=== PATIENT | female | born 1945 | race Caucasian/White ===

== ENCOUNTER 2017-09-05 17:14 | Emergency (ER) | payer OTHER ==
[~2017-09-05] VITALS: Ht 167.6 cm; Wt 88.4 kg
[~2017-09-05 17:14] MED LIST: BUPR-79 PO; LISI-461 PO; MIRT15TA2 PO
[2017-09-05] MEDS ORDERED: ACETAMINOPHEN 500 MG TAB PO STA (17:21)
[2017-09-05 17:23] VITALS: TEMP 36.7; Ht 167.6 cm; Wt 88.4 kg
--- NOTE | 2017-09-05 17:29 | EMERGENCY ROOM VISIT NOTE ---
History Report prepared by Samuel: Trip Jordan Under the Supervision of: Dr. Maximo Naylor D.O. First contact with patient: 17:12 Stated Complaint: BACK & HIP PAIN, FALL History of Present Illness The patient is a 72 year old female who presents to the Emergency Room with complaints of lower back pain that began this afternoon. At this time, the patient experienced a fall. She called EMS to be evaluated at her home. She refused to go to the hospital at that time. Thirty minutes ago, EMS was called back to her home for pain. She does not remember why EMS was called and was rating her pain a 10/10 in severity. Upon arrival to the hospital, she is complaining of lower back pain that she rates a 6/10 in severity. Per EMS, there have been problems in the past where the patient would complain of generalized pain that she would try to receive pain medication for. She would then give these medications to her boyfriend. She denies any head trauma, loss of consciousness, headache, chest pain, abdominal pain, shortness of breath, or other abnormal symptoms. Her back pain worsens with movement. She has not taken any medications for her pain and has no known medication allergies. Source of History: patient Onset: this afternoon Position: back (lower) Symptom Intensity: 6/10 Quality: ache Timing: constant Modifying Factors (Worsening): movement Associated Symptoms: No LOC, No headache, No chest pain, No SOB, No abdominal pain Review of Systems See HPI for pertinent positives & negatives. A total of 10 systems reviewed and were otherwise negative. Past Medical & Surgical Medical Problems: (1) Dysthymic disorder (2) Pyelonephritis (3) Renal calculus, left (4) Renal colic Surgical Problems: (1) H/O eye surgery (2) History of tonsillectomy (3) History of tubal ligation Family History Cancer Social History Smoking Status: Former Smoker Drug Use: none Marital Status: in relationship Occupation Status: unemployed Current/Historical Medications Scheduled Carbamazepine (Tegretol), 200 MG PO DAILY Sertraline (Zoloft), 100 MG PO DAILY Allergies Coded Allergies: No Known Allergies (Unverified , 09/05/17) Physical Exam Vital Signs Date Time Temp Pulse Resp B/P (MAP) Pulse Ox O2 Delivery O2 Flow Rate FiO2 09/05/17 19:37 82 18 156/102 96 09/05/17 17:23 36.7 90 18 151/102 96 Room Air Physical Exam GENERAL: Patient is awake, alert, and in no acute distress. Patient is resting comfortably and showing no signs of anxiety EYES: The conjunctivae are clear. The pupils are round and reactive. EARS, NOSE, MOUTH AND THROAT: The nose is without any evidence of any deformity. Mucous membranes are moist tongue is midline NECK: The neck is nontender and supple. RESPIRATORY: Normal respiratory effort is noted there is no evidence of wheezing rhonchi or rales CARDIOVASCULAR: Regular rate and rhythm noted there no murmurs rubs or gallops normal S1 normal S2 GASTROINTESTINAL: The abdomen is soft. Bowel sounds are present in all quadrants. Abdomen is nontender BACK: Lower lumbar spine has tenderness to palpation, right greater than left. ROM appeared to be intact. MUSCULOSKELETAL/EXTREMITIES: There is no evidence of gross deformity full range of motion is noted in the hips and shoulders SKIN: Pedal edema bilaterally. There is no obvious evidence of any rash. There are no petechiae, pallor or cyanosis noted. NEUROLOGIC: Patient is awake alert and oriented x3 strength is symmetric patellar reflexes are 2+ bilaterally Medical Decision & Procedures ER Provider Diagnostic Interpretation: Radiology results as stated below per my review and radiologist interpretation: PELVIS 1 OR 2 VIEW ROUTINE CLINICAL HISTORY: fall pain COMPARISON: None. DISCUSSION: Mild degenerative changes throughout. No acute bony abnormality. No acetabular protrusion. There is no evidence for soft tissue swelling. IMPRESSION: Mild degenerative change. No acute process. The above report was generated using voice recognition software. It may contain grammatical, syntax or spelling errors. Electronically signed by: Puneet Weiner M.D. 09/05/2017 6:20 PM Dictated Date/Time: 09/05/2017 6:19 PM L-SPINE MIN 4 VIEWS ROUTINE HISTORY: Trauma. Pain. fall COMPARISON: 06/11/2016 FINDINGS: Old compression deformity L1. Degenerative changes of the remaining osseous structures throughout. Degenerative disc changes throughout. No additional acute bony abnormality. Moderate degenerative change sacroiliac joints. No subluxation. Disc spaces are preserved. IMPRESSION: Degenerative change. Old compression deformity L1. No acute process. The above report was generated using voice recognition software. It may contain grammatical, syntax or spelling errors. Electronically signed by: Puneet Weiner M.D. 09/05/2017 6:22 PM Dictated Date/Time: 09/05/2017 6:20 PM Laboratory Results Test 09/05/17 18:20 Urine Color YELLOW Urine Appearance CLOUDY (CLEAR) Urine pH 7.5 (4.5-7.5) Urine Specific Bantam 1.020 (1.000-1.030) Urine Protein NEG (NEG) Urine Glucose (UA) NEG (NEG) Urine Ketones NEG (NEG) Urine Occult Blood NEG (NEG) Urine Nitrite NEG (NEG) Urine Bilirubin NEG (NEG) Urine Urobilinogen NEG (NEG) Urine Leukocyte Esterase SMALL (NEG) Urine WBC (Auto) 10-30 /hpf (0-5) Urine RBC (Auto) 0-4 /hpf (0-4) Urine Hyaline Casts (Auto) 5-10 /lpf (0-5) Urine Epithelial Cells (Auto) >30 /lpf (0-5) Urine Bacteria (Auto) NEG (NEG) Urine Renal Epithelial Cells 5-10 /lpf (0-5) Urine Yeast (Auto) (NONE PRSENT) Laboratory results per my review. Medications Administered Medications (Trade) Dose Ordered Sig/Reynaldo Route Start Time Stop Time Status Last Admin Dose Admin Acetaminophen (Tylenol Tab) 1,000 mg NOW STAT PO 09/05/17 17:21 09/05/17 17:22 DC 09/05/17 17:34 1,000 MG ED Course 1712: The patient was evaluated in room B7. A complete history and physical examination were performed. 1721: Ordered Tylenol Tab 1000 mg PO 1930: Upon reevaluation, the patient is resting. I discussed the results and treatment plan with her. She verbalized agreement of the treatment plan. She was discharged home. Medical Decision Differential diagnosis: Etiologies such as fracture, dislocation, intra-abdominal, pneumothorax, intrathoracic , intracranial, neurologic, as well as other traumatic pathologies were entertained. Nursing notes reviewed. The patient is a 72-year-old female who presented to emergency department for an evaluation after fall. Patient had a fall earlier today. The ambulance was called to her home but initially she refused transport. She returns tonight after having worsening symptoms. I discussed the patient's laboratory and radiographic studies with her. She was treated with pain medication in the emergency department. She was encouraged to rest and avoid any strenuous activity. She was also encouraged to call family to schedule follow-up appointment. Otherwise she was encouraged to return to the emergency department immediately if symptoms change worsen or the need arises. [place] Drug Monitoring Program Search Results: patient reviewed within database Medication Reconcilliation Current Medication List: was personally reviewed by me Blood Pressure Screening Patient's blood pressure: Elevated blood pressure Blood pressure disposition: Elevated BP felt to be situational Impression Primary Impression: Fall Additional Impression: Lumbar strain Scribe Attestation The scribe's documentation has been prepared under my direction and personally reviewed by me in its entirety. I confirm that the note above accurately reflects all work, treatment, procedures, and medical decision making performed by me. Departure Information Dispostion Home / Self-Care Referrals Vannesa Carrizales M.D. (PCP) Forms HOME CARE DOCUMENTATION FORM, IMPORTANT VISIT INFORMATION Patient Instructions ED Sprain Strain Lumbar, Falls Prevent Home, My [facility] Additional Instructions Call your family in the morning to schedule a follow-up appointment. Rest and avoid any strenuous activity. Continue using Motrin and Tylenol as directed for pain. Problem Qualifiers
[2017-09-05] MEDS ORDERED: SERT-234 PO (17:37)
[2017-09-05] MEDS ORDERED: CARB200T PO (17:37)
--- NOTE | 2017-09-05 18:21 | DIAGNOSTIC IMAGING REPORT ---
PELVIS 1 OR 2 VIEW ROUTINE CLINICAL HISTORY: fall pain COMPARISON: None. DISCUSSION: Mild degenerative changes throughout. No acute bony abnormality. No acetabular protrusion. There is no evidence for soft tissue swelling. IMPRESSION: Mild degenerative change. No acute process. The above report was generated using voice recognition software. It may contain grammatical, syntax or spelling errors. Electronically signed by: Puneet Weiner M.D. 09/05/2017 6:20 PM Dictated Date/Time: 09/05/2017 6:19 PM
--- NOTE | 2017-09-05 18:23 | DIAGNOSTIC IMAGING REPORT ---
L-SPINE MIN 4 VIEWS ROUTINE HISTORY: Trauma. Pain. fall COMPARISON: 06/11/2016 FINDINGS: Old compression deformity L1. Degenerative changes of the remaining osseous structures throughout. Degenerative disc changes throughout. No additional acute bony abnormality. Moderate degenerative change sacroiliac joints. No subluxation. Disc spaces are preserved. IMPRESSION: Degenerative change. Old compression deformity L1. No acute process. The above report was generated using voice recognition software. It may contain grammatical, syntax or spelling errors. Electronically signed by: Puneet Weiner M.D. 09/05/2017 6:22 PM Dictated Date/Time: 09/05/2017 6:20 PM
[2017-09-05 18:53] LABS: URINE APPEARANCE CLOUDY (CLEAR); URINE BILIRUBIN NEG (NEG); URINE COLOR YELLOW; URINE EPITHELIAL CELL AUTO >30 /lpf (0-5); URINE NITRITE NEG (NEG); URINE PH 7.5 (4.5-7.5); UROBILINOGEN NEG (NEG)
[2017-09-05 18:54] LABS: MANUAL MICROSCOPIC REQUIRED? NO; REVIEW REQ? YES
[2017-09-05 19:37] VITALS: BP 156/102; PULSE 82; O2SAT 96
== END 2017-09-05 19:39 | disposition home or self-care (01) ==
LOC: EDBD 17:14 → C.EDB 17:16
DX: S39.012A Strain of muscle, fascia and tendon of lower back, initial encounter (principal); W19.XXXA Unspecified fall, initial encounter; F34.1 Dysthymic disorder; Z87.891 Personal history of nicotine dependence; Z80.9 Family history of malignant neoplasm, unspecified

== ENCOUNTER 2018-02-19 15:41 | Emergency (ER) | payer OTHER ==
[~2018-02-19] VITALS: Ht 167.6 cm; Wt 88.0 kg
[~2018-02-19 15:41] MED LIST changes: -BUPR-79 PO; +CARB200T PO; -LISI-461 PO; -MIRT15TA2 PO; +SERT-234 PO
[2018-02-19 15:52] VITALS: BP 145/90; PULSE 80; TEMP 37.2; O2SAT 96; Ht 167.6 cm; Wt 88.0 kg
--- NOTE | 2018-02-19 16:13 | EMERGENCY ROOM VISIT NOTE ---
History Report prepared by Samuel: Amanda Martines Under the Supervision of: Dr. Luca Qureshi M.D. First contact with patient: 16:00 Chief Complaint: SHORTNESS OF BREATH Stated Complaint: SOB, ANXIETY Nursing Triage Summary: Patient arrives via BLS from home. PT stated "I woke up recently and felt SOB and anxious. I recently had a friend/family member pass away and I am a nervous wreck." PT stated "I feel much better now and just want to go home. 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 She notes that one of her friends recently and this was on her mind when she became SOB. She is unsure of how long her SOB lasted but feels much better now and would like to go home. She denies a cough, chest pain, congestion, or recent infections. She has been in baseline health lately. 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 A total of 10 systems reviewed and were otherwise negative. Past Medical & Surgical Medical Problems: (1) Dysthymic disorder (2) Pyelonephritis (3) Renal calculus, left (4) Renal colic Surgical Problems: (1) H/O eye surgery (2) History of tonsillectomy (3) History of tubal ligation Family History Cancer Social History Smoking Status: Never Smoker Drug Use: none Marital Status: in relationship Occupation Status: unemployed Current/Historical Medications Scheduled Carbamazepine (Tegretol), 200 MG PO DAILY Sertraline (Zoloft), 100 MG PO DAILY Allergies Coded Allergies: No Known Allergies (Unverified , 02/19/18) Physical Exam Vital Signs Date Time Temp Pulse Resp B/P (MAP) Pulse Ox O2 Delivery O2 Flow Rate FiO2 02/19/18 15:52 96 Room Air 02/19/18 15:52 96 Room Air 02/19/18 15:52 37.2 80 18 145/90 96 Room Air Physical Exam GENERAL: Patient is in no acute distress. HEENT: No acute trauma, normocephalic atraumatic, mucous membranes moist, no nasal congestion, no scleral icterus. NECK: No stridor, no adenopathy, no meningismus, trachea is midline. LUNGS: Clear to auscultation bilaterally, no wheeze, no rhonchi, breath sounds equal. HEART: Without murmurs gallops or rubs, regular rate and rhythm. ABDOMEN: Soft, nontender, bowel sounds positive, no hernias, no peritonitis. EXTREMITIES: No cyanosis or edema, full range of motion of all the joints without pain or difficulty, no signs for acute trauma. NEUROLOGIC: Oriented x 3, no acute motor or sensory deficits, no focal weakness. SKIN: No rash, no jaundice, no diaphoresis. PSYCH: Cooperative, voluntary, does not seem anxious, not suicidal Medical Decision & Procedures ED Course 1603: The patient was evaluated in room C11. A complete history and physical exam was performed. 1610: Reevaluated the patient. Discussed results and discharge instructions: She verbalized understanding and agreement. The patient is ready for discharge. Medical Decision Differential diagnosis: Etiologies such as anxiety, panic, pneumonia, bronchitis, cardiac ischemia, dysrhythmia, arrhythmia, ME, as well as others were entertained. The patient presents with an episode of shortness of breath which has resolved prior to arrival. She has been in baseline health. She has not had chest pain or cough or congestion. No fever. She does carry a history of anxiety. She was thinking about a friend who just and then became short of breath. Since arriving in the ER, she feels back to baseline and actually would like to be discharged home. On exam, the patient's lungs are clear, her heart sounds are regular without murmurs. Her O2 saturation is adequate, her heart rate is adequate, her blood pressure is adequate. She has really no findings on exam, she is not suicidal and no longer seems anxious. The patient was discharged, she can return if worsening. This appears like an episode of anxiety related to the of her friend. Medication Reconcilliation Current Medication List: was personally reviewed by me Blood Pressure Screening Patient's blood pressure: Elevated blood pressure Blood pressure disposition: Elevated BP felt to be situational Impression Primary Impression: SOB (shortness of breath) Additional Impression: Anxiety Scribe Attestation The scribe's documentation has been prepared under my direction and personally reviewed by me in its entirety. I confirm that the note above accurately reflects all work, treatment, procedures, and medical decision making performed by me. Departure Information Dispostion Home / Self-Care Referrals Vannesa Carrizales M.D. (PCP) Forms HOME CARE DOCUMENTATION FORM, IMPORTANT VISIT INFORMATION Patient Instructions My [facility] Additional Instructions return if worsening or have chest pain exam today was normal heart and lungs were normal oxygen level and heart rate were normal Problem Qualifiers
== END 2018-02-19 16:15 | disposition home or self-care (01) ==
LOC: EDBD 15:41 → C.EDC 15:42
DX: F41.9 Anxiety disorder, unspecified (principal); R03.0 Elevated blood-pressure reading, without diagnosis of hypertension; Z79.899 Other long term (current) drug therapy

== ENCOUNTER 2018-05-28 05:06 | Emergency (ER) | payer OTHER ==
[~2018-05-28] VITALS: Ht 162.6 cm; Wt 90.0 kg
[2018-05-28 05:09] VITALS: TEMP 36.7; Ht 162.6 cm; Wt 90.0 kg
--- NOTE | 2018-05-28 05:17 | EMERGENCY ROOM VISIT NOTE ---
History Report prepared by Samuel: Lex Espinal Under the Supervision of: Dr. Radha Rivera D.O. First contact with patient: 05:07 Stated Complaint: SHORTNESS OF BREATH History of Present Illness The patient is a 73 year old female who presents to the Emergency Room with complaints of an episode of SOB beginning this morning. The patient states that her SOB began this morning when she woke up on her own. She notes that she felt SOB when she was sitting up but she reports that she is unsure if her SOB woke her up. The patient states that she felt fine before she went to bed. She notes that she does not currently feel SOB, but she reports that she "feels scared." She reports that her legs are swollen. She denies any CP, cough, abdominal pain , and recent car rides. She also denies starting any new medications. The patient states that she lives alone and might have "gotten worked up." She notes that her boyfriend moved out a few months ago. She reports that she has a previous history of pneumonia when she was a child. The patient states that she does not smoke cigarettes. Source of History: patient Onset: this morning Position: chest Quality: other (SOB) Timing: other (an episode) Associated Symptoms: No cough, No chest pain, No abdominal pain Note: The patient also complains of swollen legs. Review of Systems See HPI for pertinent positives & negatives. A total of 10 systems reviewed and were otherwise negative. Past Medical & Surgical Medical Problems: (1) Dysthymic disorder (2) Pyelonephritis (3) Renal calculus, left (4) Renal colic Surgical Problems: (1) H/O eye surgery (2) History of tonsillectomy (3) History of tubal ligation Family History Cancer Social History Smoking Status: Never Smoker Drug Use: none Marital Status: in relationship Housing Status: lives alone Occupation Status: retired Current/Historical Medications Scheduled Carbamazepine (Tegretol), 200 MG PO DAILY Sertraline (Zoloft), 100 MG PO DAILY Allergies Coded Allergies: No Known Allergies (Unverified , 05/28/18) Physical Exam Vital Signs Date Time Temp Pulse Resp B/P (MAP) Pulse Ox O2 Delivery O2 Flow Rate FiO2 05/28/18 06:16 76 18 166/102 97 Room Air 05/28/18 05:25 77 05/28/18 05:09 36.7 74 18 171/116 95 Room Air 05/28/18 05:09 95 Room Air Physical Exam HEENT: Head - normocephalic and atraumatic Pupils are equal, round, and reactive to light. Extraocular eye muscles are intact, and sclera are anicteric. Nose - moist nasal mucosa without discharge. Mouth - moist buccal mucosa. Oropharynx is nonerythematous and there is no tonsillar exudate or edema noted. Neck: Supple; no JVD, nuchal rigidity, cervical lymphadenopathy, or auscultated bruits. Heart: Regular rate and rhythm. There is a normal S1 and S2 with no murmurs, clicks, or gallops appreciated. Lungs: Clear to auscultation bilaterally with no wheezes, rales, or rhonchi. Abdomen: Soft, completely nontender, nondistended, with good bowel sounds. There are no palpable pulsatile masses or hepatosplenomegaly. There is no guarding, rigidity, or rebound noted. Extremities: No evidence of cyanosis and clubbing. There are easily palpable peripheral pulses. 2+ pitting edema in both legs. Skin: warm and dry with good turgor and no rashes. Medical Decision & Procedures ER Provider Diagnostic Interpretation: Radiology results as stated below per my review and interpretation: CHEST X-RAY: Borderline cardiomegaly. No obvious pulmonary consolidations or infiltrates. Mild chronic interstitial thickening. Unchanged from previous chest x-ray in 2016. Radiology results as stated below per my review and the radiologist's interpretation: CT ANGIOGRAM OF THE CHEST FINDINGS: No pathologically enlarged axillary mediastinal or hilar lymph nodes were visualized. There was no evidence of thoracic aortic dilatation. There were no pulmonary artery filling defects to indicate acute pulmonary embolism. No pleural effusions are visualized. There was no evidence of focal pulmonary consolidation. 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 There is a hiatal hernia. IMPRESSION: 1. No evidence of acute pulmonary embolism 2. Tracheomalacia 3. No evidence of focal pulmonary consolidation Electronically signed by: Sam Lazo M.D. 05/28/2018 6:52 AM Laboratory Results 05/28/18 05:20 Red Blood Count 4.12, Mean Corpuscular Volume 92.5, Mean Corpuscular Hemoglobin 30.1, Mean Corpuscular Hemoglobin Concent 32.5, Mean Platelet Volume 10.4, Neutrophils (%) (Auto) 47.8, Lymphocytes (%) (Auto) 42.1, Monocytes (%) (Auto) 5.5, Eosinophils (%) (Auto) 4.2, Basophils (%) (Auto) 0.2, Neutrophils # (Auto) 2.87, Lymphocytes # (Auto) 2.52, Monocytes # (Auto) 0.33, Eosinophils # (Auto) 0.25, Basophils # (Auto) 0.01 05/28/18 05:20 Test 05/28/18 05:20 White Blood Count 5.99 K/uL (4.8-10.8) Red Blood Count 4.12 M/uL (4.2-5.4) Hemoglobin 12.4 g/dL (12.0-16.0) Hematocrit 38.1 % (37-47) Mean Corpuscular Volume 92.5 fL (80-100) Mean Corpuscular Hemoglobin 30.1 pg (25-34) Mean Corpuscular Hemoglobin Concent 32.5 g/dl (32-36) Platelet Count 207 K/uL (130-400) Mean Platelet Volume 10.4 fL (7.4-10.4) Neutrophils (%) (Auto) 47.8 % Lymphocytes (%) (Auto) 42.1 % Monocytes (%) (Auto) 5.5 % Eosinophils (%) (Auto) 4.2 % Basophils (%) (Auto) 0.2 % Neutrophils # (Auto) 2.87 K/uL (1.4-6.5) Lymphocytes # (Auto) 2.52 K/uL (1.2-3.4) Monocytes # (Auto) 0.33 K/uL (0.11-0.59) Eosinophils # (Auto) 0.25 K/uL (0-0.5) Basophils # (Auto) 0.01 K/uL (0-0.2) RDW Standard Deviation 45.6 fL (36.4-46.3) RDW Coefficient of Variation 13.5 % (11.5-14.5) Immature Granulocyte % (Auto) 0.2 % Immature Granulocyte # (Auto) 0.01 K/uL (0.00-0.02) D-Dimer 750 ug/L FEU (0-500) Anion Gap 6.0 mmol/L (3-11) Est Creatinine Clear Calc Drug Dose 87.7 ml/min Estimated GFR () 103.9 Estimated GFR (Non- 89.6 BUN/Creatinine Ratio 16.0 (10-20) Calcium Level 7.9 mg/dl (8.5-10.1) Troponin I < 0.015 ng/ml (0-0.045) Pro-B-Type Natriuretic Peptide 316 pg/ml (0-900) Laboratory results per my review. ECG Per My Interpretation Indication: SOB/dyspnea Rate (beats per minute): 74 Rhythm: normal sinus Findings: no ectopy, other (No ischemia, no ST segment changes) ED Course 0508: The patient was evaluated in room B4. A complete history and physical examination were performed. Nursing notes and previous electronic medical records were reviewed. IV lock was established and labs were drawn as above. A 12-lead EKG was obtained. A chest x-ray was performed and was unremarkable. 0607: The patient's blood pressure is 183/105.. The patient had an elevated d- dimer. She went for a CT scan of the chest to rule out PE. 0626: I reevaluated and updated the patient. 0658: Upon reevaluation, the patient is stable. I discussed findings and results with her. She verbalized agreement of the treatment plan. The patient is feeling much better at this time and admits that she may have just had anxiety which caused her to feel short of breath. She states that her boyfriend moved out about 1 month ago and she misses him. I have asked the patient to follow-up with her PCP with regards to her blood pressure and if she has further episodes of shortness of breath. The patient was discharged home. Medical Decision The patient is a 73 year old female who presents to the Emergency Room with complaints of an episode of SOB beginning this morning. Differential diagnoses include: PE, CHF, pneumonia, and anxiety. Lab Results Show: No leukocytosis. Stable H&H. Normal renal function and glucose. Normal BNP and troponin. D dimer 750. This is a 73-year-old female patient presents to the emergency department with a sudden onset of shortness of breath. Chest x-ray was unremarkable. O2 saturations are stable. She had no associated chest pain. She had negative cardiac enzymes and negative BNP. CT scan of the chest was negative for PE. The patient is feeling well at the time of discharge. This may have been related to anxiety. Medication Reconcilliation Current Medication List: was personally reviewed by me Blood Pressure Screening Patient's blood pressure: Elevated blood pressure Blood pressure disposition: Referred to PCP Impression Primary Impression: Shortness of breath Additional Impression: Anxiety Scribe Attestation The scribe's documentation has been prepared under my direction and personally reviewed by me in its entirety. I confirm that the note above accurately reflects all work, treatment, procedures, and medical decision making performed by me. Departure Information Dispostion Home / Self-Care Referrals Vannesa Carrizales M.D. (PCP) Forms HOME CARE DOCUMENTATION FORM, IMPORTANT VISIT INFORMATION Patient Instructions [facility] Additional Instructions Follow up with your doctor if episode of shortness of breath continue. Follow up also to have your BP rechecked. Problem Qualifiers
[2018-05-28 05:40] LABS: BASO % 0.2 %; BASO ABS # 0.01 K/uL (0-0.2); EOS % 4.2 %; EOS ABS # 0.25 K/uL (0-0.5); HEMATOCRIT 38.1 % (37-47); HEMOGLOBIN 12.4 g/dL (12.0-16.0); IG# 0.01 K/uL (0.00-0.02); LYMPH % 42.1 %; LYMPH ABS # 2.52 K/uL (1.2-3.4); MEAN CELL VOLUME 92.5 fL (80-100); MEAN CORPUSCULAR HEMOGLOBIN 30.1 pg (25-34); MEAN CORPUSCULAR HGB CONC 32.5 g/dl (32-36); MEAN PLATELET VOLUME 10.4 fL (7.4-10.4); MONO % 5.5 %; MONO ABS # 0.33 K/uL (0.11-0.59); NEUT % 47.8 %; NEUT ABS # 2.87 K/uL (1.4-6.5); PLATELET COUNT 207 K/uL (130-400); RED CELL DISTRIBUTION WIDTH CV 13.5 % (11.5-14.5); RED CELL DISTRIBUTION WIDTH SD 45.6 fL (36.4-46.3); WHITE BLOOD COUNT 5.99 K/uL (4.8-10.8)
[2018-05-28 06:01] LABS: BLOOD UREA NITROGEN 10 mg/dl (7-18); CALCIUM 7.9 mg/dl (8.5-10.1); CARBON DIOXIDE 28 mmol/L (21-32); CREATININE 0.63 mg/dl (0.60-1.20); GLUCOSE 88 mg/dl (70-99); POTASSIUM 3.8 mmol/L (3.5-5.1); SODIUM 143 mmol/L (136-145)
[2018-05-28] MEDS ORDERED: OPTIRAY 320 IV PRN (06:30)
--- NOTE | 2018-05-28 06:39 | DIAGNOSTIC IMAGING REPORT ---
CHEST 2 VIEWS ROUTINE CLINICAL HISTORY: Shortness of breath COMPARISON STUDY: June 02, 2016 FINDINGS: The cardiac and mediastinal contours remain stable. There is a retrocardiac opacity consistent with a hiatal hernia. There is no failure. There is no focal pulmonary consolidation. There are no pleural effusions. There are peritendinous calcifications at the level of the left shoulder possibly secondary to calcific tendinitis.[ IMPRESSION: No active disease in the chest. Electronically signed by: Sam Lazo M.D. 05/28/2018 6:38 AM Dictated Date/Time: 05/28/2018 6:37 AM
--- NOTE | 2018-05-28 06:53 | DIAGNOSTIC IMAGING REPORT ---
CT ANGIOGRAM OF THE CHEST CLINICAL HISTORY: Atypical chest pain and shortness of breath. COMPARISON STUDY: Chest x-ray dated May 28, 2018 TECHNIQUE: Following the IV administration of 116 mL of Optiray-320, CT angiogram of the thorax was performed from the thoracic inlet to the lung bases utilizing the pulmonary embolus protocol. Images are reviewed in the axial, sagittal, and coronal planes. IV contrast was administered without complication. MIP imaging was performed. A dose lowering technique was utilized adhering to the principles of ALARA. CT DOSE: 483.27 mGy.cm FINDINGS: No pathologically enlarged axillary mediastinal or hilar lymph nodes were visualized. There was no evidence of thoracic aortic dilatation. There were no pulmonary artery filling defects to indicate acute pulmonary embolism. No pleural effusions are visualized. There was no evidence of focal pulmonary consolidation. 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 There is a hiatal hernia. IMPRESSION: 1. No evidence of acute pulmonary embolism 2. Tracheomalacia 3. No evidence of focal pulmonary consolidation Electronically signed by: Sam Lazo M.D. 05/28/2018 6:52 AM Dictated Date/Time: 05/28/2018 6:48 AM
[2018-05-28 07:22] VITALS: BP 147/98; PULSE 73; O2SAT 95
== END 2018-05-28 07:24 | disposition home or self-care (01) ==
LOC: C.EDB 05:06 → EDBD 05:06 → C.EDB 07:24
DX: R06.02 Shortness of breath (principal); F41.9 Anxiety disorder, unspecified; R79.1 Abnormal coagulation profile; R03.0 Elevated blood-pressure reading, without diagnosis of hypertension; F34.1 Dysthymic disorder

== ENCOUNTER 2020-09-21 13:19 | Inpatient (IN) ==
[2020-09-21] MEDS ORDERED: SODIUM CHLORIDE 0.9% 500 ML IV ONE (14:18)
--- NOTE | 2020-09-21 14:23 | Emergency Department Note ---
Impression & Plan Ambulatory dysfunction, Altered mental status, Dementia ED Provider Note NAME: SILVANO ZULETA AGE: 75 SEX: F ARRIVES VIA: Walk-In INFORMANT: Patient, ED PROVIDER(S): Mark Bowens MD CHIEF COMPLAINT: Generalized weakness, confusion PLAN: Disposition: Admit MEDICAL DECISION MAKING: The patient is a 75-year-old woman with a past medical history of dementia, dysthymic disorder who presents emerge department accompanied by [facility] residential case manager for evaluation of worsening confusion and generalized weakness with 2 episodes where she was found in the morning on the ground by her home nursing. The patient is accompanied by her residential case manager and describes her concern that the patient does live alone within their facility and while she has daily nursing care they are not there at all hours and she is concerned that her mental status and strength has declined now with 2 unwitnessed on clear falls and does not feel that she is safe in her current circumstances. They additionally note that the patient has not been taking care of herself and will not perform self hygiene and despite being prescribed antifungal medications she does not dose this in the evening and this is worsened. He also notes she has had increasing lower extremity swelling as well. They deny any known cough, fevers, vomiting, diarrhea, urinary symptoms. On arrival the patient is in no acute distress, afebrile stable vital signs. She is alert to self and place but poorly aware of situation. Despite repeated attempts to describe the concerns that exist regarding her safety at home including frequent falls and lack of self-care when we repeatedly asked the patient what we are concerned about she replies "I do not know I want to go home". Despite repeated attempts to allow the patient to demonstrate capacity she is unable to express even simply in her own words are concerns for her safety and risks of benefits of going against medical recommendations. Therefore at this time the patient is considered to NOT have medical decision-ma reg capacity. Unfortunately the patient does not have any family or alternate decision-maker and this will need to be further clarified during a hospitalization given that she is severely weak where she is unable to ambulate without 2 person assist. Otherwise, No focal motor neurologic deficits and is moving all extremities equally albeit with generalized weakness with 4/5 strength. Her abdomen Lower abdomen/pannus exhibits a beefy red erythematous rash consistent with yeast dermatitis. No warmth, tenderness, crepitus. EKG without overt acute ischemia. Chest x-ray negative for acute card iopulmonary process. WBC, H/H and platelets within normal limits. Chemistry without metabolic acidosis. Calcium is slightly low at 7.0 and electrolytes otherwise unremarkable. Troponin negative/undetectable. UA without evidence of infection. COVID-19 rapid antigen screening test was negative. CT of the head demonstrates stable severe hydrocephalus. Otherwise no ICH, ischemia or severe narrowing or occlusion of large vessels. Case was discussed with [facility] PAC, [facility] who will evaluate the patient for admission. Triage Nursing notes reviewed and agree them. Additional history obtained from patient's residential case manager. Prior medical records reviewed Vital Signs: reviewed and remarkable for no significant abnormalities Differential diagnosis: Infection, dehydration, metabolic abnormality, hypo/hyperglycemia, electrolyte disturbance, anemia, hypoxia, cardiac sources, intracerebral event, toxicologic, neurologic, as well as other pathologies. ER treatment provided: See below. Diagnostics interpreted by me: ECG: Sinus rhythm, 81 bpm, no ectopy, nonspecific ST abnormality, no overt ST elevation or depression, QTC 504, QRS 76. Cardiac Monitoring: An order for continuous cardiac monitoring was placed and demonstrated sinus rhythm, 81 bpm, no ectopy. Laboratory studies: See below Imaging studies: XR chest 1V portable CLINICAL HISTORY: Atypical chest pain COMPARISON STUDY: 10/17/2019 FINDINGS: The heart is mildly enlarged. There is mild chronic interstitial prominence. A small hiatal hernia is suspected. There is no acute parenchymal consolidation. There is no overt failure. There are no pleural effusions.[ IMPRESSION: 1. Stable mild cardiomegaly. No acute findings. - CT head/brain wo con CLINICAL HISTORY: confusion, weakness COMPARISON STUDY: 02/07/2019 TECHNIQUE: Axial CT of the brain is performed from the vertex to the skull base. IV contrast was not administered for this examination. A dose lowering technique was utilized adhering to the principles of ALARA. CT DOSE: 1893.60 mGycm FINDINGS: No intra or extra-axial mass lesions are visualized. There is no CT evidence of acute cortical infarction. There is no evidence of midline shift. There is no acute hemorrhage. No calvarial fractures are visualized. There is severe hydrocephalus similar to the preceding study. 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 There is no evidence of acute sinusitis IMPRESSION: 1. No acute intracranial findings 2. Severe hydrocephalus, unchanged from the prior study. -- CT ANGIOGRAM OF THE BRAIN; CT ANGIOGRAM OF THE NECK CLINICAL HISTORY: Change in mental status. Weakness. COMPARISON STUDY: Unenhanced CT of the brain performed the same day 09/21/[address] of the brain dated 02/07/2019. TECHNIQUE: Following the IV administration of 120 of Optiray 320, CT angiogram of the head and neck was performed from the aortic arch to the vertex. Images a re reviewed in the axial, sagittal, and coronal planes. 3-D MIPS images are created and assessed. IV contrast was administered without complication. All measurements were calculated based on NASCET criteria. A dose lowering technique was utilized adhering to the principles of ALARA. The examination is modestly degraded by motion artifact. CT DOSE: 1223.61 mGycm FINDINGS: Brain parenchyma: There is marked ventriculomegaly consistent with hydrocephalus and associated cortical atrophy. This is similar to prior studies. There is no hemorrhage, mass effect, or evidence of acute territorial ischemia by CT criteria. There is no evidence of enhancing mass lesion on the angiogram phase images. There is marked dilatation of the lateral ventricles and the third ventricle out of proportion to the cortical sulci and cisterns. Pop-white matter differentiation is preserved. No extra-axial fluid collection is seen. Thoracic aorta: Visualized portions of the thoracic aorta are normal in caliber. The aortic arch demonstrates bovine variant anatomy. Right carotid arterial system: The right common carotid artery is widely patent, as are the right internal and external carotid arteries. Left carotid arterial system: The left common carotid artery is widely patent, as are the left internal and external carotid arteries. Vertebral arteries: The vertebral arteries are widely patent bilaterally noting left-sided dominance. Subclavian arteries: Widely patent bilaterally. Intracranial vasculature: The internal carotid arteries are patent at the skull base, as are the anterior and middle cerebral arteries bilaterally. The vertebrobasilar system and posterior cerebral arteries are widely patent. The left vertebral artery is dominant. The right vertebral artery terminates as the PICA. There is no aneurysm, high-grade stenosis, or focal vessel cut off seen throughout the intracranial circulation. Jugular veins: Patent bilaterally. Dural sinuses: Patent. Lung apices: Partially visualized upper lobe lung parenchyma appears clear. Soft tissues: The visualized pharyngeal soft tissues are normal in appearance noting angiographic phase technique. The oropharyngeal airway appears widely patent. The thyroid gland is heterogeneous. The salivary glands are normal in appearance. No cervical lymphadenopathy is seen. Skeletal structures: The skeletal structures are osteopenic. The calvarium appears intact. The cervical spine is maintained noting multilevel spondylosis. No lytic or blastic lesion is identified. Sinuses and mastoids: The paranasal sinuses are clear. The mastoid air cells are well pneumatized. IMPRESSION: 1. There is no hemorrhage, mass effect, or evidence of acute territorial ischemia by CT criteria noting angiographic phase technique. 2. Marked hydrocephalus is similar to previous. 3. Unremarkable CT angiogram of the brain. 3. Unremarkable CT angiogram of the neck. Consultation(s): Case was discussed with Dianelys Stoner, with Dr. Anh Ivory hospitalist who will evaluate the patient for admission. HPI: The patient is a 75-year-old woman with a past medical history of dementia, dysthymic disorder who presents emerge department accompanied by [facility] residential case manager for evaluation of worsening confusion and generalized weakness with 2 episodes where she was found in the morning on the ground by her home nursing. The patient is accompanied by her residential case manager and describes her concern that the patient does live alone within their facility and while she has daily nursing care they are not there at all hours and she is concerned that her mental status and strength has declined now with 2 unwitnessed on clear falls and does not feel that she is safe in her current circumstances. They additionally note that the patient has not been taking care of herself and will not perform self hygiene and despite being prescribed antifungal medications she does not dose this in the evening and this is worsened. He also notes she has had increasing lower extremity swelling as well. They deny any known cough, fevers, vomiting, diarrhea, urinary symptoms. ROS: See above HPI for pertinent positives & negatives. A total of 10 systems reviewed and were otherwise negative. PAST MEDICAL HISTORY:See Below PAST SURGICAL HISTORY:See Below FAMILY HISTORY:See Below SOCIAL HISTORY:See Below HOME MEDICATIONS:See Below ALLERGIES:See Below VITALS:See Below PHYSICAL EXAMINATION: GENERAL: Awake, alert, fatigued-appearing, in no distress HENT: Normocephalic, atraumatic. Oropharynx with dry mucous membranes and otherwise unremarkable. EYES: Normal conjunctiva. Sclera non-icteric. NECK: Supple. No nuchal rigidity. FROM. No JVD. RESPIRATORY: Clear to auscultation. CARDIAC: Regular rate, normal rhythm. Extremities warm and well perfused. Pulses equal. ABDOMEN: Soft, non-distended. No tenderness to palpation. No rebound or guarding. No masses. RECTAL: Deferred. MUSCULOSKELETAL: Chest examination reveals no tenderness. The back is s ymmetrical on inspection without obvious abnormality. There is no CVA tenderness to palpation. No joint edema. LOWER EXTREMITIES: Calves are equal size bilaterally and non-tender. Scant BLE edema. No discoloration. NEURO: Normal sensorium. No sensory or motor deficits noted. SKIN: Lower abdomen/pannus with beefy red erythematous rash consistent with yeast dermatitis. No warmth, tenderness, crepitus. No jaundice noted. Mark Bowens MD Past Med/Surg History Medical History Anxiety Chronic venous stasis Congenital hydrocephalus MDD (major depressive disorder) Surgical History H/O eye surgery "Strabismus Surgery" History of tonsillectomy History of tubal ligation Hx of tonsillectomy Family History Other Cancer Diabetes Social History Smoking Status: Never smoker Hx Alcohol Use: Yes Alcohol type: hard liquor Hx Substance Use: No Preferred Language: Frisian Communication Ability: Effective Beliefs That Will Affect Care: None Current Living Situation: Alone Current Living Situation Comment: [facility] Palumbo comes to home Feels Safe at Home: Yes Safety Concerns: Feels Safe At This Time Assistive Devices: Glasses and Walker Allergies Allergies Allergy/AdvReac Type Severity Reaction Status Date / Time No Known Allergies Allergy Unverified 09/21/20 14:35 Home Meds Home Medications Medication Instructions Recorded Confirmed carbamazepine 200 mg PO BID 02/07/19 09/21/20 donepezil 10 mg PO DAILY 09/06/19 09/21/20 omeprazole 20 mg PO DAILY 10/12/19 09/21/20 clotrimazole-betamethasone 1 applic TOPICAL BID 09/21/20 09/21/20 furosemide 20 mg PO DAILY 09/21/20 09/21/20 sertraline 100 mg PO DAILY 09/21/20 09/21/20 Results & Data (ED) Vital Signs Vital Signs - 24 hr 09/21/20 13:36 09/21/20 14:08 09/21/20 15:19 Temperature 37 C Temperature Source Oral Pulse Rate 78 Pulse Rate [Right Finger] 79 Respiratory Rate 18 18 Respiratory Effort / Characteristics Non-Labored Non-Labored Spontaneous Respiratory Depth Normal Normal Respiratory Pattern Regular Blood Pressure 142/96 H Blood Pressure [Right Arm] 143/94 H Blood Pressure Mean 111 Blood Pressure Mean [Right Arm] 110 Blood Pressure Position [Right Arm] Sitting Pulse Oximetry 96 94 95 Oxygen Delivery Method Room Air Room Air Room Air Sepsis Recent Fever Within 48 Hours No Sepsis New/Unexplained Change in Mental Status No Sepsis Action Taken by Nursing No Action Required 09/21/20 16:21 Temperature Temperature Source Pulse Rate Pulse Rate [Right Finger] 81 Respiratory Rate 18 Respiratory Effort / Characteristics Non-Labored Spontaneous Respiratory Depth Normal Respiratory Pattern Regular Blood Pressure Blood Pressure [Right Arm] 161/90 H Blood Pressure Mean Blood Pressure Mean [Right Arm] 113 Blood Pressure Position [Right Arm] Sitting Pulse Oximetry 95 Oxygen Delivery Method Room Air Sepsis Recent Fever Within 48 Hours Sepsis New/Unexplained Change in Mental Status Sepsis Action Taken by Nursing Laboratory Data Attestation: I reviewed the patient's lab results. Result diagrams: 09/21/20 14:54 09/21/20 14:54 Lab Results 09/21/20 09/21/20 09/21/20 Range/Units 14:18 14:54 14:54 WBC 10.03 (4.8-10.8) K/uL RBC 3.94 L (4.2-5.4) M/uL Hgb 12.1 (12.0-16.0) g/dL Hct 37.8 (37-47) % MCV 95.9 (80-100) fL MCH 30.7 (25-34) pg MCHC 32.0 (32-36) g/dL RDW Std Deviation 47.9 H (36.4-46.3) fL RDW Coeff of Virgilio 13.7 (11.5-14.5) % Plt Count 284 (130-400) K/uL MPV 10.0 (7.4-10.4) fL Immature Gran % (Auto) 0.1 % Neut % (Auto) 77.7 % Lymph % (Auto) 13.3 % [place] % (Auto) 8.0 % Eos % (Auto) 0.8 % Baso % (Auto) 0.1 % Neut # (Auto) 7.80 H (1.4-6.5) K/uL Lymph # (Auto) 1.33 (1.2-3.4) K/uL [place] # (Auto) 0.80 H (0.11-0.59) K/uL Eos # (Auto) 0.08 (0-0.5) K/uL Baso # (Auto) 0.01 (0-0.2) K/uL Immature Gran # (Auto) 0.01 (0.00-0.02) K/uL PT 10.7 (9.0-12.0) Seconds INR 1.0 (0.9-1.1) APTT 28.9 (21.0-31.0) Seconds PTT Ratio 1.0 Sodium (136-145) mmol/L Potassium (3.5-5.1) mmol/L Chloride (98-107) mmol/L Carbon Dioxide (21-32) mmol/L Anion Gap (3-11) BUN (7-18) mg/dl Creatinine (0.6-1.2) mg/dl Est Cr Clr Drug Dosing ml/min Est GFR ( Amer) Est GFR (Non-Af Amer) BUN/Creatinine Ratio (10-20) Glucose (70-99) mg/dl Calcium (8.5-10.1) mg/dl Phosphorus (2.5-4.9) mg/dl Magnesium (1.8-2.4) mg/dl Total Bilirubin (0.2-1) mg/dl Direct Bilirubin (0-0.2) mg/dl AST (15-37) U/L ALT (12-78) U/L Alkaline Phosphatase (45-117) U/L Troponin I (0-0.045) ng/ml Total Protein (6.4-8.2) gm/dl Albumin (3.4-5.0) gm/dl Globulin (2.5-4.0) gm/dl Albumin/Globulin Ratio (0.9-2) Lipase (73-393) U/L TSH (0.300-4.500) uIu/ml Urine Color Urine Appearance (Clear) Urine pH (4.5-7.5) Ur Specific [place] (1.000-1.030) Urine Protein (Negative) Urine Glucose (UA) (Negative) Urine Ketones (Negative) Urine Blood (Negative) Urine Nitrite (Negative) Urine Bilirubin (Negative) Urine Urobilinogen (Negative) Ur Leukocyte Esterase (Negative) Carbamazepine (4-12) mcg/ml SARS-CoV-2 Ag (Rapid) Negative (Negative) 09/21/20 09/21/20 09/21/20 Range/Units 14:54 14:54 16:22 WBC (4.8-10.8) K/uL RBC (4.2-5.4) M/uL Hgb (12.0-16.0) g/dL Hct (37-47) % MCV (80-100) fL MCH (25-34) pg MCHC (32-36) g/dL RDW Std Deviation (36.4-46.3) fL RDW Coeff of Virgilio (11.5-14.5) % Plt Count (130-400) K/uL MPV (7.4-10.4) fL Immature Gran % (Auto) % Neut % (Auto) % Lymph % (Auto) % [place] % (Auto) % Eos % (Auto) % Baso % (Auto) % Neut # (Auto) (1.4-6.5) K/uL Lymph # (Auto) (1.2-3.4) K/uL [place] # (Auto) (0.11-0.59) K/uL Eos # (Auto) (0-0.5) K/uL Baso # (Auto) (0-0.2) K/uL Immature Gran # (Auto) (0.00-0.02) K/uL PT (9.0-12.0) Seconds INR (0.9-1.1) APTT (21.0-31.0) Seconds PTT Ratio Sodium 143 (136-145) mmol/L Potassium 3.9 (3.5-5.1) mmol/L Chloride 106 (98-107) mmol/L Carbon Dioxide 33 H (21-32) mmol/L Anion Gap 4.0 (3-11) BUN 13 (7-18) mg/dl Creatinine 0.66 (0.6-1.2) mg/dl Est Cr Clr Drug Dosing 92.1 ml/min Est GFR ( Amer) 100.9 Est GFR (Non-Af Amer) 87.0 BUN/Creatinine Ratio 20.0 (10-20) Glucose 103 H (70-99) mg/dl Calcium 7.0 L (8.5-10.1) mg/dl Phosphorus 3.2 (2.5-4.9) mg/dl Magnesium 2.0 (1.8-2.4) mg/dl Total Bilirubin 0.4 (0.2-1) mg/dl Direct Bilirubin 0.1 (0-0.2) mg/dl AST 23 (15-37) U/L ALT 14 (12-78) U/L Alkaline Phosphatase 119 H (45-117) U/L Troponin I < 0.015 (0-0.045) ng/ml Total Protein 7.2 (6.4-8.2) gm/dl Albumin 3.2 L (3.4-5.0) gm/dl Globulin 4.0 (2.5-4.0) gm/dl Albumin/Globulin Ratio 0.8 L (0.9-2) Lipase 103 (73-393) U/L TSH 0.971 (0.300-4.500) uIu/ml Urine Color Yellow Urine Appearance Clear (Clear) Urine pH 8.0 H (4.5-7.5) Ur Specific [place] > 1.045 H (1.000-1.030) Urine Protein Negative (Negative) Urine Glucose (UA) Negative (Negative) Urine Ketones Trace H (Negative) Urine Blood Negative (Negative) Urine Nitrite Negative (Negative) Urine Bilirubin Negative (Negative) Urine Urobilinogen Negative (Negative) Ur Leukocyte Esterase Negative (Negative) Carbamazepine 7.5 (4-12) mcg/ml SARS-CoV-2 Ag (Rapid) (Negative) Administered Medications Betamethasone/Clotrimazole (Clotrimazole/Betamethasone Cr 15 Gm Tube) 1 appln EXT BID [facility] Stop: 10/21/20 21:59 Last Admin: 09/21/20 22:46 Dose: 1 appln Documented by: [id number] Calcium Carbonate (Calcium Carbonate 1250mg Tab) 1,250 mg PO BID [facility] Stop: 10/21/20 21:59 Last Admin: 09/21/20 22:46 Dose: 1,250 mg Documented by: [id number] Carbamazepine (Carbamazepine 200 Mg Tablet) 200 mg PO BID DANIELLA Stop: 10/21/20 21:59 Last Admin: 09/21/20 22:46 Dose: 200 mg Documented by: [id number] Heparin Sodium (Porcine) (Heparin Sod 5,000 Unit/0.5 Ml Vial) 7,500 units SQ Q8 DANIELLA Stop: 10/21/20 21:59 Last Admin: 09/21/20 22:45 Dose: 7,500 units Documented by: [id number] Discontinued Medications Sodium Chloride (Nss) 500 mls @ 999 mls/hr IV .Q31M ONE Stop: 09/21/20 14:48 Last Infusion: 09/21/20 15:43 Dose: 0 mls/hr Documented by: [id number] Admin: 09/21/20 15:10 Dose: 999 mls/hr Documented by: [id number] Ioversol (Optiray 320 125ml) 120 ml IV ONCE ONE Stop: 09/21/20 15:56 Last Admin: 09/21/20 15:56 Dose: 120 ml Documented by: [id number] Discharge Plan Visit Data Chief Complaint: Fall Stated Complaint: FELL/EDEMA IN LEGS ED Provider: Mark Bowens Discharge Problem: Ambulatory dysfunction, Altered mental status, Dementia Patient Disposition: Admitted As Inpatient Discharge Instructions Interventions: ED Discharge Assessment Last Done: 09/21/20 21:37 Discharge Problem: Altered mental status Qualifiers: Altered mental status type: unspecified Qualified Code(s): R41.82 - Altered mental status, unspecified Dementia Qualifiers: Dementia type: unspecified type Dementia behavioral disturbance: with behavioral disturbance Qualified Code(s): F03.91 - Unspecified dementia with behavioral disturbance
[2020-09-21 15:06] LABS: Basophils # (auto) 0.01 K/uL (0-0.2); Basophils % (auto) 0.1 %; Eosinophils # (auto) 0.08 K/uL (0-0.5); Eosinophils % (auto) 0.8 %; Hematocrit (blood only) 37.8 % (37-47); Hemoglobin 12.1 g/dL (12.0-16.0); Immature Granulocytes # (auto) 0.01 K/uL (0.00-0.02); Immature Granulocytes % (auto) 0.1 %; Lymphocytes # (auto) 1.33 K/uL (1.2-3.4); Lymphocytes % (auto) 13.3 %; Mean Corpuscular Hemoglobin 30.7 pg (25-34); Mean Corpuscular Volume 95.9 fL (80-100); Neutrophils % (auto) 77.7 %; Platelet Count 284 K/uL (130-400); RDW Coefficient of Variation 13.7 % (11.5-14.5); RDW Standard Deviation 47.9 fL (36.4-46.3); Red Blood Count 3.94 M/uL (4.2-5.4); White Blood Count 10.03 K/uL (4.8-10.8)
[2020-09-21 15:24] LABS: Alanine Aminotransferase 14 U/L (12-78); Albumin Level 3.2 gm/dl (3.4-5.0); Aspartate Aminotransferase 23 U/L (15-37); Bilirubin Direct 0.1 mg/dl (0-0.2); Blood Urea Nitrogen 13 mg/dl (7-18); Carbon Dioxide 33 mmol/L (21-32); Chloride 106 mmol/L (98-107); Creatinine Clr Calc Pharmacy 92.1 ml/min; Est GFR (African American) 100.9; Glucose 103 mg/dl (70-99); Lipase 103 U/L (73-393); Potassium 3.9 mmol/L (3.5-5.1); Sodium 143 mmol/L (136-145)
[2020-09-21 15:25] LABS: Partial Thromboplastin Time 28.9 Seconds (21.0-31.0); Prothrombin Time 10.7 Seconds (9.0-12.0)
[2020-09-21 15:33] LABS: Albumin Globulin Ratio 0.8 (0.9-2); Alkaline Phosphatase 119 U/L (45-117); Bilirubin,Total 0.4 mg/dl (0.2-1); Phosphorus 3.2 mg/dl (2.5-4.9); Thyroid Stimulating Hormone 0.971 uIu/ml (0.300-4.500); Total Protein 7.2 gm/dl (6.4-8.2); Troponin I < 0.015 ng/ml (0-0.045)
[2020-09-21] MEDS ORDERED: OPTIRAY 320 125ml IV ONE (15:55)
--- NOTE | 2020-09-21 16:00 | CT Scan Report ---
CT head/brain wo con CLINICAL HISTORY: confusion, weakness COMPARISON STUDY: 02/07/2019 TECHNIQUE: Axial CT of the brain is performed from the vertex to the skull base. IV contrast was not administered for this examination. A dose lowering technique was utilized adhering to the principles of ALARA. CT DOSE: 1893.60 mGycm FINDINGS: No intra or extra-axial mass lesions are visualized. There is no CT evidence of acute cortical infarc tion. There is no evidence of midline shift. There is no acute hemorrhage. No calvarial fractures ar e visualized. There is severe hydrocephalus similar to the preceding study. There is absence of the septum pellucid um, and interventricular septum.. There is no evidence of acute sinusitis IMPRESSION: 1. No acute intracranial findings 2. Severe hydrocephalus, unchanged from the prior study. ACT 112: Negative or not required by law. Electronically signed by: Sam Lazo M.D. 09/21/2020 3:58 PM
--- NOTE | 2020-09-21 16:08 | CT Scan Report ---
CT ANGIOGRAM OF THE BRAIN; CT ANGIOGRAM OF THE NECK CLINICAL HISTORY: Change in mental status. Weakness. COMPARISON STUDY: Unenhanced CT of the brain performed the same day 09/21/[address] of the brain d ated 02/07/2019. TECHNIQUE: Following the IV administration of 120 of Optiray 320, CT angiogram of the head and neck w as performed from the aortic arch to the vertex. Images are reviewed in the axial, sagittal, and joi nal planes. 3-D MIPS images are created and assessed. IV contrast was administered without complicati on. All measurements were calculated based on NASCET criteria. A dose lowering technique was utilize d adhering to the principles of ALARA. The examination is modestly degraded by motion artifact. CT DOSE: 1223.61 mGycm FINDINGS: Brain parenchyma: There is marked ventriculomegaly consistent with hydrocephalus and associated corti shar atrophy. This is similar to prior studies. There is no hemorrhage, mass effect, or evidence of ac flandre[place] territorial ischemia by CT criteria. There is no evidence of enhancing mass lesion on the angiogr am phase images. There is marked dilatation of the lateral ventricles and the third ventricle out of proportion to the cortical sulci and cisterns. Pop-white matter differentiation is preserved. No ext ra-axial fluid collection is seen. Thoracic aorta: Visualized portions of the thoracic aorta are normal in caliber. The aortic arch demo nstrates bovine variant anatomy. Right carotid arterial system: The right common carotid artery is widely patent, as are the right int ernal and external carotid arteries. Left carotid arterial system: The left common carotid artery is widely patent, as are the left healthcare administration internship al and external carotid arteries. Vertebral arteries: The vertebral arteries are widely patent bilaterally noting left-sided dominance. Subclavian arteries: Widely patent bilaterally. Intracranial vasculature: The internal carotid arteries are patent at the skull base, as are the ante rior and middle cerebral arteries bilaterally. The vertebrobasilar system and posterior cerebral gracie armando are widely patent. The left vertebral artery is dominant. The right vertebral artery terminates as the PICA. There is no aneurysm, high-grade stenosis, or focal vessel cut off seen throughout the i ntracranial circulation. Jugular veins: Patent bilaterally. Dural sinuses: Patent. Lung apices: Partially visualized upper lobe lung parenchyma appears clear. Soft tissues: The visualized pharyngeal soft tissues are normal in appearance noting angiographic pha se technique. The oropharyngeal airway appears widely patent. The thyroid gland is heterogeneous. The salivary glands are normal in appearance. No cervical lymphadenopathy is seen. Skeletal structures: The skeletal structures are osteopenic. The calvarium appears intact. The cervic al spine is maintained noting multilevel spondylosis. No lytic or blastic lesion is identified. Sinuses and mastoids: The paranasal sinuses are clear. The mastoid air cells are well pneumatized. IMPRESSION: 1. There is no hemorrhage, mass effect, or evidence of acute territorial ischemia by CT criteria noti ng angiographic phase technique. 2. Marked hydrocephalus is similar to previous. 3. Unremarkable CT angiogram of the brain. 3. Unremarkable CT angiogram of the neck. ACT 112: Negative or not required by law. Electronically signed by: Luca Avila M.D. 09/21/2020 4:07 PM
--- NOTE | 2020-09-21 16:18 | XRay Report ---
XR chest 1V portable CLINICAL HISTORY: Atypical chest pain COMPARISON STUDY: 10/17/2019 FINDINGS: The heart is mildly enlarged. There is mild chronic interstitial prominence. A small hiatal hernia is suspected. There is no acute parenchymal consolidation. There is no overt failure. There a re no pleural effusions.[ IMPRESSION: 1. Stable mild cardiomegaly. No acute findings. ACT 112: Negative or not required by law. Electronically signed by: Sam Lazo M.D. 09/21/2020 4:16 PM
[2020-09-21 16:31] LABS: Appearance Urine Clear (Clear); Bilirubin Urine Negative (Negative); Blood Urine Negative (Negative); Color Urine Yellow; Glucose Urine UA Negative (Negative); Ketones Urine Trace (Negative); Leukocyte Esterase Urine Negative (Negative); Nitrite Urine Negative (Negative); Protein Urine Negative (Negative); Specific Gravity Urine > 1.045 (1.000-1.030); Urobilinogen Urine Negative (Negative)
--- NOTE | 2020-09-21 17:57 | History & Physical Report ---
Date of Service September 21, 2020 Assessment & Plan (1) Altered mental status: (2) Ambulatory dysfunction: This is a 75yo F with a PMH of congenital hydrocephalus, dysthymic disorder, chronic venous stasis and other medical problems listed below who presents with AMS, generalized weakness and ambulatory dysfunction. -Worsening confusion and generalized weakness with 2 episodes where she was found in the morning on the ground by her home nursing -No focal neuro deficits, afebrile, no leukocytosis, initial troponin normal, UA without abnormality, carbamazepine level normal, covid antigen screen negative. CT of the head demonstrates stable severe hydrocephalus. CTA head/neck unremark able. CXR negative for acute CP process -Corrected calcium low at 7.2 - will replace -Alzheimer's and MDD at baseline as well as questionable medication compliance contributing to AMS - staff concerned that patient is unsafe to live alone -Utox pending. PT/OT evaluation. Discharge planning (3) MDD (major depressive disorder): (4) Anxiety: Continue SSRI, carbamazepine (5) AD (Alzheimer's disease): Continue Aricept (6) Fungal infection of skin: Non-compliant with Lotrisone cream at home - continue BID, wound care nurse consult (7) Chronic venous stasis: Continue home dose lasix, low sodium diet, compression stockings (8) Congenital hydrocephalus: DVT Ppx: SQ heparin Code status: FULL CODE for now. Per residential case manager, shelli are not very involved in care. Need to contact office of aging sales representative door to door, Lyudmila Clement during business hours ([phone]) PCP: Swapna Dispo: Admit to med/surg. PT/OT and discharge planning ordered. Patient seen in collaboration with Dr. Kamara. Please see addendum. History of Present Illness Chief Complaint: Ambulatory dysfunction, altered mental status Primary Care Provider: NO PCP This is a 75yo F with a PMH of congenital hydrocephalus, dysthymic disorder, chronic venous stasis and other medical problems listed below who presents with AMS, generalized weakness and ambulatory dysfunction. Patient presents with Jelm Palumbo residential case manager for evaluation of worsening confusion and generalized weakness with 2 episodes where she was found in the morning on the ground by her home nursing. Patient does live alone and has home health services. In additional to multiple falls, there is concern for medication compliance as well as poor hygiene. Patient was prescribed antifungal medication for abdominal folds but has not been using. Staff have also noticed worsening swelling in lower extremities. When asking the patient about her current state, she repeats "I just want to go home, I'm fine." Denies any chest pain, SOB, abdominal pain, dysuria, diarrhea or constipation. No fever, chills, lightheadedness or headache. Unable to obtain complete ROS 2/2 cognitive state. Patient is considered to not have medical decision-making capacity with Office of Aging involved in care. In ED, patient afebrile and hemodynamically stable. No leukocytosis, initial troponin normal, UA without abnormality, carbamazepine level normal, covid antigen screen negative. CT of the head demonstrates stable severe hydrocephalus. CTA head/neck unremarkable. CXR negative for acute cardiopulmonary process. Allergies Allergy/AdvReac Type Severity Reaction Status Date / Time No Known Allergies Allergy Unverified 09/21/20 14:35 Home Medications Medication Instructions Recorded Confirmed Type carbamazepine 200 mg PO BID 02/07/19 09/21/20 History donepezil 10 mg PO DAILY 09/06/19 09/21/20 History omeprazole 20 mg PO DAILY 10/12/19 09/21/20 History clotrimazole-betamethasone 1 applic TOPICAL BID 09/21/20 09/21/20 History furosemide 20 mg PO DAILY 09/21/20 09/21/20 History sertraline 100 mg PO DAILY 09/21/20 09/21/20 History Past Med/Surg History Medical History Anxiety Chronic venous stasis Congenital hydrocephalus MDD (major depressive disorder) Surgical History H/O eye surgery "Strabismus Surgery" History of tonsillectomy History of tubal ligation Hx of tonsillectomy Family History Other Cancer Diabetes Social History Smoking Status: Never smoker Preferred Language: Indonesian Feels Safe at Home: Yes Review of Systems Review of Systems: At least ten systems reviewed and negative except as noted in the HPI. Physical Exam Physical Exam: General Appearance: vitals as above, NAD, sitting up in bed, obese, agitated but able to be redirected Head: normocephalic, atraumatic Eyes: normal inspection, PERRL, conjunctivae normal, anicteric sclerae ENT: external ear and nose normal, oropharynx normal Neck: normal visual inspection, trachea midline, no thyromegaly Respiratory: normal respiratory effort, lungs clear to auscultation, no wheeze, rales, rhonchi. No accessory muscle use Cardiovascular: regular rate, rhythm, no murmur appreciated, normal peripheral pulses. Vessels: no JVD Chest: normal inspection of chest Abdomen/GI: normal bowel sounds, soft, nontender, no hepatosplenomegaly Extremities/Musculoskeletal: no cyanosis or clubbing, extremities motor strength 5/5, 1-2+ BLE edema of lower extremities with hyperpigmentation, no calf tenderness Neurologic: PERRL, EOMI, accommodation nl, no face palsy, no dysarthria, CN's II-XI intact bilaterally and moves all extremities Psychiatric: A+Ox3 but not to situation, dysthymic, poor insight & judgement Skin: normal color, warm/dry, + red scaling rash of abdominal folds Results & Data Results & Data ([facility]) Vital Signs (Past 12 Hours) Vital Signs Temp Pulse Pulse Resp BP BP Pulse Ox 09/21/20 16:21 81 18 161/90 H 95 09/21/20 15:19 79 18 143/94 H 95 09/21/20 14:08 94 09/21/20 13:36 37 C 78 18 142/96 H 96 Laboratory Results Short CBC 09/21/20 Range/Units 14:54 WBC 10.03 (4.8-10.8) K/uL Hgb 12.1 (12.0-16.0) g/dL Hct 37.8 (37-47) % Plt Count 284 (130-400) K/uL BMP 09/21/20 14:54 Sodium 143 Potassium 3.9 Chloride 106 Carbon Dioxide 33 H BUN 13 Creatinine 0.66 Glucose 103 H Calcium 7.0 L Cardiac Enzymes 09/21/20 Range/Units 14:54 Troponin I < 0.015 (0-0.045) ng/ml Liver Function 09/21/20 Range/Units 14:54 Total Bilirubin 0.4 (0.2-1) mg/dl Direct Bilirubin 0.1 (0-0.2) mg/dl AST 23 (15-37) U/L ALT 14 (12-78) U/L Alkaline Phosphatase 119 H (45-117) U/L Albumin 3.2 L (3.4-5.0) gm/dl Urine 09/21/20 Range/Units 16:22 Urine Color Yellow Urine Appearance Clear (Clear) Urine pH 8.0 H (4.5-7.5) Ur Specific [place] > 1.045 H (1.000-1.030) Urine Protein Negative (Negative) Urine Glucose (UA) Negative (Negative) Diagnostic Findings CT head: IMPRESSION: 1. No acute intracranial findings 2. Severe hydrocephalus, unchanged from the prior study. CTA head/neck: IMPRESSION: 1. There is no hemorrhage, mass effect, or evidence of acute territorial ischemia by CT criteria noting angiographic phase technique. 2. Marked hydrocephalus is similar to previous. 3. Unremarkable CT angiogram of the brain. 3. Unremarkable CT angiogram of the neck. CXR:IMPRESSION: 1. Stable mild cardiomegaly. No acute findings ECG Rhythm: sinus rhythm Findings: + nonspecific-ST abn Change: no significant change Code Status & VTE Plan VTE Prophylaxis Plan VTE Prophylaxis will be ordered: Yes Supervising Physician Co-Signing Physician Notes I saw this patient with the physician practice assistant, I participated in the history, physical, review of systems, and physical exam. I reviewed the medications with the patient and the physician practice assistant and helped reconcile the medications. I helped take a detailed family and social history as well. I formulated the assessment and plan personally with the physician practice assistant and went over it with the patient. Physical Exam Gen-AAO x 3, NAD, Afebrile, cantankerous Head-NCAT, EOMI, PERRLA, Anicteric Sclera, No Posterior Pharyngeal Erythema Neck-Supple, No JVD, No Thyromegaly, No Masses, No LAD, No Bruits Lungs-Clear to Auscultation Bilaterally, No Rales, No Rhonchi, No Wheezing, No Crepitus Chest-No S4, +S1, +S2, No S3, No Murmurs, No Rubs, No Gallops, No Ectopy Abdomen-Soft, Bowel Sounds Present, Non Tender, Non Distended, No Hepatomegaly, No Splenomegaly, No Palpable Masses, No Rebound, No Rigidity, No Guarding Musculoskeletal-Full Range of Motion Bilaterally, No CVAT Extremities-No Cyanosis, No Clubbing, No Edema, +Yeast like groin rash Nuero-Cranial Nerves II-XII grossly intact, Motor WNL, DTRs WNL, Strength WNL, Non Focal Psych-Normal Mood
[2020-09-21] MEDS ORDERED: ACETAMINOPHEN 325 MG TAB PO PRN (22:00)
[2020-09-21] MEDS ORDERED: POLYETHYLENE (MIRALAX) 17 GM PACK PO PRN (22:00)
[2020-09-21] MEDS: HEPARIN SOD 5,000 UNIT/0.5 ML VIAL SQ SCH (22:45)
[2020-09-21] MEDS: carBAMazepine 200 MG TABLET PO SCH (22:46)
[2020-09-21] MEDS: CLOTRIMAZOLE/BETAMETHASONE CR 15 GM TUBE EXT SCH (22:46)
[2020-09-21] MEDS: CALCIUM CARBONATE 1250MG TAB PO SCH (22:46)
[2020-09-21 23:04] LABS: Amphetamines+Metham, Urine Neg (Neg); Barbiturates, Urine Neg (Neg); Benzodiazepine, Urine Neg (Neg); Cocaine, Urine Neg (Neg); MDMA (Ecstacy), Urine Neg (Neg); Methadone, Urine Neg (Neg); Opiate, Urine Neg (Neg); Phencyclidine, Urine Neg (Neg)
--- NOTE | 2020-09-22 05:35 | Electrocardiogram Report ---
Test Reason : Blood Pressure : / mmHG Vent. Rate : 081 BPM Atrial Rate : 081 BPM P-R Int : 100 ms QRS Dur : 076 ms QT Int : 434 ms P-R-T Axes : 020 -14 016 degrees QTc Int : 504 ms Poor data quality, interpretation may be adversely affected Sinus rhythm with short AK When compared with ECG of 14-OCT-2019 11:57, No significant change was found Confirmed by Juan Duval ([id number]) on 09/22/2020 5:35:21 AM Referred By: REFERRED SELF Confirmed By:Juan Duval
[2020-09-22] MEDS: HEPARIN SOD 5,000 UNIT/0.5 ML VIAL SQ SCH ×3 (06:12→20:57)
[2020-09-22] MEDS: carBAMazepine 200 MG TABLET PO SCH ×2 (09:04→20:56)
[2020-09-22] MEDS: CLOTRIMAZOLE/BETAMETHASONE CR 15 GM TUBE EXT SCH ×2 (09:04→20:56)
[2020-09-22] MEDS: SERTRALINE HCL 100 MG TABLET PO SCH (09:04)
[2020-09-22] MEDS: CALCIUM CARBONATE 1250MG TAB PO SCH ×2 (09:04→20:56)
[2020-09-22] MEDS: FUROSEMIDE 20 MG TAB PO SCH (09:05)
[2020-09-22] MEDS: PANTOprazole 40 MG TAB PO SCH (09:05)
[2020-09-22] MEDS: DONEPEZIL HCL 10 MG TAB PO SCH (09:05)
[2020-09-22 09:33] LABS: Hematocrit (blood only) 39.1 % (37-47); Hemoglobin 12.4 g/dL (12.0-16.0); Mean Corpuscular Hemoglobin 30.5 pg (25-34); Mean Corpuscular Hgb Conc 31.7 g/dL (32-36); Mean Corpuscular Volume 96.3 fL (80-100); Mean Platelet Volume 10.2 fL (7.4-10.4); Platelet Count 285 K/uL (130-400); RDW Coefficient of Variation 13.6 % (11.5-14.5); RDW Standard Deviation 48.5 fL (36.4-46.3); Red Blood Count 4.06 M/uL (4.2-5.4); White Blood Count 6.91 K/uL (4.8-10.8)
[2020-09-22 09:54] LABS: BUN Creatinine Ratio 18.8 (10-20); Calcium 7.3 mg/dl (8.5-10.1); Creatinine Clr Calc Pharmacy 90.4 ml/min; Est GFR (African American) 101.4; Est GFR (Non-African American) 87.5; Potassium 3.6 mmol/L (3.5-5.1)
[2020-09-22] MEDS ORDERED: haloperidoL 5 MG TAB PO STA (13:25)
--- NOTE | 2020-09-22 18:36 | Hospitalist Progress Note ---
Date of Service September 22, 2020 Assessment & Plan (1) Altered mental status: (2) Ambulatory dysfunction: This is a 75yo F with a PMH of congenital hydrocephalus, dysthymic disorder, chronic venous stasis and other medical problems listed below who presents with AMS, generalized weakness and ambulatory dysfunction. -Worsening confusion and generalized weakness with 2 episodes where she was found in the morning on the ground by her home nursing -No focal neuro deficits, afebrile, no leukocytosis, initial troponin normal, UA without abnormality, carbamazepine level normal, covid antigen screen negative. CT of the head demonstrates stable severe hydrocephalus. CTA head/neck unremark able. CXR negative for acute CP process -Corrected calcium low at 7.2 - will replace -Alzheimer's and MDD at baseline as well as questionable medication compliance contributing to AMS - staff concerned that patient is unsafe to live alone -Utox pending. PT/OT evaluation. Discharge planning -Remains stable and wants to go home. Denies any symptoms -Awaiting PT and OT evaluation before plan for discharge (3) MDD (major depressive disorder): (4) Anxiety: Continue SSRI, carbamazepine Has been agitated this morning We will try small dose of oral Haldol (5) AD (Alzheimer's disease): Continue Aricept (6) Fungal infection of skin: Non-compliant with Lotrisone cream at home - continue BID, wound care nurse consult (7) Chronic venous stasis: Continue home dose lasix, low sodium diet, compression stockings (8) Congenital hydrocephalus: No acute issues. No headache. Nausea and or vomiting DVT Ppx: SQ heparin Code status: FULL CODE for now. Per welfare case worker, shelli are not very involved in care. Need to contact office of aging enrollment representative, Lyudmila Clement during business hours ([phone]) PCP: Swapna Dispo: Admit to med/surg. PT/OT and discharge planning ordered. Admission and Anticipated Discharge Date Admission Date: September 21, 2020 Subjective 09/22/2020 The patient was seen and examined in medical floor She has dementia and was admitted with mechanical fall Denies any symptoms today and she wants to go home to take care of her cat Review of Systems Review of Systems: All systems reviewed and are unremarkable except as noted below Physical Exam Physical Exam: Sitting on a chair without any apparent distress Constitutional: well developed and well nourished; no acute distress and not ill appearing Eyes: PERRL, conjunctivae normal, anicteric sclerae ENMT: external ear and nose normal, oropharynx normal Neck: trachea midline, no thyromegaly Respiratory: normal respiratory effort, lungs clear to auscultation Cardiovascular: Rate/Rhythm: regular rate and regular rhythm Heart Sounds: no murmur Extremities: no edema Gastrointestinal (Abdomen): Inspection/Auscultation: abdomen normal to inspection and normal bowel sounds; abdomen not distended Percussion/Palpation: abdomen soft; abdomen nontender Musculoskeletal: No arthritis involving any joint Neurologic: Alert, awake and oriented x3. No focal sensory and motor deficit appreciated Results & Data Results & Data ([facility]) Vital Signs (Past 12 Hours) Vital Signs Temp Pulse Resp BP Pulse Ox 09/22/20 15:32 36.6 C 73 18 138/92 95 09/22/20 07:10 36.6 C 79 16 136/94 92 Laboratory Results Short CBC 09/22/20 Range/Units 09:18 WBC 6.91 (4.8-10.8) K/uL Hgb 12.4 (12.0-16.0) g/dL Hct 39.1 (37-47) % Plt Count 285 (130-400) K/uL BMP 09/22/20 09:18 Sodium 144 Potassium 3.6 Chloride 107 Carbon Dioxide 32 BUN 12 Creatinine 0.65 Glucose 99 Calcium 7.3 L Medications Administered Current Inpatient Medications Acetaminophen (Acetaminophen 325 Mg Tab) 650 mg PO Q4H PRN PRN Reason: pain/fever Stop: 10/21/20 21:59 Betamethasone/Clotrimazole (Clotrimazole/Betamethasone Cr 15 Gm Tube) 1 appln EXT BID [facility] Stop: 10/21/20 21:59 Last Admin: 09/22/20 09:04 Dose: 1 appln Documented by: Calcium Carbonate (Calcium Carbonate 1250mg Tab) 1,250 mg PO BID [facility] Stop: 10/21/20 21:59 Last Admin: 09/22/20 09:04 Dose: 1,250 mg Documented by: Carbamazepine (Carbamazepine 200 Mg Tablet) 200 mg PO BID [facility] Stop: 10/21/20 21:59 Last Admin: 09/22/20 09:04 Dose: 200 mg Documented by: Donepezil HCl (Donepezil Hcl 10 Mg Tab) 10 mg PO DAILY [facility] Stop: 10/22/20 08:59 Last Admin: 09/22/20 09:05 Dose: 10 mg Documented by: Furosemide (Furosemide 20 Mg Tab) 20 mg PO DAILY [facility] Stop: 10/22/20 08:59 Last Admin: 09/22/20 09:05 Dose: 20 mg Documented by: Heparin Sodium (Porcine) (Heparin Sod 5,000 Unit/0.5 Ml Vial) 7,500 units SQ Q8 DANIELLA Stop: 10/21/20 21:59 Last Admin: 09/22/20 14:36 Dose: Not Given Documented by: Pantoprazole Sodium (Pantoprazole 40 Mg Tab) 40 mg PO DAILY [facility]; Protocol Stop: 10/22/20 08:59 Last Admin: 09/22/20 09:05 Dose: 40 mg Documented by: Polyethylene Glycol (Polyethylene (Miralax) 17 Gm Pack) 17 gm PO DAILY PRN PRN Reason: Constipation Stop: 10/21/20 21:59 Sertraline HCl (Sertraline Hcl 100 Mg Tablet) 100 mg PO DAILY [facility] Stop: 10/22/20 08:59 Last Admin: 09/22/20 09:04 Dose: 100 mg Documented by: (1) Altered mental status Altered mental status type: unspecified Qualified Code(s): R41.82 - Altered mental status, unspecified
[2020-09-23] MEDS: HEPARIN SOD 5,000 UNIT/0.5 ML VIAL SQ SCH ×3 (05:30→21:56)
[2020-09-23 07:43] LABS: Basophils # (auto) 0.01 K/uL (0-0.2); Basophils % (auto) 0.2 %; Eosinophils # (auto) 0.19 K/uL (0-0.5); Hematocrit (blood only) 36.6 % (37-47); Hemoglobin 11.5 g/dL (12.0-16.0); Immature Granulocytes # (auto) 0.02 K/uL (0.00-0.02); Immature Granulocytes % (auto) 0.3 %; Lymphocytes # (auto) 1.53 K/uL (1.2-3.4); Lymphocytes % (auto) 23.9 %; Mean Corpuscular Hemoglobin 30.1 pg (25-34); Mean Corpuscular Hgb Conc 31.4 g/dL (32-36); Mean Corpuscular Volume 95.8 fL (80-100); Mean Platelet Volume 9.8 fL (7.4-10.4); Monocytes # (auto) 0.53 K/uL (0.11-0.59); Monocytes % (auto) 8.3 %; Neutrophils # (auto) 4.13 K/uL (1.4-6.5); Neutrophils % (auto) 64.3 %; Platelet Count 256 K/uL (130-400); RDW Coefficient of Variation 13.6 % (11.5-14.5); RDW Standard Deviation 47.5 fL (36.4-46.3); Red Blood Count 3.82 M/uL (4.2-5.4); White Blood Count 6.41 K/uL (4.8-10.8)
[2020-09-23 08:22] LABS: BUN Creatinine Ratio 19.8 (10-20); Calcium 7.5 mg/dl (8.5-10.1); Creatinine Clr Calc Pharmacy 90.4 ml/min; Est GFR (African American) 101.4; Est GFR (Non-African American) 87.5; Potassium 3.7 mmol/L (3.5-5.1)
[2020-09-23] MEDS: SERTRALINE HCL 100 MG TABLET PO SCH (08:29)
[2020-09-23] MEDS: PANTOprazole 40 MG TAB PO SCH (08:29)
[2020-09-23] MEDS: CLOTRIMAZOLE/BETAMETHASONE CR 15 GM TUBE EXT SCH ×2 (08:31→20:11)
[2020-09-23] MEDS: CALCIUM CARBONATE 1250MG TAB PO SCH ×2 (08:31→20:12)
[2020-09-23] MEDS: DONEPEZIL HCL 10 MG TAB PO SCH (08:31)
[2020-09-23] MEDS: FUROSEMIDE 20 MG TAB PO SCH (08:31)
[2020-09-23] MEDS: carBAMazepine 200 MG TABLET PO SCH ×2 (08:32→20:12)
[2020-09-23] MEDS ORDERED: MIDAZOLAM HCL 1 MG/ML 2ML VIAL ONE (10:44)
[2020-09-23] MEDS ORDERED: PROPOFOL IV EMULSION 10 MG/ML 20 ML VIAL IV ONE (10:44)
[2020-09-23] MEDS ORDERED: LIDOCAINE HCL 2% 2 ML VIAL/AMP(20MG/ML) INFIL ONE (10:44)
[2020-09-23] MEDS ORDERED: fentaNYL citrate 100 MCG/2 ML VIAL ONE (10:44)
--- NOTE | 2020-09-23 15:39 | Hospitalist Progress Note ---
Date of Service September 23, 2020 Assessment & Plan (1) Altered mental status: (2) Ambulatory dysfunction: This is a 75yo F with a PMH of congenital hydrocephalus, dysthymic disorder, chronic venous stasis and other medical problems listed below who presents with AMS, generalized weakness and ambulatory dysfunction. -Worsening confusion and generalized weakness with 2 episodes where she was found in the morning on the ground by her home nursing -No focal neuro deficits, afebrile, no leukocytosis, initial troponin normal, UA without abnormality, carbamazepine level normal, covid antigen screen negative. CT of the head demonstrates stable severe hydrocephalus. CTA head/neck unremark able. CXR negative for acute CP process -Corrected calcium low at 7.2 - will replace -Alzheimer's and MDD at baseline as well as questionable medication compliance contributing to AMS - staff concerned that patient is unsafe to live alone -Utox pending. PT/OT evaluation. Discharge planning -Remains stable and wants to go home. Denies any symptoms -Awaiting PT and OT evaluation before plan for discharge -PT and OT and the caregivers recommended rehab -marketing and promotions manager is working on that (3) MDD (major depressive disorder): (4) Anxiety: Continue SSRI, carbamazepine Has been agitated this morning We will try small dose of oral Haldol (5) AD (Alzheimer's disease): Continue Aricept (6) Fungal infection of skin: Non-compliant with Lotrisone cream at home - continue BID, wound care nurse consult (7) Chronic venous stasis: Continue home dose lasix, low sodium diet, compression stockings (8) Congenital hydrocephalus: No acute issues. No headache. Nausea and or vomiting DVT Ppx: SQ heparin Code status: FULL CODE for now. Per case consultant, sons are not very involved in care. Need to contact office of aging printing supplies sales representative, Lyudmila Clement during business hours ([phone]) PCP: Swapna Dispo: Admit to med/surg. PT/OT and discharge planning ordered. Admission and Anticipated Discharge Date Admission Date: September 21, 2020 Subjective 09/22/2020 The patient was seen and examined in medical floor She has dementia and was admitted with mechanical fall Denies any symptoms today and she wants to go home to take care of her cat 09/23/2020 The patient was seen and examined in medical floor She remains stable and denies any pain and/or symptoms She wants to go home but she will need to go to rehab as per PT and OT and the caregiver Review of Systems Review of Systems: All systems reviewed and are unremarkable except as noted below Physical Exam Physical Exam: Sitting on a chair without any apparent distress Constitutional: well developed and well nourished; no acute distress and not ill appearing Eyes: PERRL, conjunctivae normal, anicteric sclerae ENMT: external ear and nose normal, oropharynx normal Neck: trachea midline, no thyromegaly Respiratory: normal respiratory effort, lungs clear to auscultation Cardiovascular: Rate/Rhythm: regular rate and regular rhythm Heart Sounds: no murmur Extremities: no edema Gastrointestinal (Abdomen): Inspection/Auscultation: abdomen normal to inspection and normal bowel sounds; abdomen not distended Percussion/Palpation: abdomen soft; abdomen nontender Musculoskeletal: No acute arthritis in any joint Neurologic: Alert, awake and oriented x3. Pleasantly confused Psychiatric: Judgement: + limited judgement Lymphatic: no cervical or axillary lymphadenopathy Results & Data Results & Data ([facility]) Vital Signs (Past 12 Hours) Vital Signs Temp Pulse Resp BP BP Pulse Ox 09/23/20 14:48 36.4 C L 79 18 112/68 96 09/23/20 07:16 36.5 C 80 18 144/85 H 94 Laboratory Results Short CBC 09/23/20 Range/Units 07:31 WBC 6.41 (4.8-10.8) K/uL Hgb 11.5 L (12.0-16.0) g/dL Hct 36.6 L (37-47) % Plt Count 256 (130-400) K/uL BMP 09/23/20 07:31 Sodium 145 Potassium 3.7 Chloride 108 H Carbon Dioxide 34 H BUN 13 Creatinine 0.65 Glucose 93 Calcium 7.5 L Medications Administered Current Inpatient Medications Acetaminophen (Acetaminophen 325 Mg Tab) 650 mg PO Q4H PRN PRN Reason: pain/fever Stop: 10/21/20 21:59 Betamethasone/Clotrimazole (Clotrimazole/Betamethasone Cr 15 Gm Tube) 1 appln EXT BID [facility] Stop: 10/21/20 21:59 Last Admin: 09/23/20 08:31 Dose: 1 appln Documented by: Calcium Carbonate (Calcium Carbonate 1250mg Tab) 1,250 mg PO BID [facility] Stop: 10/21/20 21:59 Last Admin: 09/23/20 08:31 Dose: 1,250 mg Documented by: Carbamazepine (Carbamazepine 200 Mg Tablet) 200 mg PO BID [facility] Stop: 10/21/20 21:59 Last Admin: 09/23/20 08:32 Dose: 200 mg Documented by: Donepezil HCl (Donepezil Hcl 10 Mg Tab) 10 mg PO DAILY [facility] Stop: 10/22/20 08:59 Last Admin: 09/23/20 08:31 Dose: 10 mg Documented by: Furosemide (Furosemide 20 Mg Tab) 20 mg PO DAILY [facility] Stop: 10/22/20 08:59 Last Admin: 09/23/20 08:31 Dose: 20 mg Documented by: Heparin Sodium (Porcine) (Heparin Sod 5,000 Unit/0.5 Ml Vial) 7,500 units SQ Q8 [facility] Stop: 10/21/20 21:59 Last Admin: 09/23/20 05:30 Dose: Not Given Documented by: Pantoprazole Sodium (Pantoprazole 40 Mg Tab) 40 mg PO DAILY [facility]; Protocol Stop: 10/22/20 08:59 Last Admin: 09/23/20 08:29 Dose: 40 mg Documented by: Polyethylene Glycol (Polyethylene (Miralax) 17 Gm Pack) 17 gm PO DAILY PRN PRN Reason: Constipation Stop: 10/21/20 21:59 Sertraline HCl (Sertraline Hcl 100 Mg Tablet) 100 mg PO DAILY [facility] Stop: 10/22/20 08:59 Last Admin: 09/23/20 08:29 Dose: 100 mg Documented by: (1) Altered mental status Altered mental status type: unspecified Qualified Code(s): R41.82 - Altered mental status, unspecified
[2020-09-24] MEDS: HEPARIN SOD 5,000 UNIT/0.5 ML VIAL SQ SCH ×3 (06:21→20:50)
[2020-09-24] MEDS: CLOTRIMAZOLE/BETAMETHASONE CR 15 GM TUBE EXT SCH ×2 (07:54→20:52)
[2020-09-24] MEDS: CALCIUM CARBONATE 1250MG TAB PO SCH ×2 (07:55→20:48)
[2020-09-24] MEDS: carBAMazepine 200 MG TABLET PO SCH ×2 (07:55→20:49)
[2020-09-24] MEDS: DONEPEZIL HCL 10 MG TAB PO SCH (07:56)
[2020-09-24] MEDS: FUROSEMIDE 20 MG TAB PO SCH (07:56)
[2020-09-24] MEDS: PANTOprazole 40 MG TAB PO SCH (07:56)
[2020-09-24] MEDS: SERTRALINE HCL 100 MG TABLET PO SCH (07:56)
--- NOTE | 2020-09-24 19:26 | Hospitalist Progress Note ---
Date of Service September 24, 2020 Assessment & Plan (1) Altered mental status: (2) Ambulatory dysfunction: Patient is a 75 yr female with H/O congenital hydrocephalus, dysthymic disorder, chronic venous stasis and other medical problems listed below who presents with AMS, generalized weakness and ambulatory dysfunction. Generalized weakness Multiple falls Worsening confusion in setting of Alzheimer's dementia, MDD -CT Head:No acute intracranial findings. Severe hydrocephalus, unchanged from the prior study. -Head/Neck CTA:There is no hemorrhage, mass effect, or evidence of acute territorial ischemia by CT criteria noting angiographic phase technique. Marked hydrocephalus is similar to previous. Unremarkable CT angiogram of the brain. Unremarkable CT angiogram of the neck. -No focal deficits on exam -No signs of infection -Carbamazepine level normal -Negative toxicology screen. -Negative Covid screen -UA not suggestive of UTI -Chest x-ray showed no acute findings. -PT/OT -Needs rehab placement Hypercalcemia Replace electrolytes as needed Alzheimer's and MDD ? Medication compliance Mental status seems to be back to baseline Monitor Patient likely unsafe to live alone (3) MDD (major depressive disorder): (4) Anxiety: Continue SSRI, carbamazepine (5) AD (Alzheimer's disease): Continue Aricept (6) Fungal infection of skin: Non-compliant with Lotrisone cream at home - continue BID, wound care nurse consult (7) Chronic venous stasis: Continue lasix low sodium diet compression stockings (8) Congenital hydrocephalus: No acute issues. DVT Px: SQ heparin Code status: FULL CODE Per disease case manager rn, sons are not very involved in care. Need to contact office of aging enrollment representative, Lyudmila Clement during business hours ([phone]) PCP: Swapna Disposition: SNF as able Admission and Anticipated Discharge Date Admission Date: September 21, 2020 Subjective Patient is seen and examined at bedside Pleasantly confused Sitting in chair this morning No distress on exam Offers no complaints Waiting for rehab placement Review of Systems Review of Systems: All systems reviewed & are unremarkable except as noted in HPI & below Physical Exam Physical Exam: Physical Exam: Vitals signs as noted above General Appearance:Moderately built and nourished, no apparent distress Head: normocephalic, Atraumatic Eyes: normal inspection, EOMI Neck: supple, Trachea midline Respiratory/Chest: Normal breath sounds, CTA, No accessory muscle use Cardiovascular: S1, S2, No murmur Abdomen/GI:Soft, Non tender, Bowel sounds present Extremities/Musculoskelatal:normal inspection, chronic venous stasis changes Neurologic/Psych:grossly no focal neurological deficits, pleasantly confused, +dementia Skin: normal color, warm Results & Data Results & Data ([facility]) Vital Signs (Past 12 Hours) Vital Signs Temp Pulse Resp BP Pulse Ox 09/24/20 15:39 36.6 C 75 18 126/80 95 09/24/20 07:35 36.7 C 75 16 171/89 H 94 (1) Altered mental status Altered mental status type: unspecified Qualified Code(s): R41.82 - Altered mental status, unspecified
[2020-09-25] MEDS: HEPARIN SOD 5,000 UNIT/0.5 ML VIAL SQ SCH ×3 (05:10→22:28)
[2020-09-25] MEDS: PANTOprazole 40 MG TAB PO SCH (07:50)
[2020-09-25] MEDS: CALCIUM CARBONATE 1250MG TAB PO SCH (07:51)
[2020-09-25] MEDS: DONEPEZIL HCL 10 MG TAB PO SCH (07:51)
[2020-09-25] MEDS: carBAMazepine 200 MG TABLET PO SCH ×2 (07:51→20:27)
[2020-09-25] MEDS: SERTRALINE HCL 100 MG TABLET PO SCH (07:51)
[2020-09-25] MEDS: FUROSEMIDE 20 MG TAB PO SCH (07:51)
[2020-09-25] MEDS: CLOTRIMAZOLE/BETAMETHASONE CR 15 GM TUBE EXT SCH ×2 (07:52→20:26)
[2020-09-25 08:42] LABS: BUN Creatinine Ratio 21.6 (10-20); Calcium 8.2 mg/dl (8.5-10.1); Creatinine Clr Calc Pharmacy 91.8 ml/min; Est GFR (African American) 101.9; Est GFR (Non-African American) 87.9; Potassium 4.1 mmol/L (3.5-5.1)
--- NOTE | 2020-09-25 13:24 | Hospitalist Progress Note ---
Date of Service September 25, 2020 Assessment & Plan (1) Altered mental status: (2) Ambulatory dysfunction: Patient is a 75 yr female with H/O congenital hydrocephalus, dysthymic disorder, chronic venous stasis and other medical problems listed below who presents with AMS, generalized weakness and ambulatory dysfunction. Generalized weakness Multiple falls Worsening confusion in setting of Alzheimer's dementia, MDD -CT Head:No acute intracranial findings. Severe hydrocephalus, unchanged from the prior study. -Head/Neck CTA:There is no hemorrhage, mass effect, or evidence of acute territorial ischemia by CT criteria noting angiographic phase technique. Marked hydrocephalus is similar to previous. Unremarkable CT angiogram of the brain. Unremarkable CT angiogram of the neck. -No focal deficits on exam -No signs of infection -Carbamazepine level normal -Negative toxicology screen. -Negative Covid screen -UA not suggestive of UTI -Chest x-ray showed no acute findings. -PT/OT :Recommends Rehab -Plan to discharge to Rehab facility when arranged Hypercalcemia Replace electrolytes as needed Continue calcium supplement Resolved Alzheimer's and MDD ? Medication compliance Mental status seems to be back to baseline Monitor Patient likely unsafe to live alone (3) MDD (major depressive disorder): (4) Anxiety: Continue SSRI, carbamazepine (5) AD (Alzheimer's disease): Continue Aricept (6) Fungal infection of skin: Non-compliant with Lotrisone cream at home - continue BID, wound care nurse consult (7) Chronic venous stasis: Continue lasix low sodium diet compression stockings (8) Congenital hydrocephalus: No acute issues. DVT Px: SQ heparin Code status: FULL CODE Per family preservation caseworker, shelli are not very involved in care. Need to contact office of aging collections representative, Lyudmila Clement during business hours ([phone]) PCP: Swapna Disposition: SNF when arranged Admission and Anticipated Discharge Date Admission Date: September 21, 2020 Subjective Patient is seen and examined at bedside Ambulating using walker this morning as per RN Prefers to be discharged home No complaints during my encounter Denies chest pain, dyspnea, dizziness, nausea, abdominal pain Waiting for rehab placement Review of Systems Review of Systems: All systems reviewed & are unremarkable except as noted in HPI & below Physical Exam Physical Exam: Physical Exam: Vitals signs as noted above General Appearance:Moderately built and nourished, no apparent distress Head: normocephalic, Atraumatic Eyes: normal inspection, EOMI Neck: supple, Trachea midline Respiratory/Chest: Normal breath sounds, CTA, No accessory muscle use Cardiovascular: S1, S2, No murmur Abdomen/GI:Soft, Non tender, Bowel sounds present Extremities/Musculoskelatal:normal inspection, chronic venous stasis changes Neurologic/Psych:grossly no focal neurological deficits, +dementia Skin: normal color, warm Results & Data Results & Data ([facility]) Vital Signs (Past 12 Hours) Vital Signs Temp Pulse Resp BP Pulse Ox 09/25/20 07:33 36.4 C L 76 18 141/87 H 94 Laboratory Results [facility] 09/25/20 07:11 Sodium 142 Potassium 4.1 Chloride 108 H Carbon Dioxide 28 BUN 14 Creatinine 0.64 Glucose 92 Calcium 8.2 L (1) Altered mental status Altered mental status type: unspecified Qualified Code(s): R41.82 - Altered mental status, unspecified
[2020-09-26] MEDS: HEPARIN SOD 5,000 UNIT/0.5 ML VIAL SQ SCH (06:08)
[2020-09-26] MEDS: carBAMazepine 200 MG TABLET PO SCH (07:30)
[2020-09-26] MEDS: DONEPEZIL HCL 10 MG TAB PO SCH (07:30)
[2020-09-26] MEDS: FUROSEMIDE 20 MG TAB PO SCH (07:30)
[2020-09-26] MEDS: SERTRALINE HCL 100 MG TABLET PO SCH (07:30)
[2020-09-26] MEDS: PANTOprazole 40 MG TAB PO SCH (07:30)
[2020-09-26] MEDS: CLOTRIMAZOLE/BETAMETHASONE CR 15 GM TUBE EXT SCH (07:31)
[2020-09-26] MEDS ORDERED: CALCIUM CARBONATE 500 MG CHEWABLE TAB PO SCH (09:00)
--- NOTE | 2020-09-26 12:57 | Hospitalist Progress Note ---
Date of Service September 26, 2020 Assessment & Plan (1) Altered mental status: (2) Ambulatory dysfunction: Patient is a 75 yr female with H/O congenital hydrocephalus, dysthymic disorder, chronic venous stasis and other medical problems listed below who presents with AMS, generalized weakness and ambulatory dysfunction. Generalized weakness Multiple falls Worsening confusion in setting of Alzheimer's dementia, MDD -CT Head:No acute intracranial findings. Severe hydrocephalus, unchanged from the prior study. -Head/Neck CTA:There is no hemorrhage, mass effect, or evidence of acute territorial ischemia by CT criteria noting angiographic phase technique. Marked hydrocephalus is similar to previous. Unremarkable CT angiogram of the brain. Unremarkable CT angiogram of the neck. -No focal deficits on exam -No signs of infection -Carbamazepine level normal -Negative toxicology screen. -Negative Covid screen -UA not suggestive of UTI -Chest x-ray showed no acute findings. -PT/OT :Recommends Rehab -Plan to discharge to Rehab facility today Hypocalcemia Replace electrolytes as needed Continue calcium supplement Resolved Alzheimer's and MDD ? Medication compliance Mental status seems to be back to baseline Monitor Patient likely unsafe to live alone (3) MDD (major depressive disorder): (4) Anxiety: Continue SSRI, carbamazepine (5) AD (Alzheimer's disease): Continue Aricept (6) Fungal infection of skin: Non-compliant with Lotrisone cream at home - continue BID, wound care nurse consult (7) Chronic venous stasis: Continue lasix low sodium diet compression stockings (8) Congenital hydrocephalus: No acute issues. DVT Px: SQ heparin Code status: FULL CODE Per case sealer, shelli are not very involved in care. Need to contact office of aging airline security representative, Lyudmila Clement during business hours ([phone]) PCP: Swapna Disposition: Acute Rehab today Admission and Anticipated Discharge Date Admission Date: September 21, 2020 Subjective Patient is seen and examined at bedside No new complaints Sitting in chair comfortably this morning Denies chest pain, dyspnea, dizziness, nausea, abdominal pain Plan to discharge to Rehab facility today Review of Systems Review of Systems: All systems reviewed & are unremarkable except as noted in HPI & below Physical Exam Physical Exam: Physical Exam: Vitals signs as noted above General Appearance:Moderately built and nourished, no apparent distress Head: normocephalic, Atraumatic Eyes: normal inspection, EOMI Neck: supple, Trachea midline Respiratory/Chest: Normal breath sounds, CTA, No accessory muscle use Cardiovascular: S1, S2, No murmur Abdomen/GI:Soft, Non tender, Bowel sounds present Extremities/Musculoskelatal:normal inspection, chronic venous stasis changes Neurologic/Psych:grossly no focal neurological deficits, +dementia Skin: normal color, warm Results & Data Results & Data ([facility]) Vital Signs (Past 12 Hours) Vital Signs Temp Pulse Resp BP Pulse Ox 09/26/20 07:14 36.7 C 74 130/78 91 09/26/20 01:01 36.8 C 79 18 138/94 91 (1) Altered mental status Altered mental status type: unspecified Qualified Code(s): R41.82 - Altered mental status, unspecified
--- NOTE | 2020-09-26 12:58 | Discharge Summary ---
Date of Service September 26, 2020 Admission HPI Per Admitting Provider This is a 75yo F with a PMH of congenital hydrocephalus, dysthymic disorder, chronic venous stasis and other medical problems listed below who presents with AMS, generalized weakness and ambulatory dysfunction. Patient presents with [employer] family caseworker for evaluation of worsening confusion and generalized weakness with 2 episodes where she was found in the morning on the ground by her home nursing. Patient does live alone and has home health services. In additional to multiple falls, there is concern for medication compliance as well as poor hygiene. Patient was prescribed antifungal medication for abdominal folds but has not been using. Staff have also noticed worsening swelling in lower extremities. When asking the patient about her current state, she repeats "I just want to go home, I'm fine." Denies any chest pain, SOB, abdominal pain, dysuria, diarrhea or constipation. No fever, chills, lightheadedness or headache. Unable to obtain complete ROS 2/2 cognitive state. Patient is considered to not have medical decision-making capacity with Office of Aging involved in care. In ED, patient afebrile and hemodynamically stable. No leukocytosis, initial troponin normal, UA without abnormality, carbamazepine level normal, covid antigen screen negative. CT of the head demonstrates stable severe hydrocephalus. CTA head/neck unremarkable. CXR negative for acute cardiopulmonary process. Admission Exam Per Admitting Provider Physical Exam Physical Exam: General Appearance: vitals as above, NAD, sitting up in bed, obese, agitated but able to be redirected Head: normocephalic, atraumatic Eyes: normal inspection, PERRL, conjunctivae normal, anicteric sclerae ENT: external ear and nose normal, oropharynx normal Neck: normal visual inspection, trachea midline, no thyromegaly Respiratory: normal respiratory effort, lungs clear to auscultation, no wheeze, rales, rhonchi. No accessory muscle use Cardiovascular: regular rate, rhythm, no murmur appreciated, normal peripheral pulses. Vessels: no JVD Chest: normal inspection of chest Abdomen/GI: normal bowel sounds, soft, nontender, no hepatosplenomegaly Extremities/Musculoskeletal: no cyanosis or clubbing, extremities motor strength 5/5, 1-2+ BLE edema of lower extremities with hyperpigmentation, no calf tenderness Neurologic: PERRL, EOMI, accommodation nl, no face palsy, no dysarthria, CN's II-XI intact bilaterally and moves all extremities Psychiatric: A+Ox3 but not to situation, dysthymic, poor insight & judgement Skin: normal color, warm/dry, + red scaling rash of abdominal folds Principal Diagnosis Ambulatory dysfunction Generalized weakness Multiple falls Hypocalcemia Discharge Data Allergies Allergy/AdvReac Type Severity Reaction Status Date / Time No Known Allergies Allergy Unverified 09/21/20 14:35 Consultations 09/21/20 16:40 ED Decision to Admit Stat 09/21/20 22:00 Consult Case Management - Discharge Planning Routine Procedures Performed -CT Head:No acute intracranial findings. Severe hydrocephalus, unchanged from the prior study. -Head/Neck CTA:There is no hemorrhage, mass effect, or evidence of acute territorial ischemia by CT criteria noting angiographic phase technique. Marked hydrocephalus is similar to previous. Unremarkable CT angiogram of the brain. Unremarkable CT angiogram of the neck. Ordered Studies 09/21/20 14:13 CT angio head w con Stat CT angio neck with con Stat CT head/brain wo con Stat Hospital Course (1) Altered mental status: (2) Ambulatory dysfunction: Patient is a 75 yr female with H/O congenital hydrocephalus, dysthymic disorder, chronic venous stasis and other medical problems listed below who presents with AMS, generalized weakness and ambulatory dysfunction. Generalized weakness Multiple falls Worsening confusion in setting of Alzheimer's dementia, MDD -CT Head:No acute intracranial findings. Severe hydrocephalus, unchanged from the prior study. -Head/Neck CTA:There is no hemorrhage, mass effect, or evidence of acute territorial ischemia by CT criteria noting angiographic phase technique. Marked hydrocephalus is similar to previous. Unremarkable CT angiogram of the brain. Unremarkable CT angiogram of the neck. -No focal deficits on exam -No signs of infection -Carbamazepine level normal -Negative toxicology screen. -Negative Covid screen -UA not suggestive of UTI -Chest x-ray showed no acute findings. -PT/OT :Recommends Rehab -Plan to discharge to Rehab facility today Hypocalcemia Replace electrolytes as needed Continue calcium supplement Resolved Alzheimer's and MDD ? Medication compliance Mental status seems to be back to baseline Monitor Patient likely unsafe to live alone (3) MDD (major depressive disorder): (4) Anxiety: Continue SSRI, carbamazepine (5) AD (Alzheimer's disease): Continue Aricept (6) Fungal infection of skin: Non-compliant with Lotrisone cream at home - continue BID, wound care nurse consult (7) Chronic venous stasis: Continue lasix low sodium diet compression stockings (8) Congenital hydrocephalus: No acute issues. DVT Px: SQ heparin Code status: FULL CODE Per family caseworker, shelli are not very involved in care. Need to contact office of aging practice representative, Lyudmila Clement during business hours ([phone]) PCP: Swapna Disposition: Acute Rehab today Total Time Total Time Spent Total Time Spent (In Minutes): 40 minutes Total Time Includes: Examination of the Patient, Discharge Planning, Medication Reconciliation, Communication With Other Providers and Other Discharge Plan Discharge Items Patient Disposition: Transfer Inpatient Rehab Fac Reason For Visit: AMS, AMBULATORY DYSFUNCTION Discharge Diagnosis: Ambulatory dysfunction Generalized weakness Multiple falls Hypocalcemia Activity: Per Instructions section Exercise/Sports: Gradually increase as tolerated Non-emergency contact: Primary Care Provider Call non-emergency contact if: you have any medication questions, your symptoms worsen, your pain is not controlled, your pain is worsening, your pain is unusual for you, your pain is concerning for you and you have a fever Follow-up/Referrals: PCP,COLTON [Primary Care Provider] - Diet: Heart Healthy Addtl Attending Provider Instructions: Follow-up with your primary care physician in 1 week upon discharge from rehab facility Take your medications regularly. Seek immediate medical attention if your symptoms reoccur or worsen Pending Studies at Discharge: No Stand-Alone Forms: [facility] Skilled Items Patient informed of condition?: Yes DNR: No Discharge Level of Care: Acute rehab Communicable Disease: No Discharge Prognosis: Stable Lines: None Urinary Catheter: No Medications and DC Order Prescriptions: New calcium carbonate [Tums] 200 mg calcium (500 mg) Tablet,Chewable 500 mg PO DAILY Qty: 0 RF: 0 polyethylene glycol 3350 [Miralax] 17 gram Powder In Packet 17 g PO DAILY PRNQty: 0 RF: 0 Continued carbamazepine 200 mg tablet 200 mg PO BID RF: 0 donepezil 10 mg tablet 10 mg PO DAILY RF: 0 omeprazole 20 mg Capsule,Delayed Release(Dr/Ec) 20 mg PO DAILY RF: 0 clotrimazole-betamethasone 1-0.05 % cream 1 applic TOPICAL BID RF: 0 furosemide 20 mg tablet 20 mg PO DAILY RF: 0 sertraline 100 mg tablet 100 mg PO DAILY RF: 0 Discharge Orders: Discharge Order (Routine); Ordered 09/26/20 Ordered By: Jareth Paniagua/Other Patient Handouts: Fall Prevention Assessing Risk Admission Data Admit Date/Time: 09/21/20 17:52 Attending Provider: Jareth Styles Admit Provider: Aaron Kamara Primary Care Provider: PCP,NO Other Providers: Aaron Kamara ; [facility] Other Interventions: Discharge Summary Assessment (RN) Last Done: 09/26/20 13:18
--- NOTE | 2020-09-30 10:03 | Coding Query ---
CODING QUERY To promote full compliance with coding requirements relating to patient care, provider participation is requested in all cases of icd 9 coder uncertainty. Please assist us with the question(s) below: Coding Question(s): 1. There is documentation of Ambulatory Dysfunction, Generalized Weakness and Multiple Falls and worsening confusion "in the setting of Alzheimer's Dementia, MDD". Please Specify below in your clinical opinion. ( ) Ambulatory Dysfunction, Generalized Weakness and Multiple Falls are likely due to Alzheimer's Dementia, MDD (x ) Ambulatory Dysfunction, Generalized Weakness and Multiple Falls are likely due to Other: Please Specify__Likely due to _Hydrocephalus ( ) Ambulatory Dysfunction, Generalized Weakness and Multiple Falls are due to Unknown likely etiology 2. Alzheimer's Dementia is documented with documentation, only at the bottom of the ER, under Discharge Problem and Dementia Qualifiers of a Dementia with behavioral disturbance, however, there is no documentation elsewhere in the record of behavioral disturbance. Please specify below, in your clinical opinion, regarding Dementia in regards to with or without behavioral disturbance. ( ) Alzheimer's Dementia with Behavioral Disturbance ( x ) Alzheimer's Dementia without Behavioral Disturbance ( ) Other: Please Specify Physician's Response(s): Thank you Coby Kennedy Principal Diagnosis: "that condition established after study, to be chiefly responsible for occasioning the admission of the patient to the hospital for care." Co-Existing Principal Diagnosis: "when two or more diagnoses equally meet the criteria for principal diagnosis as determined by the circumstances of admission, diagnostic work up, and/or therapy provided, and the Alphabetic Index, Tabular List, or another coding guideline does not provide sequencing direction, any one of the diagnoses may be sequenced first." "When the physician has documented what appears to be a current diagnosis in the body of the record, but has not included the diagnosis in the final diagnostic statement, the physician should be asked whether the diagnosis should be added." ([facility] 2 QTR90. p3-4) PIPERD
== END 2020-09-26 13:55 | DRG 57 ==
LOC: ED 13:19 → SUATTDRO 17:52 → 3W 17:52

== ENCOUNTER 2020-11-10 11:12 | Inpatient (IN) ==
[2020-11-10] MEDS ORDERED: RAPID SEQUENCE INDUCTION BAG ONE (11:22)
[2020-11-10] MEDS ORDERED: VANCOMYCIN HCL 1,750 MG in SODIUM CHLORIDE 0.9% 500 ML IV ONE (11:54)
[2020-11-10] MEDS ORDERED: DEXAMETHASONE SOD INJ 10 MG/ML VIAL IV ONE (11:54)
[2020-11-10] MEDS ORDERED: SODIUM CHLORIDE 0.9% 1000ML 1,000 ML IV ONE ×2 (11:54→12:17)
[2020-11-10] MEDS ORDERED: cefTRIAXone SODIUM 1,000 MG/50 ML BAG IV STA (11:54)
[2020-11-10] MEDS ORDERED: VANCOMYCIN CONSULT ACTIVE PRN (11:54)
[2020-11-10 11:58] LABS: Hematocrit (blood only) 39.9 % (37-47); Hemoglobin 12.9 g/dL (12.0-16.0); Mean Corpuscular Hemoglobin 31.5 pg (25-34); Mean Corpuscular Hgb Conc 32.3 g/dL (32-36); Mean Corpuscular Volume 97.6 fL (80-100); RDW Coefficient of Variation 17.2 % (11.5-14.5); RDW Standard Deviation 58.9 fL (36.4-46.3); Red Blood Count 4.09 M/uL (4.2-5.4); White Blood Count 22.52 K/uL (4.8-10.8)
[2020-11-10 12:12] LABS: Albumin Level 2.4 gm/dl (3.4-5.0); BUN Creatinine Ratio 17.7 (10-20); Calcium 9.1 mg/dl (8.5-10.1); Creatinine Clr Calc Pharmacy 28.8 ml/min; Est GFR (African American) 30.6; Est GFR (Non-African American) 26.4; Magnesium 1.9 mg/dl (1.8-2.4); Potassium 4.5 mmol/L (3.5-5.1)
[2020-11-10 12:14] LABS: INR 1.6 (0.9-1.1); Partial Thromboplastin Time 26.6 Seconds (21.0-31.0); Prothrombin Time 15.6 Seconds (9.0-12.0)
--- NOTE | 2020-11-10 12:16 | XRay Report ---
XR chest 1V portable CLINICAL HISTORY: SEPSIS COMPARISON STUDY: Chest radiograph October 25, 2020. FINDINGS: The tip of the endotracheal tube is 9 mm above the melody. The tube could be withdrawn 2 cm . Left internal jugular central line is within a left-sided SVC. There is no pneumothorax. Small righ t pleural effusion is noted. There is mild right basilar opacity. Patient is rotated. Cardiomediastin al silhouette is stable. There is no evidence for pulmonary edema. IMPRESSION: 1. Tip of endotracheal tube 9 mm above the melody. The tube could be withdrawn 2 cm. 2. Small right pleural effusion with mild right basilar opacity. 3. No pneumothorax on supine exam. Tip of left internal jugular central line within left sided SVC/co ronary sinus. ACT 112: Negative or not required by law. Electronically signed by: Clint Martinez M.D. 11/10/2020 12:15 PM
[2020-11-10] MEDS ORDERED: OPTIRAY 320 125ml IV ONE (12:17)
[2020-11-10 12:18] LABS: Albumin Globulin Ratio 0.5 (0.9-2); Bilirubin,Total 2.6 mg/dl (0.2-1); Globulin 5.2 gm/dl (2.5-4.0); Total Protein 7.6 gm/dl (6.4-8.2); Troponin I 0.028 ng/ml (0-0.045)
[2020-11-10 12:30] LABS: Basophils # (auto) 0.02 K/uL (0-0.2); Basophils % (auto) 0.1 %; Immature Granulocytes # (auto) 0.18 K/uL (0.00-0.02); Immature Granulocytes % (auto) 0.8 %; Lymphocytes # (auto) 0.73 K/uL (1.2-3.4); Lymphocytes % (auto) 3.2 %; Monocytes % (auto) 8.4 %; Neutrophils # (auto) 19.69 K/uL (1.4-6.5); Neutrophils % (auto) 87.5 %
--- NOTE | 2020-11-10 12:32 | CT Scan Report ---
CT OF THE HEAD WITHOUT CONTRAST CLINICAL HISTORY: Altered mental status. COMPARISON STUDY: Head CT October 25, 2020. CT DOSE: 847.48 mGycm TECHNIQUE: Helical axial images of the head were obtained without IV contrast. Automated exposure con trol was utilized for the study. A dose lowering technique was utilized adhering to the principles o f ALARA. FINDINGS: No acute intracranial hemorrhage, midline shift or mass effect is present. Severe dilatatio n of the bilateral lateral ventricles is unchanged. Dilatation of the third ventricle is unchanged. C aliber of the fourth ventricle is normal. The appearance of the brain is unchanged. There are no find ings to suggest acute dural sinus thrombosis or acute territorial infarct. There is no calvarial frac ture. Small amount of fluid within the mastoid air cells is suspected. There is trace fluid within th e right mastoid air cells. There may be fluid within the left middle ear. IMPRESSION: No acute intracranial findings. No change in severe hydrocephalus. ACT 112: Negative or not required by law. Electronically signed by: Clint Martinez M.D. 11/10/2020 12:31 PM
--- NOTE | 2020-11-10 12:46 | CT Scan Report ---
CT ANGIOGRAPHY OF THE CHEST, PULMONARY EMBOLUS PROTOCOL CLINICAL HISTORY: Shortness of breath. Chest pain. Sepsis. COMPARISON STUDY: Chest CT May 28, 2018. Chest radiograph performed earlier today. TECHNIQUE: Following IV administration of 120 mL of Optiray-320, helical axial images of the chest we re obtained utilizing the pulmonary embolus protocol. Maximal intensity projections and sagittal and coronal reformats were viewed on an independent 3D workstation. IV contrast was administered withou t complication. Automated exposure control was utilized for the study. A dose lowering technique wa s utilized adhering to the principles of ALARA. CT DOSE: 1518.24 mGycm FINDINGS: Note is made of a segmental pulmonary embolus within the posterior basilar segment of the right lower lobe shown on axial image 105 of 251. No central pulmonary embolus is identified. There m ay be several small left lower lobe subsegmental pulmonary emboli. Note is made of a hypoenhancing fo cus within the posterior basilar segment of the right lower lobe suggestive of a pulmonary infarct. T here may be a small right lower lobe infarct as well given possible developing cavitation. There is a djacent airspace opacity. A small partially loculated right pleural effusion is noted. There are tree -in-bud and groundglass opacities within the lungs. There is no pneumothorax. No left pleural effusio n is noted. Tip of endotracheal tube is 8 mm above the melody. Tip of left internal jugular central l ine is within the left SVC. Mild cardiomegaly is noted. There is no thoracic aortic dissection. Mildl y enlarged right infrahilar lymph node measures 1.2 cm in short axis diameter. Secretions in airway n arrowing within the right lower lobe bronchi are noted. Note is made of a moderate sized hiatal herni a. No acute fracture or suspicious lesion within the bony thorax is noted. The abdomen and pelvis martha l be reported separately. Gallstones within the gallbladder are noted. IMPRESSION: 1. Segmental pulmonary embolus within the posterior basilar segment of the right lower lobe with asso ciated pulmonary infarct. Adjacent smaller pulmonary infarct with possible cavitation. Adjacent airsp saul opacity may reflect pneumonia or atelectasis. 2. Small, partially loculated right pleural effusion. Sterility cannot be assessed by CT. 3. Scattered groundglass and tree-in-bud nodules within the lungs consistent with an infectious proce ss or sequela of aspiration. 4. Tip of endotracheal tube 8 mm above the melody. The tube could be withdrawn 1.5 cm. 5. Mild right hilar adenopathy which is likely reactive. 6. Tip of left internal jugular central line at the junction of a left SVC and coronary sinus. ACT 112: Negative or not required by law. Electronically signed by: Clint Martinez M.D. 11/10/2020 12:45 PM
[2020-11-10 12:47] LABS: Influenza A virus by PCR Negative (Neg); Influenza B virus by PCR Negative (Neg); RSV by PCR Negative (Neg)
[2020-11-10] MEDS ORDERED: Heparin IV Adult Wt-Based Standard *NO* Bolus Protocol IV ONE (12:50)
[2020-11-10 12:59] LABS: SARS CoV2 RNA(COVID-19) InHosp POSITIVE (Negative)
--- NOTE | 2020-11-10 13:03 | Emergency Department Note ---
Impression & Plan Respiratory failure, Pulmonary embolism, Infarctions, pulmonary, Hypoxia, COVID-19 virus infection, Retroperitoneal hematoma, Acute kidney injury, DVT (deep venous thrombosis) ED Provider Note NAME: SILVANO ZULETA AGE: 75 SEX: F : 1945 ARRIVES VIA: Ambulance INFORMANT: The prehospital personnel , ED PROVIDER(S): Maximo Naylor DO CHIEF COMPLAINT: Respiratory distress HPI: The patient is a 75-year-old female who presented to the emergency department for an evaluation of difficulty breathing. Apparently the patient has a history of dementia because of severe hydrocephalus. The patient presented to the emergency department by ambulance. We were unable to obtain history from the patient. According to the prehospital personnel the patient is a full code and has no advanced directives. She is been having difficulty breathing over the last 48 hours. She was noted to have pulse ox in the 60s to 70s prior to arrival. She was also positive for COVID-19. She continues to be treated with increasing oxygen over the last 24 hours. She arrives the emergency department altered. She is only responsive to painful stimuli and does not follow commands or answer questions. The patient's oxygen saturation was acceptable but required nonrebreather mask. The patient's respiratory status continued to worsen over the last 24 hours. There was no reported fever. There was no reported fall. The patient has had decreased p.o. intake. ROS: See above HPI for pertinent positives & negatives. A total of 10 systems reviewed and were otherwise negative. PAST MEDICAL HISTORY: See Below PAST SURGICAL HISTORY: See Below FAMILY HISTORY: See Below SOCIAL HISTORY: See Below HOME MEDICATIONS: See Below ALLERGIES: See Below VITALS: See Below PHYSICAL EXAMINATION: GENERAL: The patient is listless and slow to respond to painful stimuli. She does not respond to verbal commands. EYES: The conjunctivae are clear. The pupils are round and reactive. EARS, NOSE, MOUTH AND THROAT: The nose is without any evidence of any deformity. Mucous membranes are dry. NECK: The neck is nontender and supple. RESPIRATORY: Shallow and ineffective respirations are noted. Absent breath sounds are noted in the left lung field. Significant retractions were noted in the supraclavicular region. CARDIOVASCULAR: Tachycardic and regular rhythm was noted to auscultation. No definite murmur was noted. GASTROINTESTINAL: The abdomen is soft. Abdomen is nontender. There was diffuse ecchymosis across the abdominal wall in a pattern that could be consistent with her subcu blood thinner injections. MUSCULOSKELETAL/EXTREMITIES: There is no evidence of gross deformity full range of motion is noted in the hips and shoulders. SKIN: The skin was mottled in the upper as well as lower extremities. Capillary refill was significant delayed. There was chronic venous stasis changes in both lower extremities. Skin was cold. NEUROLOGIC: The patient does not follow commands. She unresponsive to painful stimuli. MEDICAL DECISION MAKING: The patient is a 75-year-old female who presented to the emergency department and extremities. She does have a history of hydrocephalus and chronic dementia. Reportedly she has been having trouble breathing over the last 2 to 3 days. The patient was seen in our facility recently and diagnosed with COVID-19 but also diagnosed with a retroperitoneal hematoma. This was treated conservatively. The patient is receiving subcu Lovenox for DVT prophylaxis but also I believe for COVID-19. The patient was very listless upon arrival. Her respiratory drive was starting to slow down and she appeared to start having respiratory failure. The decision was made to intubate the patient. She had no IV access. We were unable to obtain an IV site after multiple times. For this reason a central line was placed in the left internal jugular vein. The patient was unable to be intubated in the usual fashion. She tolerated these procedures quite well. She was treated with IV fluids and IV antibiotics. She was reevaluated multiple times. Further radiographic studies revealed pulmonary embolism and pulmonary infarct. CT the abdomen and pelvis showed improvement of the retroperitoneal hematoma but also bilateral femoral vein DVTs. I discussed the patient's condition with the slurry tank operator. The patient was evaluated in the emergency department by the slurry tank operator. I also discussed her case with the on- call [facility] hospitalist group. They have agreed to evaluate the patient in the emergency department for further management and disposition. The patient was placed on a propofol drip. Her condition slowly improved but her mental status was lagging behind. Certainly she will need close monitoring given the need for anticoagulation but also the retroperitoneal hematoma. Triage Nursing notes reviewed. Prior medical records reviewed Vital Signs: reviewed and remarkable for elevated blood pressure and tachycardia. Differential diagnosis: Reactive airway disease, pneumonia, pneumothorax, COPD, CHF, infections, cardi ac ischemia, pulmonary embolism, musculoskeletal, gastrointestinal, as well as other pathologies. ER treatment provided: See below Diagnostics interpreted by me: ECG: EKG was obtained in the emergency department. My interpretation is sinus tachycardia at [address] depressions were noted. There was no ectopy. This was compared to a tracing from October 252020. The ST segment abnormalities are new compared to the earlier tracing. Cardiac Monitoring: An order was placed for continuous cardiac monitoring. The monitor shows a rate of 125 bpm with sinus tachycardia rhythm. Laboratory studies: As stated above and show below. Imaging studies: See below Consultation(s): 1250: I discussed this case with Dr. Tyler who is on-call for the slurry tank operator group. 1335: I discussed this case with Dr. Horne who is on-call for the [facility] hospitalist group. ED COURSE: Procedures: Endotracheal Intubation Indication respiratory distress. The patient was on 100% oxygen via NRB prior to the procedure. Suction, airway equipment, RSI drugs, respiratory equipment, and appropriate personnel were prepared prior to the initiation of the procedure. A time out was taken. Induction was performed with etomidate and rocuronium. After observing the clinical benefit of the medications, the airway was easily visualized utilizing a glide scope. A 7.5 size ETT tube was placed atraumatically to 23 cm using standard technique. The cuff inflated without signs of malfunction. There were bilateral breath sounds, positive colormetric change, no gastric sounds, a good capnography waveform, and post procedure pulse oximetry was 96%. There were no complications. Post intubation chest x-ray revealed the endotracheal tube just above the melody. It was moved back 1 cm. Central Venous Catheter Indication: Sepsis and respiratory failure Catheter type: Triple-lumen Location: Left internal jugular vein Verbal consent was obtained after the risks and benefits were explained, including but not limited to pneumothorax, hemothorax, vessel injury, bleeding, scarring, infection, pain, and bone/joint/nerve damage. At this time, the risks of the procedure are less than the risks of NOT performing the procedure. A time out was taken and the correct patient and site identified. The patient was placed in the supine position and the skin was prepped in the standard fashion with chlorhexidine and full sterile drapes applied. The proper landmarks were identified with ultrasound, anesthetized with 1% lidocaine without epinephrine, and the needle was inserted through the skin in the standard fashion. The needle was carefully advanced into blood vessel lumen. The guidewire was placed uneventfully. The vessel is dilated and the catheter was placed. It was sutured into position. There was good blood return from all ports. The patient tolerated the procedure well and there were no complications. Post procedure x- ray was normal. Critical Care: I have personally spent greater than 65 minutes of critical care time in the direct management of this patient. This includes bedside care, interpretation of diagnostic studies, and testing, discussion with consultants, patient, and family members, and other required patient management activities. This 65 minutes is in excess of all separately billable procedures. Past Med/Surg History Medical History Anxiety Chronic venous stasis Congenital hydrocephalus MDD (major depressive disorder) Surgical History H/O eye surgery "Strabismus Surgery" History of tonsillectomy History of tubal ligation Hx of tonsillectomy Family History Other Cancer Diabetes Social History Smoking Status: Unknown if ever smoked Hx Alcohol Use: Yes Alcohol type: hard liquor Hx Substance Use: No Preferred Language: [place] Irish Communication Ability: Impaired Beliefs That Will Affect Care: None Current Living Situation: Alone Current Living Situation Comment: Purdum Palumbo comes to home Feels Safe at Home: Yes Assistive Devices: Glasses and Walker Allergies Allergies Allergy/AdvReac Type Severity Reaction Status Date / Time No Known Allergies Allergy Unverified 10/25/20 09:24 Home Meds Home Medications Medication Instructions Recorded Confirmed carbamazepine 200 mg PO BID 02/07/19 10/25/20 donepezil 10 mg PO HS 09/06/19 11/10/20 clotrimazole-betamethasone 1 applic TOPICAL BID 09/21/20 10/25/20 furosemide 20 mg PO DAILY 09/21/20 10/25/20 sertraline 100 mg PO QAM 09/21/20 11/10/20 cholecalciferol (vitamin D3) 50 mcg PO QAM 10/25/20 11/10/20 [Vitamin D3] enoxaparin [Lovenox] 60 mg SUBCUT DAILY 10/25/20 10/25/20 famotidine 20 mg PO DAILY 10/25/20 10/25/20 melatonin 3 mg PO HS 10/25/20 11/10/20 ondansetron 4 mg PO Q4H PRN 10/25/20 10/25/20 pantoprazole 40 mg PO DAILYBB 10/25/20 10/25/20 sennosides-docusate sodium 1 tab-cap PO DAILY 10/25/20 10/25/20 [Senokot-S] albuterol sulfate 2.5 mg INHALATION Q4H PRN 11/10/20 11/10/20 clotrimazole-betamethasone 1 applic TOPICAL UD 11/10/20 11/10/20 [Lotrisone] hydrocortisone 1 applic TOPICAL UD 11/10/20 11/10/20 Previous Rx's Medication Instructions Recorded calcium carbonate [Tums] 500 mg PO DAILY #0 tab 09/25/20 polyethylene glycol 3350 [Miralax] 17 g PO DAILY PRN #0 ea 09/25/20 Results & Data (ED) Vital Signs Vital Signs - 24 hr 11/10/20 11:17 11/10/20 11:21 11/10/20 11:25 Temperature Temperature Source Pulse Rate 144 H 144 H Pulse Rate from SpO2 Sensor 149 H 145 H Respiratory Rate 30 H 26 H Respiratory Effort / Characteristics Respiratory Depth Respiratory Pattern Blood Pressure Blood Pressure Mean 99 Blood Pressure Position Pulse Oximetry 92 90 89 L Oxygen Delivery Method Non-rebreather Oxygen Flow Rate 15 Fraction of Inspired Oxygen Sepsis Recent Fever Within 48 Hours Sepsis New/Unexplained Change in Mental Status Sepsis Action Taken by Nursing End-Tidal CO2 11/10/20 11:30 11/10/20 11:31 11/10/20 11:40 Temperature Temperature Source Pulse Rate 143 H 142 H 141 H Pulse Rate from SpO2 Sensor 145 H 142 H 137 H Respiratory Rate 28 H 30 H 28 H Respiratory Effort / Characteristics Accessory Muscle Use Labored Short of Breath Respiratory Depth Shallow Respiratory Pattern Tachypnea Blood Pressure 205/62 H 145/74 H Blood Pressure Mean 109 97 Blood Pressure Position Lying Pulse Oximetry 93 94 93 Oxygen Delivery Method Non-rebreather Non-rebreather Non-rebreather Oxygen Flow Rate 15 15 15 Fraction of Inspired Oxygen Sepsis Recent Fever Within 48 Hours Yes Sepsis New/Unexplained Change in Mental Status Yes Sepsis Action Taken by Nursing Physician Notified End-Tidal CO2 11/10/20 11:50 11/10/20 11:51 11/10/20 11:56 Temperature Temperature Source Pulse Rate 140 H 141 H 149 H Pulse Rate from SpO2 Sensor Respiratory Rate Respiratory Effort / Characteristics Respiratory Depth Respiratory Pattern Blood Pressure 75/53 L 68/54 L Blood Pressure Mean 60 63 58 Blood Pressure Position Pulse Oximetry Oxygen Delivery Method Oxygen Flow Rate Fraction of Inspired Oxygen Sepsis Recent Fever Within 48 Hours Sepsis New/Unexplained Change in Mental Status Sepsis Action Taken by Nursing End-Tidal CO2 11/10/20 12:00 11/10/20 12:15 11/10/20 12:32 Temperature Temperature Source Pulse Rate 152 H 133 H 132 H Pulse Rate from SpO2 Sensor 151 H Respiratory Rate 16 Respiratory Effort / Characteristics Respiratory Depth Respiratory Pattern Blood Pressure 92/70 L 158/79 H Blood Pressure Mean 77 105 Blood Pressure Position Pulse Oximetry 95 95 Oxygen Delivery Method Mechanical Vent Oxygen Flow Rate Fraction of Inspired Oxygen 80 Sepsis Recent Fever Within 48 Hours Sepsis New/Unexplained Change in Mental Status Sepsis Action Taken by Nursing End-Tidal CO2 32 40 11/10/20 12:40 11/10/20 12:50 11/10/20 12:57 Temperature 37.3 C Temperature Source Oral Pulse Rate 133 H 134 H Pulse Rate from SpO2 Sensor 133 H 133 H Respiratory Rate Respiratory Effort / Characteristics Respiratory Depth Respiratory Pattern Blood Pressure 167/72 H Blood Pressure Mean 103 Blood Pressure Position Pulse Oximetry 98 100 Oxygen Delivery Method Mechanical Vent Mechanical Vent Oxygen Flow Rate Fraction of Inspired Oxygen Sepsis Recent Fever Within 48 Hours Sepsis New/Unexplained Change in Mental Status Sepsis Action Taken by Nursing End-Tidal CO2 37 28 11/10/20 13:00 11/10/20 13:10 11/10/20 13:20 Temperature Temperature Source Pulse Rate 127 H 123 H 120 H Pulse Rate from SpO2 Sensor 128 H 123 H 119 H Respiratory Rate Respiratory Effort / Characteristics Respiratory Depth Respiratory Pattern Blood Pressure 162/79 H 154/78 H 155/72 H Blood Pressure Mean 106 103 99 Blood Pressure Position Pulse Oximetry 100 99 98 Oxygen Delivery Method Mechanical Vent Mechanical Vent Mechanical Vent Oxygen Flow Rate Fraction of Inspired Oxygen Sepsis Recent Fever Within 48 Hours Sepsis New/Unexplained Change in Mental Status Sepsis Action Taken by Nursing End-Tidal CO2 18 17 17 11/10/20 13:30 11/10/20 13:40 Temperature Temperature Source Pulse Rate 118 H 117 H Pulse Rate from SpO2 Sensor 121 H 117 H Respiratory Rate Respiratory Effort / Characteristics Respiratory Depth Respiratory Pattern Blood Pressure 164/95 H 151/79 H Blood Pressure Mean 118 103 Blood Pressure Position Pulse Oximetry 99 98 Oxygen Delivery Method Mechanical Vent Mechanical Vent Oxygen Flow Rate Fraction of Inspired Oxygen Sepsis Recent Fever Within 48 Hours Sepsis New/Unexplained Change in Mental Status Sepsis Action Taken by Nursing End-Tidal CO2 34 36 Home Medications Current Medication List: was personally reviewed by me Laboratory Data Attestation: I reviewed the patient's lab results. Result diagrams: 11/10/20 11:43 11/10/20 11:43 Lab Results 11/10/20 11/10/20 11/10/20 Range/Units 11:43 11:43 11:43 WBC 22.52 H (4.8-10.8) K/uL RBC 4.09 L (4.2-5.4) M/uL Hgb 12.9 (12.0-16.0) g/dL Hct 39.9 (37-47) % MCV 97.6 (80-100) fL MCH 31.5 (25-34) pg MCHC 32.3 (32-36) g/dL RDW Std Deviation 58.9 H (36.4-46.3) fL RDW Coeff of Virgilio 17.2 H (11.5-14.5) % Plt Count (130-400) K/uL MPV (7.4-10.4) fL Immature Gran % (Auto) 0.8 % Neut % (Auto) 87.5 % Lymph % (Auto) 3.2 % [place] % (Auto) 8.4 % Eos % (Auto) 0.0 % Baso % (Auto) 0.1 % Neut # (Auto) 19.69 H (1.4-6.5) K/uL Lymph # (Auto) 0.73 L (1.2-3.4) K/uL [place] # (Auto) 1.90 H (0.11-0.59) K/uL Eos # (Auto) 0.00 (0-0.5) K/uL Baso # (Auto) 0.02 (0-0.2) K/uL Immature Gran # (Auto) 0.18 H (0.00-0.02) K/uL PT (9.0-12.0) Seconds INR (0.9-1.1) APTT (21.0-31.0) Seconds PTT Ratio VBG pH (7.36-7.41) VBG pCO2 (38-50) mmHg VBG pO2 mmHg VBG HCO3 mmol/L VBG O2 Saturation % VBG Base Excess mEq/L Barometric Pressure mm/Hg Sodium 148 H (136-145) mmol/L Potassium 4.5 (3.5-5.1) mmol/L Chloride 116 H (98-107) mmol/L Carbon Dioxide 22 (21-32) mmol/L Anion Gap 10.0 (3-11) BUN 33 H (7-18) mg/dl Creatinine 1.85 H (0.6-1.2) mg/dl Est Cr Clr Drug Dosing 28.8 ml/min Est GFR ( Amer) 30.6 Est GFR (Non-Af Amer) 26.4 BUN/Creatinine Ratio 17.7 (10-20) Glucose 145 H (70-99) mg/dl Lactate (0.4-2.0) mmol/L Calcium 9.1 (8.5-10.1) mg/dl Magnesium 1.9 (1.8-2.4) mg/dl Total Bilirubin 2.6 H (0.2-1) mg/dl AST 37 (15-37) U/L ALT 48 (12-78) U/L Alkaline Phosphatase 163 H (45-117) U/L Troponin I 0.028 (0-0.045) ng/ml Total Protein 7.6 (6.4-8.2) gm/dl Albumin 2.4 L (3.4-5.0) gm/dl Globulin 5.2 H (2.5-4.0) gm/dl Albumin/Globulin Ratio 0.5 L (0.9-2) Procalcitonin 3.39 H (0-0.5) ng/ml Urine Color Urine Appearance (Clear) Urine pH (4.5-7.5) Ur Specific [place] (1.000-1.030) Urine Protein (Negative) Urine Glucose (UA) (Negative) Urine Ketones (Negative) Urine Blood (Negative) Urine Nitrite (Negative) Urine Bilirubin (Negative) Urine Urobilinogen (Negative) Ur Leukocyte Esterase (Negative) Urine WBC (Auto) (0-5) /hpf Urine RBC (Auto) (0-4) /hpf U Hyaline Cast (Auto) (0-5) /lpf U Epithel Cells (Auto) (0-5) /lpf Urine Bacteria (Auto) (Negative) Carbamazepine (4-12) mcg/ml COVID-19 Eval Order SARS-CoV-2 (PCR) (Negative) Influenza Type A (PCR) (Neg) Influenza Type B (PCR) (Neg) RSV (RT-PCR) (Neg) 11/10/20 11/10/20 11/10/20 Range/Units 11:43 11:43 11:55 WBC (4.8-10.8) K/uL RBC (4.2-5.4) M/uL Hgb (12.0-16.0) g/dL Hct (37-47) % MCV (80-100) fL MCH (25-34) pg MCHC (32-36) g/dL RDW Std Deviation (36.4-46.3) fL RDW Coeff of Virgilio (11.5-14.5) % Plt Count (130-400) K/uL MPV (7.4-10.4) fL Immature Gran % (Auto) % Neut % (Auto) % Lymph % (Auto) % [place] % (Auto) % Eos % (Auto) % Baso % (Auto) % Neut # (Auto) (1.4-6.5) K/uL Lymph # (Auto) (1.2-3.4) K/uL [place] # (Auto) (0.11-0.59) K/uL Eos # (Auto) (0-0.5) K/uL Baso # (Auto) (0-0.2) K/uL Immature Gran # (Auto) (0.00-0.02) K/uL PT 15.6 H (9.0-12.0) Seconds INR 1.6 H (0.9-1.1) APTT 26.6 (21.0-31.0) Seconds PTT Ratio 1.0 VBG pH (7.36-7.41) VBG pCO2 (38-50) mmHg VBG pO2 mmHg VBG HCO3 mmol/L VBG O2 Saturation % VBG Base Excess mEq/L Barometric Pressure mm/Hg Sodium (136-145) mmol/L Potassium (3.5-5.1) mmol/L Chloride (98-107) mmol/L Carbon Dioxide (21-32) mmol/L Anion Gap (3-11) BUN (7-18) mg/dl Creatinine (0.6-1.2) mg/dl Est Cr Clr Drug Dosing ml/min Est GFR ( Amer) Est GFR (Non-Af Amer) BUN/Creatinine Ratio (10-20) Glucose (70-99) mg/dl Lactate 2.4 H* (0.4-2.0) mmol/L Calcium (8.5-10.1) mg/dl Magnesium (1.8-2.4) mg/dl Total Bilirubin (0.2-1) mg/dl AST (15-37) U/L ALT (12-78) U/L Alkaline Phosphatase (45-117) U/L Troponin I (0-0.045) ng/ml Total Protein (6.4-8.2) gm/dl Albumin (3.4-5.0) gm/dl Globulin (2.5-4.0) gm/dl Albumin/Globulin Ratio (0.9-2) Procalcitonin (0-0.5) ng/ml Urine Color Urine Appearance (Clear) Urine pH (4.5-7.5) Ur Specific [place] (1.000-1.030) Urine Protein (Negative) Urine Glucose (UA) (Negative) Urine Ketones (Negative) Urine Blood (Negative) Urine Nitrite (Negative) Urine Bilirubin (Negative) Urine Urobilinogen (Negative) Ur Leukocyte Esterase (Negative) Urine WBC (Auto) (0-5) /hpf Urine RBC (Auto) (0-4) /hpf U Hyaline Cast (Auto) (0-5) /lpf U Epithel Cells (Auto) (0-5) /lpf Urine Bacteria (Auto) (Negative) Carbamazepine (4-12) mcg/ml COVID-19 Eval Order CovFluRsv at [facility] SARS-CoV-2 (PCR) (Negative) Influenza Type A (PCR) (Neg) Influenza Type B (PCR) (Neg) RSV (RT-PCR) (Neg) 11/10/20 11/10/20 11/10/20 Range/Units 11:55 12:45 13:11 WBC (4.8-10.8) K/uL RBC (4.2-5.4) M/uL Hgb (12.0-16.0) g/dL Hct (37-47) % MCV (80-100) fL MCH (25-34) pg MCHC (32-36) g/dL RDW Std Deviation (36.4-46.3) fL RDW Coeff of Virgilio (11.5-14.5) % Plt Count (130-400) K/uL MPV (7.4-10.4) fL Immature Gran % (Auto) % Neut % (Auto) % Lymph % (Auto) % [place] % (Auto) % Eos % (Auto) % Baso % (Auto) % Neut # (Auto) (1.4-6.5) K/uL Lymph # (Auto) (1.2-3.4) K/uL [place] # (Auto) (0.11-0.59) K/uL Eos # (Auto) (0-0.5) K/uL Baso # (Auto) (0-0.2) K/uL Immature Gran # (Auto) (0.00-0.02) K/uL PT (9.0-12.0) Seconds INR (0.9-1.1) APTT (21.0-31.0) Seconds PTT Ratio VBG pH (7.36-7.41) VBG pCO2 (38-50) mmHg VBG pO2 mmHg VBG HCO3 mmol/L VBG O2 Saturation % VBG Base Excess mEq/L Barometric Pressure mm/Hg Sodium (136-145) mmol/L Potassium (3.5-5.1) mmol/L Chloride (98-107) mmol/L Carbon Dioxide (21-32) mmol/L Anion Gap (3-11) BUN (7-18) mg/dl Creatinine (0.6-1.2) mg/dl Est Cr Clr Drug Dosing ml/min Est GFR ( Amer) Est GFR (Non-Af Amer) BUN/Creatinine Ratio (10-20) Glucose (70-99) mg/dl Lactate (0.4-2.0) mmol/L Calcium (8.5-10.1) mg/dl Magnesium (1.8-2.4) mg/dl Total Bilirubin (0.2-1) mg/dl AST (15-37) U/L ALT (12-78) U/L Alkaline Phosphatase (45-117) U/L Troponin I (0-0.045) ng/ml Total Protein (6.4-8.2) gm/dl Albumin (3.4-5.0) gm/dl Globulin (2.5-4.0) gm/dl Albumin/Globulin Ratio (0.9-2) Procalcitonin (0-0.5) ng/ml Urine Color [place] Urine Appearance Cloudy A (Clear) Urine pH 5.0 (4.5-7.5) Ur Specific [place] 1.018 (1.000-1.030) Urine Protein 1+ H (Negative) Urine Glucose (UA) Negative (Negative) Urine Ketones 1+ H (Negative) Urine Blood Trace H (Negative) Urine Nitrite Positive A (Negative) Urine Bilirubin 2+ H (Negative) Urine Urobilinogen Positive H (Negative) Ur Leukocyte Esterase 1+ H (Negative) Urine WBC (Auto) 0 (0-5) /hpf Urine RBC (Auto) 5-10 H (0-4) /hpf U Hyaline Cast (Auto) 0 (0-5) /lpf U Epithel Cells (Auto) >30 H (0-5) /lpf Urine Bacteria (Auto) Negative (Negative) Carbamazepine 5.4 (4-12) mcg/ml COVID-19 Eval Order SARS-CoV-2 (PCR) POSITIVE A* (Negative) Influenza Type A (PCR) Negative (Neg) Influenza Type B (PCR) Negative (Neg) RSV (RT-PCR) Negative (Neg) 11/10/20 11/10/20 Range/Units 13:11 13:24 WBC (4.8-10.8) K/uL RBC (4.2-5.4) M/uL Hgb (12.0-16.0) g/dL Hct (37-47) % MCV (80-100) fL MCH (25-34) pg MCHC (32-36) g/dL RDW Std Deviation (36.4-46.3) fL RDW Coeff of Virgilio (11.5-14.5) % Plt Count (130-400) K/uL MPV (7.4-10.4) fL Immature Gran % (Auto) % Neut % (Auto) % Lymph % (Auto) % [place] % (Auto) % Eos % (Auto) % Baso % (Auto) % Neut # (Auto) (1.4-6.5) K/uL Lymph # (Auto) (1.2-3.4) K/uL [place] # (Auto) (0.11-0.59) K/uL Eos # (Auto) (0-0.5) K/uL Baso # (Auto) (0-0.2) K/uL Immature Gran # (Auto) (0.00-0.02) K/uL PT (9.0-12.0) Seconds INR (0.9-1.1) APTT (21.0-31.0) Seconds PTT Ratio VBG pH 7.13 L (7.36-7.41) VBG pCO2 67 H (38-50) mmHg VBG pO2 33 mmHg VBG HCO3 22 mmol/L VBG O2 Saturation < 60.0 % VBG Base Excess -8.2 mEq/L Barometric Pressure 722.3 mm/Hg Sodium (136-145) mmol/L Potassium (3.5-5.1) mmol/L Chloride (98-107) mmol/L Carbon Dioxide (21-32) mmol/L Anion Gap (3-11) BUN (7-18) mg/dl Creatinine (0.6-1.2) mg/dl Est Cr Clr Drug Dosing ml/min Est GFR ( Amer) Est GFR (Non-Af Amer) BUN/Creatinine Ratio (10-20) Glucose (70-99) mg/dl Lactate 1.5 (0.4-2.0) mmol/L Calcium (8.5-10.1) mg/dl Magnesium (1.8-2.4) mg/dl Total Bilirubin (0.2-1) mg/dl AST (15-37) U/L ALT (12-78) U/L Alkaline Phosphatase (45-117) U/L Troponin I (0-0.045) ng/ml Total Protein (6.4-8.2) gm/dl Albumin (3.4-5.0) gm/dl Globulin (2.5-4.0) gm/dl Albumin/Globulin Ratio (0.9-2) Procalcitonin (0-0.5) ng/ml Urine Color Urine Appearance (Clear) Urine pH (4.5-7.5) Ur Specific [place] (1.000-1.030) Urine Protein (Negative) Urine Glucose (UA) (Negative) Urine Ketones (Negative) Urine Blood (Negative) Urine Nitrite (Negative) Urine Bilirubin (Negative) Urine Urobilinogen (Negative) Ur Leukocyte Esterase (Negative) Urine WBC (Auto) (0-5) /hpf Urine RBC (Auto) (0-4) /hpf U Hyaline Cast (Auto) (0-5) /lpf U Epithel Cells (Auto) (0-5) /lpf Urine Bacteria (Auto) (Negative) Carbamazepine (4-12) mcg/ml COVID-19 Eval Order SARS-CoV-2 (PCR) (Negative) Influenza Type A (PCR) (Neg) Influenza Type B (PCR) (Neg) RSV (RT-PCR) (Neg) Administered Medications Vancomycin HCl 1,750 mg/ (Sodium Chloride) 535 mls @ 200 mls/hr IV NOW ONE Stop: 11/10/20 14:34 Last Admin: 11/10/20 13:07 Dose: 200 mls/hr Documented by: [id number] Heparin Sodium/Dextrose (Heparin Sodium/Dextrose) 25,000 units in 500 mls @ 25 mls/hr IV .Q20H DANIELLA; Protocol Stop: 12/10/20 12:59 Last Admin: 11/10/20 13:13 Dose: 1,250 units/hr, 25 mls/hr Documented by: [id number] Cosigned by: [id number] Discontinued Medications Dexamethasone (Dexamethasone Sod Inj 10 Mg/Ml Vial) 10 mg IV NOW ONE Stop: 11/10/20 11:55 Last Admin: 11/10/20 12:43 Dose: 10 mg Documented by: [id number] Heparin Sodium/Dextrose (Heparin Iv Standard *No* Bolus) 1 ea IV ONE ONE; Protocol Stop: 11/10/20 12:51 Last Admin: 11/10/20 13:10 Dose: Not Given Documented by: [id number] Sodium Chloride (Nss 1000ml) 1,000 mls @ 999 mls/hr IV .Q1H1M ONE Stop: 11/10/20 12:54 Last Infusion: 11/10/20 13:16 Dose: 0 mls/hr Documented by: [id number] Admin: 11/10/20 12:02 Dose: 999 mls/hr Documented by: [id number] Ceftriaxone Sodium (Rocephin) 1,000 mg in 50 mls @ 100 mls/hr IV NOW STA Stop: 11/10/20 12:23 Last Infusion: 11/10/20 13:16 Dose: 0 mls/hr Documented by: [id number] Admin: 11/10/20 12:44 Dose: 100 mls/hr Documented by: [id number] Sodium Chloride (Nss 1000ml) 1,000 mls @ 999 mls/hr IV .Q1H1M ONE Stop: 11/10/20 13:17 Last Infusion: 11/10/20 13:48 Dose: 0 mls/hr Documented by: [id number] Admin: 11/10/20 12:45 Dose: 999 mls/hr Documented by: [id number] Propofol (Diprivan) 1,000 mg in 100 mls @ 10.284 mls/hr IV .Q9H44M [facility]; Protocol Stop: 11/13/20 13:59 Last Admin: 11/10/20 13:58 Dose: 20 mcg/kg/min, 10.3 mls/hr Documented by: [id number] Cosigned by: [id number] Ioversol (Optiray 320 125ml) 120 ml IV ONCE ONE Stop: 11/10/20 12:18 Last Admin: 11/10/20 12:18 Dose: 120 ml Documented by: [id number] Imaging Data Radiologist's Impression: Patient: SILVNAO ZULETA Admit Date: 11/10/20 MR#: [id number] Address1: [address] [place] [address] Acct ID:[id number] Address2: [facility] Date: 1945 [facility] Zip: [place] [address] Age: 75 Location: ED Sex: F Room/Bed: Att Phy: Diagnosis: RESP DISTRESS Dian Phy: [facility] Date: 11/10/20 Fam Phy: Interpreting Phy: Clint Martinez MD Admit Phy: Ordering Phy: Maximo Naylor DO cc: ~ CT OF THE HEAD WITHOUT CONTRAST CLINICAL HISTORY: Altered mental status. COMPARISON STUDY: Head CT October 25, 2020. CT DOSE: 847.48 mGycm TECHNIQUE: Helical axial images of the head were obtained without IV contrast. Automated exposure control was utilized for the study. A dose lowering technique was utilized adhering to the principles of ALARA. FINDINGS: No acute intracranial hemorrhage, midline shift or mass effect is present. Severe dilatation of the bilateral lateral ventricles is unchanged. Dilatation of the third ventricle is unchanged. Caliber of the fourth ventricle is normal. The appearance of the brain is unchanged. There are no findings to suggest acute dural sinus thrombosis or acute territorial infarct. There is no calvarial fracture. Small amount of fluid within the mastoid air cells is suspec lizzie. There is trace fluid within the right mastoid air cells. There may be fluid within the left middle ear. IMPRESSION: No acute intracranial findings. No change in severe hydrocephalus. ACT 112: Negative or not required by law. Electronically signed by: Clint Martinez M.D. 11/10/2020 12:31 PM Dictated: 11/10/201224 Transcribed: 11/10/201224 Patient: SILVANO ZULETA Admit Date: 11/10/20 MR#: [id number] Address1: [facility] [place] Acct ID:[id number] Address2: [facility] Date: 1945 [facility] Zip: [place] [address] Age: 75 Location: ED Sex: F Room/Bed: Att Phy: Diagnosis: RESP DISTRESS Dian Phy: [facility] Date: 11/10/20 Fam Phy: Interpreting Phy: Clint Martinez MD Admit Phy: Ordering Phy: Maximo Naylor DO cc: ~ CT ANGIOGRAPHY OF THE CHEST, PULMONARY EMBOLUS PROTOCOL CLINICAL HISTORY: Shortness of breath. Chest pain. Sepsis. COMPARISON STUDY: Chest CT May 28, 2018. Chest radiograph performed earlier today. TECHNIQUE: Following IV administration of 120 mL of Optiray-320, helical axial images of the chest were obtained utilizing the pulmonary embolus protocol. Maximal intensity projections and sagittal and coronal reformats were viewed on an independent 3D workstation. IV contrast was administered without complication. Automated exposure control was utilized for the study. A dose lowering technique was utilized adhering to the principles of ALARA. CT DOSE: 1518.24 mGycm FINDINGS: Note is made of a segmental pulmonary embolus within the posterior basilar segment of the right lower lobe shown on axial image 105 of 251. No central pulmonary embolus is identified. There may be several small left lower lobe subsegmental pulmonary emboli. Note is made of a hypoenhancing focus within the posterior basilar segment of the right lower lobe suggestive of a pulmonary infarct. There may be a small right lower lobe infarct as well given possible developing cavitation. There is adjacent airspace opacity. A small partially loculated right pleural effusion is noted. There are tree-in-bud and groundglass opacities within the lungs. There is no pneumothorax. No left pleural effusion is noted. Tip of endotracheal tube is 8 mm above the melody. Tip of left internal jugular central line is within the left SVC. Mild cardiomegaly is noted. There is no thoracic aortic dissection. Mildly enlarged right infrahilar lymph node measures 1.2 cm in short axis diameter. Secretions in airway narrowi ng within the right lower lobe bronchi are noted. Note is made of a moderate sized hiatal hernia. No acute fracture or suspicious lesion within the bony thorax is noted. The abdomen and pelvis will be reported separately. Gallstones within the gallbladder are noted. IMPRESSION: 1. Segmental pulmonary embolus within the posterior basilar segment of the right lower lobe with associated pulmonary infarct. Adjacent smaller pulmonary infarct with possible cavitation. Adjacent airspace opacity may reflect pneumonia or atelectasis. 2. Small, partially loculated right pleural effusion. Sterility cannot be assessed by CT. 3. Scattered groundglass and tree-in-bud nodules within the lungs consistent with an infectious process or sequela of aspiration. 4. Tip of endotracheal tube 8 mm above the melody. The tube could be withdrawn 1.5 cm. 5. Mild right hilar adenopathy which is likely reactive. 6. Tip of left internal jugular central line at the junction of a left SVC and coronary sinus. ACT 112: Negative or not required by law. Electronically signed by: Clint Martinez M.D. 11/10/2020 12:45 PM Dictated: 11/10/20 1231 Transcribed: 11/10/20 1231 Patient: SILVANO ZULETA Admit Date: 11/10/20 MR#: [id number] Address1: [facility] Acct ID:[id number] Address2: [facility] Date: 1945 [facility] Zip: [place] [address] Age: 75 Location: ED Sex: F Room/Bed: Att Phy: Diagnosis: RESP DISTRESS Dian Phy: [facility] Date: 11/10/20 [facility] Phy: Interpreting Phy: Tarik Orr Admit Phy: Ordering Phy: Maximo Naylor DO cc: ~ ABDOMEN AND PELVIS CT WITH IV CONTRAST HISTORY: Acute generalized abdominal pain with distention distended TECHNIQUE: Multiaxial CT images of the abdomen and pelvis were performed follo wing the IV administration of 120 cc of Optiray 320, A dose lowering technique was utilized adhering to the principles of ALARA. COMPARISON STUDY: CT abdomen and pelvis 10/25/2020 FINDINGS: A catheter is partially imaged within the left atrium. Imaged inferior cardiac chambers are upper limits of normal in size. Small right pleural effusion with right lung base consolidation. Additionally, there is a cystic focus within the basal right lower lobe measuring 2.3 x 2.1 cm. Scattered groundglass nodular consolidative opacities within the lung bases with bronchial wall thickening. No pneumatosis or pneumoperitoneum. Spleen, pancreas and adrenal glands are unremarkable. Cholelithiasis. Unremark able liver. Patency of the hepatic and portal veins. Bilateral renal cysts. No hydronephrosis. Unremarkable urinary bladder, uterus and adnexa. No aortic aneurysm or adenopathy. Filling defects are noted within the bilateral common and superficial femoral veins. Moderate hiatal hernia with distal esophageal wall thickening. Moderate fecal retention of the rectum with mild rectal wall thickening and perirectal stranding/edema. Normal appendix. Decreased size of the subacute retroperitoneal hematoma, now measuring up to 8.3 x 5.2 cm in transverse and AP dimensions, previously measuring up to 9.1 x 7.1 cm. Degenerative changes of the spine, pelvis and hips. Chronic L1 compression deformity. IMPRESSION: 1. Small right pleural effusion with bibasilar patchy opacities and right lower lobe consolidation suggestive of pneumonia. Additionally, there is a 2.3 x 2.1 cm cystic focus of the basal right lower lobe which may reflect a developing abscess. Findings should be correlated clinically to exclude aspiration. 2. Decreased size of the subacute retroperitoneal hematoma as above. 3. Deep venous thrombi of the bilateral common femoral and superficial femoral veins. 4. Moderate fecal retention of the rectum with findings suggestive of stercoral proctitis. 5. No bowel obstruction. 6. Cholelithiasis. 7. Moderate hiatal hernia. ACT 112: Negative or not required by law. The above report was generated using voice recognition software. It may contain grammatical, syntax or spelling errors. Electronically signed by: Randy Orr M.D. 11/10/2020 1:17 PM Dictated: 11/10/20 1306 Transcribed: 11/10/20 1306 Patient: SILVANO ZULETA Admit Date: 11/10/20 MR#: [id number] [facility] Acct ID:[id number] Address2: [facility] Date: 1945 [facility] Zip: [place] [address] Age: 75 Location: ED Sex: F Room/Bed: Att Phy: Diagnosis: RESP DISTRESS Dian Phy: [facility] Date: 11/10/20 Fam Phy: Interpreting Phy: Clint Martinez MD Admit Phy: Ordering Phy: Maximo Naylor, cc: ~ XR chest 1V portable CLINICAL HISTORY: SEPSIS COMPARISON STUDY: Chest radiograph October 25, 2020. FINDINGS: The tip of the endotracheal tube is 9 mm above the melody. The tube could be withdrawn 2 cm. Left internal jugular central line is within a left- sided SVC. There is no pneumothorax. Small right pleural effusion is noted. There is mild right basilar opacity. Patient is rotated. Cardiomediastinal silhouette is stable. There is no evidence for pulmonary edema. IMPRESSION: 1. Tip of endotracheal tube 9 mm above the melody. The tube could be withdrawn 2 cm. 2. Small right pleural effusion with mild right basilar opacity. 3. No pneumothorax on supine exam. Tip of left internal jugular central line within left sided SVC/coronary sinus. ACT 112: Negative or not required by law. Electronically signed by: Clint Martinez M.D. 11/10/2020 12:15 PM Dictated: 11/10/20 1211 Transcribed: 11/10/20 1211 Blood Pressure Blood Pressure Findings: Elevated blood pressure Discharge Plan Visit Data Chief Complaint: Respiratory Distress ED Provider: Maximo Naylor Discharge Problem: Respiratory failure, Pulmonary embolism, Infarctions, pulmonary, Hypoxia, COVID-19 virus infection, Retroperitoneal hematoma, Acute kidney injury, DVT (deep venous thrombosis) Patient Disposition: Being Evaluated by Hospitalist Condition: Fair Discharge Instructions Interventions: ED Discharge Assessment Last Done: 11/10/20 14:04 Discharge Problem: Respiratory failure Qualifiers: Chronicity: acute Respiratory failure complication: hypoxia Qualified Code(s): J96.01 - Acute respiratory failure with hypoxia Pulmonary embolism Qualifiers: Pulmonary embolism type: other Chronicity: unspecified Acute cor pulmonale presence: unspecified Qualified Code(s): I26.99 - Other pulmonary embolism without acute cor pulmonale DVT (deep venous thrombosis) Qualifiers: DVT location: lower extremity Affected thrombotic vein of extremity: femoral Chronicity: acute Laterality: bilateral Qualified Code(s): I82.413 - Acute embolism and thrombosis of femoral vein, bilateral
[2020-11-10 13:04] LABS: Appearance Urine Cloudy (Clear); Bacteria Urine Automated Negative (Negative); Blood Urine Trace (Negative); Color Urine Orange; Epithelial Cell Urine Auto >30 /lpf (0-5); Glucose Urine UA Negative (Negative); Ketones Urine 1+ (Negative); Leukocyte Esterase Urine 1+ (Negative); Nitrite Urine Positive (Negative); Protein Urine 1+ (Negative); Specific Gravity Urine 1.018 (1.000-1.030); Urobilinogen Urine Positive (Negative); WBC Urine Automated 0 /hpf (0-5)
[2020-11-10 13:06] LABS: Bilirubin Urine 2+ (Negative)
[2020-11-10] MEDS: HEPARIN SODIUM/DEXTROSE 25,000 UNITS/500 ML BAG IV SCH (13:13)
--- NOTE | 2020-11-10 13:18 | CT Scan Report ---
ABDOMEN AND PELVIS CT WITH IV CONTRAST HISTORY: Acute generalized abdominal pain with distention distended TECHNIQUE: Multiaxial CT images of the abdomen and pelvis were performed following the IV administrat ion of 120 cc of Optiray 320, A dose lowering technique was utilized adhering to the principles of A PRABHU. COMPARISON STUDY: CT abdomen and pelvis 10/25/2020 FINDINGS: A catheter is partially imaged within the left atrium. Imaged inferior cardiac chambers are upper limits of normal in size. Small right pleural effusion with right lung base consolidation. Add itionally, there is a cystic focus within the basal right lower lobe measuring 2.3 x 2.1 cm. Scattere d groundglass nodular consolidative opacities within the lung bases with bronchial wall thickening. N o pneumatosis or pneumoperitoneum. Spleen, pancreas and adrenal glands are unremarkable. Cholelithiasis. Unremarkable liver. Patency of the hepatic and portal veins. Bilateral renal cysts. No hydronephrosis. Unremarkable urinary bladder, uterus and adnexa. No aortic aneurysm or adenopathy. Filling defects are noted within the bilateral common and superficial femoral veins. Moderate hiatal hernia with distal esophageal wall thickening. Moderate fecal retention of the rectum with mild rectal wall thickening and perirectal stranding/silvio a. Normal appendix. Decreased size of the subacute retroperitoneal hematoma, now measuring up to 8.3 x 5.2 cm in transverse and AP dimensions, previously measuring up to 9.1 x 7.1 cm. Degenerative snider es of the spine, pelvis and hips. Chronic L1 compression deformity. IMPRESSION: 1. Small right pleural effusion with bibasilar patchy opacities and right lower lobe consolidation sarmiento ggestive of pneumonia. Additionally, there is a 2.3 x 2.1 cm cystic focus of the basal right lower lo be which may reflect a developing abscess. Findings should be correlated clinically to exclude aspira tion. 2. Decreased size of the subacute retroperitoneal hematoma as above. 3. Deep venous thrombi of the bilateral common femoral and superficial femoral veins. 4. Moderate fecal retention of the rectum with findings suggestive of stercoral proctitis. 5. No bowel obstruction. 6. Cholelithiasis. 7. Moderate hiatal hernia. ACT 112: Negative or not required by law. The above report was generated using voice recognition software. It may contain grammatical, syntax o r spelling errors. Electronically signed by: Randy Orr M.D. 11/10/2020 1:17 PM
--- NOTE | 2020-11-10 13:24 | Critical Care Consultation ---
Date of Consultation November 10, 2020 Assessment & Plan (1) COVID-19: Reason critically ill: 75y/o female with past medical history significant for retroperitoneal bleed recent COVID-19 diagnosis (10/23/2020); presented from [facility] following development of difficulty breathing with known COVID-19 diagnosis ultimately requiring intubation. Neuro: -Patient intubated and sedated -Maintain sedation with fentanyl and Versed -Sedation goals of RASS -2, and BIS 40-60 Cardiac/Vascular: -No significant cardiac history; recent history of retroperitoneal hematoma demonstrated on 10/25 -CT abdomen pelvis demonstrated: Decrease in size of retroperitoneal hematoma as compared to 10/25 -Duplex bilateral lower extremity demonstrate occlusive thrombus of common femoral veins bilaterally -Vascular surgery consulted; discussed with Dr. Valdivia to evaluate in a.m. Respiratory: -Patient intubated on 11/10, received 10mg of Decadron in ED -CXR demonstrating small right pleural effusion with mild right basilar opacity -Chest CTA from 11/10 demonstrated segmental pulmonary embolus within the posterio r segment of the right lower lobe with associated pulmonary infarct, adjacent airspace opacity with possible cavitation, scattered groundglass and tree-in-bud nodules within the lungs. -Continue on Decadron 10 mg GI/Nutrition: -NPO -Start PPI Renal/Lytes: -Creatinine 1.8, sodium 148 on admission -Start on Normosol 50 mL/h -Continue to monitor electrolytes and replace per ICU protocol : -Rosario catheter in place -Continue to monitor urine output ENDO: -No history of thyroid disease, nor diabetes -Continue to monitor glucose while on Decadron HEME: -Hgb on admission 12.9; 10.9 on recheck -Given risk with recent retroperitoneal bleed will continue to monitor H&H every 6 hours ID: -WBC 22.5, pro-Obdulio 3.39 -Lactic acid 2.5 on admission down trended to 1.5 after boluses in ED -COVID-19 positive on 11/10 -CXR concerning for potential pleural effusion indeterminate between pneumonia or atelectasis -Blood cultures x2 pending -Urinalysis demonstrating nitrites and leuk esterase in addition to ketones, blood, bilirubin, and protein -Urine culture pending -in ED received 1 dose ceftriaxone and 1 dose vancomycin -convert to cefepime and doxycycline Lines/IV Access: -Left IJ DVT Prophylaxis: -On heparin for demonstrated PE and bilateral LE DVTs CODE STATUS: DNR in the event of cardiac arrest as confirmed following discussions with patient's son (2) Respiratory failure: (3) Pulmonary embolism: (4) AD (Alzheimer's disease): (5) Acute kidney injury: (6) Congenital hydrocephalus: (7) Retroperitoneal hematoma: Supervising Physician Co-Signing Physician Notes Dr. Greenfield was resident physician during care of patient. I separately evaluated patient for cruz portions of the history and the exam. I was present during the critical portion of medical decision making, and I discussed the case with the resident. I generally agree with the findings and plan. Patient previously had retroperitoneal hematoma and has been several weeks since this is occurred and she is remained on Lovenox, I believe it is reasonable to start heparin as systemic anticoagulation and continue to trend for acute blood loss. We will consult vascular surgery, Dr. Valdivia is on quarantine until tomorrow and I feel it is reasonable to wait for possible IVC filter as the patient should have a trial of full systemic anticoagulation before proceeding with IVC filter and we are also awaiting bilateral venous duplex to observe for deep venous thromboembolism. I believe the patient has both pulmonary infarction from pulmonary embolism as well as COVID-19 pneumonia which places her at high risk for poor outcome. I have personally spent 70 minutes of critical care time in the direct management of this patient. This is a life/limb threatening event. This includes time spent evaluating patient, direct bedside care, chart review, placing orders, interpretation of diagnostic studies, discussion with consultants, patient, and/or family members regarding treatment decisions, as well as other required patient management activities. This time is exclusive of all separately billable procedures, and teaching time and separate from and in addition to any other critical care service time. History of Present Illness Reason for Consultation: COVID-19 positive, requiring intubation History of Present Illness Lyudmila Guillen is a 75 y/o female with past medical history significant for also Eimers disease, dementia, congenital hydrocephalus, and recent retroperitoneal hematoma; presented to the ED today from [facility] following having had increasing trouble breathing over the last 2 to 3 days, patient was diagnosed with COVID-19 on 10/23, but also approximate around the same time developed a retroperitoneal hematoma that required transportation to [facility] for further medical care. Ultimately patient was discharged to [facility] for continued care where she was on Lovenox 60 mg daily for DVT prophylaxis in the setting of ambulatory dysfunction and known COVID-19 diagnosis. Upon arrival to the ED providers noticed that respiratory drive was swelling with concerns of respiratory failure patient was intubated in the ED, after multiple attempts to obtain peripheral IV sites left IJ was successfully obtained. In the ED she received 2 L bolus of normal saline, and IV ceftriaxone and vancomycin. After stabilization was sent for CT of abdomen pelvis with CTA of the chest. Subsequent conversations with patient's son, Bravo at [phone], revealed that patient had previously had discussions with family members regarding some climbing condition. Bravo stated he needed to further discuss with patient's sister as she is the been the person over the years that has predominantly have these conversations with the patient, however did express that in the event of cardiac arrest, she would not want further resuscitative efforts given her overall condition. Discussed concerns for worsening of retroperitoneal bleed in the setting of need for treatment of pulmonary embolism. Allergies Allergy/AdvReac Type Severity Reaction Status Date / Time No Known Allergies Allergy Unverified 10/25/20 09:24 Home Medications Medication Instructions Recorded Confirmed Type carbamazepine 200 mg PO BID 02/07/19 10/25/20 History donepezil 10 mg PO HS 09/06/19 11/10/20 History clotrimazole-betamethasone 1 applic TOPICAL BID 09/21/20 10/25/20 History furosemide 20 mg PO DAILY 09/21/20 10/25/20 History sertraline 100 mg PO QAM 09/21/20 11/10/20 History calcium carbonate [Tums] 500 mg PO DAILY #0 tab 09/25/20 10/25/20 Rx polyethylene glycol 3350 [Miralax] 17 g PO DAILY PRN #0 ea 09/25/20 10/25/20 Rx cholecalciferol (vitamin D3) 50 mcg PO QAM 10/25/20 11/10/20 History [Vitamin D3] enoxaparin [Lovenox] 60 mg SUBCUT DAILY 10/25/20 10/25/20 History famotidine 20 mg PO DAILY 10/25/20 10/25/20 History melatonin 3 mg PO HS 10/25/20 11/10/20 History ondansetron 4 mg PO Q4H PRN 10/25/20 10/25/20 History pantoprazole 40 mg PO DAILYBB 10/25/20 10/25/20 History sennosides-docusate sodium 1 tab-cap PO DAILY 10/25/20 10/25/20 History [Senokot-S] albuterol sulfate 2.5 mg INHALATION Q4H PRN 11/10/20 11/10/20 History clotrimazole-betamethasone 1 applic TOPICAL UD 11/10/20 11/10/20 History [Lotrisone] hydrocortisone 1 applic TOPICAL UD 11/10/20 11/10/20 History Patient History Medical History Anxiety Chronic venous stasis Congenital hydrocephalus MDD (major depressive disorder) Surgical History H/O eye surgery "Strabismus Surgery" History of tonsillectomy History of tubal ligation Hx of tonsillectomy Family History Other Cancer Diabetes Social History Smoking Status: Unknown if ever smoked Preferred Language: Tristanian Communication Ability: Impaired Beliefs That Will Affect Care: None Current Living Situation: Alone Current Living Situation Comment: Ayesha Palumbo comes to home Feels Safe at Home: Yes Assistive Devices: Oxygen - Continuous Review of Systems Review of Systems: Unobtainable due to endotracheal tube and Unobtainable due to reduced consciousness Physical Exam Constitutional: WD/WN, vitals as above Eyes: PERRL, conjunctivae normal, anicteric sclerae Neck: normal visual inspection and trachea midline Respiratory: + abnormal respiratory effort (intubated), no retractions and does not use accessory muscles Auscultation: + crackles and + wheezes; no rales and no rhonchi Cardiovascular: Rate/Rhythm: regular rhythm and + tachycardic Heart Sounds: no gallop, no murmur and no cardiac rub Vessels: normal peripheral pulses; no JVD Extremities: no pedal edema and no edema Gastrointestinal (Abdomen): Inspection/Auscultation: normal bowel sounds, + abdominal wall ecchymosis and + significant pannus; abdomen not distended Percussion/Palpation: abdomen soft; no guarding Psychiatric: Orientation: + not alert and + not oriented x 3 Apperance: + disheveled Results & Data Results & Data ([facility]) Vital Signs (Past 12 Hours) Vital Signs Temp Pulse Resp BP Pulse Ox 11/10/20 13:10 123 H 154/78 H 99 11/10/20 13:00 127 H 162/79 H 100 11/10/20 12:57 37.3 C 11/10/20 12:50 134 H 100 11/10/20 12:40 133 H 167/72 H 98 11/10/20 12:32 132 H 158/79 H 11/10/20 12:15 133 H 16 95 11/10/20 12:00 152 H 92/70 L 95 11/10/20 11:56 149 H 68/54 L 11/10/20 11:51 141 H 11/10/20 11:50 140 H 75/53 L 11/10/20 11:40 141 H 28 H 145/74 H 93 11/10/20 11:31 142 H 30 H 94 11/10/20 11:30 143 H 28 H 205/62 H 93 11/10/20 11:25 144 H 26 H 89 L 11/10/20 11:21 144 H 30 H 90 11/10/20 11:17 92 Laboratory Results 11/10/20 11/10/20 11/10/20 Range/Units 13:11 13:11 12:45 WBC (4.8-10.8) K/uL RBC (4.2-5.4) M/uL Hgb (12.0-16.0) g/dL Hct (37-47) % MCV (80-100) fL MCH (25-34) pg MCHC (32-36) g/dL RDW Std Deviation (36.4-46.3) fL RDW Coeff of Virgilio (11.5-14.5) % Plt Count (130-400) K/uL MPV (7.4-10.4) fL Immature Gran % (Auto) % Neut % (Auto) % Lymph % (Auto) % [place] % (Auto) % Eos % (Auto) % Baso % (Auto) % Neut # (Auto) (1.4-6.5) K/uL Lymph # (Auto) (1.2-3.4) K/uL [place] # (Auto) (0.11-0.59) K/uL Eos # (Auto) (0-0.5) K/uL Baso # (Auto) (0-0.2) K/uL Immature Gran # (Auto) (0.00-0.02) K/uL PT (9.0-12.0) Seconds INR (0.9-1.1) APTT (21.0-31.0) Seconds PTT Ratio VBG pH Pending VBG pCO2 Pending VBG pO2 Pending VBG HCO3 Pending VBG O2 Saturation Pending VBG Base Excess Pending Sodium (136-145) mmol/L Potassium (3.5-5.1) mmol/L Chloride (98-107) mmol/L Carbon Dioxide (21-32) mmol/L Anion Gap (3-11) BUN (7-18) mg/dl Creatinine (0.6-1.2) mg/dl Est Cr Clr Drug Dosing ml/min Est GFR ( Amer) Est GFR (Non-Af Amer) BUN/Creatinine Ratio (10-20) Glucose (70-99) mg/dl Lactate (0.4-2.0) mmol/L Calcium (8.5-10.1) mg/dl Magnesium (1.8-2.4) mg/dl Total Bilirubin (0.2-1) mg/dl AST (15-37) U/L ALT (12-78) U/L Alkaline Phosphatase (45-117) U/L Troponin I (0-0.045) ng/ml Total Protein (6.4-8.2) gm/dl Albumin (3.4-5.0) gm/dl Globulin (2.5-4.0) gm/dl Albumin/Globulin Ratio (0.9-2) Procalcitonin Urine Color [place] Urine Appearance Cloudy A (Clear) Urine pH 5.0 (4.5-7.5) Ur Specific [place] 1.018 (1.000-1.030) Urine Protein 1+ H (Negative) Urine Glucose (UA) Negative (Negative) Urine Ketones 1+ H (Negative) Urine Blood Trace H (Negative) Urine Nitrite Positive A (Negative) Urine Bilirubin 2+ H (Negative) Urine Urobilinogen Positive H (Negative) Ur Leukocyte Esterase 1+ H (Negative) Urine WBC (Auto) Pending Urine RBC (Auto) Pending U Hyaline Cast (Auto) Pending U Epithel Cells (Auto) Pending Urine Bacteria (Auto) Pending Carbamazepine Pending COVID-19 Eval Order SARS-CoV-2 (PCR) (Negative) Influenza Type A (PCR) (Neg) Influenza Type B (PCR) (Neg) RSV (RT-PCR) (Neg) 11/10/20 11/10/20 11/10/20 Range/Units 11:55 11:55 11:43 WBC (4.8-10.8) K/uL RBC (4.2-5.4) M/uL Hgb (12.0-16.0) g/dL Hct (37-47) % MCV (80-100) fL MCH (25-34) pg MCHC (32-36) g/dL RDW Std Deviation (36.4-46.3) fL RDW Coeff of Virgilio (11.5-14.5) % Plt Count (130-400) K/uL MPV (7.4-10.4) fL Immature Gran % (Auto) % Neut % (Auto) % Lymph % (Auto) % [place] % (Auto) % Eos % (Auto) % Baso % (Auto) % Neut # (Auto) (1.4-6.5) K/uL Lymph # (Auto) (1.2-3.4) K/uL [place] # (Auto) (0.11-0.59) K/uL Eos # (Auto) (0-0.5) K/uL Baso # (Auto) (0-0.2) K/uL Immature Gran # (Auto) (0.00-0.02) K/uL PT (9.0-12.0) Seconds INR (0.9-1.1) APTT (21.0-31.0) Seconds PTT Ratio VBG pH VBG pCO2 VBG pO2 VBG HCO3 VBG O2 Saturation VBG Base Excess Sodium (136-145) mmol/L Potassium (3.5-5.1) mmol/L Chloride (98-107) mmol/L Carbon Dioxide (21-32) mmol/L Anion Gap (3-11) BUN (7-18) mg/dl Creatinine (0.6-1.2) mg/dl Est Cr Clr Drug Dosing ml/min Est GFR ( Amer) Est GFR (Non-Af Amer) BUN/Creatinine Ratio (10-20) Glucose (70-99) mg/dl Lactate 2.4 H* (0.4-2.0) mmol/L Calcium (8.5-10.1) mg/dl Magnesium (1.8-2.4) mg/dl Total Bilirubin (0.2-1) mg/dl AST (15-37) U/L ALT (12-78) U/L Alkaline Phosphatase (45-117) U/L Troponin I (0-0.045) ng/ml Total Protein (6.4-8.2) gm/dl Albumin (3.4-5.0) gm/dl Globulin (2.5-4.0) gm/dl Albumin/Globulin Ratio (0.9-2) Procalcitonin Urine Color Urine Appearance (Clear) Urine pH (4.5-7.5) Ur Specific [place] (1.000-1.030) Urine Protein (Negative) Urine Glucose (UA) (Negative) Urine Ketones (Negative) Urine Blood (Negative) Urine Nitrite (Negative) Urine Bilirubin (Negative) Urine Urobilinogen (Negative) Ur Leukocyte Esterase (Negative) Urine WBC (Auto) Urine RBC (Auto) U Hyaline Cast (Auto) U Epithel Cells (Auto) Urine Bacteria (Auto) Carbamazepine COVID-19 Eval Order CovFluRsv at [facility] SARS-CoV-2 (PCR) POSITIVE A* (Negative) Influenza Type A (PCR) Negative (Neg) Influenza Type B (PCR) Negative (Neg) RSV (RT-PCR) Negative (Neg) 11/10/20 11/10/20 11/10/20 Range/Units 11:43 11:43 11:43 WBC 22.52 H (4.8-10.8) K/uL RBC 4.09 L (4.2-5.4) M/uL Hgb 12.9 (12.0-16.0) g/dL Hct 39.9 (37-47) % MCV 97.6 (80-100) fL MCH 31.5 (25-34) pg MCHC 32.3 (32-36) g/dL RDW Std Deviation 58.9 H (36.4-46.3) fL RDW Coeff of Virgilio 17.2 H (11.5-14.5) % Plt Count (130-400) K/uL MPV (7.4-10.4) fL Immature Gran % (Auto) 0.8 % Neut % (Auto) 87.5 % Lymph % (Auto) 3.2 % [place] % (Auto) 8.4 % Eos % (Auto) 0.0 % Baso % (Auto) 0.1 % Neut # (Auto) 19.69 H (1.4-6.5) K/uL Lymph # (Auto) 0.73 L (1.2-3.4) K/uL [place] # (Auto) 1.90 H (0.11-0.59) K/uL Eos # (Auto) 0.00 (0-0.5) K/uL Baso # (Auto) 0.02 (0-0.2) K/uL Immature Gran # (Auto) 0.18 H (0.00-0.02) K/uL PT 15.6 H (9.0-12.0) Seconds INR 1.6 H (0.9-1.1) APTT 26.6 (21.0-31.0) Seconds PTT Ratio 1.0 VBG pH VBG pCO2 VBG pO2 VBG HCO3 VBG O2 Saturation VBG Base Excess Sodium (136-145) mmol/L Potassium (3.5-5.1) mmol/L Chloride (98-107) mmol/L Carbon Dioxide (21-32) mmol/L Anion Gap (3-11) BUN (7-18) mg/dl Creatinine (0.6-1.2) mg/dl Est Cr Clr Drug Dosing ml/min Est GFR ( Amer) Est GFR (Non-Af Amer) BUN/Creatinine Ratio (10-20) Glucose (70-99) mg/dl Lactate (0.4-2.0) mmol/L Calcium (8.5-10.1) mg/dl Magnesium (1.8-2.4) mg/dl Total Bilirubin (0.2-1) mg/dl AST (15-37) U/L ALT (12-78) U/L Alkaline Phosphatase (45-117) U/L Troponin I (0-0.045) ng/ml Total Protein (6.4-8.2) gm/dl Albumin (3.4-5.0) gm/dl Globulin (2.5-4.0) gm/dl Albumin/Globulin Ratio (0.9-2) Procalcitonin Pending Urine Color Urine Appearance (Clear) Urine pH (4.5-7.5) Ur Specific [place] (1.000-1.030) Urine Protein (Negative) Urine Glucose (UA) (Negative) Urine Ketones (Negative) Urine Blood (Negative) Urine Nitrite (Negative) Urine Bilirubin (Negative) Urine Urobilinogen (Negative) Ur Leukocyte Esterase (Negative) Urine WBC (Auto) Urine RBC (Auto) U Hyaline Cast (Auto) U Epithel Cells (Auto) Urine Bacteria (Auto) Carbamazepine COVID-19 Eval Order SARS-CoV-2 (PCR) (Negative) Influenza Type A (PCR) (Neg) Influenza Type B (PCR) (Neg) RSV (RT-PCR) (Neg) 11/10/20 Range/Units 11:43 WBC (4.8-10.8) K/uL RBC (4.2-5.4) M/uL Hgb (12.0-16.0) g/dL Hct (37-47) % MCV (80-100) fL MCH (25-34) pg MCHC (32-36) g/dL RDW Std Deviation (36.4-46.3) fL RDW Coeff of Virgilio (11.5-14.5) % Plt Count (130-400) K/uL MPV (7.4-10.4) fL Immature Gran % (Auto) % Neut % (Auto) % Lymph % (Auto) % [place] % (Auto) % Eos % (Auto) % Baso % (Auto) % Neut # (Auto) (1.4-6.5) K/uL Lymph # (Auto) (1.2-3.4) K/uL [place] # (Auto) (0.11-0.59) K/uL Eos # (Auto) (0-0.5) K/uL Baso # (Auto) (0-0.2) K/uL Immature Gran # (Auto) (0.00-0.02) K/uL PT (9.0-12.0) Seconds INR (0.9-1.1) APTT (21.0-31.0) Seconds PTT Ratio VBG pH VBG pCO2 VBG pO2 VBG HCO3 VBG O2 Saturation VBG Base Excess Sodium 148 H (136-145) mmol/L Potassium 4.5 (3.5-5.1) mmol/L Chloride 116 H (98-107) mmol/L Carbon Dioxide 22 (21-32) mmol/L Anion Gap 10.0 (3-11) BUN 33 H (7-18) mg/dl Creatinine 1.85 H (0.6-1.2) mg/dl Est Cr Clr Drug Dosing 28.8 ml/min Est GFR ( Amer) 30.6 Est GFR (Non-Af Amer) 26.4 BUN/Creatinine Ratio 17.7 (10-20) Glucose 145 H (70-99) mg/dl Lactate (0.4-2.0) mmol/L Calcium 9.1 (8.5-10.1) mg/dl Magnesium 1.9 (1.8-2.4) mg/dl Total Bilirubin 2.6 H (0.2-1) mg/dl AST 37 (15-37) U/L ALT 48 (12-78) U/L Alkaline Phosphatase 163 H (45-117) U/L Troponin I 0.028 (0-0.045) ng/ml Total Protein 7.6 (6.4-8.2) gm/dl Albumin 2.4 L (3.4-5.0) gm/dl Globulin 5.2 H (2.5-4.0) gm/dl Albumin/Globulin Ratio 0.5 L (0.9-2) Procalcitonin Urine Color Urine Appearance (Clear) Urine pH (4.5-7.5) Ur Specific [place] (1.000-1.030) Urine Protein (Negative) Urine Glucose (UA) (Negative) Urine Ketones (Negative) Urine Blood (Negative) Urine Nitrite (Negative) Urine Bilirubin (Negative) Urine Urobilinogen (Negative) Ur Leukocyte Esterase (Negative) Urine WBC (Auto) Urine RBC (Auto) U Hyaline Cast (Auto) U Epithel Cells (Auto) Urine Bacteria (Auto) Carbamazepine COVID-19 Eval Order SARS-CoV-2 (PCR) (Negative) Influenza Type A (PCR) (Neg) Influenza Type B (PCR) (Neg) RSV (RT-PCR) (Neg) Medications Administered Current Inpatient Medications Vancomycin HCl 1,750 mg/ (Sodium Chloride) 535 mls @ 200 mls/hr IV NOW ONE Stop: 11/10/20 14:34 Last Admin: 11/10/20 13:07 Dose: 200 mls/hr Documented by: Heparin Sodium/Dextrose (Heparin Sodium/Dextrose) 25,000 units in 500 mls @ 25 mls/hr IV .Q20H [facility]; Protocol Stop: 12/10/20 12:59 Miscellaneous Information (Vancomycin Consult Active) 1 ea N/A UD PRN PRN Reason: Consult Stop: 12/10/20 11:53 Resident Activity Tracking Resident Involvement: Resident Care Provided Care Provided: Adult Hospital Medicine (1) Respiratory failure Chronicity: acute Respiratory failure complication: hypoxia Qualified Code(s): J96.01 - Acute respiratory failure with hypoxia (2) Pulmonary embolism Acute cor pulmonale presence: unspecified Chronicity: unspecified Pulmonary embolism type: other Qualified Code(s): I26.99 - Other pulmonary embolism without acute cor pulmonale
[2020-11-10 13:31] LABS: Base Excess VBG -8.2 mEq/L; HCO3 VBG 22 mmol/L; PCO2 VBG 67 mmHg (38-50); PO2 VBG 33 mmHg; pH VBG 7.13 (7.36-7.41)
[2020-11-10 13:32] LABS: Oxygen Saturation VBG < 60.0 %
--- NOTE | 2020-11-10 13:36 | Billing Data ---
Date of Service November 10, 2020 Coding Level of Care Code Critical Care 1st -74 mins
[2020-11-10 13:39] LABS: Cast Urine Automated 0 /lpf (0-5)
--- NOTE | 2020-11-10 13:48 | History & Physical Report ---
Date of Service November 10, 2020 Assessment & Plan (1) Acute respiratory failure with hypoxia: Secondary to COVID-19 pneumonia with pulmonary embolism and pulmonary infarctions. Intubated 11/10/2020, ventilation management per ICU (2) COVID-19: Dexamethasone 6 mg IV daily (3) Pulmonary embolism: IV Heparin drip started in the ER Vascular consulted for possible IVC filter given retroperitoneal hematoma - unknown if she is stable to stay on heparin. (4) Infarctions, pulmonary: Rx for PE as above. (5) Acute kidney injury: Cr 1.85 from baseline from 0.72 IV fluid management per ICU with normosol. Rosario cath in place. No obstructing uropathy on CT. (6) Dementia: Unknown baseline. Intubated and sedated on admission. (7) Retroperitoneal hematoma: History of such. Decreased size on CT A/P although concern for getting worse on heparin History of Present Illness Chief Complaint: Hypoxia, shortness of breath Primary Care Provider: [facility] Lyudmila Guillen is a 75-year-old female with history of congenital hydrocephalus who presents to the ER via EMS from [facility] for hypoxia and shortness of breath. Patient tested positive for Covid on October 23. Increasing shortness of breath over the last few days. In triage patient with respiratory rate 55 with O2 sats 90% on 15 L nonrebreather. Moaning to painful stimuli. Full code. She was intubated in the emergency room due to acute hypoxic respiratory failure. Unable to get any history from the patient due to sedation and intubation. Subsequent imaging showed chronic severe hydrocephalus which remains unchanged from previous. CT angiogram concerning for segmental pulmonary embolus with associated pulmonary infarcts. Scattered groundglass tree-in-bud nodules throughout likely consistent with COVID-[address] abdomen pelvis shows decreased size of subacute retroperitoneal hematoma. Moderate fecal retention of rectum with findings suggestive of stercoral proctitis. The patient has a significant recent history including hospitalization here in September 2020 for ambulatory dysfunction, generalized weakness, multiple falls, hypocalcemia with some concerns of medication compliance at that time. [facility]. She returned to the ER on October 25 due to syncope with hypotension and subsequent workup showed a moderate to large left retroperitoneal/extraperitoneal hematoma and she was subsequently transferred to [facility] - the details of which are not available on admission but I understand no surgical intervention took place. Her ER physician Dr. Naylor discussed case with ICU attending Dr. Tyler who has already reviewed patient. Allergies Allergy/AdvReac Type Severity Reaction Status Date / Time No Known Allergies Allergy Unverified 10/25/20 09:24 Home Medications Medication Instructions Recorded Confirmed Type carbamazepine 200 mg PO BID 02/07/19 10/25/20 History donepezil 10 mg PO HS 09/06/19 11/10/20 History clotrimazole-betamethasone 1 applic TOPICAL BID 09/21/20 10/25/20 History furosemide 20 mg PO DAILY 09/21/20 10/25/20 History sertraline 100 mg PO QAM 09/21/20 11/10/20 History calcium carbonate [Tums] 500 mg PO DAILY #0 tab 09/25/20 10/25/20 Rx polyethylene glycol 3350 [Miralax] 17 g PO DAILY PRN #0 ea 09/25/20 10/25/20 Rx cholecalciferol (vitamin D3) 50 mcg PO QAM 10/25/20 11/10/20 History [Vitamin D3] enoxaparin [Lovenox] 60 mg SUBCUT DAILY 10/25/20 10/25/20 History famotidine 20 mg PO DAILY 10/25/20 10/25/20 History melatonin 3 mg PO HS 10/25/20 11/10/20 History ondansetron 4 mg PO Q4H PRN 10/25/20 10/25/20 History pantoprazole 40 mg PO DAILYBB 10/25/20 10/25/20 History sennosides-docusate sodium 1 tab-cap PO DAILY 10/25/20 10/25/20 History [Senokot-S] albuterol sulfate 2.5 mg INHALATION Q4H PRN 11/10/20 11/10/20 History clotrimazole-betamethasone 1 applic TOPICAL UD 11/10/20 11/10/20 History [Lotrisone] hydrocortisone 1 applic TOPICAL UD 11/10/20 11/10/20 History Past Med/Surg History Medical History Anxiety Chronic venous stasis Congenital hydrocephalus MDD (major depressive disorder) Surgical History H/O eye surgery "Strabismus Surgery" History of tonsillectomy History of tubal ligation Hx of tonsillectomy Family History Other Cancer Diabetes Social History Smoking Status: Unknown if ever smoked Preferred Language: Tanzanian Communication Ability: Impaired Beliefs That Will Affect Care: None Current Living Situation: Alone Current Living Situation Comment: Ayesha Palumbo comes to home Feels Safe at Home: Yes Assistive Devices: Oxygen - Continuous Review of Systems Review of Systems: Unobtainable due to endotracheal tube and Unobtainable due to reduced consciousness Physical Exam Constitutional: no acute distress Eyes: PERRL, conjunctivae normal, anicteric sclerae Respiratory: symmetric chest movement Auscultation: + rhonchi (b/l anteriorly) and + wheezes (mild expiratory wheeze) Intubated on ventilator Cardiovascular: Rate/Rhythm: regular rhythm and + tachycardic Heart Sounds: no murmur Extremities: + pedal edema Gastrointestinal (Abdomen): Inspection/Auscultation: normal bowel sounds; abdomen not distended Percussion/Palpation: abdomen soft; abdomen nontender Neurologic: + not awake Psychiatric: Orientation: + not alert Results & Data Results & Data ([facility]) Vital Signs (Past 12 Hours) Vital Signs Temp Pulse Resp BP Pulse Ox 11/10/20 13:30 118 H 164/95 H 99 11/10/20 13:20 120 H 155/72 H 98 11/10/20 13:10 123 H 154/78 H 99 11/10/20 13:00 127 H 162/79 H 100 11/10/20 12:57 37.3 C 11/10/20 12:50 134 H 100 11/10/20 12:40 133 H 167/72 H 98 11/10/20 12:32 132 H 158/79 H 11/10/20 12:15 133 H 16 95 11/10/20 12:00 152 H 92/70 L 95 11/10/20 11:56 149 H 68/54 L 11/10/20 11:51 141 H 11/10/20 11:50 140 H 75/53 L 11/10/20 11:40 141 H 28 H 145/74 H 93 11/10/20 11:31 142 H 30 H 94 11/10/20 11:30 143 H 28 H 205/62 H 93 11/10/20 11:25 144 H 26 H 89 L 11/10/20 11:21 144 H 30 H 90 11/10/20 11:[address] OF THE HEAD WITHOUT CONTRAST IMPRESSION: No acute intracranial findings. No change in severe hydrocephalus. XR chest 1V portable IMPRESSION: 1. Tip of endotracheal tube 9 mm above the melody. The tube could be withdrawn 2 cm. 2. Small right pleural effusion with mild right basilar opacity. 3. No pneumothorax on supine exam. Tip of left internal jugular central line within left sided SVC/coronary sinus. CT ANGIOGRAPHY OF THE CHEST, PULMONARY EMBOLUS PROTOCOL IMPRESSION: 1. Segmental pulmonary embolus within the posterior basilar segment of the right lower lobe with associated pulmonary infarct. Adjacent smaller pulmonary infarct with possible cavitation. Adjacent airspace opacity may reflect pneumonia or at electasis. 2. Small, partially loculated right pleural effusion. Sterility cannot be assessed by CT. 3. Scattered groundglass and tree-in-bud nodules within the lungs consistent with an infectious process or sequela of aspiration. 4. Tip of endotracheal tube 8 mm above the melody. The tube could be withdrawn 1.5 cm. 5. Mild right hilar adenopathy which is likely reactive. 6. Tip of left internal jugular central line at the junction of a left SVC and coronary sinus. ABDOMEN AND PELVIS CT WITH IV CONTRAST IMPRESSION: 1. Small right pleural effusion with bibasilar patchy opacities and right lower lobe consolidation suggestive of pneumonia. Additionally, there is a 2.3 x 2.1 cm cystic focus of the basal right lower lobe which may reflect a developing abscess. Findings should be correlated clinically to exclude aspiration. 2. Decreased size of the subacute retroperitoneal hematoma as above. 3. Deep venous thrombi of the bilateral common femoral and superficial femoral veins. 4. Moderate fecal retention of the rectum with findings suggestive of stercoral proctitis. 5. No bowel obstruction. 6. Cholelithiasis. 7. Moderate hiatal hernia. Medications Administered ER medications given: NSS 1 hour bolus ceftriaxone 1 g IV Decadron 10 mg IV NSS 1 L bolus Heparin standard no bolus IV drip Code Status & VTE Plan Code Status Full VTE Prophylaxis Plan VTE Prophylaxis will be ordered: Yes PG Care Time/CCT Total # of Minutes Spent Total Time Spent with Patient: Total time spent is greater than 50% in coordination of care (as documented) at patient's floor/unit and/or counseling patient: Coding Level of Care Code 35973 Initial Inpt Care Lvl 3 Diagnoses Acute respiratory failure with hypoxia J96.01 COVID-19 U07.1 Pulmonary embolism I26.99 Acute cor pulmonale presence: unspecified Chronicity: unspecified Pulmonary embolism type: other Infarctions, pulmonary I26.99 Acute kidney injury N17.9 Dementia F03.91 Dementia behavioral disturbance: with behavioral disturbance Dementia type: unspecified type Retroperitoneal hematoma K66.1 (1) Dementia Dementia behavioral disturbance: with behavioral disturbance Dementia type: unspecified type Qualified Code(s): F03.91 - Unspecified dementia with behavioral disturbance (2) Pulmonary embolism Acute cor pulmonale presence: unspecified Chronicity: unspecified Pulmonary embolism type: other Qualified Code(s): I26.99 - Other pulmonary embolism without acute cor pulmonale
[2020-11-10] MEDS ORDERED: PROPOFOL BOLUS FROM BAG IV PRN (13:53)
[2020-11-10] MEDS ORDERED: STAT IV Infusion **Titration per Protocol STA ×3 (13:53→20:24)
[2020-11-10] MEDS ORDERED: propofoL 1,000 MG/100 ML VIAL IV SCH (14:00)
[2020-11-10] MEDS ORDERED: MIDAZOLAM BOLUS FROM BAG IV PRN (14:13)
[2020-11-10] MEDS ORDERED: MIDAZOLAM HCL 125 MG/250 ML BAG IV SCH (14:15)
--- NOTE | 2020-11-10 14:35 | Electrocardiogram Report ---
Test Reason : Blood Pressure : / mmHG Vent. Rate : 144 BPM Atrial Rate : 147 BPM P-R Int : 000 ms QRS Dur : 068 ms QT Int : 298 ms P-R-T Axes : 000 -31 210 degrees QTc Int : 461 ms Poor data quality, interpretation may be adversely affected Sinus tachycardia Left axis deviation Abnormal ECG When compared with ECG of 10-NOV-2020 11:22, (unconfirmed) No significant change was found Confirmed by Maximo Reaves ([id number]) on 11/10/2020 2:35:50 PM Referred By: [facility] Confirmed By:Maximo Reaves
[2020-11-10] MEDS ORDERED: ICU PROTOCOL FOR HYPERGLYCEMIA PRN (14:42)
[2020-11-10] MEDS ORDERED: NORMOSOL-R 500 ML IV ONE (14:48)
[2020-11-10] MEDS ORDERED: ETOMIDATE 2 MG/ML 20 ML VIAL IV ONE (15:07)
[2020-11-10] MEDS ORDERED: ROCURONIUM BROMIDE 10 MG/ML 10 ML VIAL IV ONE (15:07)
--- NOTE | 2020-11-10 15:15 | Pharmacy Report ---
Pharmacy Abx Dose Short Note - Date of Service November 10, 2020 - Assessment & Plan Assessment * 75 year old F to receive VANCOMYCIN IV per pharmacy consult * Patient was admitted for increasing SOB in the setting of prior dx COVID19 viral pna, however new DVT/PE found * Leukocytosis noted on labs as well as elevated procalcitonin * Patient is now intubated and sedated, to be admitted to ICU * She does have risk factors for resistant organism: recent hospitalization, halfway resident * Nasal MRSA swab is pending * JESSICA present on today's labs (SCr 1.85 vs baseline ~0.7-0.8) Plan Vancomycin * Not a candidate for AUC dosing due to changing renal fxn * 20mg/kg (1750mg) load given in ED * Estimated half-life ~24 hrs based upon population estimates however this can be inaccurate in the setting of JESSICA * Will check random level in ~ 12 hrs and give 15mg/kg vancomycin IV x 1 if level is less than 20. If level > 20, will recheck random level w/ AM labs. * Goal trough level for pulm infxn: 15 to 20 mcg/mL Pharmacy will continue to follow and will adjust dose/frequency as necessary. Thank you.
[2020-11-10] MEDS: fentaNYL DRIP 1,250 MCG/250 ML BAG IV SCH (15:32)
--- NOTE | 2020-11-10 16:12 | Ultrasound Report ---
ULTRASOUND BILATERAL LOWER EXTREMITY VENOUS CLINICAL HISTORY: Pulmonary embolus COMPARISON STUDY: No priors. TECHNIQUE: Real-time, grayscale, and color Doppler sonography of the deep veins of the right and left lower extremity was performed from the inguinal crease to the calf. Compression and augmentation wer e utilized. FINDINGS: Right lower extremity: There is occlusive deep venous thrombosis identified in the right common femor al vein and within the proximal portions of the right superficial femoral vein. The mid to distal sup erficial femoral vein and the popliteal vein are patent and normally compressible. The greater saphen ous vein and the profunda femoris vein at the junction with the common femoral vein are clear. The vi sualized calf veins are patent. Left lower extremity: There is occlusive deep venous thrombosis identified in the left common femoral vein and within the proximal portions of the left superficial femoral vein. The mid to distal superf icial femoral vein and the popliteal vein are patent and normally compressible. Superficial venous th rombus is seen within the left profunda femoris vein at the junction with the common femoral vein. Th e greater saphenous vein appears clear. The visualized calf veins are patent. IMPRESSION: Bilateral deep venous thrombosis as above. ACT 112: Negative or not required by law. Electronically signed by: Luca Avila M.D. 11/10/2020 4:11 PM
[2020-11-10] MEDS ORDERED: NORMOSOL-R 1,000 ML IV SCH (18:00)
[2020-11-10 18:04] LABS: Hematocrit (blood only) 34.9 % (37-47); Hemoglobin 10.9 g/dL (12.0-16.0)
[2020-11-10] MEDS: ICU ELECTROLYTE REPLACEMENT PROTOCOL SCH (18:23)
[2020-11-10] MEDS ORDERED: CEFEPIME 2,000 MG in SYRINGE 0 ML IV SCH (19:00)
[2020-11-10] MEDS ORDERED: MAGNESIUM SULFATE / D5W 1 GM/100 ML BAG IV ONE (19:00)
[2020-11-10] MEDS: DOXYCYCLINE HYCLATE 100 MG in DEXTROSE 5% 100 ML IV SCH (19:12)
[2020-11-10] MEDS: PANTOprazole 40 MG in SYRINGE 0 ML IV SCH (19:14)
[2020-11-10] MEDS: DONEPEZIL HCL 10 MG TAB PO SCH ×2 (19:15→21:00)
[2020-11-10] MEDS ORDERED: NOREPINEPHRINE/D5W 8 MG/508 ML IV ONE (20:24)
[2020-11-10 20:27] LABS: Partial Thromboplastin Ratio 2.7
[2020-11-10] MEDS ORDERED: NOREPINEPHRINE/D5W 8 MG/508 ML BAG IV SCH (20:30)
[2020-11-10 20:38] LABS: Partial Thromboplastin Time 71.8 Seconds (21.0-31.0)
[2020-11-10 20:46] LABS: Hematocrit (blood only) 32.3 % (37-47); Hemoglobin 10.1 g/dL (12.0-16.0); Mean Corpuscular Hemoglobin 30.6 pg (25-34); Mean Corpuscular Volume 97.9 fL (80-100); Mean Platelet Volume 11.7 fL (7.4-10.4); Platelet Count 272 K/uL (130-400); RDW Coefficient of Variation 17.2 % (11.5-14.5); RDW Standard Deviation 59.6 fL (36.4-46.3); White Blood Count 17.66 K/uL (4.8-10.8)
[2020-11-10 20:51] LABS: Mean Corpuscular Hgb Conc 31.3 g/dL (32-36)
[2020-11-11] MEDS ORDERED: NORMOSOL-R 500 ML IV ONE (00:49)
[2020-11-11] MEDS ORDERED: fentaNYL citrate 100 MCG/2 ML VIAL IV STA (01:09)
[2020-11-11] MEDS ORDERED: fentaNYL citrate 100 MCG/2 ML VIAL ONE (01:11)
[2020-11-11 02:00] LABS: Hematocrit (blood only) 31.2 % (37-47); Hemoglobin 9.8 g/dL (12.0-16.0)
[2020-11-11] MEDS: fentaNYL DRIP 1,250 MCG/250 ML BAG IV SCH (02:13)
[2020-11-11 03:19] LABS: Hemoglobin 9.9 g/dL (12.0-16.0); Mean Corpuscular Hemoglobin 30.8 pg (25-34); Mean Corpuscular Hgb Conc 31.9 g/dL (32-36); Mean Corpuscular Volume 96.6 fL (80-100); Mean Platelet Volume 11.5 fL (7.4-10.4); Platelet Count 295 K/uL (130-400); RDW Coefficient of Variation 17.3 % (11.5-14.5); RDW Standard Deviation 59.8 fL (36.4-46.3); Red Blood Count 3.21 M/uL (4.2-5.4); White Blood Count 16.73 K/uL (4.8-10.8)
[2020-11-11 03:39] LABS: Basophils # (auto) 0.01 K/uL (0-0.2); Basophils % (auto) 0.1 %; Immature Granulocytes % (auto) 0.6 %; Lymphocytes # (auto) 1.44 K/uL (1.2-3.4); Lymphocytes % (auto) 8.6 %; Monocytes # (auto) 1.15 K/uL (0.11-0.59); Monocytes % (auto) 6.9 %; Neutrophils # (auto) 14.03 K/uL (1.4-6.5); Neutrophils % (auto) 83.8 %; Partial Thromboplastin Ratio 2.8; RBC Morphology Unremarkable
[2020-11-11 03:51] LABS: Albumin Globulin Ratio 0.4 (0.9-2); Albumin Level 1.9 gm/dl (3.4-5.0); BUN Creatinine Ratio 22.4 (10-20); Bilirubin,Total 1.1 mg/dl (0.2-1); Calcium 7.7 mg/dl (8.5-10.1); Creatinine Clr Calc Pharmacy 35.1 ml/min; Est GFR (African American) 37.8; Est GFR (Non-African American) 32.6; Globulin 4.3 gm/dl (2.5-4.0); Magnesium 2.2 mg/dl (1.8-2.4); Phosphorus 2.4 mg/dl (2.5-4.9); Potassium 3.8 mmol/L (3.5-5.1); Total Protein 6.2 gm/dl (6.4-8.2)
[2020-11-11] MEDS ORDERED: ALBUMIN 5% 500 ML IV ONE (05:28)
[2020-11-11] MEDS: ICU ELECTROLYTE REPLACEMENT PROTOCOL SCH ×2 (05:32→18:22)
[2020-11-11] MEDS ORDERED: LACTATED RINGER'S 500 ML IV ONE (05:34)
[2020-11-11] MEDS ORDERED: POTASSIUM CHLORIDE / WTR 20 MEQ/100 ML PLCT IV STA (05:34)
[2020-11-11] MEDS ORDERED: SODIUM PHOSPHATE 3 MMOL/1 ML 5 ML VIAL IV ONE (05:35)
[2020-11-11] MEDS ORDERED: SODIUM PHOSPHATE IV ONE (05:45)
[2020-11-11] MEDS ORDERED: SODIUM CHLORIDE 0.9% IV ONE (05:45)
[2020-11-11] MEDS ORDERED: POTASSIUM CHLORIDE IV ONE (05:45)
[2020-11-11] MEDS ORDERED: VANCOMYCIN HCL 1,250 MG in SODIUM CHLORIDE 0.9% 250 ML IV ONE ×2 (06:15→07:00)
--- NOTE | 2020-11-11 07:07 | Critical Care Progress Note ---
Date of Service November 11, 2020 Assessment & Plan (1) COVID-19: Reason critically ill: 75y/o female with past medical history significant for retroperitoneal bleed recent COVID-19 diagnosis (10/23/2020); presented from [facility] following development of difficulty breathing with known COVID-19 diagnosis ultimately requiring intubation. Neuro: -[facility] ICU: unable to assess due to baseline mental status -continued home carbamazepine Cardiac/Vascular: -No significant cardiac history; recent history of retroperitoneal hematoma demonstrated on 10/25 -CT abdomen pelvis demonstrated: Decrease in size of retroperitoneal hematoma as compared to 10/25 -Duplex bilateral lower extremity demonstrate occlusive thrombus of common femoral veins bilaterally -Vascular surgery consulted; discussed complexity of case with Dr. Valdivia. -continue Heparin, start Warfarin 5mg for systemic anticoagulation given extensive thrombi -Echo ordered Respiratory: -Patient intubated on 11/10, received 10mg of Decadron in ED -CXR on admission demonstrating small right pleural effusion with mild right basilar opacity -Chest CTA from 11/10 demonstrated segmental pulmonary embolus within the posterior segment of the right lower lobe with associated pulmonary infarct, adjacent airspace opacity with possible cavitation, scattered ground glass and tree-in-bud nodules within the lungs. -CT abd/pelvis noted small right pleural effusion with possible cystic focus of right lower lobe -Continue on Decadron 6mg for 7 days -CXR this morning demonstrated slight progression of the right pleural effusion with maintain airspace opacities on right. GI/Nutrition: -to have bedside swallow evaluation today -Start oral protonix Renal/Lytes: -Creatinine 1.8, improved to 1.55 this AM -sodium 148 on admission, 150 this AM -discontinue Normosol; start LR @ 80mL/hr -Continue to monitor electrolytes and replace per ICU protocol : -Rosario catheter in place -Continue to monitor urine output ENDO: -No history of thyroid disease, nor diabetes -Continue to monitor glucose while on Decadron HEME: -Hgb on admission 12.9; 9.9 on recheck this AM -Given risk with recent retroperitoneal bleed will continue to monitor H&H every 6 hours ID: -WBC 22.5 on admission, decreased 16.73 this AM -pro-Obdulio 3.39 on admission, increased to 14.52 this AM -Lactic acid 2.5 on admission down trended to 1.5 after boluses in ED -COVID-19 positive on 11/10 -CXR concerning for potential pleural effusion indeterminate between pneumonia or atelectasis -Blood cultures x2 pending -Urinalysis demonstrating nitrites and leuk esterase in addition to ketones, blood, bilirubin, and protein -Urine culture pending -Sputum culture pending -given possible cavitary lesion noted on CT abd/pelvis ordered quantiferon gold -in ED received 1 dose ceftriaxone and 1 dose vancomycin -Nasal MRSA negative -continue cefepime and doxycycline Lines/IV Access: -Left IJ placed on 11/10 DVT Prophylaxis: -On heparin for demonstrated PE and bilateral LE DVTs (2) Respiratory failure: (3) Pulmonary embolism: (4) AD (Alzheimer's disease): (5) Acute kidney injury: (6) Congenital hydrocephalus: (7) Retroperitoneal hematoma: Admission and Anticipated Discharge Date Admission Date: November 10, 2020 Supervising Physician Co-Signing Physician Notes Dr. Greenfield was resident physician during care of patient. I separately evaluated patient for cruz portions of the history and the exam. I was present during the critical portion of medical decision making, and I discussed the case with the resident. I generally agree with the findings and plan. Continue close observation for any evidence of acute blood loss. Patient is relatively contraindicated to systemic anticoagulation given the large retroperitoneal bleed previously, I doubt she will be an appropriate candidate for IVC filter placement given the complexity of her case. Vascular surgery has been consulted for possible filter placement after she has bilateral DVTs. Decreasing ventilatory requirements, DNR in event of cardiac arrest. Subjective Overnight had multiple episode in which her blood pressure dropped, was temporarily started on Levophed, this was stopped once blood pressure had been stabilized following bolus of LR. Patient was successfully weaned, and extubated this morning with transition to oxy-mask and was able to maintain O2 sats appropriately. Continues to attempt to pull at lines, and oxy-mask and is not re-directable during these times. Review of Systems Review of Systems: Unobtainable due to endotracheal tube and Unobtainable due to reduced consciousness Physical Exam Constitutional: WD/WN, vitals as above Eyes: PERRL, conjunctivae normal, anicteric sclerae Neck: normal visual inspection and trachea midline Respiratory: + abnormal respiratory effort (intubated), no retractions and does not use accessory muscles Auscultation: + crackles and + wheezes; no rales and no rhonchi Cardiovascular: Rate/Rhythm: regular rhythm and + tachycardic Heart Sounds: no gallop, no murmur and no cardiac rub Vessels: normal peripheral pulses; no JVD Extremities: no pedal edema and no edema Gastrointestinal (Abdomen): Inspection/Auscultation: normal bowel sounds, + abdominal wall ecchymosis and + significant pannus; abdomen not distended Percussion/Palpation: abdomen soft; no guarding Neurologic: deep tendon reflexes 2+ bilaterally Cranial Nerves: PERRL Psychiatric: Orientation: + not alert and + not oriented x 3 Apperance: + disheveled Results & Data Results & Data ([facility]) Vital Signs (Past 12 Hours) Vital Signs Temp Pulse Resp BP Pulse Ox 11/11/20 06:30 108 H 112/65 96 11/11/20 06:15 103 H 140/102 H 94 11/11/20 06:11 102 H 133/88 95 11/11/20 06:02 96 H 151/126 H 97 11/11/20 05:45 93 H 126/75 97 11/11/20 05:16 85 106/61 94 11/11/20 04:45 87 81/59 L 94 11/11/20 04:16 97 H 150/85 H 95 11/11/20 03:59 94 H 100/52 L 95 11/11/20 03:48 37.0 C 11/11/20 03:46 96 H 19 91 11/11/20 03:45 89 123/70 100 11/11/20 03:15 87 91/58 L 96 11/11/20 02:51 88 84/55 L 96 11/11/20 02:45 85 85/51 L 96 11/11/20 02:15 89 111/65 97 11/11/20 01:45 95 H 106/61 97 11/11/20 01:15 99 H 121/83 94 11/11/20 00:45 108 H 142/91 H 93 11/11/20 00:15 104 H 153/79 H 97 11/11/20 00:00 37.2 C 11/10/20 23:45 95 H 129/79 96 11/10/20 23:25 96 H 27 H 97 11/10/20 23:22 94 H 127/92 98 11/10/20 22:48 37.2 C 11/10/20 22:47 90 119/74 98 11/10/20 22:45 88 146/84 H 95 11/10/20 22:37 99 H 81/51 L 95 11/10/20 22:34 96 H 83/53 L 96 11/10/20 22:32 92 H 77/55 L 95 11/10/20 22:17 94 H 105/68 96 11/10/20 22:02 98 H 104/62 96 11/10/20 21:47 100 H 117/71 94 11/10/20 21:32 99 H 110/71 97 11/10/20 21:17 94 H 118/72 97 11/10/20 21:02 96 H 108/75 96 11/10/20 20:47 95 H 115/73 96 11/10/20 20:45 94 H 128/84 96 11/10/20 20:32 98 H 92/70 L 93 11/10/20 20:25 100 H 82/55 L 92 11/10/20 20:22 103 H 76/54 L 92 11/10/20 20:17 100 H 79/55 L 92 11/10/20 20:02 102 H 108/67 93 11/10/20 20:00 36.8 C 11/10/20 19:47 106 H 101/68 94 11/10/20 19:32 103 H 106/77 95 11/10/20 19:21 101 H 23 96 11/10/20 19:17 100 H 102/62 97 Laboratory Results 11/11/20 11/11/20 11/11/20 Range/Units 03:06 03:06 03:06 WBC 16.73 H (4.8-10.8) K/uL RBC 3.21 L (4.2-5.4) M/uL Hgb 9.9 L (12.0-16.0) g/dL Hct 31.0 L (37-47) % MCV 96.6 (80-100) fL MCH 30.8 (25-34) pg MCHC 31.9 L (32-36) g/dL RDW Std Deviation 59.8 H (36.4-46.3) fL RDW Coeff of Virgilio 17.3 H (11.5-14.5) % Plt Count 295 (130-400) K/uL MPV 11.5 H (7.4-10.4) fL Immature Gran % (Auto) 0.6 % Neut % (Auto) 83.8 % Lymph % (Auto) 8.6 % [place] % (Auto) 6.9 % Eos % (Auto) 0.0 % Baso % (Auto) 0.1 % Neut # (Auto) 14.03 H (1.4-6.5) K/uL Lymph # (Auto) 1.44 (1.2-3.4) K/uL [place] # (Auto) 1.15 H (0.11-0.59) K/uL Eos # (Auto) 0.00 (0-0.5) K/uL Baso # (Auto) 0.01 (0-0.2) K/uL Immature Gran # (Auto) 0.10 H (0.00-0.02) K/uL RBC Morphology Unremarkable PT (9.0-12.0) Seconds INR (0.9-1.1) APTT (21.0-31.0) Seconds PTT Ratio VBG pH (7.36-7.41) VBG pCO2 (38-50) mmHg VBG pO2 mmHg VBG HCO3 mmol/L VBG O2 Saturation % VBG Base Excess mEq/L Barometric Pressure mm/Hg Sodium (136-145) mmol/L Potassium (3.5-5.1) mmol/L Chloride (98-107) mmol/L Carbon Dioxide (21-32) mmol/L Anion Gap (3-11) BUN (7-18) mg/dl Creatinine (0.6-1.2) mg/dl Est Cr Clr Drug Dosing ml/min Est GFR ( Amer) Est GFR (Non-Af Amer) BUN/Creatinine Ratio (10-20) Glucose (70-99) mg/dl POC Glucose (70-99) mg/dl Lactate (0.4-2.0) mmol/L Calcium (8.5-10.1) mg/dl Phosphorus (2.5-4.9) mg/dl Magnesium (1.8-2.4) mg/dl Total Bilirubin (0.2-1) mg/dl AST (15-37) U/L ALT (12-78) U/L Alkaline Phosphatase (45-117) U/L Troponin I (0-0.045) ng/ml Total Protein (6.4-8.2) gm/dl Albumin (3.4-5.0) gm/dl Globulin (2.5-4.0) gm/dl Albumin/Globulin Ratio (0.9-2) Procalcitonin 14.52 H (0-0.5) ng/ml Urine Color Urine Appearance (Clear) Urine pH (4.5-7.5) Ur Specific [place] (1.000-1.030) Urine Protein (Negative) Urine Glucose (UA) (Negative) Urine Ketones (Negative) Urine Blood (Negative) Urine Nitrite (Negative) Urine Bilirubin (Negative) Urine Urobilinogen (Negative) Ur Leukocyte Esterase (Negative) Urine WBC (Auto) (0-5) /hpf Urine RBC (Auto) (0-4) /hpf U Hyaline Cast (Auto) (0-5) /lpf U Epithel Cells (Auto) (0-5) /lpf Urine Bacteria (Auto) (Negative) Nasal Screen MRSA (PCR) (Negative) Random Vancomycin 17.8 mcg/ml Carbamazepine (4-12) mcg/ml COVID-19 Eval Order SARS-CoV-2 (PCR) (Negative) Influenza Type A (PCR) (Neg) Influenza Type B (PCR) (Neg) RSV (RT-PCR) (Neg) 11/11/20 11/11/20 11/11/20 Range/Units 03:06 03:06 01:44 WBC (4.8-10.8) K/uL RBC (4.2-5.4) M/uL Hgb 9.8 L (12.0-16.0) g/dL Hct 31.2 L (37-47) % MCV (80-100) fL MCH (25-34) pg MCHC (32-36) g/dL RDW Std Deviation (36.4-46.3) fL RDW Coeff of Virgilio (11.5-14.5) % Plt Count (130-400) K/uL MPV (7.4-10.4) fL Immature Gran % (Auto) % Neut % (Auto) % Lymph % (Auto) % [place] % (Auto) % Eos % (Auto) % Baso % (Auto) % Neut # (Auto) (1.4-6.5) K/uL Lymph # (Auto) (1.2-3.4) K/uL [place] # (Auto) (0.11-0.59) K/uL Eos # (Auto) (0-0.5) K/uL Baso # (Auto) (0-0.2) K/uL Immature Gran # (Auto) (0.00-0.02) K/uL RBC Morphology PT (9.0-12.0) Seconds INR (0.9-1.1) APTT 74.0 H* (21.0-31.0) Seconds PTT Ratio 2.8 VBG pH (7.36-7.41) VBG pCO2 (38-50) mmHg VBG pO2 mmHg VBG HCO3 mmol/L VBG O2 Saturation % VBG Base Excess mEq/L Barometric Pressure mm/Hg Sodium 150 H (136-145) mmol/L Potassium 3.8 D (3.5-5.1) mmol/L Chloride 117 H (98-107) mmol/L Carbon Dioxide 25 (21-32) mmol/L Anion Gap 8.0 (3-11) BUN 35 H (7-18) mg/dl Creatinine 1.55 H D (0.6-1.2) mg/dl Est Cr Clr Drug Dosing 35.1 ml/min Est GFR ( Amer) 37.8 Est GFR (Non-Af Amer) 32.6 BUN/Creatinine Ratio 22.4 H (10-20) Glucose 148 H (70-99) mg/dl POC Glucose (70-99) mg/dl Lactate (0.4-2.0) mmol/L Calcium 7.7 L D (8.5-10.1) mg/dl Phosphorus 2.4 L (2.5-4.9) mg/dl Magnesium 2.2 (1.8-2.4) mg/dl Total Bilirubin 1.1 H D (0.2-1) mg/dl AST 20 (15-37) U/L ALT 32 (12-78) U/L Alkaline Phosphatase 133 H (45-117) U/L Troponin I (0-0.045) ng/ml Total Protein 6.2 L (6.4-8.2) gm/dl Albumin 1.9 L (3.4-5.0) gm/dl Globulin 4.3 H (2.5-4.0) gm/dl Albumin/Globulin Ratio 0.4 L (0.9-2) Procalcitonin (0-0.5) ng/ml Urine Color Urine Appearance (Clear) Urine pH (4.5-7.5) Ur Specific [place] (1.000-1.030) Urine Protein (Negative) Urine Glucose (UA) (Negative) Urine Ketones (Negative) Urine Blood (Negative) Urine Nitrite (Negative) Urine Bilirubin (Negative) Urine Urobilinogen (Negative) Ur Leukocyte Esterase (Negative) Urine WBC (Auto) (0-5) /hpf Urine RBC (Auto) (0-4) /hpf U Hyaline Cast (Auto) (0-5) /lpf U Epithel Cells (Auto) (0-5) /lpf Urine Bacteria (Auto) (Negative) Nasal Screen MRSA (PCR) (Negative) Random Vancomycin mcg/ml Carbamazepine (4-12) mcg/ml COVID-19 Eval Order SARS-CoV-2 (PCR) (Negative) Influenza Type A (PCR) (Neg) Influenza Type B (PCR) (Neg) RSV (RT-PCR) (Neg) 11/10/20 11/10/20 11/10/20 Range/Units 23:48 20:34 20:02 WBC 17.66 H (4.8-10.8) K/uL RBC 3.30 L (4.2-5.4) M/uL Hgb 10.1 L (12.0-16.0) g/dL Hct 32.3 L (37-47) % MCV 97.9 (80-100) fL MCH 30.6 (25-34) pg MCHC 31.3 L (32-36) g/dL RDW Std Deviation 59.6 H (36.4-46.3) fL RDW Coeff of Virgilio 17.2 H (11.5-14.5) % Plt Count 272 (130-400) K/uL MPV 11.7 H (7.4-10.4) fL Immature Gran % (Auto) % Neut % (Auto) % Lymph % (Auto) % [place] % (Auto) % Eos % (Auto) % Baso % (Auto) % Neut # (Auto) (1.4-6.5) K/uL Lymph # (Auto) (1.2-3.4) K/uL [place] # (Auto) (0.11-0.59) K/uL Eos # (Auto) (0-0.5) K/uL Baso # (Auto) (0-0.2) K/uL Immature Gran # (Auto) (0.00-0.02) K/uL RBC Morphology PT (9.0-12.0) Seconds INR (0.9-1.1) APTT (21.0-31.0) Seconds PTT Ratio VBG pH (7.36-7.41) VBG pCO2 (38-50) mmHg VBG pO2 mmHg VBG HCO3 mmol/L VBG O2 Saturation % VBG Base Excess mEq/L Barometric Pressure mm/Hg Sodium (136-145) mmol/L Potassium (3.5-5.1) mmol/L Chloride (98-107) mmol/L Carbon Dioxide (21-32) mmol/L Anion Gap (3-11) BUN (7-18) mg/dl Creatinine (0.6-1.2) mg/dl Est Cr Clr Drug Dosing ml/min Est GFR ( Amer) Est GFR (Non-Af Amer) BUN/Creatinine Ratio (10-20) Glucose (70-99) mg/dl POC Glucose 180 H (70-99) mg/dl Lactate (0.4-2.0) mmol/L Calcium (8.5-10.1) mg/dl Phosphorus (2.5-4.9) mg/dl Magnesium (1.8-2.4) mg/dl Total Bilirubin (0.2-1) mg/dl AST (15-37) U/L ALT (12-78) U/L Alkaline Phosphatase (45-117) U/L Troponin I (0-0.045) ng/ml Total Protein (6.4-8.2) gm/dl Albumin (3.4-5.0) gm/dl Globulin (2.5-4.0) gm/dl Albumin/Globulin Ratio (0.9-2) Procalcitonin (0-0.5) ng/ml Urine Color Urine Appearance (Clear) Urine pH (4.5-7.5) Ur Specific [place] (1.000-1.030) Urine Protein (Negative) Urine Glucose (UA) (Negative) Urine Ketones (Negative) Urine Blood (Negative) Urine Nitrite (Negative) Urine Bilirubin (Negative) Urine Urobilinogen (Negative) Ur Leukocyte Esterase (Negative) Urine WBC (Auto) (0-5) /hpf Urine RBC (Auto) (0-4) /hpf U Hyaline Cast (Auto) (0-5) /lpf U Epithel Cells (Auto) (0-5) /lpf Urine Bacteria (Auto) (Negative) Nasal Screen MRSA (PCR) (Negative) Random Vancomycin 21.4 mcg/ml Carbamazepine (4-12) mcg/ml COVID-19 Eval Order SARS-CoV-2 (PCR) (Negative) Influenza Type A (PCR) (Neg) Influenza Type B (PCR) (Neg) RSV (RT-PCR) (Neg) 11/10/20 11/10/20 11/10/20 Range/Units 19:56 18:30 17:41 WBC (4.8-10.8) K/uL RBC (4.2-5.4) M/uL Hgb 10.9 L (12.0-16.0) g/dL Hct 34.9 L (37-47) % MCV (80-100) fL MCH (25-34) pg MCHC (32-36) g/dL RDW Std Deviation (36.4-46.3) fL RDW Coeff of Virgilio (11.5-14.5) % Plt Count (130-400) K/uL MPV (7.4-10.4) fL Immature Gran % (Auto) % Neut % (Auto) % Lymph % (Auto) % [place] % (Auto) % Eos % (Auto) % Baso % (Auto) % Neut # (Auto) (1.4-6.5) K/uL Lymph # (Auto) (1.2-3.4) K/uL [place] # (Auto) (0.11-0.59) K/uL Eos # (Auto) (0-0.5) K/uL Baso # (Auto) (0-0.2) K/uL Immature Gran # (Auto) (0.00-0.02) K/uL RBC Morphology PT (9.0-12.0) Seconds INR (0.9-1.1) APTT 71.8 H* (21.0-31.0) Seconds PTT Ratio 2.7 VBG pH (7.36-7.41) VBG pCO2 (38-50) mmHg VBG pO2 mmHg VBG HCO3 mmol/L VBG O2 Saturation % VBG Base Excess mEq/L Barometric Pressure mm/Hg Sodium (136-145) mmol/L Potassium (3.5-5.1) mmol/L Chloride (98-107) mmol/L Carbon Dioxide (21-32) mmol/L Anion Gap (3-11) BUN (7-18) mg/dl Creatinine (0.6-1.2) mg/dl Est Cr Clr Drug Dosing ml/min Est GFR ( Amer) Est GFR (Non-Af Amer) BUN/Creatinine Ratio (10-20) Glucose (70-99) mg/dl POC Glucose (70-99) mg/dl Lactate (0.4-2.0) mmol/L Calcium (8.5-10.1) mg/dl Phosphorus (2.5-4.9) mg/dl Magnesium (1.8-2.4) mg/dl Total Bilirubin (0.2-1) mg/dl AST (15-37) U/L ALT (12-78) U/L Alkaline Phosphatase (45-117) U/L Troponin I (0-0.045) ng/ml Total Protein (6.4-8.2) gm/dl Albumin (3.4-5.0) gm/dl Globulin (2.5-4.0) gm/dl Albumin/Globulin Ratio (0.9-2) Procalcitonin (0-0.5) ng/ml Urine Color Urine Appearance (Clear) Urine pH (4.5-7.5) Ur Specific [place] (1.000-1.030) Urine Protein (Negative) Urine Glucose (UA) (Negative) Urine Ketones (Negative) Urine Blood (Negative) Urine Nitrite (Negative) Urine Bilirubin (Negative) Urine Urobilinogen (Negative) Ur Leukocyte Esterase (Negative) Urine WBC (Auto) (0-5) /hpf Urine RBC (Auto) (0-4) /hpf U Hyaline Cast (Auto) (0-5) /lpf U Epithel Cells (Auto) (0-5) /lpf Urine Bacteria (Auto) (Negative) Nasal Screen MRSA (PCR) Negative (Negative) Random Vancomycin mcg/ml Carbamazepine (4-12) mcg/ml COVID-19 Eval Order SARS-CoV-2 (PCR) (Negative) Influenza Type A (PCR) (Neg) Influenza Type B (PCR) (Neg) RSV (RT-PCR) (Neg) 11/10/20 11/10/20 11/10/20 Range/Units 13:24 13:11 13:11 WBC (4.8-10.8) K/uL RBC (4.2-5.4) M/uL Hgb (12.0-16.0) g/dL Hct (37-47) % MCV (80-100) fL MCH (25-34) pg MCHC (32-36) g/dL RDW Std Deviation (36.4-46.3) fL RDW Coeff of Virgilio (11.5-14.5) % Plt Count (130-400) K/uL MPV (7.4-10.4) fL Immature Gran % (Auto) % Neut % (Auto) % Lymph % (Auto) % [place] % (Auto) % Eos % (Auto) % Baso % (Auto) % Neut # (Auto) (1.4-6.5) K/uL Lymph # (Auto) (1.2-3.4) K/uL [place] # (Auto) (0.11-0.59) K/uL Eos # (Auto) (0-0.5) K/uL Baso # (Auto) (0-0.2) K/uL Immature Gran # (Auto) (0.00-0.02) K/uL RBC Morphology PT (9.0-12.0) Seconds INR (0.9-1.1) APTT (21.0-31.0) Seconds PTT Ratio VBG pH 7.13 L (7.36-7.41) VBG pCO2 67 H (38-50) mmHg VBG pO2 33 mmHg VBG HCO3 22 mmol/L VBG O2 Saturation < 60.0 % VBG Base Excess -8.2 mEq/L Barometric Pressure 722.3 mm/Hg Sodium (136-145) mmol/L Potassium (3.5-5.1) mmol/L Chloride (98-107) mmol/L Carbon Dioxide (21-32) mmol/L Anion Gap (3-11) BUN (7-18) mg/dl Creatinine (0.6-1.2) mg/dl Est Cr Clr Drug Dosing ml/min Est GFR ( Amer) Est GFR (Non-Af Amer) BUN/Creatinine Ratio (10-20) Glucose (70-99) mg/dl POC Glucose (70-99) mg/dl Lactate 1.5 (0.4-2.0) mmol/L Calcium (8.5-10.1) mg/dl Phosphorus (2.5-4.9) mg/dl Magnesium (1.8-2.4) mg/dl Total Bilirubin (0.2-1) mg/dl AST (15-37) U/L ALT (12-78) U/L Alkaline Phosphatase (45-117) U/L Troponin I (0-0.045) ng/ml Total Protein (6.4-8.2) gm/dl Albumin (3.4-5.0) gm/dl Globulin (2.5-4.0) gm/dl Albumin/Globulin Ratio (0.9-2) Procalcitonin (0-0.5) ng/ml Urine Color Urine Appearance (Clear) Urine pH (4.5-7.5) Ur Specific [place] (1.000-1.030) Urine Protein (Negative) Urine Glucose (UA) (Negative) Urine Ketones (Negative) Urine Blood (Negative) Urine Nitrite (Negative) Urine Bilirubin (Negative) Urine Urobilinogen (Negative) Ur Leukocyte Esterase (Negative) Urine WBC (Auto) (0-5) /hpf Urine RBC (Auto) (0-4) /hpf U Hyaline Cast (Auto) (0-5) /lpf U Epithel Cells (Auto) (0-5) /lpf Urine Bacteria (Auto) (Negative) Nasal Screen MRSA (PCR) (Negative) Random Vancomycin mcg/ml Carbamazepine 5.4 (4-12) mcg/ml COVID-19 Eval Order SARS-CoV-2 (PCR) (Negative) Influenza Type A (PCR) (Neg) Influenza Type B (PCR) (Neg) RSV (RT-PCR) (Neg) 11/10/20 11/10/20 11/10/20 Range/Units 12:45 11:55 11:55 WBC (4.8-10.8) K/uL RBC (4.2-5.4) M/uL Hgb (12.0-16.0) g/dL Hct (37-47) % MCV (80-100) fL MCH (25-34) pg MCHC (32-36) g/dL RDW Std Deviation (36.4-46.3) fL RDW Coeff of Virgilio (11.5-14.5) % Plt Count (130-400) K/uL MPV (7.4-10.4) fL Immature Gran % (Auto) % Neut % (Auto) % Lymph % (Auto) % [place] % (Auto) % Eos % (Auto) % Baso % (Auto) % Neut # (Auto) (1.4-6.5) K/uL Lymph # (Auto) (1.2-3.4) K/uL [place] # (Auto) (0.11-0.59) K/uL Eos # (Auto) (0-0.5) K/uL Baso # (Auto) (0-0.2) K/uL Immature Gran # (Auto) (0.00-0.02) K/uL RBC Morphology PT (9.0-12.0) Seconds INR (0.9-1.1) APTT (21.0-31.0) Seconds PTT Ratio VBG pH (7.36-7.41) VBG pCO2 (38-50) mmHg VBG pO2 mmHg VBG HCO3 mmol/L VBG O2 Saturation % VBG Base Excess mEq/L Barometric Pressure mm/Hg Sodium (136-145) mmol/L Potassium (3.5-5.1) mmol/L Chloride (98-107) mmol/L Carbon Dioxide (21-32) mmol/L Anion Gap (3-11) BUN (7-18) mg/dl Creatinine (0.6-1.2) mg/dl Est Cr Clr Drug Dosing ml/min Est GFR ( Amer) Est GFR (Non-Af Amer) BUN/Creatinine Ratio (10-20) Glucose (70-99) mg/dl POC Glucose (70-99) mg/dl Lactate (0.4-2.0) mmol/L Calcium (8.5-10.1) mg/dl Phosphorus (2.5-4.9) mg/dl Magnesium (1.8-2.4) mg/dl Total Bilirubin (0.2-1) mg/dl AST (15-37) U/L ALT (12-78) U/L Alkaline Phosphatase (45-117) U/L Troponin I (0-0.045) ng/ml Total Protein (6.4-8.2) gm/dl Albumin (3.4-5.0) gm/dl Globulin (2.5-4.0) gm/dl Albumin/Globulin Ratio (0.9-2) Procalcitonin (0-0.5) ng/ml Urine Color [place] Urine Appearance Cloudy A (Clear) Urine pH 5.0 (4.5-7.5) Ur Specific [place] 1.018 (1.000-1.030) Urine Protein 1+ H (Negative) Urine Glucose (UA) Negative (Negative) Urine Ketones 1+ H (Negative) Urine Blood Trace H (Negative) Urine Nitrite Positive A (Negative) Urine Bilirubin 2+ H (Negative) Urine Urobilinogen Positive H (Negative) Ur Leukocyte Esterase 1+ H (Negative) Urine WBC (Auto) 0 (0-5) /hpf Urine RBC (Auto) 5-10 H (0-4) /hpf U Hyaline Cast (Auto) 0 (0-5) /lpf U Epithel Cells (Auto) >30 H (0-5) /lpf Urine Bacteria (Auto) Negative (Negative) Nasal Screen MRSA (PCR) (Negative) Random Vancomycin mcg/ml Carbamazepine (4-12) mcg/ml COVID-19 Eval Order CovFluRsv at [facility] SARS-CoV-2 (PCR) POSITIVE A* (Negative) Influenza Type A (PCR) Negative (Neg) Influenza Type B (PCR) Negative (Neg) RSV (RT-PCR) Negative (Neg) 11/10/20 11/10/20 11/10/20 Range/Units 11:43 11:43 11:43 WBC 22.52 H (4.8-10.8) K/uL RBC 4.09 L (4.2-5.4) M/uL Hgb 12.9 (12.0-16.0) g/dL Hct 39.9 (37-47) % MCV 97.6 (80-100) fL MCH 31.5 (25-34) pg MCHC 32.3 (32-36) g/dL RDW Std Deviation 58.9 H (36.4-46.3) fL RDW Coeff of Virgilio 17.2 H (11.5-14.5) % Plt Count (130-400) K/uL MPV (7.4-10.4) fL Immature Gran % (Auto) 0.8 % Neut % (Auto) 87.5 % Lymph % (Auto) 3.2 % [place] % (Auto) 8.4 % Eos % (Auto) 0.0 % Baso % (Auto) 0.1 % Neut # (Auto) 19.69 H (1.4-6.5) K/uL Lymph # (Auto) 0.73 L (1.2-3.4) K/uL [place] # (Auto) 1.90 H (0.11-0.59) K/uL Eos # (Auto) 0.00 (0-0.5) K/uL Baso # (Auto) 0.02 (0-0.2) K/uL Immature Gran # (Auto) 0.18 H (0.00-0.02) K/uL RBC Morphology PT 15.6 H (9.0-12.0) Seconds INR 1.6 H (0.9-1.1) APTT 26.6 (21.0-31.0) Seconds PTT Ratio 1.0 VBG pH (7.36-7.41) VBG pCO2 (38-50) mmHg VBG pO2 mmHg VBG HCO3 mmol/L VBG O2 Saturation % VBG Base Excess mEq/L Barometric Pressure mm/Hg Sodium (136-145) mmol/L Potassium (3.5-5.1) mmol/L Chloride (98-107) mmol/L Carbon Dioxide (21-32) mmol/L Anion Gap (3-11) BUN (7-18) mg/dl Creatinine (0.6-1.2) mg/dl Est Cr Clr Drug Dosing ml/min Est GFR ( Amer) Est GFR (Non-Af Amer) BUN/Creatinine Ratio (10-20) Glucose (70-99) mg/dl POC Glucose (70-99) mg/dl Lactate 2.4 H* (0.4-2.0) mmol/L Calcium (8.5-10.1) mg/dl Phosphorus (2.5-4.9) mg/dl Magnesium (1.8-2.4) mg/dl Total Bilirubin (0.2-1) mg/dl AST (15-37) U/L ALT (12-78) U/L Alkaline Phosphatase (45-117) U/L Troponin I (0-0.045) ng/ml Total Protein (6.4-8.2) gm/dl Albumin (3.4-5.0) gm/dl Globulin (2.5-4.0) gm/dl Albumin/Globulin Ratio (0.9-2) Procalcitonin (0-0.5) ng/ml Urine Color Urine Appearance (Clear) Urine pH (4.5-7.5) Ur Specific [place] (1.000-1.030) Urine Protein (Negative) Urine Glucose (UA) (Negative) Urine Ketones (Negative) Urine Blood (Negative) Urine Nitrite (Negative) Urine Bilirubin (Negative) Urine Urobilinogen (Negative) Ur Leukocyte Esterase (Negative) Urine WBC (Auto) (0-5) /hpf Urine RBC (Auto) (0-4) /hpf U Hyaline Cast (Auto) (0-5) /lpf U Epithel Cells (Auto) (0-5) /lpf Urine Bacteria (Auto) (Negative) Nasal Screen MRSA (PCR) (Negative) Random Vancomycin mcg/ml Carbamazepine (4-12) mcg/ml COVID-19 Eval Order SARS-CoV-2 (PCR) (Negative) Influenza Type A (PCR) (Neg) Influenza Type B (PCR) (Neg) RSV (RT-PCR) (Neg) 11/10/20 11/10/20 Range/Units 11:43 11:43 WBC (4.8-10.8) K/uL RBC (4.2-5.4) M/uL Hgb (12.0-16.0) g/dL Hct (37-47) % MCV (80-100) fL MCH (25-34) pg MCHC (32-36) g/dL RDW Std Deviation (36.4-46.3) fL RDW Coeff of Virgilio (11.5-14.5) % Plt Count (130-400) K/uL MPV (7.4-10.4) fL Immature Gran % (Auto) % Neut % (Auto) % Lymph % (Auto) % [place] % (Auto) % Eos % (Auto) % Baso % (Auto) % Neut # (Auto) (1.4-6.5) K/uL Lymph # (Auto) (1.2-3.4) K/uL [place] # (Auto) (0.11-0.59) K/uL Eos # (Auto) (0-0.5) K/uL Baso # (Auto) (0-0.2) K/uL Immature Gran # (Auto) (0.00-0.02) K/uL RBC Morphology PT (9.0-12.0) Seconds INR (0.9-1.1) APTT (21.0-31.0) Seconds PTT Ratio VBG pH (7.36-7.41) VBG pCO2 (38-50) mmHg VBG pO2 mmHg VBG HCO3 mmol/L VBG O2 Saturation % VBG Base Excess mEq/L Barometric Pressure mm/Hg Sodium 148 H (136-145) mmol/L Potassium 4.5 (3.5-5.1) mmol/L Chloride 116 H (98-107) mmol/L Carbon Dioxide 22 (21-32) mmol/L Anion Gap 10.0 (3-11) BUN 33 H (7-18) mg/dl Creatinine 1.85 H (0.6-1.2) mg/dl Est Cr Clr Drug Dosing 28.8 ml/min Est GFR ( Amer) 30.6 Est GFR (Non-Af Amer) 26.4 BUN/Creatinine Ratio 17.7 (10-20) Glucose 145 H (70-99) mg/dl POC Glucose (70-99) mg/dl Lactate (0.4-2.0) mmol/L Calcium 9.1 (8.5-10.1) mg/dl Phosphorus (2.5-4.9) mg/dl Magnesium 1.9 (1.8-2.4) mg/dl Total Bilirubin 2.6 H (0.2-1) mg/dl AST 37 (15-37) U/L ALT 48 (12-78) U/L Alkaline Phosphatase 163 H (45-117) U/L Troponin I 0.028 (0-0.045) ng/ml Total Protein 7.6 (6.4-8.2) gm/dl Albumin 2.4 L (3.4-5.0) gm/dl Globulin 5.2 H (2.5-4.0) gm/dl Albumin/Globulin Ratio 0.5 L (0.9-2) Procalcitonin 3.39 H (0-0.5) ng/ml Urine Color Urine Appearance (Clear) Urine pH (4.5-7.5) Ur Specific [place] (1.000-1.030) Urine Protein (Negative) Urine Glucose (UA) (Negative) Urine Ketones (Negative) Urine Blood (Negative) Urine Nitrite (Negative) Urine Bilirubin (Negative) Urine Urobilinogen (Negative) Ur Leukocyte Esterase (Negative) Urine WBC (Auto) (0-5) /hpf Urine RBC (Auto) (0-4) /hpf U Hyaline Cast (Auto) (0-5) /lpf U Epithel Cells (Auto) (0-5) /lpf Urine Bacteria (Auto) (Negative) Nasal Screen MRSA (PCR) (Negative) Random Vancomycin mcg/ml Carbamazepine (4-12) mcg/ml COVID-19 Eval Order SARS-CoV-2 (PCR) (Negative) Influenza Type A (PCR) (Neg) Influenza Type B (PCR) (Neg) RSV (RT-PCR) (Neg) Medications Administered Current Inpatient Medications Donepezil HCl (Donepezil Hcl 10 Mg Tab) 10 mg PO HS [facility] Stop: 12/10/20 20:59 Last Admin: 11/10/20 21:00 Dose: Not Given Documented by: Fentanyl Citrate (Fentanyl Bolus From Bag) 50 mcg IV Q60M PRN PRN Reason: Pain or Agitation Stop: 11/24/20 14:12 Heparin Sodium/Dextrose (Heparin Sodium/Dextrose) 25,000 units in 500 mls @ 24 mls/hr IV .[id number] [facility]; Protocol Stop: 12/10/20 12:59 Last Titration: 11/11/20 07:04 Dose: 1,150 units/hr, 23 mls/hr Documented by: Midazolam HCl (Versed) 125 mg in 250 mls @ 2 mls/hr IV .Q96H [facility]; Protocol Stop: 12/10/20 14:14 Last Admin: 11/10/20 15:32 Dose: Not Given Documented by: Fentanyl Citrate (Fentanyl Drip) 1,250 mcg in 250 mls @ 15 mls/hr IV .[id number] [facility]; Protocol Stop: 11/24/20 14:14 Last Titration: 11/11/20 07:04 Dose: 75 mcg/hr, 15 mls/hr Documented by: Pantoprazole Sodium 40 mg/ (Syringe) 10 mls @ 5 mls/min IV BID DANIELLA Stop: 12/10/20 20:59 Last Admin: 11/10/20 19:14 Dose: 5 mls/min Documented by: Parenteral Electrolytes (Normosol-R) 1,000 mls @ 50 mls/hr IV .Q20H [facility] Stop: 12/10/20 17:59 Last Infusion: 11/11/20 05:58 Dose: 0 mls/hr Documented by: Cefepime HCl 2,000 mg/ Syringe 20 mls @ 5 mls/min IV Q24H [facility]; Protocol Stop: 11/17/20 18:14 Last Admin: 11/10/20 19:12 Dose: 5 mls/min Documented by: Doxycycline Hyclate 100 mg/ (Dextrose) 110 mls @ 50 mls/hr IV Q12H [facility] Stop: 11/17/20 18:14 Last Infusion: 11/10/20 21:17 Dose: Infused Documented by: Dexamethasone 10 mg/ Syringe 2.5 mls @ 1 mls/min IV DAILY [facility] Stop: 12/11/20 08:59 Norepinephrine Bitartrate (Levophed/D5w) 8 mg in 508 mls @ 16.326 mls/hr IV .Q24H [facility]; Protocol Stop: 12/10/20 20:29 Last Titration: 11/11/20 07:04 Dose: 0 mcg/kg/min, 0 mls/hr Documented by: Sodium Phosphate 15 mmol/Potassium Chloride 40 meq/Sodium Chloride 525 mls @ 88 mls/hr IV ONE ONE Stop: 11/11/20 11:42 Last Admin: 11/11/20 05:57 Dose: 88 mls/hr Documented by: Vancomycin HCl 1,250 mg/ (Sodium Chloride) 275 mls @ 200 mls/hr IV TODAY@0700 ONE Stop: 11/11/20 08:22 Midazolam HCl (Midazolam Bolus From Bag) 2 mg IV Q60M PRN PRN Reason: Sedation Stop: 12/10/20 14:12 Miscellaneous ([facility] Protocol For Hyperglycemia) 1 ea N/A PRN PRN; Protocol PRN Reason: Hyperglycemia Protocol Stop: 11/12/20 14:41 Miscellaneous ([facility] Electrolyte Replacement Protocol) 1 ea N/A BID@06,18 DANIELLA; Protocol Stop: 11/17/20 17:59 Last Admin: 11/11/20 05:32 Dose: 1 ea Documented by: Miscellaneous Information (Vancomycin Consult Active) 1 ea N/A UD PRN PRN Reason: Consult Stop: 12/10/20 11:53 Pneumococcal Polyvalent Vaccine (Pneumococcal Polysaccharide Vaccine 25mcg/0.5ml Vial/Syr) 25 mcg IM .ONCE ONE Stop: 11/11/20 09:01 Resident Activity Tracking Resident Involvement: Resident Care Provided Care Provided: Adult Hospital Medicine (1) Respiratory failure Chronicity: acute Respiratory failure complication: hypoxia Qualified Code(s): J96.01 - Acute respiratory failure with hypoxia (2) Pulmonary embolism Acute cor pulmonale presence: unspecified Chronicity: unspecified Pulmonary embolism type: other Qualified Code(s): I26.99 - Other pulmonary embolism without acute cor pulmonale
[2020-11-11] MEDS: PANTOprazole 40 MG in SYRINGE 0 ML IV SCH (07:37)
[2020-11-11] MEDS: DOXYCYCLINE HYCLATE 100 MG in DEXTROSE 5% 100 ML IV SCH ×2 (07:37→20:07)
--- NOTE | 2020-11-11 08:08 | Billing Data ---
Date of Service November 11, 2020 Coding Level of Care Code Critical Care 1st - mins
[2020-11-11] MEDS ORDERED: PHARMACY GLYCEMIC MGMT CONSULT PRN (08:29)
[2020-11-11] MEDS: CEFEPIME 2,000 MG in SYRINGE 0 ML IV SCH ×2 (08:53→20:07)
[2020-11-11] MEDS: HEPARIN SODIUM/DEXTROSE 25,000 UNITS/500 ML BAG IV SCH (08:54)
[2020-11-11] MEDS: LACTATED RINGER'S 1,000 ML IV SCH ×2 (08:54→20:07)
[2020-11-11] MEDS ORDERED: PNEUMOCOCCAL Polysaccharide Vaccine 25mcg/0.5mL vial/Syr IM ONE (09:00)
[2020-11-11] MEDS ORDERED: dexAMETHasone 10 MG in SYRINGE 0 ML IV SCH (09:00)
--- NOTE | 2020-11-11 09:00 | XRay Report ---
XR chest 1V portable HISTORY: resp failure COMPARISON: Chest 11/10/2020. FINDINGS: Endotracheal tube terminates 2 cm from the melody. The heart remains mildly enlarged. No pneumothorax . 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 Pa tchy right mid to lower lung zone airspace opacities and a small right pleural effusion have slightly progressed. There is mild central pulmonary vascular congestion without overt edema. IMPRESSION: 1. Satisfactory support line placement. 2. Slight progression of the small right pleural effusion and right mid to lower lung zone airspace o pacities. 3. Mild central pulmonary vascular congestion without overt edema. ACT 112: Negative or not required by law. Electronically signed by: Brett Olmstead M.D. 11/11/2020 8:59 AM
[2020-11-11] MEDS: INSULIN GLARGINE SOLOSTAR 100 UNITS/ML 3 ML PEN SC SCH ×2 (09:24→20:28)
[2020-11-11] MEDS: INSULIN ASPART 100 UNITS/ML 3 ML PEN SC SCH ×5 (09:24→23:47)
[2020-11-11 10:47] LABS: Hematocrit (blood only) 29.7 % (37-47); Hemoglobin 9.4 g/dL (12.0-16.0)
[2020-11-11 10:54] LABS: iSTAT Potassium 3.7 mmol/L (3.3-5.0); iSTAT Sodium 147 mmol/L (135-144)
[2020-11-11 10:55] LABS: iSTAT Art Bld Gas pH Corrected 7.344 (7.35-7.45); iSTAT Arterial Blood Gas pH 7.34 (7.35-7.45); iSTAT Hematocrit 29 % (37-47); iSTAT Hemoglobin 9.9 g/dl (12.0-16.0)
[2020-11-11 10:56] LABS: iSTAT Art Bld Gas pCO2 Correct 40 mmHg (35-46); iSTAT Arterial Blood Gas HCO3 22 meg/L (19-24); iSTAT Arterial Blood Gas pCO2 40 mmHg (35-46); iSTAT Arterial Blood Gas pO2 68 mmHg (80-95); iSTAT Arterial Blood Gas pO2 C 68; iSTAT Carbon Dioxide 23 mmol/L (24-31)
[2020-11-11 10:57] LABS: iSTAT Allen Test Acceptable; iSTAT Sample Type Arterial; iSTAT Site R Radial
[2020-11-11 11:14] LABS: Partial Thromboplastin Ratio 2.5
[2020-11-11 11:18] LABS: Partial Thromboplastin Time 66.3 Seconds (21.0-31.0)
--- NOTE | 2020-11-11 11:53 | Consultation ---
Date of Consultation November 11, 2020 History of Present Illness Attending Physician: Martínez Nash MD History of Present Illness The patient's chart, past history, and imaging studies were reviewed. Her retroperitoneal hematoma is smaller on this study than previously. Being that she is on anticoagulation and her hemoglobin is been stable I would recommend that we hold off on a filter at this point. If she should decrease her hemoglobin and required transfusions we will then reconsider placing a filter if the anticoagulation needs to be stopped. Allergies Allergy/AdvReac Type Severity Reaction Status Date / Time No Known Allergies Allergy Unverified 10/25/20 09:24 Home Medications Medication Instructions Recorded Confirmed Type carbamazepine 200 mg PO BID 02/07/19 10/25/20 History donepezil 10 mg PO HS 09/06/19 11/10/20 History clotrimazole-betamethasone 1 applic TOPICAL BID 09/21/20 10/25/20 History furosemide 20 mg PO DAILY 09/21/20 10/25/20 History sertraline 100 mg PO QAM 09/21/20 11/10/20 History calcium carbonate [Tums] 500 mg PO DAILY #0 tab 09/25/20 10/25/20 Rx polyethylene glycol 3350 [Miralax] 17 g PO DAILY PRN #0 ea 09/25/20 10/25/20 Rx cholecalciferol (vitamin D3) 50 mcg PO QAM 10/25/20 11/10/20 History [Vitamin D3] enoxaparin [Lovenox] 60 mg SUBCUT DAILY 10/25/20 10/25/20 History famotidine 20 mg PO DAILY 10/25/20 10/25/20 History melatonin 3 mg PO HS 10/25/20 11/10/20 History ondansetron 4 mg PO Q4H PRN 10/25/20 10/25/20 History pantoprazole 40 mg PO DAILYBB 10/25/20 10/25/20 History sennosides-docusate sodium 1 tab-cap PO DAILY 10/25/20 10/25/20 History [Senokot-S] albuterol sulfate 2.5 mg INHALATION Q4H PRN 11/10/20 11/10/20 History clotrimazole-betamethasone 1 applic TOPICAL UD 11/10/20 11/10/20 History [Lotrisone] hydrocortisone 1 applic TOPICAL UD 11/10/20 11/10/20 History Patient History Medical History Anxiety Chronic venous stasis Congenital hydrocephalus MDD (major depressive disorder) Surgical History H/O eye surgery "Strabismus Surgery" History of tonsillectomy History of tubal ligation Hx of tonsillectomy Family History Other Cancer Diabetes Social History Smoking Status: Unknown if ever smoked Preferred Language: Danish Communication Ability: Impaired Beliefs That Will Affect Care: None Current Living Situation: Alone Current Living Situation Comment: Cidra Palumbo comes to home Feels Safe at Home: Yes Assistive Devices: Oxygen - Continuous Results & Data ([facility]) Vital Signs (Past 12 Hours) Vital Signs Temp Pulse Resp BP Pulse Ox 11/11/20 11:16 112 H 20 134/79 93 11/11/20 11:00 111 H 24 93 11/11/20 10:45 111 H 27 H 138/83 94 11/11/20 10:15 109 H 25 H 112/73 92 11/11/20 10:00 106 H 24 94 11/11/20 09:45 107 H 25 H 111/72 93 11/11/20 09:16 104 H 131/62 94 11/11/20 09:00 91 H 94 11/11/20 08:45 91 H 90/50 L 94 11/11/20 08:15 97 H 95/54 L 94 11/11/20 08:00 109 H 93 11/11/20 07:55 97 H 19 93 11/11/20 07:45 37.1 C 99 H 100/58 L 96 11/11/20 07:16 110 H 136/73 95 11/11/20 07:00 110 H 96 11/11/20 06:30 108 H 112/65 96 11/11/20 06:15 103 H 140/102 H 94 11/11/20 06:11 102 H 133/88 95 11/11/20 06:02 96 H 151/126 H 97 11/11/20 05:45 93 H 126/75 97 02/03/21 05:16 85 106/61 94 11/11/20 04:45 87 81/59 L 94 11/11/20 04:16 97 H 150/85 H 95 11/11/20 03:59 94 H 100/52 L 95 11/11/20 03:48 37.0 C 11/11/20 03:46 96 H 19 91 11/11/20 03:45 89 123/70 100 11/11/20 03:15 87 91/58 L 96 11/11/20 02:51 88 84/55 L 96 11/11/20 02:45 85 85/51 L 96 11/11/20 02:15 89 111/65 97 11/11/20 01:45 95 H 106/61 97 11/11/20 01:15 99 H 121/83 94 11/11/20 00:45 108 H 142/91 H 93 11/11/20 00:15 104 H 153/79 H 97 11/11/20 00:00 37.2 C
--- NOTE | 2020-11-11 12:55 | Hospitalist Progress Note ---
Date of Service November 11, 2020 Assessment & Plan (1) COVID-19: Diagnosed on 10/23/2020. Required intubation on 11/10/2020. - Presently extubated. - Continue dexamethasone x 10 days - Remdesivir and plasma not indicated given duration of positivity - Now on 6L Oxymask (2) Pulmonary embolism: CTA chest on 11/10 showed segmental pulmonary embolus within the posterior basilar segment of the right lower lobe with associated pulmonary infarct. - Presently on heparin gtt - Vascular consulted for possible IVC filter - Defer for this time given her RP bleed is smaller than prior scan. (3) Retroperitoneal hematoma: Originally noted on 10/25/2020. She was sent to [place] at that time. CT a/p this time shows improvement. - Monitor vitals and hgb (4) AD (Alzheimer's disease): Unclear baseline. - Monitor (5) Congenital hydrocephalus: No known present issues. (6) MDD (major depressive disorder): - Continue sertraline, carbamazepine, and donepezil. (7) DVT prophylaxis: Heparin gtt and warfarin transition for DVT/PE Admission and Anticipated Discharge Date Admission Date: November 10, 2020 Subjective Intubated at the time of my exam. Review of Systems Review of Systems: Unobtainable due to endotracheal tube Physical Exam Constitutional: WD/WN, vitals as above + acute distress Eyes: no conjunctival abnormality ENMT: external ear and nose normal, oropharynx normal Neck: trachea midline, no thyromegaly normal visual inspection Respiratory: + labored breathing Auscultation: + crackles Cardiovascular: Rate/Rhythm: + tachycardic Heart Sounds: normal S1 and normal S2 Gastrointestinal (Abdomen): Inspection/Auscultation: abdomen normal to inspection; abdomen not distended Musculoskeletal: no cyanosis or clubbing, extremities motor strength 5/5 Skin: no rashes, warm and dry Neurologic: + does not move all extremities and + not awake Psychiatric: Orientation: + not alert Results & Data Results & Data ([facility]) Vital Signs (Past 12 Hours) Vital Signs Temp Pulse Resp BP Pulse Ox 11/11/20 11:16 112 H 20 134/79 93 11/11/20 11:00 111 H 24 93 11/11/20 10:45 111 H 27 H 138/83 94 11/11/20 10:15 109 H 25 H 112/73 92 11/11/20 10:00 106 H 24 94 11/11/20 09:45 107 H 25 H 111/72 93 11/11/20 09:16 104 H 131/62 94 11/11/20 09:00 91 H 94 11/11/20 08:45 91 H 90/50 L 94 11/11/20 08:15 97 H 95/54 L 94 11/11/20 08:00 109 H 93 11/11/20 07:55 97 H 19 93 11/11/20 07:45 37.1 C 99 H 100/58 L 96 11/11/20 07:16 110 H 136/73 95 11/11/20 07:00 110 H 96 11/11/20 06:30 108 H 112/65 96 11/11/20 06:15 103 H 140/102 H 94 11/11/20 06:11 102 H 133/88 95 11/11/20 06:02 96 H 151/126 H 97 11/11/20 05:45 93 H 126/75 97 11/11/20 05:16 85 106/61 94 11/11/20 04:45 87 81/59 L 94 11/11/20 04:16 97 H 150/85 H 95 11/11/20 03:59 94 H 100/52 L 95 11/11/20 03:48 37.0 C 11/11/20 03:46 96 H 19 91 11/11/20 03:45 89 123/70 100 11/11/20 03:15 87 91/58 L 96 11/11/20 02:51 88 84/55 L 96 11/11/20 02:45 85 85/51 L 96 11/11/20 02:15 89 111/65 97 11/11/20 01:45 95 H 106/61 97 11/11/20 01:15 99 H 121/83 94 PG Care Time/CCT Total # of Minutes Spent Total Time Spent with Patient: Total time spent is greater than 50% in coordination of care (as documented) at patient's floor/unit and/or counseling patient: Coding Level of Care Code 78875 Subseq Hosp Care Lvl 3 Diagnoses COVID-19 U07.1 Pulmonary embolism I26.99 Acute cor pulmonale presence: unspecified Chronicity: unspecified Pulmonary embolism type: other Retroperitoneal hematoma K66.1 AD (Alzheimer's disease) G30.9; F02.80 Congenital hydrocephalus Q03.9 MDD (major depressive disorder) F32.9 DVT prophylaxis Z29.9 (1) Pulmonary embolism Acute cor pulmonale presence: unspecified Chronicity: unspecified Pulmonary embolism type: other Qualified Code(s): I26.99 - Other pulmonary embolism without acute cor pulmonale
--- NOTE | 2020-11-11 14:16 | Pharmacy Report ---
Pharmacy Glycemic Short Note 2 - Date of Service November 11, 2020 - Glycemic Short BSG Results (Last 24 hours): 11/10/20 11/11/20 11/11/20 20:02 03:06 09:04 Glucose 148 H POC Glucose 180 H 131 H 11/11/20 12:44 Glucose POC Glucose 127 H OUTPATIENT ANTIDIABETIC REGIMEN: * N/A ASSESSMENT: * Automatic Glycemic Consult generated secondary to two consecutive BSGs >140 * Multiple stressors likely contributing to rising BSGs over last 24 hrs (intubation, pressors, infxn, high dose steroids); however this AM patient was extubated, pressors weaned off and steroid dose will decrease tomorrow. Of note, it appears she will be NPO today * Will initiate SQ Novolog/Lantus regimen at this time. A portion of the basal dose will be provided in the form of scheduled Novolog per scale to avoid lar ge Lantus doses in a patient with little PO intake. Lantus dosing will be scaled to prevent administration when BSG less than 120 PLAN FOR INPATIENT GLYCEMIC CONTROL: * Check A1c with next lab draw * Basal insulin * Lantus 10 units SQ BID - hold if BSG less than 120 * Bolus insulin * NovoLog per scale Q 4 hrs: PLAN FOR DISCHARGE: * to be determined
[2020-11-11] MEDS: WARFARIN SOD 5 MG TAB PO SCH (17:09)
[2020-11-11 19:02] LABS: Hematocrit (blood only) 28.3 % (37-47); Hemoglobin 8.7 g/dL (12.0-16.0)
[2020-11-11] MEDS: carBAMazepine 200 MG TABLET PO SCH (20:08)
[2020-11-11] MEDS: DONEPEZIL HCL 10 MG TAB PO SCH (20:08)
[2020-11-12] MEDS: INSULIN ASPART 100 UNITS/ML 3 ML PEN SC SCH ×5 (04:39→22:21)
[2020-11-12] MEDS: HEPARIN SODIUM/DEXTROSE 25,000 UNITS/500 ML BAG IV SCH (05:04)
[2020-11-12 06:29] LABS: Basophils # (auto) 0.01 K/uL (0-0.2); Basophils % (auto) 0.1 %; Eosinophils # (auto) 0.06 K/uL (0-0.5); Eosinophils % (auto) 0.4 %; Hemoglobin 9.3 g/dL (12.0-16.0); Immature Granulocytes # (auto) 0.14 K/uL (0.00-0.02); Immature Granulocytes % (auto) 0.8 %; Lymphocytes % (auto) 7.2 %; Mean Corpuscular Hemoglobin 30.7 pg (25-34); Mean Platelet Volume 12.3 fL (7.4-10.4); Monocytes # (auto) 1.06 K/uL (0.11-0.59); Monocytes % (auto) 6.3 %; Neutrophils # (auto) 14.28 K/uL (1.4-6.5); Neutrophils % (auto) 85.2 %; Nucleated RBC # (auto) 0.02 K/uL (0-0); Nucleated RBC % (auto) 0.1 %; Platelet Count 263 K/uL (130-400); RDW Coefficient of Variation 17.7 % (11.5-14.5); RDW Standard Deviation 61.8 fL (36.4-46.3); Red Blood Count 3.03 M/uL (4.2-5.4); White Blood Count 16.75 K/uL (4.8-10.8)
[2020-11-12 06:37] LABS: Estimated Average Glucose 120 mg/dl; Hemoglobin A1C 5.8 % (4.5-5.6)
[2020-11-12 06:47] LABS: INR 1.2 (0.9-1.1); Partial Thromboplastin Ratio 2.1; Prothrombin Time 11.9 Seconds (9.0-12.0)
[2020-11-12 06:49] LABS: Partial Thromboplastin Time 56.2 Seconds (21.0-31.0)
[2020-11-12 07:10] LABS: Albumin Level 2.1 gm/dl (3.4-5.0); BUN Creatinine Ratio 29.5 (10-20); Calcium 8.2 mg/dl (8.5-10.1); Magnesium 1.8 mg/dl (1.8-2.4); Potassium 3.5 mmol/L (3.5-5.1)
[2020-11-12 07:11] LABS: Albumin Globulin Ratio 0.5 (0.9-2); Bilirubin,Total 0.9 mg/dl (0.2-1); Globulin 4.1 gm/dl (2.5-4.0); Phosphorus 2.6 mg/dl (2.5-4.9); Total Protein 6.2 gm/dl (6.4-8.2)
--- NOTE | 2020-11-12 07:48 | Hospitalist Progress Note ---
Date of Service November 12, 2020 Assessment & Plan (1) Acute respiratory failure with hypoxia: (2) COVID-19 virus infection: Diagnosed on 10/21/2020. was treated w/ decadron On this admission - Required intubation on 11/10/2020. - Presently extubated. - Continue dexamethasone x 10 days - Remdesivir and plasma not indicated given duration of positivity - Now on 2L NC Bacterial pna/ hosp. acquired -Chest CTA from 11/10 demonstrated segmental pulmonary embolus within the posterior segment of the right lower lobe with associated pulmonary infarct, adjacent airspace opacity with possible cavitation, scattered ground glass and tree-in-bud nodules within the lungs. -CT abd/pelvis noted small right pleural effusion with possible cystic focus of right lower lobe -Continue on Decadron 6mg for 6 additional days Procalcitonin 14.5, now down to 5.8 -Sputum cultures demonstrating gram-negative bacilli - final results pending, Quantiferon test - pending, on isolation -Continue cefepime, doxy until speciation of sputum cultures with sensitivities -Would consider transition to ceftriaxone at that time. (3) Pulmonary embolism: CTA chest on 11/10 showed segmental pulmonary embolus within the posterior basilar segment of the right lower lobe with associated pulmonary infarct. LE DVT b/l - Presently on heparin gtt - Vascular consulted for possible IVC filter - Defer for this time given her RP bleed is smaller than prior scan. (4) Retroperitoneal hematoma: Originally noted on 10/25/2020. She was sent to [place] at that time. Was hospitalized 10/25-10/30. CTA abdomen / pelvis obtained at that time- unremarkable Prior to her dg. of hematoma - pt was on Lovenox 60 subq, this was stopped on discharge from [place] CT a/p this time shows improvement. - Monitor vitals and hgb Dysphagia - Failed swallow study today - Consideration of video swallow study tomorrow - unable to swallow her own secretions, frequent suctioning Hypernatremia - Na 150 this AM, on admission 148, Na level normal back in September - cont. to monitor, consider adding D5W, nephro consult AD (Alzheimer's disease): Unclear baseline. - Monitor Congenital hydrocephalus: No known present issues. MDD (major depressive disorder): - Continue sertraline, carbamazepine, and donepezil once pt can take PO DVT prophylaxis: Heparin gtt and warfarin transition for DVT/PE once pt can take PO Admission and Anticipated Discharge Date Admission Date: November 10, 2020 Subjective Pt seen in follow up of COVID pna, PE, DVT, hx of RP hematoma. Currently pt in ICU, extubated, but not able to answer most questions Swallow study attempted today - pt can not swallow, plan to try again tomorrow Currently on IV heparin, IV Abx Sputum cultx posit. for gram negat. bacilli Pt currently has no complaints, she is asking about going home and asking me if she is going to Review of Systems Review of Systems: All systems reviewed & are unremarkable except as noted in HPI & below and Unobtainable due to cognitive status Physical Exam Physical Exam: Constitutional: WD/WN, vitals as above Eyes: PERRL, conjunctivae normal, anicteric sclerae Neck: normal visual inspection and trachea midline, unable to swallow secretions, central line placed (L) Respiratory: normal respiratory effort; no respiratory distress, no retractions and does not use accessory muscles Auscultation: + crackles and + wheezes; no rales and no rhonchi Cardiovascular: RRR Heart Sounds: no murmur Gastrointestinal (Abdomen): Inspection/Auscultation: normal bowel sounds, + abdominal wall ecchymosis and + significant pannus; abdomen not distended Percussion/Palpation: abdomen soft; no guarding Neurologic: moves extremities, speech fluent but slow Psychiatric: Orientation: + not alert and + not oriented x 3 Appearence: + disheveled Results & Data Results & Data ([facility]) Vital Signs (Past 12 Hours) Vital Signs Temp Pulse Resp BP Pulse Ox 11/12/20 06:00 94 H 23 136/87 94 11/12/20 05:04 94 H 25 H 130/93 91 11/12/20 04:42 95 H 22 92 11/12/20 04:41 96 H 28 H 159/88 H 93 11/12/20 03:22 86 20 123/61 93 11/12/20 02:09 81 19 135/65 93 11/12/20 01:04 77 15 110/53 L 98 11/12/20 00:47 81 11/12/20 00:39 89 19 99/74 L 97 11/12/20 00:38 78 16 98 11/12/20 00:16 77 16 97 11/12/20 00:00 91 H 19 97 11/11/20 23:46 87 19 93/59 L 95 11/11/20 23:43 36.2 C L 11/11/20 23:16 87 19 130/72 98 11/11/20 23:00 91 H 20 97 11/11/20 22:47 95 H 21 124/74 96 11/11/20 22:16 97 H 22 112/79 96 11/11/20 22:00 95 H 21 95 11/11/20 21:23 94 11/11/20 21:16 95 H 22 119/89 94 11/11/20 20:34 36.8 C 11/11/20 20:18 94 H 20 166/96 H 97 11/11/20 20:17 95 H 30 H 159/103 H 97 11/11/20 20:00 92 H 21 98 11/11/20 19:46 92 H 21 121/78 99 Laboratory Results 11/12/20 11/12/20 11/12/20 Range/Units 05:02 05:02 05:02 WBC 16.75 H (4.8-10.8) K/uL RBC 3.03 L (4.2-5.4) M/uL Hgb 9.3 L (12.0-16.0) g/dL POC Hgb (12.0-16.0) g/dl Hct 30.0 L (37-47) % POC Hct (37-47) % MCV 99.0 (80-100) fL MCH 30.7 (25-34) pg MCHC 31.0 L (32-36) g/dL RDW Std Deviation 61.8 H (36.4-46.3) fL RDW Coeff of Virgilio 17.7 H (11.5-14.5) % Plt Count 263 (130-400) K/uL MPV 12.3 H (7.4-10.4) fL Immature Gran % (Auto) 0.8 % Neut % (Auto) 85.2 % Lymph % (Auto) 7.2 % Kenedy % (Auto) 6.3 % Eos % (Auto) 0.4 % Baso % (Auto) 0.1 % Neut # (Auto) 14.28 H (1.4-6.5) K/uL Lymph # (Auto) 1.20 (1.2-3.4) K/uL K[place]y # (Auto) 1.06 H (0.11-0.59) K/uL Eos # (Auto) 0.06 (0-0.5) K/uL Baso # (Auto) 0.01 (0-0.2) K/uL Immature Gran # (Auto) 0.14 H (0.00-0.02) K/uL Absolute Nucleated RBC 0.02 H (0-0) K/uL Nucleated RBC % (auto) 0.1 % PT 11.9 (9.0-12.0) Seconds INR 1.2 H (0.9-1.1) APTT 56.2 H* (21.0-31.0) Seconds PTT Ratio 2.1 Specimen Type Sample Site Patient Temperature POC pH (7.35-7.45) POC pCO2 (35-46) mmHg POC pO2 (80-95) mmHg POC HCO3 (19-24) viral/L POC Total CO2 (24-31) mmol/L POC Base Excess (-9-1.8) viral/L ABG pH (Temp Correct) (7.35-7.45) ABG pCO2 (Temp Corrct (35-46) mmHg POC ABG pO2 at Pt Temp POC ABG O2 Sat (90-95) % Alfredo Test O2 Delivery Device POC O2 Rate Minute Ventilation Vent Mode Tidal Volume PEEP POC Sodium (135-144) mmol/L Sodium (136-145) mmol/L POC Potassium (3.3-5.0) mmol/L Potassium (3.5-5.1) mmol/L Chloride (98-107) mmol/L Carbon Dioxide (21-32) mmol/L Anion Gap (3-11) BUN (7-18) mg/dl Creatinine (0.6-1.2) mg/dl Est Cr Clr Drug Dosing ml/min Est GFR ( Amer) Est GFR (Non-Af Amer) BUN/Creatinine Ratio (10-20) Glucose (70-99) mg/dl POC Glucose (70-99) mg/dl Estimat Average Glucose mg/dl Hemoglobin A1c (4.5-5.6) % Calcium (8.5-10.1) mg/dl Phosphorus (2.5-4.9) mg/dl Magnesium (1.8-2.4) mg/dl Total Bilirubin (0.2-1) mg/dl AST (15-37) U/L ALT (12-78) U/L Alkaline Phosphatase (45-117) U/L Total Protein (6.4-8.2) gm/dl Albumin (3.4-5.0) gm/dl Globulin (2.5-4.0) gm/dl Albumin/Globulin Ratio (0.9-2) Procalcitonin Pending TB Test (QFT) Gold Plus TB Test (QFT) Nil TB Test Mitogen - Nil TB Test Ag - Nil 1 TB Test Ag - Nil 2 11/12/20 11/12/20 11/12/20 Range/Units 05:02 05:02 04:27 WBC (4.8-10.8) K/uL RBC (4.2-5.4) M/uL Hgb (12.0-16.0) g/dL POC Hgb (12.0-16.0) g/dl Hct (37-47) % POC Hct (37-47) % MCV (80-100) fL MCH (25-34) pg MCHC (32-36) g/dL RDW Std Deviation (36.4-46.3) fL RDW Coeff of Virgilio (11.5-14.5) % Plt Count (130-400) K/uL MPV (7.4-10.4) fL Immature Gran % (Auto) % Neut % (Auto) % Lymph % (Auto) % Kenedy % (Auto) % Eos % (Auto) % Baso % (Auto) % Neut # (Auto) (1.4-6.5) K/uL Lymph # (Auto) (1.2-3.4) K/uL K[place]y # (Auto) (0.11-0.59) K/uL Eos # (Auto) (0-0.5) K/uL Baso # (Auto) (0-0.2) K/uL Immature Gran # (Auto) (0.00-0.02) K/uL Absolute Nucleated RBC (0-0) K/uL Nucleated RBC % (auto) % PT (9.0-12.0) Seconds INR (0.9-1.1) APTT (21.0-31.0) Seconds PTT Ratio Specimen Type Sample Site Patient Temperature POC pH (7.35-7.45) POC pCO2 (35-46) mmHg POC pO2 (80-95) mmHg POC HCO3 (19-24) viral/L POC Total CO2 (24-31) mmol/L POC Base Excess (-9-1.8) viral/L ABG pH (Temp Correct) (7.35-7.45) ABG pCO2 (Temp Corrct (35-46) mmHg POC ABG pO2 at Pt Temp POC ABG O2 Sat (90-95) % Alfredo Test O2 Delivery Device POC O2 Rate Minute Ventilation Vent Mode Tidal Volume PEEP POC Sodium (135-144) mmol/L Sodium 150 H (136-145) mmol/L POC Potassium (3.3-5.0) mmol/L Potassium 3.5 (3.5-5.1) mmol/L Chloride 120 H (98-107) mmol/L Carbon Dioxide 24 (21-32) mmol/L Anion Gap 7.0 (3-11) BUN 27 H (7-18) mg/dl Creatinine 0.90 D (0.6-1.2) mg/dl Est Cr Clr Drug Dosing 62.0 ml/min Est GFR ( Amer) 73.0 Est GFR (Non-Af Amer) 63.0 BUN/Creatinine Ratio 29.5 H (10-20) Glucose 84 (70-99) mg/dl POC Glucose 92 (70-99) mg/dl Estimat Average Glucose 120 mg/dl Hemoglobin A1c 5.8 H (4.5-5.6) % Calcium 8.2 L (8.5-10.1) mg/dl Phosphorus 2.6 (2.5-4.9) mg/dl Magnesium 1.8 (1.8-2.4) mg/dl Total Bilirubin 0.9 (0.2-1) mg/dl AST 17 (15-37) U/L ALT 24 (12-78) U/L Alkaline Phosphatase 133 H (45-117) U/L Total Protein 6.2 L (6.4-8.2) gm/dl Albumin 2.1 L (3.4-5.0) gm/dl Globulin 4.1 H (2.5-4.0) gm/dl Albumin/Globulin Ratio 0.5 L (0.9-2) Procalcitonin TB Test (QFT) Gold Plus TB Test (QFT) Nil TB Test Mitogen - Nil TB Test Ag - Nil 1 TB Test Ag - Nil 2 11/11/20 11/11/20 11/11/20 Range/Units 23:36 20:13 18:33 WBC (4.8-10.8) K/uL RBC (4.2-5.4) M/uL Hgb 8.7 L (12.0-16.0) g/dL POC Hgb (12.0-16.0) g/dl Hct 28.3 L (37-47) % POC Hct (37-47) % MCV (80-100) fL MCH (25-34) pg MCHC (32-36) g/dL RDW Std Deviation (36.4-46.3) fL RDW Coeff of Virgilio (11.5-14.5) % Plt Count (130-400) K/uL MPV (7.4-10.4) fL Immature Gran % (Auto) % Neut % (Auto) % Lymph % (Auto) % Kenedy % (Auto) % Eos % (Auto) % Baso % (Auto) % Neut # (Auto) (1.4-6.5) K/uL Lymph # (Auto) (1.2-3.4) K/uL Kenedy # (Auto) (0.11-0.59) K/uL Eos # (Auto) (0-0.5) K/uL Baso # (Auto) (0-0.2) K/uL Immature Gran # (Auto) (0.00-0.02) K/uL Absolute Nucleated RBC (0-0) K/uL Nucleated RBC % (auto) % PT (9.0-12.0) Seconds INR (0.9-1.1) APTT (21.0-31.0) Seconds PTT Ratio Specimen Type Sample Site Patient Temperature POC pH (7.35-7.45) POC pCO2 (35-46) mmHg POC pO2 (80-95) mmHg POC HCO3 (19-24) viral/L POC Total CO2 (24-31) mmol/L POC Base Excess (-9-1.8) viral/L ABG pH (Temp Correct) (7.35-7.45) ABG pCO2 (Temp Corrct (35-46) mmHg POC ABG pO2 at Pt Temp POC ABG O2 Sat (90-95) % Alfredo Test O2 Delivery Device POC O2 Rate Minute Ventilation Vent Mode Tidal Volume PEEP POC Sodium (135-144) mmol/L Sodium (136-145) mmol/L POC Potassium (3.3-5.0) mmol/L Potassium (3.5-5.1) mmol/L Chloride (98-107) mmol/L Carbon Dioxide (21-32) mmol/L Anion Gap (3-11) BUN (7-18) mg/dl Creatinine (0.6-1.2) mg/dl Est Cr Clr Drug Dosing ml/min Est GFR ( Amer) Est GFR (Non-Af Amer) BUN/Creatinine Ratio (10-20) Glucose (70-99) mg/dl POC Glucose 106 H 94 (70-99) mg/dl Estimat Average Glucose mg/dl Hemoglobin A1c (4.5-5.6) % Calcium (8.5-10.1) mg/dl Phosphorus (2.5-4.9) mg/dl Magnesium (1.8-2.4) mg/dl Total Bilirubin (0.2-1) mg/dl AST (15-37) U/L ALT (12-78) U/L Alkaline Phosphatase (45-117) U/L Total Protein (6.4-8.2) gm/dl Albumin (3.4-5.0) gm/dl Globulin (2.5-4.0) gm/dl Albumin/Globulin Ratio (0.9-2) Procalcitonin TB Test (QFT) Gold Plus TB Test (QFT) Nil TB Test Mitogen - Nil TB Test Ag - Nil 1 TB Test Ag - Nil 2 11/11/20 11/11/20 11/11/20 Range/Units 16:52 12:44 10:16 WBC (4.8-10.8) K/uL RBC (4.2-5.4) M/uL Hgb (12.0-16.0) g/dL POC Hgb (12.0-16.0) g/dl Hct (37-47) % POC Hct (37-47) % MCV (80-100) fL MCH (25-34) pg MCHC (32-36) g/dL RDW Std Deviation (36.4-46.3) fL RDW Coeff of Virgilio (11.5-14.5) % Plt Count (130-400) K/uL MPV (7.4-10.4) fL Immature Gran % (Auto) % Neut % (Auto) % Lymph % (Auto) % Kenedy % (Auto) % Eos % (Auto) % Baso % (Auto) % Neut # (Auto) (1.4-6.5) K/uL Lymph # (Auto) (1.2-3.4) K/uL Kenedy # (Auto) (0.11-0.59) K/uL Eos # (Auto) (0-0.5) K/uL Baso # (Auto) (0-0.2) K/uL Immature Gran # (Auto) (0.00-0.02) K/uL Absolute Nucleated RBC (0-0) K/uL Nucleated RBC % (auto) % PT (9.0-12.0) Seconds INR (0.9-1.1) APTT (21.0-31.0) Seconds PTT Ratio Specimen Type Sample Site Patient Temperature POC pH (7.35-7.45) POC pCO2 (35-46) mmHg POC pO2 (80-95) mmHg POC HCO3 (19-24) viral/L POC Total CO2 (24-31) mmol/L POC Base Excess (-9-1.8) viral/L ABG pH (Temp Correct) (7.35-7.45) ABG pCO2 (Temp Corrct (35-46) mmHg POC ABG pO2 at Pt Temp POC ABG O2 Sat (90-95) % Alfredo Test O2 Delivery Device POC O2 Rate Minute Ventilation Vent Mode Tidal Volume PEEP POC Sodium (135-144) mmol/L Sodium (136-145) mmol/L POC Potassium (3.3-5.0) mmol/L Potassium (3.5-5.1) mmol/L Chloride (98-107) mmol/L Carbon Dioxide (21-32) mmol/L Anion Gap (3-11) BUN (7-18) mg/dl Creatinine (0.6-1.2) mg/dl Est Cr Clr Drug Dosing ml/min Est GFR ( Amer) Est GFR (Non-Af Amer) BUN/Creatinine Ratio (10-20) Glucose (70-99) mg/dl POC Glucose 111 H 127 H (70-99) mg/dl Estimat Average Glucose mg/dl Hemoglobin A1c (4.5-5.6) % Calcium (8.5-10.1) mg/dl Phosphorus (2.5-4.9) mg/dl Magnesium (1.8-2.4) mg/dl Total Bilirubin (0.2-1) mg/dl AST (15-37) U/L ALT (12-78) U/L Alkaline Phosphatase (45-117) U/L Total Protein (6.4-8.2) gm/dl Albumin (3.4-5.0) gm/dl Globulin (2.5-4.0) gm/dl Albumin/Globulin Ratio (0.9-2) Procalcitonin TB Test (QFT) Gold Plus Pending TB Test (QFT) Nil Pending TB Test Mitogen - Nil Pending TB Test Ag - Nil 1 Pending TB Test Ag - Nil 2 Pending 11/11/20 11/11/20 11/11/20 Range/Units 10:16 10:16 09:04 WBC (4.8-10.8) K/uL RBC (4.2-5.4) M/uL Hgb 9.4 L (12.0-16.0) g/dL POC Hgb (12.0-16.0) g/dl Hct 29.7 L (37-47) % POC Hct (37-47) % MCV (80-100) fL MCH (25-34) pg MCHC (32-36) g/dL RDW Std Deviation (36.4-46.3) fL RDW Coeff of Virgilio (11.5-14.5) % Plt Count (130-400) K/uL MPV (7.4-10.4) fL Immature Gran % (Auto) % Neut % (Auto) % Lymph % (Auto) % K[place] % (Auto) % Eos % (Auto) % Baso % (Auto) % Neut # (Auto) (1.4-6.5) K/uL Lymph # (Auto) (1.2-3.4) K/uL [place] # (Auto) (0.11-0.59) K/uL Eos # (Auto) (0-0.5) K/uL Baso # (Auto) (0-0.2) K/uL Immature Gran # (Auto) (0.00-0.02) K/uL Absolute Nucleated RBC (0-0) K/uL Nucleated RBC % (auto) % PT (9.0-12.0) Seconds INR (0.9-1.1) APTT 66.3 H* (21.0-31.0) Seconds PTT Ratio 2.5 Specimen Type Sample Site Patient Temperature POC pH (7.35-7.45) POC pCO2 (35-46) mmHg POC pO2 (80-95) mmHg POC HCO3 (19-24) viral/L POC Total CO2 (24-31) mmol/L POC Base Excess (-9-1.8) viral/L ABG pH (Temp Correct) (7.35-7.45) ABG pCO2 (Temp Corrct (35-46) mmHg POC ABG pO2 at Pt Temp POC ABG O2 Sat (90-95) % Alfredo Test O2 Delivery Device POC O2 Rate Minute Ventilation Vent Mode Tidal Volume PEEP POC Sodium (135-144) mmol/L Sodium (136-145) mmol/L POC Potassium (3.3-5.0) mmol/L Potassium (3.5-5.1) mmol/L Chloride (98-107) mmol/L Carbon Dioxide (21-32) mmol/L Anion Gap (3-11) BUN (7-18) mg/dl Creatinine (0.6-1.2) mg/dl Est Cr Clr Drug Dosing ml/min Est GFR ( Amer) Est GFR (Non-Af Amer) BUN/Creatinine Ratio (10-20) Glucose (70-99) mg/dl POC Glucose 131 H (70-99) mg/dl Estimat Average Glucose mg/dl Hemoglobin A1c (4.5-5.6) % Calcium (8.5-10.1) mg/dl Phosphorus (2.5-4.9) mg/dl Magnesium (1.8-2.4) mg/dl Total Bilirubin (0.2-1) mg/dl AST (15-37) U/L ALT (12-78) U/L Alkaline Phosphatase (45-117) U/L Total Protein (6.4-8.2) gm/dl Albumin (3.4-5.0) gm/dl Globulin (2.5-4.0) gm/dl Albumin/Globulin Ratio (0.9-2) Procalcitonin TB Test (QFT) Gold Plus TB Test (QFT) Nil TB Test Mitogen - Nil TB Test Ag - Nil 1 TB Test Ag - Nil 2 11/11/20 Range/Units 03:45 WBC (4.8-10.8) K/uL RBC (4.2-5.4) M/uL Hgb (12.0-16.0) g/dL POC Hgb 9.9 L (12.0-16.0) g/dl Hct (37-47) % POC Hct 29 L (37-47) % MCV (80-100) fL MCH (25-34) pg MCHC (32-36) g/dL RDW Std Deviation (36.4-46.3) fL RDW Coeff of Virgilio (11.5-14.5) % Plt Count (130-400) K/uL MPV (7.4-10.4) fL Immature Gran % (Auto) % Neut % (Auto) % Lymph % (Auto) % Kened[place] % (Auto) % Eos % (Auto) % Baso % (Auto) % Neut # (Auto) (1.4-6.5) K/uL Lymph # (Auto) (1.2-3.4) K/uL [place]y # (Auto) (0.11-0.59) K/uL Eos # (Auto) (0-0.5) K/uL Baso # (Auto) (0-0.2) K/uL Immature Gran # (Auto) (0.00-0.02) K/uL Absolute Nucleated RBC (0-0) K/uL Nucleated RBC % (auto) % PT (9.0-12.0) Seconds INR (0.9-1.1) APTT (21.0-31.0) Seconds PTT Ratio Specimen Type Arterial Sample Site R Radial Patient Temperature 37.0 POC pH 7.34 L (7.35-7.45) POC pCO2 40 (35-46) mmHg POC pO2 68 L (80-95) mmHg POC HCO3 22 (19-24) viral/L POC Total CO2 23 L (24-31) mmol/L POC Base Excess -4.0 (-9-1.8) viral/L ABG pH (Temp Correct) 7.344 L (7.35-7.45) ABG pCO2 (Temp Corrct 40 (35-46) mmHg POC ABG pO2 at Pt Temp 68 POC ABG O2 Sat 92.0 (90-95) % Alfredo Test Acceptable O2 Delivery Device Ventilator POC O2 Rate 16 Minute Ventilation 7.7 Vent Mode AC Tidal Volume 400 PEEP 5 POC Sodium 147 H (135-144) mmol/L Sodium (136-145) mmol/L POC Potassium 3.7 (3.3-5.0) mmol/L Potassium (3.5-5.1) mmol/L Chloride (98-107) mmol/L Carbon Dioxide (21-32) mmol/L Anion Gap (3-11) BUN (7-18) mg/dl Creatinine (0.6-1.2) mg/dl Est Cr Clr Drug Dosing ml/min Est GFR ( Amer) Est GFR (Non-Af Amer) BUN/Creatinine Ratio (10-20) Glucose (70-99) mg/dl POC Glucose (70-99) mg/dl Estimat Average Glucose mg/dl Hemoglobin A1c (4.5-5.6) % Calcium (8.5-10.1) mg/dl Phosphorus (2.5-4.9) mg/dl Magnesium (1.8-2.4) mg/dl Total Bilirubin (0.2-1) mg/dl AST (15-37) U/L ALT (12-78) U/L Alkaline Phosphatase (45-117) U/L Total Protein (6.4-8.2) gm/dl Albumin (3.4-5.0) gm/dl Globulin (2.5-4.0) gm/dl Albumin/Globulin Ratio (0.9-2) Procalcitonin TB Test (QFT) Gold Plus TB Test (QFT) Nil TB Test Mitogen - Nil TB Test Ag - Nil 1 TB Test Ag - Nil 2 Medications Administered Current Inpatient Medications Carbamazepine (Carbamazepine 200 Mg Tablet) 200 mg PO BID DANIELLA Stop: 12/11/20 20:59 Last Admin: 11/11/20 20:08 Dose: Not Given Documented by: Donepezil HCl (Donepezil Hcl 10 Mg Tab) 10 mg PO HS DANIELLA Stop: 12/10/20 20:59 Last Admin: 11/11/20 20:08 Dose: Not Given Documented by: Heparin Sodium (Beef Lung) (Heparin 10 Unit/Ml 5 Ml Flush) 5 ml FLUSH PRN PRN PRN Reason: Flush Stop: 12/11/20 22:31 Heparin Sodium/Dextrose (Heparin Sodium/Dextrose) 25,000 units in 500 mls @ 24 mls/hr IV .[id number] [facility]; Protocol Stop: 12/10/20 12:59 Last Admin: 11/12/20 05:04 Dose: 1,150 units/hr, 23 mls/hr Documented by: Doxycycline Hyclate 100 mg/ (Dextrose) 110 mls @ 50 mls/hr IV Q12H [facility] Stop: 11/17/20 18:14 Last Infusion: 11/11/20 22:33 Dose: Infused Documented by: Norepinephrine Bitartrate (Levophed/D5w) 8 mg in 508 mls @ 16.326 mls/hr IV .Q24H [facility]; Protocol Stop: 12/10/20 20:29 Last Titration: 11/12/20 07:14 Dose: Infused Documented by: Cefepime HCl 2,000 mg/ Syringe 20 mls @ 5 mls/min IV Q12H [facility]; Protocol Stop: 11/17/20 18:14 Last Admin: 11/11/20 20:07 Dose: 5 mls/min Documented by: Lactated Ringer's (Lr) 1,000 mls @ 80 mls/hr IV .[id number] [facility] Stop: 12/11/20 07:44 Last Infusion: 11/11/20 22:33 Dose: 80 mls/hr Documented by: Dexamethasone 6 mg/ Syringe 1.5 mls @ 1 mls/min IV DAILY [facility] Stop: 11/18/20 08:59 Potassium Chloride (K Marcus / Wtr) 20 meq in 100 mls @ 50 mls/hr IV Q2H [facility] Stop: 11/12/20 11:59 Magnesium Sulfate/Dextrose (Magnesium Sulfate / D5w) 1 gm in 100 mls @ 50 mls/hr IV Q2H DANIELLA Stop: 11/12/20 11:59 Insulin Aspart (Insulin Aspart 100 Units/Ml 3 Ml Pen) 0 units SC Q4 [facility]; Protocol Stop: 12/11/20 08:59 Last Admin: 11/12/20 04:39 Dose: Not Given Documented by: Insulin Glargine (Insulin Glargine Solostar 100 Units/Ml 3 Ml Pen) 0 units SC Q12 [facility]; Protocol Stop: 12/11/20 08:59 Last Admin: 11/11/20 20:28 Dose: Not Given Documented by: Miscellaneous (Icu Electrolyte Replacement Protocol) 1 ea N/A BID@06,18 [facility]; Protocol Stop: 11/17/20 17:59 Last Admin: 11/11/20 18:22 Dose: Not Given Documented by: Miscellaneous Information (Pharmacy Glycemic Mgmt Consult) 1 ea N/A UD PRN PRN Reason: Consult Stop: 12/11/20 08:28 Pantoprazole Sodium (Pantoprazole 40 Mg Tab) [facility] [place]: 12/12/20 08:59 Sertraline HCl (Sertraline Hcl 100 Mg Tablet) [facility] [place]: 12/12/20 08:59 Warfarin Sodium (Warfarin Sod 5 Mg Tab) 5 mg PO DAILY@1600 [facility] Stop: 12/11/20 15:59 Last Admin: 11/11/20 17:09 Dose: Not Given Documented by: (1) Pulmonary embolism Acute cor pulmonale presence: unspecified Chronicity: unspecified Pulmonary embolism type: other Qualified Code(s): I26.99 - Other pulmonary embolism without acute cor pulmonale
[2020-11-12] MEDS: ICU ELECTROLYTE REPLACEMENT PROTOCOL SCH (08:08)
--- NOTE | 2020-11-12 08:08 | Critical Care Progress Note ---
Date of Service November 12, 2020 Assessment & Plan (1) COVID-19: Reason critically ill: 75y/o female with past medical history significant for retroperitoneal bleed recent COVID-19 diagnosis (10/23/2020); presented from [facility] following development of difficulty breathing with known COVID-19 diagnosis ultimately requiring intubation. Continues remained stable status post extubation, with improved condition eligible for downgrade from ICU level of care. Neuro: -[facility] ICU: unable to assess due to baseline mental status -continued home carbamazepine Cardiac/Vascular: -No significant cardiac history; recent history of retroperitoneal hematoma demonstrated on 10/25 -CT abdomen pelvis demonstrated: Decrease in size of retroperitoneal hematoma as compared to 10/25 -Duplex bilateral lower extremity demonstrate occlusive thrombus of common femoral veins bilaterally -Vascular surgery consulted; discussed complexity of case with Dr. Valdivia. -continue Heparin, hold warfarin until evaluated by speech therapy -Echo ordered Respiratory: -Patient intubated on 11/10, received 10mg of Decadron in ED -CXR on admission demonstrating small right pleural effusion with mild right basilar opacity -Chest CTA from 11/10 demonstrated segmental pulmonary embolus within the posterior segment of the right lower lobe with associated pulmonary infarct, adjacent airspace opacity with possible cavitation, scattered ground glass and tree-in-bud nodules within the lungs. -CT abd/pelvis noted small right pleural effusion with possible cystic focus of right lower lobe -Continue on Decadron 6mg for 6 additional days -Sputum cultures demonstrating gram-negative bacilli -Discontinue doxycycline, continue cefepime until speciation of sputum cultures with sensitivities -Would consider transition to ceftriaxone at that time. GI/Nutrition: -Failed swallow study today, -Consideration of video swallow study tomorrow Renal/Lytes: -Creatinine 1.8, improved to 0.9 this AM -sodium 148 on admission, 150 this AM -continue LR @ 80mL/hr : -Rosario catheter in place -Continue to monitor urine output ENDO: -No history of thyroid disease, nor diabetes -Continue to monitor glucose while on Decadron HEME: -Hgb on admission 12.9; 9.3 on recheck this AM -Given risk with recent retroperitoneal bleed will continue to monitor ID: -WBC 22.5 on admission, decreased 16.75 this AM -pro-Obdulio 3.39 on admission, decreased to 5.8 this AM -Lactic acid 2.5 on admission down trended to 1.5 after boluses in ED -Original COVID-19 positive on 10/21 -After discussions with infection control given that the patient is greater than 21 days out from initial positive test no longer necessitates COVID-19 precautions -CXR concerning for potential pleural effusion indeterminate between pneumonia or atelectasis -Blood cultures x2 negative -Urinalysis demonstrating nitrites and leuk esterase in addition to ketones, blood, bilirubin, and protein -Urine culture negative -Sputum culture gram negative bacilli -given possible cavitary lesion noted on CT abd/pelvis -TB quantiferon gold pending -As a result of this patient will continue to require isolation precautions for TB rule out -Nasal MRSA negative -Discontinue doxycycline -Continue cefepime until speciation of sputum culture with sensitivities, would consider at that time ceftriaxone if appropriate Lines/IV Access: -Left IJ placed on 11/10 -We will attempt to localize peripheral IV sites in order to remove IJ later today -Should remain in soft restraints until CVL has been removed DVT Prophylaxis: -On heparin for demonstrated PE and bilateral LE DVTs (2) Respiratory failure: (3) Pulmonary embolism: (4) AD (Alzheimer's disease): (5) Acute kidney injury: (6) Congenital hydrocephalus: (7) Retroperitoneal hematoma: Admission and Anticipated Discharge Date Admission Date: November 10, 2020 Supervising Physician Co-Signing Physician Notes Dr. Greenfield was resident physician during care of patient. I separately evaluated patient for cruz portions of the history and the exam. I was present during the critical portion of medical decision making, and I discussed the case with the resident. I generally agree with the findings and plan. Gram-negative rods in sputum we will continue cefepime wait for speciation and probably downgrade to Rocephin once cultures and sensitivities are obtained. Speech consult for swallow evaluation, PT OT evaluation remove CVL once electrolyte replacement is completed and stable for downgrade out of ICU. Discussed with vascular would wait until any evidence of rebleeding before placement of IVC filter. Subjective Overnight patient had issues with attempting to swallow pills, previously has had issues with attempted placement of NG/core safe feeding tubes. Was unable to take oral medications including donepezil, carbamazepine, warfarin. This morning was evaluated by speech-language pathology, and subsequently failed their evaluation due to inability to even swallow her own secretions. Review of Systems Review of Systems: Unobtainable due to cognitive status Physical Exam Constitutional: WD/WN, vitals as above Eyes: PERRL, conjunctivae normal, anicteric sclerae Neck: normal visual inspection and trachea midline Respiratory: normal respiratory effort; no respiratory distress, no retractions and does not use accessory muscles Auscultation: + crackles and + wheezes; no rales and no rhonchi Cardiovascular: Rate/Rhythm: regular rhythm and + tachycardic Heart Sounds: no gallop, no murmur and no cardiac rub Vessels: normal peripheral pulses; no JVD Extremities: no pedal edema and no edema Gastrointestinal (Abdomen): Inspection/Auscultation: normal bowel sounds, + abdominal wall ecchymosis and + significant pannus; abdomen not distended Percussion/Palpation: abdomen soft; no guarding Neurologic: deep tendon reflexes 2+ bilaterally Cranial Nerves: PERRL Psychiatric: Orientation: + not alert and + not oriented x 3 Apperance: + disheveled Results & Data Results & Data ([facility]) Vital Signs (Past 12 Hours) Vital Signs Temp Pulse Resp BP Pulse Ox 11/12/20 06:00 94 H 23 136/87 94 11/12/20 05:04 94 H 25 H 130/93 91 11/12/20 04:42 95 H 22 92 11/12/20 04:41 96 H 28 H 159/88 H 93 11/12/20 03:22 86 20 123/61 93 11/12/20 02:09 81 19 135/65 93 11/12/20 01:04 77 15 110/53 L 98 11/12/20 00:47 81 11/12/20 00:39 89 19 99/74 L 97 11/12/20 00:38 78 16 98 11/12/20 00:16 77 16 97 11/12/20 00:00 91 H 19 97 11/11/20 23:46 87 19 93/59 L 95 11/11/20 23:43 36.2 C L 11/11/20 23:16 87 19 130/72 98 11/11/20 23:00 91 H 20 97 11/11/20 22:47 95 H 21 124/74 96 11/11/20 22:16 97 H 22 112/79 96 11/11/20 22:00 95 H 21 95 11/11/20 21:23 94 11/11/20 21:16 95 H 22 119/89 94 11/11/20 20:34 36.8 C 11/11/20 20:18 94 H 20 166/96 H 97 11/11/20 20:17 95 H 30 H 159/103 H 97 Laboratory Results 11/12/20 11/12/20 11/12/20 Range/Units 08:22 05:02 05:02 WBC 16.75 H (4.8-10.8) K/uL RBC 3.03 L (4.2-5.4) M/uL Hgb 9.3 L (12.0-16.0) g/dL POC Hgb (12.0-16.0) g/dl Hct 30.0 L (37-47) % POC Hct (37-47) % MCV 99.0 (80-100) fL MCH 30.7 (25-34) pg MCHC 31.0 L (32-36) g/dL RDW Std Deviation 61.8 H (36.4-46.3) fL RDW Coeff of Virgilio 17.7 H (11.5-14.5) % Plt Count 263 (130-400) K/uL MPV 12.3 H (7.4-10.4) fL Immature Gran % (Auto) 0.8 % Neut % (Auto) 85.2 % Lymph % (Auto) 7.2 % [place] % (Auto) 6.3 % Eos % (Auto) 0.4 % Baso % (Auto) 0.1 % Neut # (Auto) 14.28 H (1.4-6.5) K/uL Lymph # (Auto) 1.20 (1.2-3.4) K/uL [place] # (Auto) 1.06 H (0.11-0.59) K/uL Eos # (Auto) 0.06 (0-0.5) K/uL Baso # (Auto) 0.01 (0-0.2) K/uL Immature Gran # (Auto) 0.14 H (0.00-0.02) K/uL Absolute Nucleated RBC 0.02 H (0-0) K/uL Nucleated RBC % (auto) 0.1 % PT 11.9 (9.0-12.0) Seconds INR 1.2 H (0.9-1.1) APTT 56.2 H* (21.0-31.0) Seconds PTT Ratio 2.1 Specimen Type Sample Site Patient Temperature POC pH (7.35-7.45) POC pCO2 (35-46) mmHg POC pO2 (80-95) mmHg POC HCO3 (19-24) viral/L POC Total CO2 (24-31) mmol/L POC Base Excess (-9-1.8) viral/L ABG pH (Temp Correct) (7.35-7.45) ABG pCO2 (Temp Corrct (35-46) mmHg POC ABG pO2 at Pt Temp POC ABG O2 Sat (90-95) % Alfredo Test O2 Delivery Device POC O2 Rate Minute Ventilation Vent Mode Tidal Volume PEEP POC Sodium (135-144) mmol/L Sodium (136-145) mmol/L POC Potassium (3.3-5.0) mmol/L Potassium (3.5-5.1) mmol/L Chloride (98-107) mmol/L Carbon Dioxide (21-32) mmol/L Anion Gap (3-11) BUN (7-18) mg/dl Creatinine (0.6-1.2) mg/dl Est Cr Clr Drug Dosing ml/min Est GFR ( Amer) Est GFR (Non-Af Amer) BUN/Creatinine Ratio (10-20) Glucose (70-99) mg/dl POC Glucose 93 (70-99) mg/dl Estimat Average Glucose mg/dl Hemoglobin A1c (4.5-5.6) % Calcium (8.5-10.1) mg/dl Phosphorus (2.5-4.9) mg/dl Magnesium (1.8-2.4) mg/dl Total Bilirubin (0.2-1) mg/dl AST (15-37) U/L ALT (12-78) U/L Alkaline Phosphatase (45-117) U/L Total Protein (6.4-8.2) gm/dl Albumin (3.4-5.0) gm/dl Globulin (2.5-4.0) gm/dl Albumin/Globulin Ratio (0.9-2) Procalcitonin (0-0.5) ng/ml TB Test (QFT) Gold Plus TB Test (QFT) Nil TB Test Mitogen - Nil TB Test Ag - Nil 1 TB Test Ag - Nil 2 11/12/20 11/12/20 11/12/20 Range/Units 05:02 05:02 05:02 WBC (4.8-10.8) K/uL RBC (4.2-5.4) M/uL Hgb (12.0-16.0) g/dL POC Hgb (12.0-16.0) g/dl Hct (37-47) % POC Hct (37-47) % MCV (80-100) fL MCH (25-34) pg MCHC (32-36) g/dL RDW Std Deviation (36.4-46.3) fL RDW Coeff of Virgilio (11.5-14.5) % Plt Count (130-400) K/uL MPV (7.4-10.4) fL Immature Gran % (Auto) % Neut % (Auto) % Lymph % (Auto) % [place] % (Auto) % Eos % (Auto) % Baso % (Auto) % Neut # (Auto) (1.4-6.5) K/uL Lymph # (Auto) (1.2-3.4) K/uL [place] # (Auto) (0.11-0.59) K/uL Eos # (Auto) (0-0.5) K/uL Baso # (Auto) (0-0.2) K/uL Immature Gran # (Auto) (0.00-0.02) K/uL Absolute Nucleated RBC (0-0) K/uL Nucleated RBC % (auto) % PT (9.0-12.0) Seconds INR (0.9-1.1) APTT (21.0-31.0) Seconds PTT Ratio Specimen Type Sample Site Patient Temperature POC pH (7.35-7.45) POC pCO2 (35-46) mmHg POC pO2 (80-95) mmHg POC HCO3 (19-24) viral/L POC Total CO2 (24-31) mmol/L POC Base Excess (-9-1.8) viral/L ABG pH (Temp Correct) (7.35-7.45) ABG pCO2 (Temp Corrct (35-46) mmHg POC ABG pO2 at Pt Temp POC ABG O2 Sat (90-95) % Alfredo Test O2 Delivery Device POC O2 Rate Minute Ventilation Vent Mode Tidal Volume PEEP POC Sodium (135-144) mmol/L Sodium 150 H (136-145) mmol/L POC Potassium (3.3-5.0) mmol/L Potassium 3.5 (3.5-5.1) mmol/L Chloride 120 H (98-107) mmol/L Carbon Dioxide 24 (21-32) mmol/L Anion Gap 7.0 (3-11) BUN 27 H (7-18) mg/dl Creatinine 0.90 D (0.6-1.2) mg/dl Est Cr Clr Drug Dosing 62.0 ml/min Est GFR ( Amer) 73.0 Est GFR (Non-Af Amer) 63.0 BUN/Creatinine Ratio 29.5 H (10-20) Glucose 84 (70-99) mg/dl POC Glucose (70-99) mg/dl Estimat Average Glucose 120 mg/dl Hemoglobin A1c 5.8 H (4.5-5.6) % Calcium 8.2 L (8.5-10.1) mg/dl Phosphorus 2.6 (2.5-4.9) mg/dl Magnesium 1.8 (1.8-2.4) mg/dl Total Bilirubin 0.9 (0.2-1) mg/dl AST 17 (15-37) U/L ALT 24 (12-78) U/L Alkaline Phosphatase 133 H (45-117) U/L Total Protein 6.2 L (6.4-8.2) gm/dl Albumin 2.1 L (3.4-5.0) gm/dl Globulin 4.1 H (2.5-4.0) gm/dl Albumin/Globulin Ratio 0.5 L (0.9-2) Procalcitonin 5.80 H (0-0.5) ng/ml TB Test (QFT) Gold Plus TB Test (QFT) Nil TB Test Mitogen - Nil TB Test Ag - Nil 1 TB Test Ag - Nil 2 11/12/20 11/11/20 11/11/20 Range/Units 04:27 23:36 20:13 WBC (4.8-10.8) K/uL RBC (4.2-5.4) M/uL Hgb (12.0-16.0) g/dL POC Hgb (12.0-16.0) g/dl Hct (37-47) % POC Hct (37-47) % MCV (80-100) fL MCH (25-34) pg MCHC (32-36) g/dL RDW Std Deviation (36.4-46.3) fL RDW Coeff of Virgilio (11.5-14.5) % Plt Count (130-400) K/uL MPV (7.4-10.4) fL Immature Gran % (Auto) % Neut % (Auto) % Lymph % (Auto) % [place] % (Auto) % Eos % (Auto) % Baso % (Auto) % Neut # (Auto) (1.4-6.5) K/uL Lymph # (Auto) (1.2-3.4) K/uL [place] # (Auto) (0.11-0.59) K/uL Eos # (Auto) (0-0.5) K/uL Baso # (Auto) (0-0.2) K/uL Immature Gran # (Auto) (0.00-0.02) K/uL Absolute Nucleated RBC (0-0) K/uL Nucleated RBC % (auto) % PT (9.0-12.0) Seconds INR (0.9-1.1) APTT (21.0-31.0) Seconds PTT Ratio Specimen Type Sample Site Patient Temperature POC pH (7.35-7.45) POC pCO2 (35-46) mmHg POC pO2 (80-95) mmHg POC HCO3 (19-24) viral/L POC Total CO2 (24-31) mmol/L POC Base Excess (-9-1.8) viral/L ABG pH (Temp Correct) (7.35-7.45) ABG pCO2 (Temp Corrct (35-46) mmHg POC ABG pO2 at Pt Temp POC ABG O2 Sat (90-95) % Alfredo Test O2 Delivery Device POC O2 Rate Minute Ventilation Vent Mode Tidal Volume PEEP POC Sodium (135-144) mmol/L Sodium (136-145) mmol/L POC Potassium (3.3-5.0) mmol/L Potassium (3.5-5.1) mmol/L Chloride (98-107) mmol/L Carbon Dioxide (21-32) mmol/L Anion Gap (3-11) BUN (7-18) mg/dl Creatinine (0.6-1.2) mg/dl Est Cr Clr Drug Dosing ml/min Est GFR ( Amer) Est GFR (Non-Af Amer) BUN/Creatinine Ratio (10-20) Glucose (70-99) mg/dl POC Glucose 92 106 H 94 (70-99) mg/dl Estimat Average Glucose mg/dl Hemoglobin A1c (4.5-5.6) % Calcium (8.5-10.1) mg/dl Phosphorus (2.5-4.9) mg/dl Magnesium (1.8-2.4) mg/dl Total Bilirubin (0.2-1) mg/dl AST (15-37) U/L ALT (12-78) U/L Alkaline Phosphatase (45-117) U/L Total Protein (6.4-8.2) gm/dl Albumin (3.4-5.0) gm/dl Globulin (2.5-4.0) gm/dl Albumin/Globulin Ratio (0.9-2) Procalcitonin (0-0.5) ng/ml TB Test (QFT) Gold Plus TB Test (QFT) Nil TB Test Mitogen - Nil TB Test Ag - Nil 1 TB Test Ag - Nil 2 11/11/20 11/11/20 11/11/20 Range/Units 18:33 16:52 12:44 WBC (4.8-10.8) K/uL RBC (4.2-5.4) M/uL Hgb 8.7 L (12.0-16.0) g/dL POC Hgb (12.0-16.0) g/dl Hct 28.3 L (37-47) % POC Hct (37-47) % MCV (80-100) fL MCH (25-34) pg MCHC (32-36) g/dL RDW Std Deviation (36.4-46.3) fL RDW Coeff of Virgilio (11.5-14.5) % Plt Count (130-400) K/uL MPV (7.4-10.4) fL Immature Gran % (Auto) % Neut % (Auto) % Lymph % (Auto) % [place] % (Auto) % Eos % (Auto) % Baso % (Auto) % Neut # (Auto) (1.4-6.5) K/uL Lymph # (Auto) (1.2-3.4) K/uL [place] # (Auto) (0.11-0.59) K/uL Eos # (Auto) (0-0.5) K/uL Baso # (Auto) (0-0.2) K/uL Immature Gran # (Auto) (0.00-0.02) K/uL Absolute Nucleated RBC (0-0) K/uL Nucleated RBC % (auto) % PT (9.0-12.0) Seconds INR (0.9-1.1) APTT (21.0-31.0) Seconds PTT Ratio Specimen Type Sample Site Patient Temperature POC pH (7.35-7.45) POC pCO2 (35-46) mmHg POC pO2 (80-95) mmHg POC HCO3 (19-24) viral/L POC Total CO2 (24-31) mmol/L POC Base Excess (-9-1.8) viral/L ABG pH (Temp Correct) (7.35-7.45) ABG pCO2 (Temp Corrct (35-46) mmHg POC ABG pO2 at Pt Temp POC ABG O2 Sat (90-95) % Alfredo Test O2 Delivery Device POC O2 Rate Minute Ventilation Vent Mode Tidal Volume PEEP POC Sodium (135-144) mmol/L Sodium (136-145) mmol/L POC Potassium (3.3-5.0) mmol/L Potassium (3.5-5.1) mmol/L Chloride (98-107) mmol/L Carbon Dioxide (21-32) mmol/L Anion Gap (3-11) BUN (7-18) mg/dl Creatinine (0.6-1.2) mg/dl Est Cr Clr Drug Dosing ml/min Est GFR ( Amer) Est GFR (Non-Af Amer) BUN/Creatinine Ratio (10-20) Glucose (70-99) mg/dl POC Glucose 111 H 127 H (70-99) mg/dl Estimat Average Glucose mg/dl Hemoglobin A1c (4.5-5.6) % Calcium (8.5-10.1) mg/dl Phosphorus (2.5-4.9) mg/dl Magnesium (1.8-2.4) mg/dl Total Bilirubin (0.2-1) mg/dl AST (15-37) U/L ALT (12-78) U/L Alkaline Phosphatase (45-117) U/L Total Protein (6.4-8.2) gm/dl Albumin (3.4-5.0) gm/dl Globulin (2.5-4.0) gm/dl Albumin/Globulin Ratio (0.9-2) Procalcitonin (0-0.5) ng/ml TB Test (QFT) Gold Plus TB Test (QFT) Nil TB Test Mitogen - Nil TB Test Ag - Nil 1 TB Test Ag - Nil 2 11/11/20 11/11/20 11/11/20 Range/Units 10:16 10:16 10:16 WBC (4.8-10.8) K/uL RBC (4.2-5.4) M/uL Hgb 9.4 L (12.0-16.0) g/dL POC Hgb (12.0-16.0) g/dl Hct 29.7 L (37-47) % POC Hct (37-47) % MCV (80-100) fL MCH (25-34) pg MCHC (32-36) g/dL RDW Std Deviation (36.4-46.3) fL RDW Coeff of Virgilio (11.5-14.5) % Plt Count (130-400) K/uL MPV (7.4-10.4) fL Immature Gran % (Auto) % Neut % (Auto) % Lymph % (Auto) % [place] % (Auto) % Eos % (Auto) % Baso % (Auto) % Neut # (Auto) (1.4-6.5) K/uL Lymph # (Auto) (1.2-3.4) K/uL [place] # (Auto) (0.11-0.59) K/uL Eos # (Auto) (0-0.5) K/uL Baso # (Auto) (0-0.2) K/uL Immature Gran # (Auto) (0.00-0.02) K/uL Absolute Nucleated RBC (0-0) K/uL Nucleated RBC % (auto) % PT (9.0-12.0) Seconds INR (0.9-1.1) APTT 66.3 H* (21.0-31.0) Seconds PTT Ratio 2.5 Specimen Type Sample Site Patient Temperature POC pH (7.35-7.45) POC pCO2 (35-46) mmHg POC pO2 (80-95) mmHg POC HCO3 (19-24) viral/L POC Total CO2 (24-31) mmol/L POC Base Excess (-9-1.8) viral/L ABG pH (Temp Correct) (7.35-7.45) ABG pCO2 (Temp Corrct (35-46) mmHg POC ABG pO2 at Pt Temp POC ABG O2 Sat (90-95) % Alfredo Test O2 Delivery Device POC O2 Rate Minute Ventilation Vent Mode Tidal Volume PEEP POC Sodium (135-144) mmol/L Sodium (136-145) mmol/L POC Potassium (3.3-5.0) mmol/L Potassium (3.5-5.1) mmol/L Chloride (98-107) mmol/L Carbon Dioxide (21-32) mmol/L Anion Gap (3-11) BUN (7-18) mg/dl Creatinine (0.6-1.2) mg/dl Est Cr Clr Drug Dosing ml/min Est GFR ( Amer) Est GFR (Non-Af Amer) BUN/Creatinine Ratio (10-20) Glucose (70-99) mg/dl POC Glucose (70-99) mg/dl Estimat Average Glucose mg/dl Hemoglobin A1c (4.5-5.6) % Calcium (8.5-10.1) mg/dl Phosphorus (2.5-4.9) mg/dl Magnesium (1.8-2.4) mg/dl Total Bilirubin (0.2-1) mg/dl AST (15-37) U/L ALT (12-78) U/L Alkaline Phosphatase (45-117) U/L Total Protein (6.4-8.2) gm/dl Albumin (3.4-5.0) gm/dl Globulin (2.5-4.0) gm/dl Albumin/Globulin Ratio (0.9-2) Procalcitonin (0-0.5) ng/ml TB Test (QFT) Gold Plus Pending TB Test (QFT) Nil Pending TB Test Mitogen - Nil Pending TB Test Ag - Nil 1 Pending TB Test Ag - Nil 2 Pending 11/11/20 11/11/20 Range/Units 09:04 03:45 WBC (4.8-10.8) K/uL RBC (4.2-5.4) M/uL Hgb (12.0-16.0) g/dL POC Hgb 9.9 L (12.0-16.0) g/dl Hct (37-47) % POC Hct 29 L (37-47) % MCV (80-100) fL MCH (25-34) pg MCHC (32-36) g/dL RDW Std Deviation (36.4-46.3) fL RDW Coeff of Virgilio (11.5-14.5) % Plt Count (130-400) K/uL MPV (7.4-10.4) fL Immature Gran % (Auto) % Neut % (Auto) % Lymph % (Auto) % [place] % (Auto) % Eos % (Auto) % Baso % (Auto) % Neut # (Auto) (1.4-6.5) K/uL Lymph # (Auto) (1.2-3.4) K/uL [place] # (Auto) (0.11-0.59) K/uL Eos # (Auto) (0-0.5) K/uL Baso # (Auto) (0-0.2) K/uL Immature Gran # (Auto) (0.00-0.02) K/uL Absolute Nucleated RBC (0-0) K/uL Nucleated RBC % (auto) % PT (9.0-12.0) Seconds INR (0.9-1.1) APTT (21.0-31.0) Seconds PTT Ratio Specimen Type Arterial Sample Site R Radial Patient Temperature 37.0 POC pH 7.34 L (7.35-7.45) POC pCO2 40 (35-46) mmHg POC pO2 68 L (80-95) mmHg POC HCO3 22 (19-24) viral/L POC Total CO2 23 L (24-31) mmol/L POC Base Excess -4.0 (-9-1.8) viral/L ABG pH (Temp Correct) 7.344 L (7.35-7.45) ABG pCO2 (Temp Corrct 40 (35-46) mmHg POC ABG pO2 at Pt Temp 68 POC ABG O2 Sat 92.0 (90-95) % Alfredo Test Acceptable O2 Delivery Device Ventilator POC O2 Rate 16 Minute Ventilation 7.7 Vent Mode AC Tidal Volume 400 PEEP 5 POC Sodium 147 H (135-144) mmol/L Sodium (136-145) mmol/L POC Potassium 3.7 (3.3-5.0) mmol/L Potassium (3.5-5.1) mmol/L Chloride (98-107) mmol/L Carbon Dioxide (21-32) mmol/L Anion Gap (3-11) BUN (7-18) mg/dl Creatinine (0.6-1.2) mg/dl Est Cr Clr Drug Dosing ml/min Est GFR ( Amer) Est GFR (Non-Af Amer) BUN/Creatinine Ratio (10-20) Glucose (70-99) mg/dl POC Glucose 131 H (70-99) mg/dl Estimat Average Glucose mg/dl Hemoglobin A1c (4.5-5.6) % Calcium (8.5-10.1) mg/dl Phosphorus (2.5-4.9) mg/dl Magnesium (1.8-2.4) mg/dl Total Bilirubin (0.2-1) mg/dl AST (15-37) U/L ALT (12-78) U/L Alkaline Phosphatase (45-117) U/L Total Protein (6.4-8.2) gm/dl Albumin (3.4-5.0) gm/dl Globulin (2.5-4.0) gm/dl Albumin/Globulin Ratio (0.9-2) Procalcitonin (0-0.5) ng/ml TB Test (QFT) Gold Plus TB Test (QFT) Nil TB Test Mitogen - Nil TB Test Ag - Nil 1 TB Test Ag - Nil 2 Medications Administered Current Inpatient Medications Carbamazepine (Carbamazepine 200 Mg Tablet) 200 mg PO BID DANIELLA Stop: 12/11/20 20:59 Last Admin: 11/12/20 08:10 Dose: Not Given Documented by: Donepezil HCl (Donepezil Hcl 10 Mg Tab) 10 mg PO HS DANIELLA Stop: 12/10/20 20:59 Last Admin: 11/11/20 20:08 Dose: Not Given Documented by: Heparin Sodium (Beef Lung) (Heparin 10 Unit/Ml 5 Ml Flush) 5 ml FLUSH PRN PRN PRN Reason: Flush Stop: 12/11/20 22:31 Heparin Sodium/Dextrose (Heparin Sodium/Dextrose) 25,000 units in 500 mls @ 24 mls/hr IV .[id number] [facility]; Protocol Stop: 12/10/20 12:59 Last Admin: 11/12/20 05:04 Dose: 1,150 units/hr, 23 mls/hr Documented by: Doxycycline Hyclate 100 mg/ (Dextrose) 110 mls @ 50 mls/hr IV Q12H [facility] Stop: 11/17/20 18:14 Last Admin: 11/12/20 08:09 Dose: 50 mls/hr Documented by: Norepinephrine Bitartrate (Levophed/D5w) 8 mg in 508 mls @ 16.326 mls/hr IV .Q24H [facility]; Protocol Stop: 12/10/20 20:29 Last Titration: 11/12/20 07:14 Dose: Infused Documented by: Cefepime HCl 2,000 mg/ Syringe 20 mls @ 5 mls/min IV Q12H [facility]; Protocol Stop: 11/17/20 18:14 Last Admin: 11/12/20 08:09 Dose: 5 mls/min Documented by: Lactated Ringer's (Lr) 1,000 mls @ 80 mls/hr IV .[id number] [facility] Stop: 12/11/20 07:44 Last Admin: 11/12/20 08:13 Dose: 80 mls/hr Documented by: Dexamethasone 6 mg/ Syringe 1.5 mls @ 1 mls/min IV DAILY [facility] Stop: 11/18/20 08:59 Last Admin: 11/12/20 08:10 Dose: 1 mls/min Documented by: Potassium Chloride (K Marcus / Wtr) 20 meq in 100 mls @ 50 mls/hr IV Q2H [facility] Stop: 11/12/20 11:59 Last Admin: 11/12/20 08:09 Dose: 50 mls/hr Documented by: Magnesium Sulfate/Dextrose (Magnesium Sulfate / D5w) 1 gm in 100 mls @ 50 mls/hr IV Q2H [facility] Stop: 11/12/20 11:59 Last Admin: 11/12/20 08:09 Dose: 50 mls/hr Documented by: Insulin Aspart (Insulin Aspart 100 Units/Ml 3 Ml Pen) 0 units SC ACHS [facility] Stop: 12/12/20 07:59 Last Admin: 11/12/20 08:52 Dose: Not Given Documented by: Insulin Glargine (Insulin Glargine Solostar 100 Units/Ml 3 Ml Pen) 0 units SC Q12 [facility]; Protocol Stop: 12/11/20 08:59 Last Admin: 11/12/20 08:52 Dose: Not Given Documented by: Miscellaneous (Icu Electrolyte Replacement Protocol) 1 ea N/A BID@06,18 [facility]; Protocol Stop: 11/17/20 17:59 Last Admin: 11/12/20 08:08 Dose: 1 ea Documented by: Miscellaneous Information (Pharmacy Glycemic Mgmt Consult) 1 ea N/A UD PRN PRN Reason: Consult Stop: 12/11/20 08:28 Pantoprazole Sodium (Pantoprazole 40 Mg Tab) 40 mg PO [facility] Stop: 12/12/20 08:59 Last Admin: 11/12/20 08:10 Dose: Not Given Documented by: Sertraline HCl (Sertraline Hcl 100 Mg Tablet) [facility] [place]: 12/12/20 08:59 Last Admin: 11/12/20 08:10 Dose: Not Given Documented by: Warfarin Sodium (Warfarin Sod 5 Mg Tab) 5 mg PO DAILY@1600 [facility] Stop: 12/11/20 15:59 Last Admin: 11/11/20 17:09 Dose: Not Given Documented by: Resident Activity Tracking Resident Involvement: Resident Care Provided Care Provided: Adult Hospital Medicine (1) Respiratory failure Chronicity: acute Respiratory failure complication: hypoxia Qualified Code(s): J96.01 - Acute respiratory failure with hypoxia (2) Pulmonary embolism Acute cor pulmonale presence: unspecified Chronicity: unspecified Pulmonary embolism type: other Qualified Code(s): I26.99 - Other pulmonary embolism wi thout acute cor pulmonale
[2020-11-12] MEDS: MAGNESIUM SULFATE / D5W 1 GM/100 ML BAG IV SCH ×2 (08:09→10:28)
[2020-11-12] MEDS: DOXYCYCLINE HYCLATE 100 MG in DEXTROSE 5% 100 ML IV SCH ×2 (08:09→18:32)
[2020-11-12] MEDS: POTASSIUM CHLORIDE / WTR 20 MEQ/100 ML PLCT IV SCH ×2 (08:09→10:28)
[2020-11-12] MEDS: CEFEPIME 2,000 MG in SYRINGE 0 ML IV SCH ×2 (08:09→16:55)
[2020-11-12] MEDS: SERTRALINE HCL 100 MG TABLET PO SCH (08:10)
[2020-11-12] MEDS: PANTOprazole 40 MG TAB PO SCH (08:10)
[2020-11-12] MEDS: carBAMazepine 200 MG TABLET PO SCH ×2 (08:10→22:21)
[2020-11-12] MEDS: dexAMETHasone 6 MG in SYRINGE 0 ML IV SCH (08:10)
[2020-11-12] MEDS: LACTATED RINGER'S 1,000 ML IV SCH ×2 (08:13→16:13)
[2020-11-12] MEDS: INSULIN GLARGINE SOLOSTAR 100 UNITS/ML 3 ML PEN SC SCH ×2 (08:52→22:21)
--- NOTE | 2020-11-12 09:56 | Billing Data ---
Date of Service November 12, 2020 Coding Level of Care Code 76773 Subseq Hosp Care Lvl 3
--- NOTE | 2020-11-12 11:41 | Pharmacy Report ---
Pharmacy Glycemic Short Note 2 - Date of Service November 12, 2020 - Glycemic Short BSG Results (Last 24 hours): 11/11/20 11/11/20 11/11/20 12:44 16:52 20:13 Glucose POC Glucose 127 H 111 H 94 11/11/20 11/12/20 11/12/20 23:36 04:27 05:02 Glucose 84 POC Glucose 106 H 92 11/12/20 08:22 Glucose POC Glucose 93 OUTPATIENT ANTIDIABETIC REGIMEN: * N/A * A1c = 5.8% 11/12/20 ASSESSMENT: 11/12 * BSGs well controlled over last 24 hrs * Patient remains NPO at this time, but continues to receive IV dexamethasone 6 mg IV daily. * A1c resulted in "pre-diabetes" - she could be at risk for steroid induced hyperglycemia * Fasting BSGs in the 90's with 10 units Lantus on board. Will hold Lantus unless BSG climbs above 140 * Will convert Novolog to CF / CR dosing rather than per ICU SQ Train Gateman Scale. Will use aggressive CF but rather low dose for prandial coverage initially as we are uncertain how patient will react to carb intake while on dexamethasone IV 2 * Automatic Glycemic Consult generated secondary to two consecutive BSGs >140 * Multiple stressors likely contributing to rising BSGs over last 24 hrs (intubation, pressors, infxn, high dose steroids); however this AM patient was extubated, pressors weaned off and steroid dose will decrease tomorrow. Of note, it appears she will be NPO today * Will initiate SQ Novolog/Lantus regimen at this time. A portion of the basal dose will be provided in the form of scheduled Novolog per scale to avoid large Lantus doses in a patient with little PO intake. Lantus dosing will be scaled to prevent administration when BSG less than 120 PLAN FOR INPATIENT GLYCEMIC CONTROL: * Check A1c with next lab draw * Basal insulin * Lantus 10 units SQ BID - hold if BSG less than 140 * Bolus insulin * NovoLog SQ ACHS: * Goal Range: Low 110 - High 140 mg/dL * Correction Factor: 20mg/dL/unit * Carb Ratio: 1 unit per 15 gm CHO PLAN FOR DISCHARGE: * to be determined
[2020-11-12] MEDS ORDERED: PERFLUTREN LIPID MICROSPHERE (DEFINITY) IV ONE (14:41)
[2020-11-12 16:23] LABS: BUN Creatinine Ratio 30.8 (10-20); Calcium 8.1 mg/dl (8.5-10.1); Creatinine Clr Calc Pharmacy 72.4 ml/min; Est GFR (African American) 88.2; Est GFR (Non-African American) 76.1; Potassium 4.1 mmol/L (3.5-5.1)
--- NOTE | 2020-11-12 16:36 | XCELERA ---
[id number] \\[id number]
[2020-11-12 17:12] LABS: Base Excess ABG -2.3 mEq/L (-9-1.8); HCO3 ABG 24 mmol/L (19-24); Oxygen Saturation ABG 94.7 % (90-95); PCO2 ABG 47 mmHg (35-46); PO2 ABG 77 mmHg (80-95); pH ABG 7.33 (7.35-7.45)
[2020-11-12 17:21] LABS: Allen Test Pos (Pos)
--- NOTE | 2020-11-12 17:22 | XRay Report ---
XR chest 1V portable HISTORY: dyspnea COMPARISON: Chest 11/11/2020. FINDINGS: The endotracheal tube is been removed. Left-sided jugular central venous catheter is unchan ged in position and is located within the left-sided IVC. The heart remains mildly enlarged. Slight i mproved aeration within the right mid to lower lung zone. Small right pleural effusion persists. IMPRESSION: 1. Status post extubation. 2. Slight improved aeration within the right mid to lower lung zone. A small right pleural effusion p ersists. ACT 112: Negative or not required by law. Electronically signed by: Brett Olmstead M.D. 11/12/2020 5:21 PM
[2020-11-12] MEDS: SODIUM CHLORIDE 0.45 % 1,000 ML IV SCH (17:28)
[2020-11-12 21:38] LABS: Partial Thromboplastin Ratio 1.3; Partial Thromboplastin Time 34.6 Seconds (21.0-31.0)
[2020-11-12] MEDS ORDERED: HEPARIN IV BOLUS 3,000 UNITS in SYRINGE 0 ML IV ONE (22:15)
[2020-11-12] MEDS: DONEPEZIL HCL 10 MG TAB PO SCH (22:21)
[2020-11-13] MEDS: CEFEPIME 2,000 MG in SYRINGE 0 ML IV SCH ×2 (00:59→08:07)
[2020-11-13] MEDS: HEPARIN SODIUM/DEXTROSE 25,000 UNITS/500 ML BAG IV SCH ×3 (01:13→22:34)
[2020-11-13] MEDS ORDERED: Nursing to Pharmacy Communication SCH ×2 (02:00→07:30)
[2020-11-13 04:19] LABS: Hematocrit (blood only) 28.3 % (37-47); Hemoglobin 8.9 g/dL (12.0-16.0); Mean Corpuscular Hemoglobin 30.4 pg (25-34); Mean Corpuscular Hgb Conc 31.4 g/dL (32-36); Mean Corpuscular Volume 96.6 fL (80-100); Mean Platelet Volume 11.8 fL (7.4-10.4); Platelet Count 261 K/uL (130-400); RDW Coefficient of Variation 17.4 % (11.5-14.5); RDW Standard Deviation 60.8 fL (36.4-46.3); Red Blood Count 2.93 M/uL (4.2-5.4); White Blood Count 15.78 K/uL (4.8-10.8)
[2020-11-13 04:27] LABS: INR 1.2 (0.9-1.1); Prothrombin Time 11.9 Seconds (9.0-12.0)
[2020-11-13 04:38] LABS: BUN Creatinine Ratio 30.5 (10-20); Calcium 7.7 mg/dl (8.5-10.1); Creatinine Clr Calc Pharmacy 79.7 ml/min; Est GFR (African American) 98.9; Est GFR (Non-African American) 85.4; Magnesium 2.1 mg/dl (1.8-2.4); Potassium 3.7 mmol/L (3.5-5.1)
[2020-11-13 04:39] LABS: Partial Thromboplastin Ratio 3.6
[2020-11-13 04:48] LABS: Albumin Globulin Ratio 0.5 (0.9-2); Bilirubin,Total 0.7 mg/dl (0.2-1); Globulin 4.2 gm/dl (2.5-4.0); Phosphorus 1.7 mg/dl (2.5-4.9); Total Protein 6.2 gm/dl (6.4-8.2)
[2020-11-13 05:02] LABS: ALC (manual) 0.41 K/uL (1.2-3.4); ANC (manual) 14.12 K/uL (1.4-6.5); Eosinophils # (manual) 0.14 K/uL (0-0.5); Eosinophils % (manual) 0.9 %; Lymphocytes # (manual) 0.41 K/uL (1.2-3.4); Lymphocytes % (manual) 2.6 %; Monocytes # (manual) 0.96 K/uL (0.11-0.59); Monocytes % (manual) 6.1 %; Myelocytes # (manual) 0.14 K/uL (0-0); Myelocytes % (manual) 0.9 %; Neutrophils # (manual) 14.12 K/uL (1.4-6.5); Neutrophils % (manual) 89.5 %; RBC Morphology Unremarkable
[2020-11-13 05:37] LABS: Partial Thromboplastin Time 94.7 Seconds (21.0-31.0)
[2020-11-13] MEDS: DOXYCYCLINE HYCLATE 100 MG in DEXTROSE 5% 100 ML IV SCH ×2 (05:40→17:41)
[2020-11-13] MEDS: SODIUM CHLORIDE 0.45 % 1,000 ML IV SCH (05:40)
[2020-11-13] MEDS ORDERED: POTASSIUM PHOS 3 MMOL/1 ML INFUSION IV STA (06:56)
[2020-11-13] MEDS ORDERED: POTASSIUM PHOSPHATE 9 MMOL in SODIUM CHLORIDE 0.9% 250 ML IV ONE (07:00)
[2020-11-13 07:29] LABS: Partial Thromboplastin Ratio 2.7
[2020-11-13 07:31] LABS: Partial Thromboplastin Time 71.2 Seconds (21.0-31.0)
--- NOTE | 2020-11-13 07:57 | Hospitalist Progress Note ---
Date of Service November 13, 2020 Assessment & Plan (1) Acute respiratory failure with hypoxia: (2) COVID-19 virus infection: Diagnosed on 10/21/2020. was treated w/ decadron On this admission - Required intubation on 11/10/2020. - Presently extubated. - Continue dexamethasone x 10 days - Remdesivir and plasma not indicated given duration of positivity - Now on 2L NC Bacterial pna/ hosp. acquired -Chest CTA from 11/10 demonstrated segmental pulmonary embolus within the posterior segment of the right lower lobe with associated pulmonary infarct, adjacent airspace opacity with possible cavitation, scattered ground glass and tree-in-bud nodules within the lungs. -CT abd/pelvis noted small right pleural effusion with possible cystic focus of right lower lobe -Continue on Decadron 6mg for 6 additional days Procalcitonin 14.5, now down to 5.8 -Sputum cultures- posit. for Klebsiella, Quantiferon test - negative -Continued cefepime, doxy until speciation of sputum cultures with sensitivities - Will transition to ceftriaxone now - chest PT/ vest, incent. spirometry - mucomyst inh, when able to take PO add guaifenesin (3) Pulmonary embolism: CTA chest on 11/10 showed segmental pulmonary embolus within the posterior basilar segment of the right lower lobe with associated pulmonary infarct. LE DVT b/l - Presently on heparin gtt - Vascular consulted for possible IVC filter - Defer for this time given her RP bleed is smaller than prior scan. (4) Retroperitoneal hematoma: Originally noted on 10/25/2020. She was sent to [facility] at that time. Was hospitalized 10/25-10/30. CTA abdomen / pelvis obtained at that time- unremarkable Prior to her dg. of hematoma - pt was on Lovenox 60 subq, this was stopped on discharge from [facility] CT a/p this time shows improvement. - Monitor vitals and hgb Dysphagia - Failed swallow study today again - plan for NG tube/ coresafe placement - unable to swallow her own secretions, frequent suctioning Hypernatremia - secondary to poor oral intake - Na 150, on admission 148, now 149 (after 12 NSS) - Na level normal back in September - cont. to monitor, add D5W, nephro consult - monitor Na level AD (Alzheimer's disease): Unclear baseline. - Monitor Congenital hydrocephalus: No known present issues. MDD (major depressive disorder): - Continue sertraline, carbamazepine, and donepezil once pt can take PO DVT prophylaxis: Heparin gtt and warfarin transition for DVT/PE once pt can take PO Admission and Anticipated Discharge Date Admission Date: November 10, 2020 Subjective Pt seen in follow up of COVID pna, PE, DVT, hx of RP hematoma. Pt extubated and downgraded from ICU yesterday Pt answers most questions appropriately today Swallow study attempted today again - pt can not swallow, plan for NG tube/ coresafe placement Currently on IV heparin, IV Abx Sputum cultx posit. for - Klebsiella Review of Systems Review of Systems: All systems reviewed & are unremarkable except as noted in HPI & below Constitutional: no fever and no chills Respiratory: + cough and + dyspnea Cardiovascular: no chest pain Gastrointestinal: no abdominal pain, no nausea and no vomiting Physical Exam Physical Exam: Constitutional: WD/WN, vitals as above Eyes: PERRL, conjunctivae normal, anicteric sclerae Neck: normal visual inspection and trachea midline, unable to swallow secretions, central line placed (L) Respiratory: somewhat increased respiratory effort;Auscultation: + coarse breath sounds Cardiovascular: RRR Heart Sounds: no murmur Gastrointestinal (Abdomen): Inspection/Auscultation: normal bowel sounds, + abdominal wall ecchymosis and + significant pannus; abdomen not distended Percussion/Palpation: abdomen soft; no guarding Neurologic: moves extremities, speech fluent but slow Psychiatric: able to answer most questions appropriately (at baseline) Appearance: + disheveled Results & Data Results & Data ([facility]) Vital Signs (Past 12 Hours) Vital Signs Temp Pulse Pulse Resp BP Pulse Ox 11/13/20 05:55 98 11/13/20 04:33 36.4 C L 86 19 150/89 H 96 11/13/20 03:12 80 20 98 11/13/20 00:53 67 11/12/20 23:49 76 20 98 11/12/20 23:09 36.4 C L 80 19 143/91 H 98 Laboratory Results 11/13/20 11/13/20 11/13/20 Range/Units 06:20 04:08 04:08 WBC (4.8-10.8) K/uL RBC (4.2-5.4) M/uL Hgb (12.0-16.0) g/dL Hct (37-47) % MCV (80-100) fL MCH (25-34) pg MCHC (32-36) g/dL RDW Std Deviation (36.4-46.3) fL RDW Coeff of Virgilio (11.5-14.5) % Plt Count (130-400) K/uL MPV (7.4-10.4) fL Neutrophils % (Manual) % Lymphocytes % (Manual) % Monocytes % (Manual) % Eosinophils % (Manual) % Myelocytes % (Man) % Neutrophils # (Manual) (1.4-6.5) K/uL Total Absolute Neuts (1.4-6.5) K/uL Lymphocytes # (Manual) (1.2-3.4) K/uL Total Abs Lymphocytes (1.2-3.4) K/uL Monocytes # (Manual) (0.11-0.59) K/uL Eosinophils # (Manual) (0-0.5) K/uL Myelocytes # (Manual) (0-0) K/uL RBC Morphology PT 11.9 (9.0-12.0) Seconds INR 1.2 H (0.9-1.1) APTT 71.2 H* 94.7 H* (21.0-31.0) Seconds PTT Ratio 2.7 3.6 ABG pH (7.35-7.45) ABG pCO2 (35-46) mmHg ABG pO2 (80-95) mmHg ABG HCO3 (19-24) mmol/L ABG O2 Saturation (90-95) % ABG Base Excess (-9-1.8) mEq/L Alfredo Test (Pos) Barometric Pressure mm/Hg Oxygen Given Sodium (136-145) mmol/L Potassium (3.5-5.1) mmol/L Chloride (98-107) mmol/L Carbon Dioxide (21-32) mmol/L Anion Gap (3-11) BUN (7-18) mg/dl Creatinine (0.6-1.2) mg/dl Est Cr Clr Drug Dosing ml/min Est GFR ( Amer) Est GFR (Non-Af Amer) BUN/Creatinine Ratio (10-20) Glucose (70-99) mg/dl POC Glucose (70-99) mg/dl Calcium (8.5-10.1) mg/dl Phosphorus (2.5-4.9) mg/dl Magnesium (1.8-2.4) mg/dl Total Bilirubin (0.2-1) mg/dl AST (15-37) U/L ALT (12-78) U/L Alkaline Phosphatase (45-117) U/L Total Protein (6.4-8.2) gm/dl Albumin (3.4-5.0) gm/dl Globulin (2.5-4.0) gm/dl Albumin/Globulin Ratio (0.9-2) Procalcitonin (0-0.5) ng/ml 11/13/20 11/13/20 11/13/20 Range/Units 04:08 04:08 04:08 WBC 15.78 H (4.8-10.8) K/uL RBC 2.93 L (4.2-5.4) M/uL Hgb 8.9 L (12.0-16.0) g/dL Hct 28.3 L (37-47) % MCV 96.6 (80-100) fL MCH 30.4 (25-34) pg MCHC 31.4 L (32-36) g/dL RDW Std Deviation 60.8 H (36.4-46.3) fL RDW Coeff of Virgilio 17.4 H (11.5-14.5) % Plt Count 261 (130-400) K/uL MPV 11.8 H (7.4-10.4) fL Neutrophils % (Manual) 89.5 % Lymphocytes % (Manual) 2.6 % Monocytes % (Manual) 6.1 % Eosinophils % (Manual) 0.9 % Myelocytes % (Man) 0.9 % Neutrophils # (Manual) 14.12 H (1.4-6.5) K/uL Total Absolute Neuts 14.12 H (1.4-6.5) K/uL Lymphocytes # (Manual) 0.41 L (1.2-3.4) K/uL Total Abs Lymphocytes 0.41 L (1.2-3.4) K/uL Monocytes # (Manual) 0.96 H (0.11-0.59) K/uL Eosinophils # (Manual) 0.14 (0-0.5) K/uL Myelocytes # (Manual) 0.14 H (0-0) K/uL RBC Morphology Unremarkable PT (9.0-12.0) Seconds INR (0.9-1.1) APTT (21.0-31.0) Seconds PTT Ratio ABG pH (7.35-7.45) ABG pCO2 (35-46) mmHg ABG pO2 (80-95) mmHg ABG HCO3 (19-24) mmol/L ABG O2 Saturation (90-95) % ABG Base Excess (-9-1.8) mEq/L Alfredo Test (Pos) Barometric Pressure mm/Hg Oxygen Given Sodium 149 H (136-145) mmol/L Potassium 3.7 (3.5-5.1) mmol/L Chloride 119 H (98-107) mmol/L Carbon Dioxide 27 (21-32) mmol/L Anion Gap 3.0 (3-11) BUN 21 H (7-18) mg/dl Creatinine 0.70 (0.6-1.2) mg/dl Est Cr Clr Drug Dosing 79.7 ml/min Est GFR ( Amer) 98.9 Est GFR (Non-Af Amer) 85.4 BUN/Creatinine Ratio 30.5 H (10-20) Glucose 97 (70-99) mg/dl POC Glucose (70-99) mg/dl Calcium 7.7 L (8.5-10.1) mg/dl Phosphorus 1.7 L (2.5-4.9) mg/dl Magnesium 2.1 (1.8-2.4) mg/dl Total Bilirubin 0.7 (0.2-1) mg/dl AST 17 (15-37) U/L ALT 21 (12-78) U/L Alkaline Phosphatase 126 H (45-117) U/L Total Protein 6.2 L (6.4-8.2) gm/dl Albumin 2.0 L (3.4-5.0) gm/dl Globulin 4.2 H (2.5-4.0) gm/dl Albumin/Globulin Ratio 0.5 L (0.9-2) Procalcitonin 3.19 H (0-0.5) ng/ml 11/12/20 11/12/20 11/12/20 Range/Units 21:18 20:55 17:07 WBC (4.8-10.8) K/uL RBC (4.2-5.4) M/uL Hgb (12.0-16.0) g/dL Hct (37-47) % MCV (80-100) fL MCH (25-34) pg MCHC (32-36) g/dL RDW Std Deviation (36.4-46.3) fL RDW Coeff of Virgiilo (11.5-14.5) % Plt Count (130-400) K/uL MPV (7.4-10.4) fL Neutrophils % (Manual) % Lymphocytes % (Manual) % Monocytes % (Manual) % Eosinophils % (Manual) % Myelocytes % (Man) % Neutrophils # (Manual) (1.4-6.5) K/uL Total Absolute Neuts (1.4-6.5) K/uL Lymphocytes # (Manual) (1.2-3.4) K/uL Total Abs Lymphocytes (1.2-3.4) K/uL Monocytes # (Manual) (0.11-0.59) K/uL Eosinophils # (Manual) (0-0.5) K/uL Myelocytes # (Manual) (0-0) K/uL RBC Morphology PT (9.0-12.0) Seconds INR (0.9-1.1) APTT 34.6 H (21.0-31.0) Seconds PTT Ratio 1.3 ABG pH (7.35-7.45) ABG pCO2 (35-46) mmHg ABG pO2 (80-95) mmHg ABG HCO3 (19-24) mmol/L ABG O2 Saturation (90-95) % ABG Base Excess (-9-1.8) mEq/L Alfredo Test (Pos) Barometric Pressure mm/Hg Oxygen Given Sodium (136-145) mmol/L Potassium (3.5-5.1) mmol/L Chloride (98-107) mmol/L Carbon Dioxide (21-32) mmol/L Anion Gap (3-11) BUN (7-18) mg/dl Creatinine (0.6-1.2) mg/dl Est Cr Clr Drug Dosing ml/min Est GFR ( Amer) Est GFR (Non-Af Amer) BUN/Creatinine Ratio (10-20) Glucose (70-99) mg/dl POC Glucose 125 H 132 H (70-99) mg/dl Calcium (8.5-10.1) mg/dl Phosphorus (2.5-4.9) mg/dl Magnesium (1.8-2.4) mg/dl Total Bilirubin (0.2-1) mg/dl AST (15-37) U/L ALT (12-78) U/L Alkaline Phosphatase (45-117) U/L Total Protein (6.4-8.2) gm/dl Albumin (3.4-5.0) gm/dl Globulin (2.5-4.0) gm/dl Albumin/Globulin Ratio (0.9-2) Procalcitonin (0-0.5) ng/ml 11/12/20 11/12/20 11/12/20 Range/Units 17:00 15:44 12:01 WBC (4.8-10.8) K/uL RBC (4.2-5.4) M/uL Hgb (12.0-16.0) g/dL Hct (37-47) % MCV (80-100) fL MCH (25-34) pg MCHC (32-36) g/dL RDW Std Deviation (36.4-46.3) fL RDW Coeff of Virgilio (11.5-14.5) % Plt Count (130-400) K/uL MPV (7.4-10.4) fL Neutrophils % (Manual) % Lymphocytes % (Manual) % Monocytes % (Manual) % Eosinophils % (Manual) % Myelocytes % (Man) % Neutrophils # (Manual) (1.4-6.5) K/uL Total Absolute Neuts (1.4-6.5) K/uL Lymphocytes # (Manual) (1.2-3.4) K/uL Total Abs Lymphocytes (1.2-3.4) K/uL Monocytes # (Manual) (0.11-0.59) K/uL Eosinophils # (Manual) (0-0.5) K/uL Myelocytes # (Manual) (0-0) K/uL RBC Morphology PT (9.0-12.0) Seconds INR (0.9-1.1) APTT (21.0-31.0) Seconds PTT Ratio ABG pH 7.33 L (7.35-7.45) ABG pCO2 47 H (35-46) mmHg ABG pO2 77 L (80-95) mmHg ABG HCO3 24 (19-24) mmol/L ABG O2 Saturation 94.7 (90-95) % ABG Base Excess -2.3 (-9-1.8) mEq/L Alfredo Test Pos (Pos) Barometric Pressure 728.9 mm/Hg Oxygen Given 2l Sodium 149 H (136-145) mmol/L Potassium 4.1 D (3.5-5.1) mmol/L Chloride 119 H (98-107) mmol/L Carbon Dioxide 24 (21-32) mmol/L Anion Gap 5.0 (3-11) BUN 24 H (7-18) mg/dl Creatinine 0.77 (0.6-1.2) mg/dl Est Cr Clr Drug Dosing 72.4 ml/min Est GFR ( Amer) 88.2 Est GFR (Non-Af Amer) 76.1 BUN/Creatinine Ratio 30.8 H (10-20) Glucose 134 H (70-99) mg/dl POC Glucose 147 H (70-99) mg/dl Calcium 8.1 L (8.5-10.1) mg/dl Phosphorus (2.5-4.9) mg/dl Magnesium (1.8-2.4) mg/dl Total Bilirubin (0.2-1) mg/dl AST (15-37) U/L ALT (12-78) U/L Alkaline Phosphatase (45-117) U/L Total Protein (6.4-8.2) gm/dl Albumin (3.4-5.0) gm/dl Globulin (2.5-4.0) gm/dl Albumin/Globulin Ratio (0.9-2) Procalcitonin (0-0.5) ng/ml 11/12/20 11/12/20 Range/Units 08:22 05:02 WBC (4.8-10.8) K/uL RBC (4.2-5.4) M/uL Hgb (12.0-16.0) g/dL Hct (37-47) % MCV (80-100) fL MCH (25-34) pg MCHC (32-36) g/dL RDW Std Deviation (36.4-46.3) fL RDW Coeff of Virgilio (11.5-14.5) % Plt Count (130-400) K/uL MPV (7.4-10.4) fL Neutrophils % (Manual) % Lymphocytes % (Manual) % Monocytes % (Manual) % Eosinophils % (Manual) % Myelocytes % (Man) % Neutrophils # (Manual) (1.4-6.5) K/uL Total Absolute Neuts (1.4-6.5) K/uL Lymphocytes # (Manual) (1.2-3.4) K/uL Total Abs Lymphocytes (1.2-3.4) K/uL Monocytes # (Manual) (0.11-0.59) K/uL Eosinophils # (Manual) (0-0.5) K/uL Myelocytes # (Manual) (0-0) K/uL RBC Morphology PT (9.0-12.0) Seconds INR (0.9-1.1) APTT (21.0-31.0) Seconds PTT Ratio ABG pH (7.35-7.45) ABG pCO2 (35-46) mmHg ABG pO2 (80-95) mmHg ABG HCO3 (19-24) mmol/L ABG O2 Saturation (90-95) % ABG Base Excess (-9-1.8) mEq/L Alfredo Test (Pos) Barometric Pressure mm/Hg Oxygen Given Sodium (136-145) mmol/L Potassium (3.5-5.1) mmol/L Chloride (98-107) mmol/L Carbon Dioxide (21-32) mmol/L Anion Gap (3-11) BUN (7-18) mg/dl Creatinine (0.6-1.2) mg/dl Est Cr Clr Drug Dosing ml/min Est GFR ( Amer) Est GFR (Non-Af Amer) BUN/Creatinine Ratio (10-20) Glucose (70-99) mg/dl POC Glucose 93 (70-99) mg/dl Calcium (8.5-10.1) mg/dl Phosphorus (2.5-4.9) mg/dl Magnesium (1.8-2.4) mg/dl Total Bilirubin (0.2-1) mg/dl AST (15-37) U/L ALT (12-78) U/L Alkaline Phosphatase (45-117) U/L Total Protein (6.4-8.2) gm/dl Albumin (3.4-5.0) gm/dl Globulin (2.5-4.0) gm/dl Albumin/Globulin Ratio (0.9-2) Procalcitonin 5.80 H (0-0.5) ng/ml Medications Administered Current Inpatient Medications Carbamazepine (Carbamazepine 200 Mg Tablet) 200 mg PO BID DANIELLA Stop: 12/11/20 20:59 Last Admin: 11/12/20 22:21 Dose: Not Given Documented by: Donepezil HCl (Donepezil Hcl 10 Mg Tab) 10 mg PO HS DANIELLA Stop: 12/10/20 20:59 Last Admin: 11/12/20 22:21 Dose: Not Given Documented by: Heparin Sodium (Beef Lung) (Heparin 10 Unit/Ml 5 Ml Flush) 5 ml FLUSH PRN PRN PRN Reason: Flush Stop: 12/11/20 22:31 Last Admin: 11/12/20 15:46 Dose: 5 ml Documented by: Heparin Sodium/Dextrose (Heparin Sodium/Dextrose) 25,000 units in 500 mls @ 26 mls/hr IV .[id number] DANIELLA; Protocol Stop: 12/10/20 12:59 Last Titration: 11/13/20 07:48 Dose: 1,250 units/hr, 25 mls/hr Documented by: Dexamethasone 6 mg/ Syringe 1.5 mls @ 1 mls/min IV DAILY DANIELLA Stop: 11/18/20 08:59 Last Admin: 11/12/20 08:10 Dose: 1 mls/min Documented by: Cefepime HCl 2,000 mg/ Syringe 20 mls @ 5 mls/min IV Q8H DANIELLA; Protocol Stop: 11/17/20 23:59 Last Admin: 11/13/20 00:59 Dose: 5 mls/min Documented by: Sodium Chloride (1/2 Nss) 1,000 mls @ 80 mls/hr IV .[id number] DANIELLA Stop: 12/12/20 16:44 Last Admin: 11/13/20 05:40 Dose: 80 mls/hr Documented by: Doxycycline Hyclate 100 mg/ (Dextrose) 110 mls @ 50 mls/hr IV Q12H DANIELLA; Protocol Stop: 11/19/20 17:59 Last Admin: 11/13/20 05:40 Dose: 50 mls/hr Documented by: Potassium Phosphate 9 mmol/ (Sodium Chloride) 253 mls @ 88 mls/hr IV ONE ONE Stop: 11/13/20 09:52 Insulin Aspart (Insulin Aspart 100 Units/Ml 3 Ml Pen) 0 units SC [facility]6 [facility] Stop: 12/13/20 07:29 Insulin Glargine (Insulin Glargine Solostar 100 Units/Ml 3 Ml Pen) 0 units SC Q12 [facility]; Protocol Stop: 12/11/20 08:59 Last Admin: 11/12/20 22:21 Dose: Not Given Documented by: Miscellaneous Information (Pharmacy Glycemic Mgmt Consult) 1 ea N/A UD PRN PRN Reason: Consult Stop: 12/11/20 08:28 Pantoprazole Sodium (Pantoprazole 40 Mg Tab) [facility] [place] Stop: 12/12/20 08:59 Last Admin: 11/12/20 08:10 Dose: Not Given Documented by: Sertraline HCl (Sertraline Hcl 100 Mg Tablet) 100 [facility] [place] Stop: 12/12/20 08:59 Last Admin: 11/12/20 08:10 Dose: Not Given Documented by: Warfarin Sodium (Warfarin Sod 5 Mg Tab) 5 mg PO DAILY@1600 [facility] Stop: 12/11/20 15:59 Last Admin: 11/11/20 17:09 Dose: Not Given Documented by: (1) Pulmonary embolism Acute cor pulmonale presence: unspecified Chronicity: unspecified Pulmonary embolism type: other Qualified Code(s): I26.99 - Other pulmonary embolism without acute cor pulmonale
[2020-11-13] MEDS: PANTOprazole 40 MG TAB PO SCH (08:15)
[2020-11-13] MEDS: carBAMazepine 200 MG TABLET PO SCH ×2 (08:15→20:41)
[2020-11-13] MEDS: INSULIN GLARGINE SOLOSTAR 100 UNITS/ML 3 ML PEN SC SCH ×2 (08:15→20:33)
[2020-11-13] MEDS: INSULIN ASPART 100 UNITS/ML 3 ML PEN SC SCH ×4 (08:15→17:44)
[2020-11-13] MEDS: SERTRALINE HCL 100 MG TABLET PO SCH (08:16)
[2020-11-13] MEDS: dexAMETHasone 6 MG in SYRINGE 0 ML IV SCH (08:41)
[2020-11-13] MEDS ORDERED: guaiFENesin 600 MG TABCR PO SCH (09:30)
--- NOTE | 2020-11-13 10:32 | Pharmacy Report ---
Pharmacy Glycemic Short Note 2 - Date of Service November 13, 2020 - Glycemic Short BSG Results (Last 24 hours): 11/12/20 11/12/20 11/12/20 12:01 15:44 17:07 Glucose 134 H POC Glucose 147 H 132 H 11/12/20 11/13/20 11/13/20 20:55 04:08 08:07 Glucose 97 POC Glucose 125 H 126 H OUTPATIENT ANTIDIABETIC REGIMEN: * N/A * A1c = 5.8% 11/12/20 ASSESSMENT: 11/13: * Lyudmila received only 1 unit of bolus insulin yesterday * BSGs well controlled: 89-391-750-125 mg/dL * Fasting BSG was 126 mg/dL this AM - well controlled * No Lantus since 11/11/20 * She remains NPO as she failed her swallow study * D5 infusion started at 100 mL/hr secondary to hypernatremia * Remains on IV dexamethasone as well * May have to tighten CF/CR later today if BSGs significantly increase on D5 infusion 11/12: * BSGs well controlled over last 24 hrs * Patient remains NPO at this time, but continues to receive IV dexamethasone 6 mg IV daily. * A1c resulted in "pre-diabetes" - she could be at risk for steroid induced hyperglycemia * Fasting BSGs in the 90's with 10 units Lantus on board. Will hold Lantus unless BSG climbs above 140 * Will convert Novolog to CF / CR dosing rather than per ICU SQ Signal Person Scale. Will use aggressive CF but rather low dose for prandial coverage initially as we are uncertain how patient will react to carb intake while on dexamethasone IV 11/11: * Automatic Glycemic Consult generated secondary to two consecutive BSGs >140 * Multiple stressors likely contributing to rising BSGs over last 24 hrs (intubation, pressors, infxn, high dose steroids); however this AM patient was extubated, pressors weaned off and steroid dose will decrease tomorrow. Of note, it appears she will be NPO today * Will initiate SQ Novolog/Lantus regimen at this time. A portion of the basal dose will be provided in the form of scheduled Novolog per scale to avoid large Lantus doses in a patient with little PO intake. Lantus dosing will be scaled to prevent administration when BSG less than 120 PLAN FOR INPATIENT GLYCEMIC CONTROL: * Basal insulin * Lantus 10 units SQ BID (only if BSG 140 mg/dL or greater) * Bolus insulin * NovoLog SQ ACHS: * Goal Range: Low 110 - High 140 mg/dL * Correction Factor: 15 mg/dL/unit * Carb Ratio: 1 unit per 15 gm CHO PLAN FOR DISCHARGE: * HbA1c = 5.8% which classifies patient as pre-diabetic. She is not on any diabetes medications. Recommend diet and exercise to control pre-diabetes. May consider SMBG every morning and recording fasting blood sugars for next PCP appointment.
--- NOTE | 2020-11-13 11:07 | Consultation Report ---
DATE OF CONSULTATION: 11/13/2020 NEPHROLOGY CONSULTATION NOTE REASON FOR CONSULT: Hypernatremia and acute renal failure. HISTORY OF PRESENT ILLNESS: The patient is a 75-year-old female with very extensive recent medical problems. She was admitted 3 days ago because of respiratory failure, confusion and worsening overall clinical status. She has a history of congenital hydrocephalus who presented to the Emergency 3 days ago from her outside half-way. The patient tested positive for COVID on 10/23 and had a very complicated course of COVID pneumonia with respiratory failure, even requiring intubation. She also had segmental pulmonary embolus with associated pulmonary infarcts. The patient had acute renal failure with a creatinine of 1.8 on admission. With IV fluid, it has come down and is now normal at 0.7. She has been having hypernatremia, but she was receiving normal saline-containing fluid. She is not eating and drinking at this time as her mental status is not allowing that. She is n.p.o. and has failed speech and swallow eval. REVIEW OF SYSTEMS: Unable to obtain. PAST MEDICAL AND SURGICAL HISTORY: Includes anxiety, chronic venous stasis, congenital hydrocephalus, major depressive disorder, dementia, recent history of COVID-19 requiring hospitalization with complicated issues including intubation, pulmonary embolism causing pulmonary infarct, tubal ligation, tonsillectomy, cancer, diabetes. SOCIAL HISTORY: She was a resident of outside half-way. PHYSICAL EXAMINATION: GENERAL: Elderly white female who is quite encephalopathic at this time as well as dementia. VITAL SIGNS: Blood pressure is 150/89, temperature 36.4, 98% on 4-liter nasal cannula, pulse rate 86. HEENT: Mucous membrane moist. NECK: Supple. No jugular venous distention. CHEST: Bilaterally decreased breath sounds, but she did not take any inspiratory effort, thus limiting the quality of the exam. CARDIOVASCULAR: S1 and S2, regular. Systolic murmur heard. ABDOMEN: Soft, nontender. EXTREMITIES: Show no edema. GENITOURINARY: She has a Rosario catheter with urine. ASSESSMENT AND PLAN: A 75-year-old female admitted 3 days ago with respiratory failure requiring intubation in the setting of COVID-19 infection. She also had a pulmonary embolus with infarct. I have been consulted for hypernatremia and acute renal failure. 1. Hypernatremia: This is by definition free water deficit, which is not unexpected as the patient has not really eaten or drank for many days now. She did receive normal saline-containing fluid, which has improved the renal failure part, but the hypernatremia part is still about the same. Given this situation, I would like to change the half normal saline to plain D5 and run at 100 mL per hour. This should hopefully get her serum sodium back to normal. However, in the long-term, it does not appear the patient will be able to maintain her hydration on her own. Decision regarding PEG tube will be deferred to the primary team and the family. 2. Acute renal failure: That was prerenal in type. Creatinine was 1.8 on admission, but at this time, it is completely normal with the use of IV fluid. No further workup is needed.
[2020-11-13] MEDS: PANTOprazole 40 MG in SYRINGE 0 ML IV SCH (11:35)
[2020-11-13] MEDS: DEXTROSE 5% 500 ML IV SCH ×3 (11:36→23:45)
[2020-11-13 11:46] LABS: Quantiferon Mitogen-NIL 1.29 IU/mL; Quantiferon NIL 0.04 IU/mL; Quantiferon TB Gold Plus NEGATIVE (NEGATIVE)
[2020-11-13] MEDS: ACETYLCYSTEINE 20% INHAL SOLN 4ML ***DISPENSED BY RESP. INH SCH ×2 (13:22→19:37)
[2020-11-13] MEDS: ALBUT/IPRATROP 3MG/0.5MG NEB 3 ML VIAL NEB PRN ×2 (13:22→19:37)
[2020-11-13] MEDS: cefTRIAXone SODIUM 2,000 MG in DEXTROSE 5% 50 ML IV SCH (14:20)
[2020-11-13 14:50] LABS: Partial Thromboplastin Ratio 2.9
[2020-11-13 15:18] LABS: Partial Thromboplastin Time 75.5 Seconds (21.0-31.0)
--- NOTE | 2020-11-13 15:33 | XRay Report ---
KUB HISTORY: Verify position of coresafe COMPARISON: Chest 11/12/2020. FINDINGS: The bowel gas pattern is unremarkable. There are no dilated loops of small bowel to suggest an obstruction. Feeding tube is curled within the esophagus. The tip terminates at the midesophagus . This should be removed. Left jugular central venous catheter is unchanged in position. Bilateral ai rspace opacities have slightly improved. No pneumoperitoneum or pneumatosis. IMPRESSION: Feeding tube is curled within the esophagus. This should be removed. This finding was called/faxed to the referring physician following dictation. ACT 112: Negative or not required by law. Electronically signed by: Brett Olmstead M.D. 11/13/2020 3:31 PM
--- NOTE | 2020-11-13 15:39 | Pulmonary Consultation ---
Date of Consultation November 13, 2020 Assessment & Plan (1) Acute respiratory failure with hypoxia: CT chest 11/10/2020 personally reviewed: Right lower lobe consolidative process with bilateral tree-in-bud and groundglass opacities, there is right-sided pleural effusion medial, seems to be loculated. Hiatal hernia Mild right hilar adenopathy I do not see any clear cavitary lesion. Subsegmental PE on the right side --Acute hypoxic respiratory failure Multifactorial Secondary to aspiration pneumonia right lower lobe on top of COVID-19 PE also playing a part although it is subsegmental COVID-19 PCR 11/10/2020 positive, influenza A/B negative Sputum culture growing Klebsiella pansensitive Patient was initially diagnosed with COVID-19 on 10/23/2020 Gold QuantiFERON negative. Continue with O2 supplementation to keep oxygen saturation 90-92% --Right-sided pleural effusion New compared to previous chest x-ray Seems to be partially loculated, could be parapneumonic 2D echo 11/12/2020: EF 60-65%, mild concentric LVH. Right ventricle not visualized, diastolic function unable to be obtained --Acute PE with DVT On anticoagulation Patient also has retroperitoneal hemorrhage Plan: Incentive spirometry if the patient is able to follow commands Mucomyst with bronchodilator twice daily along with chest PT Continue with O2 supplementation Continue with antibiotics for pneumonia or at least 10 days. Right-sided pleural effusion has decreased in size compared to the time of presentation. I will check with ultrasound tomorrow. If there is a sizable pocket we will try to pursue a thoracentesis. Overall prognosis is guarded. Emma Guillen [phone], was updated about the possibility of thoracentesis. Risk and benefit of the procedure were explained. He agrees to have the procedure done if need be. Please note the above document was generated using voice recognition software. It may contain grammatical, syntax or spelling errors.Any formal questions or concerns about the content, text or information contained within the body of this dictation should be directly addressed to the provider for clarification. (2) COVID-19: (3) Pulmonary embolism: Acute cor pulmonale presence: unspecified Chronicity: unspecified Pulmonary embolism type: other Qualified Code(s): I26.99 - Other pulmonary embolism without acute cor pulmonale (4) DVT (deep venous thrombosis): Affected thrombotic vein of extremity: femoral Chronicity: acute DVT location: lower extremity Laterality: bilateral Qualified Code(s): I82.413 - Acute embolism and thrombosis of femoral vein, bilateral History of Present Illness Attending Physician: Yunior Brownlee MD History of Present Illness 75-year-old female past medical history of congenital hydrocephalus, dementia, presented to the ED on 11/10/2020 for shortness of breath for couple of days. She was tested initially for COVID-19 on 10/23 and she was found to be positive. She also developed retroperitoneal hematoma at that time She was intubated at the time of presentation, extubated 11/11/20 Patient was downgraded on 11/12/2020. Pulmonary were consulted because of worsening respiratory status. At the time of examination today patient was on room air saturating 87 - 88% not in any acute distress. She was restless all because just prior to me examining her she had a feeding tube placed and she was not able to swallow. Patient denies chest pain. She has been constantly coughing though. Bringing up some phlegm as per the nurses aide. Denies any headache. Patient is a very poor historian. History obtained from the previous chart and records. Allergies Allergy/AdvReac Type Severity Reaction Status Date / Time No Known Allergies Allergy Unverified 10/25/20 09:24 Home Medications Medication Instructions Recorded Confirmed Type carbamazepine 200 mg PO BID 02/07/19 10/25/20 History donepezil 10 mg PO HS 09/06/19 11/10/20 History clotrimazole-betamethasone 1 applic TOPICAL BID 09/21/20 10/25/20 History furosemide 20 mg PO DAILY 09/21/20 10/25/20 History sertraline 100 mg PO QAM 09/21/20 11/10/20 History calcium carbonate [Tums] 500 mg PO DAILY #0 tab 09/25/20 10/25/20 Rx polyethylene glycol 3350 [Miralax] 17 g PO DAILY PRN #0 ea 09/25/20 10/25/20 Rx cholecalciferol (vitamin D3) 50 mcg PO QAM 10/25/20 11/10/20 History [Vitamin D3] enoxaparin [Lovenox] 60 mg SUBCUT DAILY 10/25/20 10/25/20 History famotidine 20 mg PO DAILY 10/25/20 10/25/20 History melatonin 3 mg PO HS 10/25/20 11/10/20 History ondansetron 4 mg PO Q4H PRN 10/25/20 10/25/20 History pantoprazole 40 mg PO DAILYBB 10/25/20 10/25/20 History sennosides-docusate sodium 1 tab-cap PO DAILY 10/25/20 10/25/20 History [Senokot-S] albuterol sulfate 2.5 mg INHALATION Q4H PRN 11/10/20 11/10/20 History clotrimazole-betamethasone 1 applic TOPICAL UD 11/10/20 11/10/20 History [Lotrisone] hydrocortisone 1 applic TOPICAL UD 11/10/20 11/10/20 History Patient History Medical History Anxiety Chronic venous stasis Congenital hydrocephalus MDD (major depressive disorder) Surgical History H/O eye surgery "Strabismus Surgery" History of tonsillectomy History of tubal ligation Hx of tonsillectomy Family History Other Cancer Diabetes Social History Smoking Status: Unknown if ever smoked Preferred Language: [place] Citizen Communication Ability: Impaired Beliefs That Will Affect Care: None Current Living Situation: Alone Current Living Situation Comment: Ayesha Palumbo comes to home Feels Safe at Home: Yes Assistive Devices: Oxygen - Continuous Review of Systems Review of Systems: Unobtainable due to mental health condition Physical Exam Physical Exam: Constitutional: No acute distress HEENT: EOMI, PERRLA, arcus senilis bilaterally Respiratory system: Decreased air entry bilaterally, positive crackles bilateral lower lobes, no rhonchi, no wheeze CVS: S1-S2 positive, no murmurs or gallops Abdomen: Soft, nontender, nondistended, positive bowel sounds x4 Extremities: +2 pulses bilaterally radialis/ dorsalis pedis, no cyanosis, no edema Neuro: Awake alert oriented x3 Psych: Restless G/U: Positive Rosario Left IJ, positive NGT Skin: no rashes, warm and dry Lymphatic: no cervical or axillary lymphadenopathy Results & Data Results & Data ([facility]) Vital Signs (Past 12 Hours) Vital Signs Temp Pulse Pulse Resp BP Pulse Ox 11/13/20 05:55 98 11/13/20 04:33 36.4 C L 86 19 150/89 H 96 11/13/20 03:12 80 20 98 11/13/20 00:53 67 11/12/20 23:49 76 20 98 11/12/20 23:09 36.4 C L 80 19 143/91 H 98 11/13/20 04:08 11/13/20 04:08 PG Care Time/CCT Total # of Minutes Spent Total Time Spent with Patient: Total time spent is greater than 50% in coordination of care (as documented) at patient's floor/unit and/or counseling patient: Coding Level of Care Code 31366 Initial Inpt Care Lvl 3 Diagnoses Acute respiratory failure with hypoxia J96.01 COVID-19 U07.1 Pulmonary embolism I26.99 Acute cor pulmonale presence: unspecified Chronicity: unspecified Pulmonary embolism type: other DVT (deep venous thrombosis) I82.413 Affected thrombotic vein of extremity: femoral Chronicity: acute DVT location: lower extremity Laterality: bilateral
[2020-11-13] MEDS ORDERED: LORazepam 2 MG/4 ML VIAL ONE (15:54)
[2020-11-13] MEDS ORDERED: bisacodyL 10 MG SUPP PR STA (16:23)
[2020-11-13] MEDS ORDERED: LORazepam 1 MG/2 ML VIAL IV STA (16:25)
--- NOTE | 2020-11-13 16:25 | Communication Note ---
Date of Service: November 13, 2020 GI was contacted regarding inability to place NG, Dr. Grace attempted at bedside but unable to comfortably place. Will plan for EGD w/ attempted NG Monday.
[2020-11-13] MEDS ORDERED: TPN/PPN CONSULT PHARMACY PRN (17:57)
[2020-11-13] MEDS: DONEPEZIL HCL 10 MG TAB PO SCH (20:41)
[2020-11-13 22:08] LABS: Partial Thromboplastin Ratio 2.4
[2020-11-14] MEDS: INSULIN ASPART 100 UNITS/ML 3 ML PEN SC SCH ×3 (00:23→20:00)
[2020-11-14 06:42] LABS: Hematocrit (blood only) 24.9 % (37-47); Hemoglobin 7.9 g/dL (12.0-16.0); Mean Corpuscular Hemoglobin 30.3 pg (25-34); Mean Corpuscular Hgb Conc 31.7 g/dL (32-36); Mean Corpuscular Volume 95.4 fL (80-100); Nucleated RBC # (auto) 0.07 K/uL (0-0); Nucleated RBC % (auto) 0.5 %; Platelet Count 272 K/uL (130-400); RDW Coefficient of Variation 17.6 % (11.5-14.5); RDW Standard Deviation 60.3 fL (36.4-46.3); Red Blood Count 2.61 M/uL (4.2-5.4); White Blood Count 16.03 K/uL (4.8-10.8)
[2020-11-14 07:04] LABS: INR 1.2 (0.9-1.1); Partial Thromboplastin Ratio 2.9; Prothrombin Time 12.1 Seconds (9.0-12.0)
[2020-11-14 07:05] LABS: Partial Thromboplastin Time 76.9 Seconds (21.0-31.0)
[2020-11-14] MEDS: DOXYCYCLINE HYCLATE 100 MG in DEXTROSE 5% 100 ML IV SCH ×2 (07:10→18:20)
[2020-11-14 07:35] LABS: BUN Creatinine Ratio 22.5 (10-20); Calcium 8.1 mg/dl (8.5-10.1); Creatinine Clr Calc Pharmacy 84.5 ml/min; Est GFR (African American) 100.9; Magnesium 1.8 mg/dl (1.8-2.4); Potassium 3.3 mmol/L (3.5-5.1)
[2020-11-14 07:38] LABS: Bilirubin,Total 0.5 mg/dl (0.2-1); Phosphorus 1.9 mg/dl (2.5-4.9)
[2020-11-14] MEDS: ACETYLCYSTEINE 20% INHAL SOLN 4ML ***DISPENSED BY RESP. INH SCH ×2 (07:38→19:53)
[2020-11-14] MEDS: ALBUT/IPRATROP 3MG/0.5MG NEB 3 ML VIAL NEB PRN ×2 (07:39→19:53)
[2020-11-14] MEDS ORDERED: POTASSIUM PHOS 3 MMOL/1 ML INFUSION IV STA (07:50)
--- NOTE | 2020-11-14 08:00 | Hospitalist Progress Note ---
Date of Service November 14, 2020 Assessment & Plan (1) Acute respiratory failure with hypoxia: (2) COVID-19 virus infection: Diagnosed on 10/21/2020. was treated w/ decadron On this admission - Required intubation on 11/10/2020. - Presently extubated. - Continue dexamethasone x 10 days - Remdesivir and plasma not indicated given duration of positivity - Now on 1-2L NC Bacterial pna/ hosp. acquired -Chest CTA from 11/10 demonstrated segmental pulmonary embolus within the posterior segment of the right lower lobe with associated pulmonary infarct, adjacent airspace opacity with possible cavitation, scattered ground glass and tree-in-bud nodules within the lungs. -CT abd/pelvis noted small right pleural effusion with possible cystic focus of right lower lobe -Continue on Decadron 6mg Procalcitonin 14.5, now down to 5.8 -Sputum cultures- posit. for Klebsiella, Quantiferon test - negative -Continued cefepime, doxy until speciation of sputum cultures with sensitivities - Transitioned to ceftriaxone, per pulmonary cont. Abx 10-14 days - attmpted US for thoracentesis but pl. effusion seems resolved now - chest PT/ vest, incent. spirometry - mucomyst inh, when able to take PO add guaifenesin (3) Pulmonary embolism: CTA chest on 11/10 showed segmental pulmonary embolus within the posterior basilar segment of the right lower lobe with associated pulmonary infarct. LE DVT b/l - Presently on heparin gtt - Vascular consulted for possible IVC filter - Defer for this time given her RP bleed is smaller than prior scan. (4) Retroperitoneal hematoma: Originally noted on 10/25/2020. She was sent to [place] at that time. Was hospitalized 10/25-10/30. CTA abdomen / pelvis obtained at that time- unremarkable Prior to her dg. of hematoma - pt was on Lovenox 60 subq, this was stopped on discharge from [place] CT a/p this time shows improvement. - Monitor vitals and hgb Dysphagia - Failed swallow study x2 - planned for NG tube/ coresafe placement, but unsuccessful - unable to swallow her own secretions, frequent suctioning - will start pt on PPN, possible NG tube on Monday Hypernatremia - secondary to poor oral intake - Na 150, on admission 148, now 149 (after 1/2 NSS) - Na level normal back in September - cont. to monitor, add D5W, nephro consult - monitor Na level Na 145 now AD (Alzheimer's disease): Unclear baseline. - Monitor Congenital hydrocephalus: No known present issues. MDD (major depressive disorder): - Continue sertraline, carbamazepine, and donepezil once pt can take PO DVT prophylaxis: Heparin gtt and warfarin transition for DVT/PE once pt can take PO Admission and Anticipated Discharge Date Admission Date: November 10, 2020 Subjective Pt seen in follow up of COVID pna, PE, DVT, hx of RP hematoma. Pt extubated and downgraded from ICU 2 days ago Pt answers most questions appropriately today, has no complaints, appears fatigued, 1:1 sitter present Swallow study attempted x2 - pt can not swallow, planned for NG tube/ coresafe placement however unsuccessful Will start PPN today US by pulm. today, no pl. effusion for thoracentesis Currently on IV heparin, IV Abx Sputum cultx posit. for - Klebsiella Review of Systems Review of Systems: All systems reviewed & are unremarkable except as noted in HPI & below Constitutional: + fatigue; no fever and no chills Respiratory: + cough and + dyspnea (improved) Cardiovascular: no chest pain and no palpitations Gastrointestinal: no abdominal pain, no nausea and no vomiting Physical Exam Physical Exam: Constitutional: WD/WN, vitals as above, on suppl. O2 1L/min Eyes: PERRL, conjunctivae normal, anicteric sclerae Neck: normal visual inspection and trachea midline, unable to swallow secretions, central line placed (L) Respiratory: decreased air entry, b/l lower lobes crackles, no wheezing noted Cardiovascular: RRR Heart Sounds: no murmur Gastrointestinal (Abdomen): Inspection/Auscultation: normal bowel sounds, + abdominal wall ecchymosis and + significant pannus; abdomen not distended Percussion/Palpation: abdomen soft; no guarding Neurologic: moves extremities, speech fluent but slow Psychiatric: able to answer most questions appropriately (at baseline) Appearance: + disheveled Results & Data Results & Data ([facility]) Vital Signs (Past 12 Hours) Vital Signs Temp Pulse Pulse Pulse Resp BP Pulse Ox 11/14/20 07:40 77 18 95 11/14/20 07:12 36.5 C 80 22 137/77 92 11/14/20 03:10 36.5 C 81 20 124/69 97 11/14/20 01:29 65 11/13/20 22:43 36.5 C 68 23 118/75 95 Laboratory Results 11/14/20 11/14/20 11/14/20 Range/Units 06:30 06:25 06:16 WBC 16.03 H (4.8-10.8) K/uL RBC 2.61 L (4.2-5.4) M/uL Hgb 7.9 L (12.0-16.0) g/dL Hct 24.9 L (37-47) % MCV 95.4 (80-100) fL MCH 30.3 (25-34) pg MCHC 31.7 L (32-36) g/dL RDW Std Deviation 60.3 H (36.4-46.3) fL RDW Coeff of Virgilio 17.6 H (11.5-14.5) % Plt Count 272 (130-400) K/uL MPV 12.0 H (7.4-10.4) fL Absolute Nucleated RBC 0.07 H (0-0) K/uL Nucleated RBC % (auto) 0.5 % PT 12.1 H (9.0-12.0) Seconds INR 1.2 H (0.9-1.1) APTT Cancelled 76.9 H* (21.0-31.0) Seconds PTT Ratio Cancelled 2.9 Sodium (136-145) mmol/L Potassium (3.5-5.1) mmol/L Chloride (98-107) mmol/L Carbon Dioxide (21-32) mmol/L Anion Gap (3-11) BUN (7-18) mg/dl Creatinine (0.6-1.2) mg/dl Est Cr Clr Drug Dosing ml/min Est GFR ( Amer) Est GFR (Non-Af Amer) BUN/Creatinine Ratio (10-20) Glucose (70-99) mg/dl POC Glucose (70-99) mg/dl Calcium (8.5-10.1) mg/dl Phosphorus (2.5-4.9) mg/dl Magnesium (1.8-2.4) mg/dl Total Bilirubin (0.2-1) mg/dl AST (15-37) U/L ALT (12-78) U/L Alkaline Phosphatase (45-117) U/L TB Test (QFT) Gold Plus (NEGATIVE) TB Test (QFT) Nil IU/mL TB Test Mitogen - Nil IU/mL TB Test Ag - Nil 1 IU/mL TB Test Ag - Nil 2 IU/mL 11/14/20 11/14/20 11/14/20 Range/Units 06:16 06:00 00:20 WBC (4.8-10.8) K/uL RBC (4.2-5.4) M/uL Hgb (12.0-16.0) g/dL Hct (37-47) % MCV (80-100) fL MCH (25-34) pg MCHC (32-36) g/dL RDW Std Deviation (36.4-46.3) fL RDW Coeff of Virgilio (11.5-14.5) % Plt Count (130-400) K/uL MPV (7.4-10.4) fL Absolute Nucleated RBC (0-0) K/uL Nucleated RBC % (auto) % PT (9.0-12.0) Seconds INR (0.9-1.1) APTT (21.0-31.0) Seconds PTT Ratio Sodium 145 (136-145) mmol/L Potassium 3.3 L (3.5-5.1) mmol/L Chloride 113 H (98-107) mmol/L Carbon Dioxide 27 (21-32) mmol/L Anion Gap 5.0 (3-11) BUN 15 (7-18) mg/dl Creatinine 0.66 (0.6-1.2) mg/dl Est Cr Clr Drug Dosing 84.5 ml/min Est GFR ( Amer) 100.9 Est GFR (Non-Af Amer) 87.0 BUN/Creatinine Ratio 22.5 H (10-20) Glucose 135 H (70-99) mg/dl POC Glucose 156 H 159 H (70-99) mg/dl Calcium 8.1 L (8.5-10.1) mg/dl Phosphorus 1.9 L (2.5-4.9) mg/dl Magnesium 1.8 (1.8-2.4) mg/dl Total Bilirubin 0.5 (0.2-1) mg/dl AST 16 (15-37) U/L ALT 20 (12-78) U/L Alkaline Phosphatase 107 (45-117) U/L TB Test (QFT) Gold Plus (NEGATIVE) TB Test (QFT) Nil IU/mL TB Test Mitogen - Nil IU/mL TB Test Ag - Nil 1 IU/mL TB Test Ag - Nil 2 IU/mL 11/13/20 11/13/20 11/13/20 Range/Units 21:30 20:32 17:42 WBC (4.8-10.8) K/uL RBC (4.2-5.4) M/uL Hgb (12.0-16.0) g/dL Hct (37-47) % MCV (80-100) fL MCH (25-34) pg MCHC (32-36) g/dL RDW Std Deviation (36.4-46.3) fL RDW Coeff of Virgilio (11.5-14.5) % Plt Count (130-400) K/uL MPV (7.4-10.4) fL Absolute Nucleated RBC (0-0) K/uL Nucleated RBC % (auto) % PT (9.0-12.0) Seconds INR (0.9-1.1) APTT 62.0 H* (21.0-31.0) Seconds PTT Ratio 2.4 Sodium (136-145) mmol/L Potassium (3.5-5.1) mmol/L Chloride (98-107) mmol/L Carbon Dioxide (21-32) mmol/L Anion Gap (3-11) BUN (7-18) mg/dl Creatinine (0.6-1.2) mg/dl Est Cr Clr Drug Dosing ml/min Est GFR ( Amer) Est GFR (Non-Af Amer) BUN/Creatinine Ratio (10-20) Glucose (70-99) mg/dl POC Glucose 128 H 175 H (70-99) mg/dl Calcium (8.5-10.1) mg/dl Phosphorus (2.5-4.9) mg/dl Magnesium (1.8-2.4) mg/dl Total Bilirubin (0.2-1) mg/dl AST (15-37) U/L ALT (12-78) U/L Alkaline Phosphatase (45-117) U/L TB Test (QFT) Gold Plus (NEGATIVE) TB Test (QFT) Nil IU/mL TB Test Mitogen - Nil IU/mL TB Test Ag - Nil 1 IU/mL TB Test Ag - Nil 2 IU/mL 11/13/20 11/13/20 11/13/20 Range/Units 14:18 11:46 08:07 WBC (4.8-10.8) K/uL RBC (4.2-5.4) M/uL Hgb (12.0-16.0) g/dL Hct (37-47) % MCV (80-100) fL MCH (25-34) pg MCHC (32-36) g/dL RDW Std Deviation (36.4-46.3) fL RDW Coeff of Virgilio (11.5-14.5) % Plt Count (130-400) K/uL MPV (7.4-10.4) fL Absolute Nucleated RBC (0-0) K/uL Nucleated RBC % (auto) % PT (9.0-12.0) Seconds INR (0.9-1.1) APTT 75.5 H* (21.0-31.0) Seconds PTT Ratio 2.9 Sodium (136-145) mmol/L Potassium (3.5-5.1) mmol/L Chloride (98-107) mmol/L Carbon Dioxide (21-32) mmol/L Anion Gap (3-11) BUN (7-18) mg/dl Creatinine (0.6-1.2) mg/dl Est Cr Clr Drug Dosing ml/min Est GFR ( Amer) Est GFR (Non-Af Amer) BUN/Creatinine Ratio (10-20) Glucose (70-99) mg/dl POC Glucose 134 H 126 H (70-99) mg/dl Calcium (8.5-10.1) mg/dl Phosphorus (2.5-4.9) mg/dl Magnesium (1.8-2.4) mg/dl Total Bilirubin (0.2-1) mg/dl AST (15-37) U/L ALT (12-78) U/L Alkaline Phosphatase (45-117) U/L TB Test (QFT) Gold Plus (NEGATIVE) TB Test (QFT) Nil IU/mL TB Test Mitogen - Nil IU/mL TB Test Ag - Nil 1 IU/mL TB Test Ag - Nil 2 IU/mL 11/11/20 Range/Units 10:16 WBC (4.8-10.8) K/uL RBC (4.2-5.4) M/uL Hgb (12.0-16.0) g/dL Hct (37-47) % MCV (80-100) fL MCH (25-34) pg MCHC (32-36) g/dL RDW Std Deviation (36.4-46.3) fL RDW Coeff of Virgilio (11.5-14.5) % Plt Count (130-400) K/uL MPV (7.4-10.4) fL Absolute Nucleated RBC (0-0) K/uL Nucleated RBC % (auto) % PT (9.0-12.0) Seconds INR (0.9-1.1) APTT (21.0-31.0) Seconds PTT Ratio Sodium (136-145) mmol/L Potassium (3.5-5.1) mmol/L Chloride (98-107) mmol/L Carbon Dioxide (21-32) mmol/L Anion Gap (3-11) BUN (7-18) mg/dl Creatinine (0.6-1.2) mg/dl Est Cr Clr Drug Dosing ml/min Est GFR ( Amer) Est GFR (Non-Af Amer) BUN/Creatinine Ratio (10-20) Glucose (70-99) mg/dl POC Glucose (70-99) mg/dl Calcium (8.5-10.1) mg/dl Phosphorus (2.5-4.9) mg/dl Magnesium (1.8-2.4) mg/dl Total Bilirubin (0.2-1) mg/dl AST (15-37) U/L ALT (12-78) U/L Alkaline Phosphatase (45-117) U/L TB Test (QFT) Gold Plus NEGATIVE (NEGATIVE) TB Test (QFT) Nil 0.04 IU/mL TB Test Mitogen - Nil 1.29 IU/mL TB Test Ag - Nil 1 0.00 IU/mL TB Test Ag - Nil 2 0.00 IU/mL Medications Administered Current Inpatient Medications Acetylcysteine (Acetylcysteine 20% Inhal Soln 4ml Dispensed By Resp.) 5 ml INH Q12R DANIELLA Stop: 12/13/20 12:59 Last Admin: 11/14/20 07:38 Dose: 5 ml Documented by: Albuterol (Albut/Ipratrop 3mg/0.5mg Neb 3 Ml Vial) 3 ml NEB Q4R PRN PRN Reason: Shortness Of Breath Or Wheezing Stop: 12/13/20 14:59 Last Admin: 11/14/20 07:39 Dose: 3 ml Documented by: Carbamazepine (Carbamazepine 200 Mg Tablet) 200 mg PO BID DANIELLA Stop: 12/11/20 20:59 Last Admin: 11/13/20 20:41 Dose: Not Given Documented by: Donepezil HCl (Donepezil Hcl 10 Mg Tab) 10 mg PO HS DANIELLA Stop: 12/10/20 20:59 Last Admin: 11/13/20 20:41 Dose: Not Given Documented by: Heparin Sodium (Beef Lung) (Heparin 10 Unit/Ml 5 Ml Flush) 5 ml FLUSH PRN PRN PRN Reason: Flush Stop: 12/11/20 22:31 Last Admin: 11/12/20 15:46 Dose: 5 ml Documented by: Heparin Sodium/Dextrose (Heparin Sodium/Dextrose) 25,000 units in 500 mls @ 24 mls/hr IV .[id number] [facility]; Protocol Stop: 12/10/20 12:59 Last Admin: 11/13/20 22:34 Dose: 1,200 units/hr, 24 mls/hr Documented by: Dexamethasone 6 mg/ Syringe 1.5 mls @ 1 mls/min IV DAILY DANIELLA Stop: 11/18/20 08:59 Last Admin: 11/13/20 08:41 Dose: 1 mls/min Documented by: Doxycycline Hyclate 100 mg/ (Dextrose) 110 mls @ 50 mls/hr IV Q12H [facility]; Protocol Stop: 11/19/20 17:59 Last Infusion: 11/13/20 19:53 Dose: Infused Documented by: Pantoprazole Sodium 40 mg/ (Syringe) 10 mls @ 5 mls/min IV DAILY@1100 [facility] Stop: 12/13/20 10:59 Last Admin: 11/13/20 11:35 Dose: 5 mls/min Documented by: Dextrose (D5w) 500 mls @ 100 mls/hr IV .Q5H DANIELLA Stop: 12/13/20 10:14 Last Admin: 11/13/20 23:45 Dose: 100 mls/hr Documented by: Ceftriaxone Sodium 2,000 mg/ (Dextrose) 70 mls @ 100 mls/hr IV Q24H [facility]; Protocol Stop: 11/20/20 13:59 Last Infusion: 11/13/20 15:02 Dose: Infused Documented by: Potassium Chloride (K Marcus / Wtr) 10 meq in 100 mls @ 100 mls/hr IV ONE ONE Stop: 11/14/20 09:29 Insulin Aspart (Insulin Aspart 100 Units/Ml 3 Ml Pen) 0 units SC Q6 [facility]; Protocol Stop: 12/13/20 07:29 Last Admin: 11/14/20 00:23 Dose: 2 units Documented by: Miscellaneous Information (Pharmacy Glycemic Mgmt Consult) 1 ea N/A UD PRN PRN Reason: Consult Stop: 12/11/20 08:28 Miscellaneous Information (Tpn/Ppn Consult Pharmacy) 1 ea N/A UD PRN PRN Reason: Consult Stop: 12/13/20 17:56 Pantoprazole Sodium (Pantoprazole 40 Mg Tab) 40 mg PO QAM [facility] Stop: 12/12/20 08:59 Last Admin: 11/13/20 08:15 Dose: Not Given Documented by: Potassium Phosphate (Potassium Phos 3 Mmol/1 Ml Infusion) 15 mmol IV NOW STA Stop: 11/14/20 07:51 Sertraline HCl (S[facility]raline Hcl 100 Mg Tablet) [facility] Stop: 12/12/20 08:59 Last Admin: 11/13/20 08:16 Dose: Not Given Documented by: Warfarin Sodium (Warfarin Sod 5 Mg Tab) 5 mg PO DAILY@1600 DANIELLA Stop: 12/11/20 15:59 Last Admin: 11/11/20 17:09 Dose: Not Given Documented by: (1) Pulmonary embolism Acute cor pulmonale presence: unspecified Chronicity: unspecified Pulmonary embolism type: other Qualified Code(s): I26.99 - Other pulmonary embolism without acute cor pulmonale
[2020-11-14] MEDS ORDERED: POTASSIUM PHOSPHATE 15 MMOL in SODIUM CHLORIDE 0.9% 250 ML IV ONE (08:30)
[2020-11-14] MEDS ORDERED: POTASSIUM CHLORIDE / WTR 10 MEQ/100 ML PLCT IV ONE (08:30)
[2020-11-14] MEDS: dexAMETHasone 6 MG in SYRINGE 0 ML IV SCH (09:56)
[2020-11-14] MEDS: carBAMazepine 200 MG TABLET PO SCH ×2 (09:56→21:12)
[2020-11-14] MEDS: SERTRALINE HCL 100 MG TABLET PO SCH (09:56)
--- NOTE | 2020-11-14 10:02 | Nephrology Progress Note ---
Date of Service November 14, 2020 Assessment & Plan (1) Electrolyte imbalance: Patient with electrolytes imbalance including hypokalemia and hypernatremia. Electrolyte problems are due to poor p.o. intake. Patient is planned for EGD and NG tube placement on Monday. -Continue potassium chloride supplementation -Continue D5 water as needed if sodium is above 145 Admission and Anticipated Discharge Date Admission Date: November 10, 2020 Subjective Seen in follow-up for electrolyte imbalance. Patient reports to be feeling well. She is drowsy. Patient is n.p.o. and has failed swallowing test. She remains intermittently hypoxic requiring oxygen Review of Systems Review of Systems: All systems reviewed & are unremarkable except as noted in HPI & below Physical Exam Physical Exam: General exam: Appears comfortable, no acute distress on oxygen facemask HEENT: Pupils are equal and reactive to light Neck: No JVD, neck is supple trachea is midline Respiratory system: Clear breath sounds bilaterally. Gastrointestinal: Abdomen is soft, non distended, non tender, bowel sounds are present CVS: Regular rate and rhythm. No murmurs, rubs or gallops Musculoskeletal: No joint or muscle tenderness Extremities: Non tender, no edema, peripheral pulses are present Neuro: Drowsy, no tremors, no focal neurological deficits Skin: No rashes Results & Data ([facility]) Vital Signs (Past 12 Hours) Vital Signs Temp Pulse Pulse Pulse Resp BP Pulse Ox 11/14/20 07:40 77 18 95 11/14/20 07:12 36.5 C 80 22 137/77 92 11/14/20 03:10 36.5 C 81 20 124/69 97 11/14/20 01:29 65 11/13/20 22:43 36.5 C 68 23 118/75 95 Laboratory Results 11/14/20 06:16 11/14/20 11/14/20 06:16 06:16 WBC 16.03 H RBC 2.61 L MCV 95.4 MCH 30.3 MCHC 31.7 L RDW Std Deviation 60.3 H RDW Coeff of Virgilio 17.6 H Plt Count 272 MPV 12.0 H Phosphorus 1.9 L
--- NOTE | 2020-11-14 10:39 | Procedure Note ---
Procedure Note Date of Service November 14, 2020 Bedside lung ultrasound: Right side: No pleural effusion, consolidative process of the right lower lobe and air from the gums appreciated, positive B-lines Left side: No pleural effusion, minimal B-lines Please note the above document was generated using voice recognition software. It may contain grammatical, syntax or spelling errors.Any formal questions or concerns about the content, text or information contained within the body of this dictation should be directly addressed to the provider for clarification. Coding CPT Codes Pulmonary/Thoracic - Pulmonary and Thoracic: 83005 US, Chest, real time with imaging documentation ([id number]) [facility] Procedure Codes (Charges) Pulmonary/Thoracic Procedure 1: Pulmonary and Thoracic: 73482 US, Chest, real time with imaging documentation
--- NOTE | 2020-11-14 10:41 | Pulmonology Progress Note ---
Date of Service November 14, 2020 Assessment & Plan (1) Acute respiratory failure with hypoxia: CT chest 11/10/2020 personally reviewed: Right lower lobe consolidative process with bilateral tree-in-bud and groundglass opacities, there is right-sided pleural effusion medial, seems to be loculated. Hiatal hernia Mild right hilar adenopathy I do not see any clear cavitary lesion. Subsegmental PE on the right side --Acute hypoxic respiratory failure Multifactorial Secondary to aspiration pneumonia right lower lobe on top of COVID-19 PE also playing a part although it is subsegmental COVID-19 PCR 11/10/2020 positive, influenza A/B negative Sputum culture growing Klebsiella pansensitive Patient was initially diagnosed with COVID-19 on 10/23/2020 Gold QuantiFERON negative. Continue with O2 supplementation to keep oxygen saturation 90-92% --Right-sided pleural effusion --> resolved New compared to previous chest x-ray Seems to be partially loculated, could be parapneumonic --> bedside ultrasound 11/14/2020 did not show any pleural effusion on the right side. 2D echo 11/12/2020: EF 60-65%, mild concentric LVH. Right ventricle not visualized, diastolic function unable to be obtained --Acute PE with DVT On anticoagulation Patient also has retroperitoneal hemorrhage Plan: Okay to resume heparin. No plan for thoracentesis is bedside ultrasound did not show any right-sided pleural effusion. Incentive spirometry Mucomyst with bronchodilator twice daily along with chest PT Continue with O2 supplementation Continue with antibiotics for pneumonia or at least 10-14 days. Overall prognosis is guarded. Emma Guillen [phone], is POA No further recommendations from pulmonary perspective. Please recall if needed. Please note the above document was generated using voice recognition software. It may contain grammatical, syntax or spelling errors.Any formal questions or concerns about the content, text or information contained within the body of this dictation should be directly addressed to the provider for clarification. (2) COVID-19: (3) Pulmonary embolism: Acute cor pulmonale presence: unspecified Chronicity: unspecified Pulmonary embolism type: other Qualified Code(s): I26.99 - Other pulmonary embolism without acute cor pulmonale (4) DVT (deep venous thrombosis): Affected thrombotic vein of extremity: femoral Chronicity: acute DVT location: lower extremity Laterality: bilateral Qualified Code(s): I82.413 - Acute embolism and thrombosis of femoral vein, bilateral Admission and Anticipated Discharge Date Admission Date: November 10, 2020 Subjective Patient seen and examined at bedside. No acute distress, no adverse events overnight. Patient is a poor historian. Denies any chest pain, no shortness of breath, no headache, no nausea, no vomiting. Review of Systems Review of Systems: All systems reviewed & are unremarkable except as noted in Subjective Physical Exam Physical Exam: Constitutional: No acute distress HEENT: EOMI, PERRLA, arcus senilis bilaterally Respiratory system: Decreased air entry bilaterally, positive crackles bilateral lower lobes, no rhonchi, no wheeze CVS: S1-S2 positive, no murmurs or gallops Abdomen: Soft, nontender, nondistended, positive bowel sounds x4 Extremities: +2 pulses bilaterally radialis/ dorsalis pedis, no cyanosis, no edema Neuro: Awake alert oriented x3 Psych: Restless G/U: Positive Rosario Left IJ, positive NGT Skin: no rashes, warm and dry Lymphatic: no cervical or axillary lymphadenopathy Results & Data Results & Data ([facility]) Vital Signs (Past 12 Hours) Vital Signs Temp Pulse Pulse Pulse Resp BP Pulse Ox 11/14/20 07:40 77 18 95 11/14/20 07:12 36.5 C 80 22 137/77 92 11/14/20 03:10 36.5 C 81 20 124/69 97 11/14/20 01:29 65 11/13/20 22:43 36.5 C 68 23 118/75 95 11/14/20 06:16 11/14/20 06:16 PG Care Time/CCT Total # of Minutes Spent Total Time Spent with Patient: Total time spent is greater than 50% in coordination of care (as documented) at patient's floor/unit and/or counseling patient: Coding Level of Care Code 36343 Subseq Hosp Care Lvl 3 Diagnoses Acute respiratory failure with hypoxia J96.01 COVID-19 U07.1 Pulmonary embolism I26.99 Acute cor pulmonale presence: unspecified Chronicity: unspecified Pulmonary embolism type: other DVT (deep venous thrombosis) I82.413 Affected thrombotic vein of extremity: femoral Chronicity: acute DVT location: lower extremity Laterality: bilateral
[2020-11-14] MEDS: PANTOprazole 40 MG in SYRINGE 0 ML IV SCH (11:10)
--- NOTE | 2020-11-14 12:39 | Pharmacy Report ---
Glycemic Control Progress Note - Date of Service November 14, 2020 - Scope Glycemic Pharmacist consulted for glycemic control to write orders per [facility] inpatient glycemic control protocol. - Objective Accuchecks BSG(last 24 hours):: 11/13/20 11/13/20 11/14/20 17:42 20:32 00:20 Glucose POC Glucose 175 H 128 H 159 H 11/14/20 11/14/20 11/14/20 06:00 06:16 11:03 Glucose 135 H POC Glucose 156 H 102 H HbA1c:: Hemoglobin A1c 5.8 % (4.5-5.6) H 11/12/20 05:02 - Recent Pertinent Medications The patient is currently receiving: * Basal insulin: Lantus 0 units every 12 hours * Correctional Insulin: Novolog Correction per scale ACHS Goal Range: Low 110 mg/dL - High 140 mg/dL Correction Factor: 15 mg/dL/unit * Prandial insulin: Per carb ratio of 1 unit per 15 grams CHO consumed - Outpatient Anti-Diabetic Meds N/A - Assessment & Plan ASSESSMENT: * See progress note from 11/11/20 for more background info, in short: * Pt receiving SQ basal bolus insulin regimen for hyperglycemia secondary to dexamethasone. Patient's HbA1C is 5.8%. * Patient is currently receiving an average of 5 units of insulin per day * 0 units of basal insulin * 5 units of prandial/correctional insulin * BSGs ranging 126 - 175 mg/dl over the past 24hrs * Changes needed to insulin regimen: * AM Fasting BSG = 135 mg/dl. This is goal range for patient based on inpatient targets and co-morbidities. Will continue with current regimen of NO basal insulin. Patient to potentially start PPN today. Plan to monitor BSGs while on PPN... only giving 50 grams of dextrose which is less than what patient received on 11/13/20. BSG only increased to 175 mg/dL but rapidly corrected. * Post-prandial BSGs are reasonable. Will loosen to CF of 20. * Total daily dose = <10 units. Monitor with initiation of PPN. PLAN FOR INPATIENT GLYCEMIC CONTROL: * LOOSENING correction factor to 20 mg/dl/unit * Starting carb ratio of 1 unit per 6 grams CHO consumed * Continuing goal range of Low 110 mg/dL - High 140 mg/dL * Please note that the plan above was derived based on current level of insulin resistance and hospital stress. These recommendations are appropriate for inpatient admission only. Plan of care upon discharge will need to be reassessed to avoid potential outpatient hypo/hyperglycemia. Thank you.
--- NOTE | 2020-11-14 12:46 | Pharmacy Report ---
Pharmacy PN Initial Consult - Date of Service November 14, 2020 - Scope Pharmacy has been consulted to manage parenteral nutrition orders and order appropriate labs. As part of the Nutrition Support Team guidelines, pharmacy will work in conjunction with dietary when determining the patients caloric needs. - Subjective The patient is a 75 year old F admitted on 11/10/20 13:41 for COVID-19. Patient is to receive parenteral nutrition for prolonged NPO status with aspiration. Plan for NG on Monday. Pertinent PMH: N/A - Objective Height: 5 ft 6 in Weight: 89.9 kg Diet: NPO Vascular Access:: Peripheral Intake & Output (Last 24Hrs): Intake & Output 11/12/20 11/13/20 11/14/20 11/15/20 06:59 06:59 06:59 06:59 Intake Total 3228.383 / 3228.383 3537.333 / 3537.333 2542.866 / 3042.866 793.6 / 793.6 Output Total 835 / 835 1350 / 1350 1850 / 1850 Balance 2393.383 / 2393.383 2187.333 / 2187.333 692.866 / 1192.866 793.6 / 793.6 Weight 90 kg 90.8 kg 89.9 kg 89.9 kg Laboratory Data (Last 24 Hrs):: 11/14/20 06:16 Sodium 145 Potassium 3.3 L Chloride 113 H Carbon Dioxide 27 BUN 15 Creatinine 0.66 Glucose 135 H Calcium 8.1 L Phosphorus 1.9 L Magnesium 1.8 Total Bilirubin 0.5 AST 16 ALT 20 Alkaline Phosphatase 107 Nutrition Assessment:: Please refer to the Notes section of the EMR for the most recent fashion buyer note. - Assessment Patient with prolonged NPO status and at risk for refeeding syndrome. Phosphorus today is 1.9 mg/dL and 15 mmol of Kphos ordered. Recheck at 1300 to determine if PPN safe to initiate. Due to risk for refeeding syndrome, start with only 50 grams of dextrose (received 70 grams yesterday with resultant electrolyte abnormalities) plus aggressive protein and fat replacement. Aggressive phosphorus, magnesium, and potassium in formula. - Plan For day 1 of PN administration, the following will be ordered: Macronutrients Amino acids 75 grams/day Dextrose 50 grams/day Lipids 50 grams/day Micronutrients Combined electrolytes 20 mL - contains 35 mEq Na, 20 meq K, 4.5 mEq Ca, 5 mEq Mg, 35 mEq Cl, 29.5 mEq acetate per 20 mL Sodium phosphate -- MMol Sodium chloride 50 mEq Sodium acetate 50 mEq Potassium phosphate 24 mMol Potassium chloride -- mEq Potassium acetate 30 mEq Magnesium sulfate 4.06 mEq Calcium gluconate -- mEq Multivitamins 10 mL Trace Elements 10 mL Additional additives: thiamine and folic acid Total volume 2000 mL to be infused over 24 hrs will provide 970 kcal/day Final osmolarity 710 mOsm/L (maximum for PPN is 900 mOsm/L) Labs to be ordered per PN order protocol Pharmacy will follow and adjust parenteral nutrition orders on a daily basis. Thank you.
[2020-11-14 13:06] LABS: Hematocrit (blood only) 26.4 % (37-47); Hemoglobin 8.4 g/dL (12.0-16.0)
[2020-11-14] MEDS: cefTRIAXone SODIUM 2,000 MG in DEXTROSE 5% 50 ML IV SCH (14:10)
[2020-11-14] MEDS ORDERED: bisacodyL 10 MG SUPP PR STA (15:20)
[2020-11-14] MEDS ORDERED: Custom Peripheral Pn 2,000 ML in TPN BAG 0 ML IV SCH (16:00)
[2020-11-14] MEDS ORDERED: bisacodyL 10 MG SUPP PR ONE (18:24)
[2020-11-14 20:29] LABS: Partial Thromboplastin Ratio 1.9
[2020-11-14] MEDS: HEPARIN SODIUM/DEXTROSE 25,000 UNITS/500 ML BAG IV SCH ×2 (20:29→21:09)
[2020-11-14 20:56] LABS: Partial Thromboplastin Time 50.5 Seconds (21.0-31.0)
[2020-11-14] MEDS: DONEPEZIL HCL 10 MG TAB PO SCH (21:12)
[2020-11-15] MEDS: INSULIN ASPART 100 UNITS/ML 3 ML PEN SC SCH ×8 (00:23→20:35)
[2020-11-15 06:36] LABS: Hematocrit (blood only) 27.7 % (37-47); Hemoglobin 8.8 g/dL (12.0-16.0); Mean Corpuscular Hgb Conc 31.8 g/dL (32-36); Mean Corpuscular Volume 94.5 fL (80-100); Nucleated RBC # (auto) 0.11 K/uL (0-0); Nucleated RBC % (auto) 0.6 %; Platelet Count 272 K/uL (130-400); RDW Coefficient of Variation 17.6 % (11.5-14.5); RDW Standard Deviation 59.7 fL (36.4-46.3); Red Blood Count 2.93 M/uL (4.2-5.4); White Blood Count 18.22 K/uL (4.8-10.8)
[2020-11-15 06:56] LABS: Partial Thromboplastin Ratio 2.7
[2020-11-15 07:00] LABS: Partial Thromboplastin Time 70.7 Seconds (21.0-31.0)
[2020-11-15] MEDS: DEXTROSE 5% 500 ML IV SCH ×2 (07:09→07:10)
[2020-11-15 07:17] LABS: BUN Creatinine Ratio 27.2 (10-20); Calcium 7.8 mg/dl (8.5-10.1); Creatinine Clr Calc Pharmacy 83.9 ml/min; Est GFR (African American) 100.9; Magnesium 1.7 mg/dl (1.8-2.4); Phosphorus 2.3 mg/dl (2.5-4.9); Potassium 3.9 mmol/L (3.5-5.1)
[2020-11-15] MEDS: ALBUT/IPRATROP 3MG/0.5MG NEB 3 ML VIAL NEB PRN ×2 (07:52→19:21)
[2020-11-15] MEDS: ACETYLCYSTEINE 20% INHAL SOLN 4ML ***DISPENSED BY RESP. INH SCH ×2 (07:52→19:21)
--- NOTE | 2020-11-15 07:57 | Hospitalist Progress Note ---
Date of Service November 15, 2020 Assessment & Plan (1) Acute respiratory failure with hypoxia: (2) COVID-19 virus infection: Diagnosed on 10/21/2020. was treated w/ decadron On this admission - Required intubation on 11/10/2020. - Presently extubated. - Continued dexamethasone while inpt, will stop now - Remdesivir and plasma not indicated given duration of positivity - Now on 1-2L NC - off isolation d/t duration of positivity Bacterial pna/ hosp. acquired -Chest CTA from 11/10 demonstrated segmental pulmonary embolus within the posterior segment of the right lower lobe with associated pulmonary infarct, adjacent airspace opacity with possible cavitation, scattered ground glass and tree-in-bud nodules within the lungs. -CT abd/pelvis noted small right pleural effusion with possible cystic focus of right lower lobe Procalcitonin 14.5, now down to 5.8 -Sputum cultures- posit. for Klebsiella, Quantiferon test - negative -Continued cefepime, doxy until speciation of sputum cultures with sensitivities - Transitioned to ceftriaxone, per pulmonary cont. Abx 10-14 days - attempted US for thoracentesis but pl. effusion seems resolved now - chest PT/ vest, incent. spirometry - mucomyst inh, when able to take PO add guaifenesin (3) Pulmonary embolism: CTA chest on 11/10 showed segmental pulmonary embolus within the posterior basilar segment of the right lower lobe with associated pulmonary infarct. LE DVT b/l - Presently on heparin gtt - Vascular consulted for possible IVC filter - Defer for this time given her RP bleed is smaller than prior scan. (4) Retroperitoneal hematoma: Originally noted on 10/25/2020. She was sent to [place] at that time. Was hospitalized 10/25-10/30. CTA abdomen / pelvis obtained at that time- unremarkable Prior to her dg. of hematoma - pt was on Lovenox 60 subq, this was stopped on discharge from [place] CT a/p this time shows improvement. - Monitor vitals and hgb Dysphagia - Failed swallow study x2 - planned for NG tube/ coresafe placement, but unsuccessful - unable to swallow her own secretions, frequent suctioning - Started pt on PPN, possible NG tube on Monday Hypernatremia - secondary to poor oral intake - Na 150, on admission 148, now 149 (after 2 NSS) - Na level normal back in September - cont. to monitor, add D5W, nephro consult - monitor Na level Na 145 now AD (Alzheimer's disease): Unclear baseline. - Monitor Congenital hydrocephalus: No known present issues. MDD (major depressive disorder): - Continue sertraline, carbamazepine, and donepezil once pt can take PO DVT prophylaxis: Heparin gtt and warfarin transition for DVT/PE once pt can take PO Admission and Anticipated Discharge Date Admission Date: November 10, 2020 Subjective Pt seen in follow up of COVID pna, PE, DVT, hx of RP hematoma. Pt extubated and downgraded from ICU 2 days ago Pt appears fatigued, 1:1 sitter present Swallow study attempted x2 - pt can not swallow, planned for NG tube/ coresafe placement however unsuccessful Started PPN yesterday US by pulm. - no pl. effusion for thoracentesis Currently on IV heparin, IV Abx Sputum cultx posit. for - Klebsiella Review of Systems Review of Systems: All systems reviewed & are unremarkable except as noted in HPI & below Constitutional: + fatigue; no fever and no chills Respiratory: + cough and + dyspnea (improved) Cardiovascular: no chest pain and no palpitations Gastrointestinal: no abdominal pain and no vomiting Physical Exam Physical Exam: Constitutional: WD/WN, vitals as above, on suppl. O2 1L/min Eyes: PERRL, conjunctivae normal, anicteric sclerae Neck: normal visual inspection and trachea midline, unable to swallow secretions, central line placed (L) Respiratory: decreased air entry, b/l lower lobes crackles, no wheezing noted Cardiovascular: RRR Heart Sounds: no murmur Gastrointestinal (Abdomen): Inspection/Auscultation: normal bowel sounds, + abdominal wall ecchymosis; abdomen not distended Percussion/Palpation: abdomen soft; no guarding Neurologic: moves extremities, speech fluent but slow Psychiatric: able to answer most questions appropriately (at baseline) Appearance: + disheveled Results & Data Results & Data ([facility]) Vital Signs (Past 12 Hours) Vital Signs Temp Pulse Pulse Pulse Resp BP Pulse Ox 11/15/20 07:11 36.5 C 76 20 149/80 H 92 11/15/20 03:49 36.6 C 72 20 125/81 94 11/15/20 00:00 74 11/14/20 23:41 37.1 C 85 20 131/81 93 Laboratory Results 11/15/20 11/15/20 11/15/20 Range/Units 07:20 06:20 06:20 WBC 18.22 H (4.8-10.8) K/uL RBC 2.93 L (4.2-5.4) M/uL Hgb 8.8 L (12.0-16.0) g/dL Hct 27.7 L (37-47) % MCV 94.5 (80-100) fL MCH 30.0 (25-34) pg MCHC 31.8 L (32-36) g/dL RDW Std Deviation 59.7 H (36.4-46.3) fL RDW Coeff of Virgilio 17.6 H (11.5-14.5) % Plt Count 272 (130-400) K/uL MPV 12.0 H (7.4-10.4) fL Absolute Nucleated RBC 0.11 H (0-0) K/uL Nucleated RBC % (auto) 0.6 % APTT 70.7 H* (21.0-31.0) Seconds PTT Ratio 2.7 Sodium (136-145) mmol/L Potassium (3.5-5.1) mmol/L Chloride (98-107) mmol/L Carbon Dioxide (21-32) mmol/L Anion Gap (3-11) BUN (7-18) mg/dl Creatinine (0.6-1.2) mg/dl Est Cr Clr Drug Dosing ml/min Est GFR ( Amer) Est GFR (Non-Af Amer) BUN/Creatinine Ratio (10-20) Glucose (70-99) mg/dl POC Glucose 124 H (70-99) mg/dl Calcium (8.5-10.1) mg/dl Phosphorus (2.5-4.9) mg/dl Magnesium (1.8-2.4) mg/dl 11/15/20 11/15/20 11/14/20 Range/Units 06:20 03:47 23:58 WBC (4.8-10.8) K/uL RBC (4.2-5.4) M/uL Hgb (12.0-16.0) g/dL Hct (37-47) % MCV (80-100) fL MCH (25-34) pg MCHC (32-36) g/dL RDW Std Deviation (36.4-46.3) fL RDW Coeff of Virgilio (11.5-14.5) % Plt Count (130-400) K/uL MPV (7.4-10.4) fL Absolute Nucleated RBC (0-0) K/uL Nucleated RBC % (auto) % APTT (21.0-31.0) Seconds PTT Ratio Sodium 145 (136-145) mmol/L Potassium 3.9 D (3.5-5.1) mmol/L Chloride 110 H (98-107) mmol/L Carbon Dioxide 28 (21-32) mmol/L Anion Gap 7.0 (3-11) BUN 18 (7-18) mg/dl Creatinine 0.66 (0.6-1.2) mg/dl Est Cr Clr Drug Dosing 83.9 ml/min Est GFR ( Amer) 100.9 Est GFR (Non-Af Amer) 87.0 BUN/Creatinine Ratio 27.2 H (10-20) Glucose 114 H (70-99) mg/dl POC Glucose 136 H 121 H (70-99) mg/dl Calcium 7.8 L (8.5-10.1) mg/dl Phosphorus 2.3 L (2.5-4.9) mg/dl Magnesium 1.7 L (1.8-2.4) mg/dl 11/14/20 11/14/20 11/14/20 Range/Units 20:25 20:00 18:16 WBC (4.8-10.8) K/uL RBC (4.2-5.4) M/uL Hgb (12.0-16.0) g/dL Hct (37-47) % MCV (80-100) fL MCH (25-34) pg MCHC (32-36) g/dL RDW Std Deviation (36.4-46.3) fL RDW Coeff of Virgilio (11.5-14.5) % Plt Count (130-400) K/uL MPV (7.4-10.4) fL Absolute Nucleated RBC (0-0) K/uL Nucleated RBC % (auto) % APTT 50.5 H* (21.0-31.0) Seconds PTT Ratio 1.9 Sodium (136-145) mmol/L Potassium (3.5-5.1) mmol/L Chloride (98-107) mmol/L Carbon Dioxide (21-32) mmol/L Anion Gap (3-11) BUN (7-18) mg/dl Creatinine (0.6-1.2) mg/dl Est Cr Clr Drug Dosing ml/min Est GFR ( Amer) Est GFR (Non-Af Amer) BUN/Creatinine Ratio (10-20) Glucose (70-99) mg/dl POC Glucose 155 H 168 H (70-99) mg/dl Calcium (8.5-10.1) mg/dl Phosphorus (2.5-4.9) mg/dl Magnesium (1.8-2.4) mg/dl 11/14/20 11/14/20 11/14/20 Range/Units 12:58 12:58 11:03 WBC (4.8-10.8) K/uL RBC (4.2-5.4) M/uL Hgb 8.4 L (12.0-16.0) g/dL Hct 26.4 L (37-47) % MCV (80-100) fL MCH (25-34) pg MCHC (32-36) g/dL RDW Std Deviation (36.4-46.3) fL RDW Coeff of Virgilio (11.5-14.5) % Plt Count (130-400) K/uL MPV (7.4-10.4) fL Absolute Nucleated RBC (0-0) K/uL Nucleated RBC % (auto) % APTT (21.0-31.0) Seconds PTT Ratio Sodium (136-145) mmol/L Potassium (3.5-5.1) mmol/L Chloride (98-107) mmol/L Carbon Dioxide (21-32) mmol/L Anion Gap (3-11) BUN (7-18) mg/dl Creatinine (0.6-1.2) mg/dl Est Cr Clr Drug Dosing ml/min Est GFR ( Amer) Est GFR (Non-Af Amer) BUN/Creatinine Ratio (10-20) Glucose (70-99) mg/dl POC Glucose 102 H (70-99) mg/dl Calcium (8.5-10.1) mg/dl Phosphorus 2.6 (2.5-4.9) mg/dl Magnesium (1.8-2.4) mg/dl Medications Administered Current Inpatient Medications Acetylcysteine (Acetylcysteine 20% Inhal Soln 4ml Dispensed By Resp.) 5 ml INH Q12R DANIELLA Stop: 12/13/20 12:59 Last Admin: 11/15/20 07:52 Dose: 5 ml Documented by: Albuterol (Albut/Ipratrop 3mg/0.5mg Neb 3 Ml Vial) 3 ml NEB Q4R PRN PRN Reason: Shortness Of Breath Or Wheezing Stop: 12/13/20 14:59 Last Admin: 11/15/20 07:52 Dose: 3 ml Documented by: Carbamazepine (Carbamazepine 200 Mg Tablet) 200 mg PO BID DANIELLA Stop: 12/11/20 20:59 Last Admin: 11/14/20 21:12 Dose: Not Given Documented by: Donepezil HCl (Donepezil Hcl 10 Mg Tab) 10 mg PO HS DANIELLA Stop: 12/10/20 20:59 Last Admin: 11/14/20 21:12 Dose: Not Given Documented by: Heparin Sodium (Beef Lung) (Heparin 10 Unit/Ml 5 Ml Flush) 5 ml FLUSH PRN PRN PRN Reason: Flush Stop: 12/11/20 22:31 Last Admin: 11/12/20 15:46 Dose: 5 ml Documented by: Heparin Sodium/Dextrose (Heparin Sodium/Dextrose) 25,000 units in 500 mls @ 23 mls/hr IV .[id number] [facility]; Protocol Stop: 12/10/20 12:59 Last Titration: 11/15/20 07:06 Dose: 1,150 units/hr, 23 mls/hr Documented by: Dexamethasone 6 mg/ Syringe 1.5 mls @ 1 mls/min IV DAILY DANIELLA Stop: 11/18/20 08:59 Last Admin: 11/14/20 09:56 Dose: 1 mls/min Documented by: Doxycycline Hyclate 100 mg/ (Dextrose) 110 mls @ 50 mls/hr IV Q12H [facility]; Protocol Stop: 11/19/20 17:59 Last Infusion: 11/14/20 20:32 Dose: Infused Documented by: Pantoprazole Sodium 40 mg/ (Syringe) 10 mls @ 5 mls/min IV DAILY@1100 DANIELLA Stop: 12/13/20 10:59 Last Admin: 11/14/20 11:10 Dose: 5 mls/min Documented by: Dextrose (D5w) 500 mls @ 100 mls/hr IV .Q5H [facility] Stop: 12/13/20 10:14 Last Admin: 11/15/20 07:10 Dose: Not Given Documented by: Ceftriaxone Sodium 2,000 mg/ (Dextrose) 70 mls @ 100 mls/hr IV Q24H DANIELLA; Protocol Stop: 11/20/20 13:59 Last Infusion: 11/14/20 15:00 Dose: Infused Documented by: Nutrition (Parenteral) 2,000 (ml/ TPN BAG) 2,000 mls @ 83 mls/hr IV .Q24H DANIELLA; Protocol Stop: 11/15/20 15:59 Last Admin: 11/14/20 16:25 Dose: 83 mls/hr Documented by: Insulin Aspart (Insulin Aspart 100 Units/Ml 3 Ml Pen) 0 units SC Q4 DANIELLA; Protocol Stop: 12/14/20 15:59 Last Admin: 11/15/20 04:06 Dose: Not Given Documented by: Miscellaneous Information (Pharmacy Glycemic Mgmt Consult) 1 ea N/A UD PRN PRN Reason: Consult Stop: 12/11/20 08:28 Miscellaneous Information (Tpn/Ppn Consult Pharmacy) 1 ea N/A UD PRN PRN Reason: Consult Stop: 12/13/20 17:56 Pantoprazole Sodium (Pantoprazole 40 Mg Tab) 40 mg PO QAM [facility] Stop: 12/12/20 08:59 Last Admin: 11/13/20 08:15 Dose: Not Given Documented by: Sertraline HCl (Sertraline Hcl 100 Mg Tablet) [facility] Stop: 12/12/20 08:59 Last Admin: 11/14/20 09:56 Dose: Not Given Documented by: Warfarin Sodium (Warfarin Sod 5 Mg Tab) 5 mg PO DAILY@1600 DANIELLA Stop: 12/11/20 15:59 Last Admin: 11/11/20 17:09 Dose: Not Given Documented by: (1) Pulmonary embolism Acute cor pulmonale presence: unspecified Chronicity: unspecified Pulmonary embolism type: other Qualified Code(s): I26.99 - Other pulmonary embolism without acute cor pulmonale
[2020-11-15] MEDS ORDERED: POTASSIUM PHOS 3 MMOL/1 ML INFUSION IV STA (07:58)
[2020-11-15] MEDS ORDERED: POTASSIUM PHOSPHATE 9 MMOL in SODIUM CHLORIDE 0.9% 250 ML IV ONE (08:30)
[2020-11-15] MEDS ORDERED: MAGNESIUM SULFATE / D5W 1 GM/100 ML BAG IV ONE (08:30)
[2020-11-15] MEDS: DOXYCYCLINE HYCLATE 100 MG in DEXTROSE 5% 100 ML IV SCH ×2 (08:55→17:25)
--- NOTE | 2020-11-15 08:56 | XRay Report ---
XR chest 1V portable HISTORY: 75 years-old Female f/u follow-up study in a patient with shortness of breath and pulmonary opacities COMPARISON: Chest radiograph 11/12/2020, CTA of the chest to 2020. TECHNIQUE: Portable AP view of the chest FINDINGS: Left IJ central venous catheter is again noted within the expected location of the left sided SVC. Ca rdiomegaly. No pneumothorax. Persistent pulmonary vascular congestion with interstitial coarsening. M ildly improved aeration of the right lung with persistent ill-defined right midlung and right lung ba se opacities with pleural effusion. Bones appear grossly intact. IMPRESSION: Mildly improved aeration of the right lung with persistent small right pleural effusion. ACT 112: Negative or not required by law. The above report was generated using voice recognition software. It may contain grammatical, syntax o r spelling errors. Electronically signed by: Randy Orr M.D. 11/15/2020 8:55 AM
[2020-11-15] MEDS: carBAMazepine 200 MG TABLET PO SCH ×2 (08:59→20:04)
[2020-11-15] MEDS: SERTRALINE HCL 100 MG TABLET PO SCH (08:59)
[2020-11-15] MEDS: dexAMETHasone 6 MG in SYRINGE 0 ML IV SCH (09:07)
[2020-11-15] MEDS: HEPARIN SODIUM/DEXTROSE 25,000 UNITS/500 ML BAG IV SCH (09:11)
[2020-11-15] MEDS: PANTOprazole 40 MG in SYRINGE 0 ML IV SCH (10:40)
--- NOTE | 2020-11-15 12:40 | Nephrology Progress Note ---
Date of Service November 15, 2020 Assessment & Plan (1) Electrolyte imbalance: Patient with electrolytes imbalance including hypokalemia and hypernatremia. Patient has low magnesium of 1.7 and low phosphorus of 2.3 today. Electrolyte problems are due to poor p.o. intake. Patient is planned for EGD and NG tube placement on Monday. -Agree with magnesium and phosphorus supplements. -Continue potassium chloride supplementation as needed -Continue D5 water as needed if sodium is above 145 Admission and Anticipated Discharge Date Admission Date: November 10, 2020 Subjective Seen in follow-up for electrolyte imbalance. Patient reports feeling about the same. No shortness of breath. She is now getting TPN. Continues to have multiple electrolyte abnormalities including low magnesium and phosphorus Review of Systems Review of Systems: All systems reviewed & are unremarkable except as noted in HPI & below Physical Exam Physical Exam: General exam: Appears comfortable, no acute distress. On oxygen by facemask HEENT: Pupils are equal and reactive to light Neck: No JVD, neck is supple trachea is midline Respiratory system: Clear breath sounds bilaterally. Gastrointestinal: Abdomen is soft, non distended, non tender, bowel sounds are present CVS: Regular rate and rhythm. No murmurs, rubs or gallops Musculoskeletal: No joint or muscle tenderness Extremities: Non tender, no edema, peripheral pulses are present Neuro: Oriented, no tremors, no focal neurological deficits Skin: No rashes Results & Data ([facility]) Vital Signs (Past 12 Hours) Vital Signs Temp Pulse Pulse Pulse Resp BP Pulse Ox 11/15/20 10:44 36.6 C 77 18 164/99 H 92 11/15/20 08:00 78 11/15/20 07:56 74 18 94 11/15/20 07:11 36.5 C 76 20 149/80 H 92 11/15/20 03:49 36.6 C 72 20 125/81 94 Laboratory Results 11/15/20 06:20 11/14/20 11/15/20 11/15/20 12:58 06:20 06:20 WBC 18.22 H RBC 2.93 L MCV 94.5 MCH 30.0 MCHC 31.8 L RDW Std Deviation 59.7 H RDW Coeff of Virgilio 17.6 H Plt Count 272 MPV 12.0 H Phosphorus 2.6 2.3 L
[2020-11-15 13:27] LABS: Partial Thromboplastin Ratio 2.1
[2020-11-15 13:32] LABS: Partial Thromboplastin Time 55.5 Seconds (21.0-31.0)
[2020-11-15] MEDS ORDERED: bisacodyL 10 MG SUPP PR STA (13:50)
[2020-11-15] MEDS: cefTRIAXone SODIUM 2,000 MG in DEXTROSE 5% 50 ML IV SCH (14:14)
[2020-11-15] MEDS ORDERED: Custom Peripheral Pn 2,000 ML in TPN BAG 0 ML IV SCH (16:00)
[2020-11-15] MEDS: DONEPEZIL HCL 10 MG TAB PO SCH (20:04)
[2020-11-16] MEDS: INSULIN ASPART 100 UNITS/ML 3 ML PEN SC SCH ×7 (00:06→23:55)
[2020-11-16] MEDS: HEPARIN SODIUM/DEXTROSE 25,000 UNITS/500 ML BAG IV SCH ×2 (04:09→23:55)
[2020-11-16] MEDS: DOXYCYCLINE HYCLATE 100 MG in DEXTROSE 5% 100 ML IV SCH ×2 (05:21→17:45)
[2020-11-16 06:30] LABS: Hematocrit (blood only) 24.8 % (37-47); Hemoglobin 7.8 g/dL (12.0-16.0); Mean Corpuscular Hemoglobin 30.4 pg (25-34); Mean Corpuscular Hgb Conc 31.5 g/dL (32-36); Mean Corpuscular Volume 96.5 fL (80-100); Mean Platelet Volume 11.9 fL (7.4-10.4); Nucleated RBC # (auto) 0.07 K/uL (0-0); Nucleated RBC % (auto) 0.4 %; Platelet Count 238 K/uL (130-400); RDW Coefficient of Variation 17.6 % (11.5-14.5); RDW Standard Deviation 61.5 fL (36.4-46.3); Red Blood Count 2.57 M/uL (4.2-5.4); White Blood Count 16.11 K/uL (4.8-10.8)
[2020-11-16 06:57] LABS: Partial Thromboplastin Ratio 2.2; Prothrombin Time 10.4 Seconds (9.0-12.0)
[2020-11-16 06:58] LABS: BUN Creatinine Ratio 40.1 (10-20); Calcium 7.5 mg/dl (8.5-10.1); Creatinine Clr Calc Pharmacy 92.4 ml/min; Est GFR (African American) 104.1; Est GFR (Non-African American) 89.8; Potassium 4.1 mmol/L (3.5-5.1)
[2020-11-16 07:07] LABS: Phosphorus 2.9 mg/dl (2.5-4.9)
[2020-11-16 07:11] LABS: Partial Thromboplastin Time 58.1 Seconds (21.0-31.0)
[2020-11-16] MEDS: ALBUT/IPRATROP 3MG/0.5MG NEB 3 ML VIAL NEB PRN ×2 (07:21→19:29)
[2020-11-16] MEDS: ACETYLCYSTEINE 20% INHAL SOLN 4ML ***DISPENSED BY RESP. INH SCH ×2 (07:22→19:29)
--- NOTE | 2020-11-16 07:27 | Hospitalist Progress Note ---
Date of Service November 16, 2020 Assessment & Plan (1) Acute respiratory failure with hypoxia: (2) COVID-19 virus infection: Diagnosed on 10/21/2020. was treated w/ decadron On this admission - Required intubation on 11/10/2020. - Presently extubated. - Continued dexamethasone while inpt, will stop now - Remdesivir and plasma not indicated given duration of positivity - Then on 1-2L NC - off isolation d/t duration of positivity Bacterial pna/ hosp. acquired -Chest CTA from 11/10 demonstrated segmental pulmonary embolus within the posterior segment of the right lower lobe with associated pulmonary infarct, adjacent airspace opacity with possible cavitation, scattered ground glass and tree-in-bud nodules within the lungs. -CT abd/pelvis noted small right pleural effusion with possible cystic focus of right lower lobe Procalcitonin 14.5, now down to 5.8 -Sputum cultures- posit. for Klebsiella, Quantiferon test - negative -Continued cefepime, doxy until speciation of sputum cultures with sensitivities - Transitioned to ceftriaxone, per pulmonary cont. Abx 10-14 days - attempted US for thoracentesis but pl. effusion seems resolved now - chest PT/ vest, incent. spirometry - mucomyst inh, when able to take PO add guaifenesin (3) Pulmonary embolism: CTA chest on 11/10 showed segmental pulmonary embolus within the posterior basilar segment of the right lower lobe with associated pulmonary infarct. LE DVT b/l - Presently on heparin gtt - Vascular consulted for possible IVC filter - Defer for this time given her RP bleed is smaller than prior scan. (4) Retroperitoneal hematoma: Originally noted on 10/25/2020. She was sent to [place] at that time. Was hospitalized 10/25-10/30. CTA abdomen / pelvis obtained at that time- unremarkable Prior to her dg. of hematoma - pt was on Lovenox 60 subq, this was stopped on discharge from [place] CT a/p this time shows improvement. - Monitor vitals and hgb Dysphagia - Failed swallow study x2 - NG tube/ coresafe placement manually unsuccessful - unable to swallow her own secretions, frequent suctioning - Started pt on PPN, will cont. for now - NG tube placed endoscopically (11/16) but unfortunately pt pulled it out Hypernatremia - secondary to poor oral intake - Na 150, on admission 148, now 149 (after 10/10 NSS) - Na level normal back in September - cont. to monitor, add D5W, nephro consult - monitor Na level Na 147 now AD (Alzheimer's disease): Unclear baseline. - Monitor Congenital hydrocephalus: No known present issues. MDD (major depressive disorder): - Continue sertraline, carbamazepine, and donepezil once pt can take PO DVT prophylaxis: Heparin gtt and warfarin transition for DVT/PE once pt can take PO Admission and Anticipated Discharge Date Admission Date: November 10, 2020 Subjective Pt seen in follow up of COVID pna, PE, DVT, hx of RP hematoma. Hgb 7.8 (11/16/20) - possibly dilutional, will hold PPN and heparin for now, will recheck H&H Update: H&H stable - restart PPN and heparin Pt extubated and downgraded from ICU 3 days ago Pt appears fatigued, 1:1 sitter not currently present Swallow study attempted x2 - pt can not swallow, planned for NG tube/ coresafe placement however unsuccessful Now s/p NGT placement by GI (11/16) endoscopically Update: Pt pulled out NGT several hrs after placement Started PPN over the weekend US by pulm. - no pl. effusion for thoracentesis Currently on IV heparin, IV Abx Sputum cultx posit. for - Klebsiella Review of Systems Review of Systems: All systems reviewed & are unremarkable except as noted in HPI & below Constitutional: + fatigue; no fever and no chills Respiratory: + cough and + dyspnea (improved) Cardiovascular: no chest pain and no palpitations Gastrointestinal: no abdominal pain, no nausea and no vomiting Physical Exam Physical Exam: Constitutional: WD/WN, vitals as above, on suppl. O2, NGT placed Eyes: PERRL, conjunctivae normal, anicteric sclerae Neck: normal visual inspection and trachea midline, unable to swallow secretions, central line placed (L) Respiratory: decreased air entry, b/l lower lobes crackles, no wheezing noted Cardiovascular: RRR Heart Sounds: no murmur Gastrointestinal (Abdomen): Inspection/Auscultation: normal bowel sounds, + abdominal wall ecchymosis; abdomen not distended Percussion/Palpation: abdomen soft; no guarding Neurologic: moves extremities, speech fluent but slow Psychiatric: able to answer simple questions appropriately (at baseline) Results & Data Results & Data ([facility]) Vital Signs (Past 12 Hours) Vital Signs Temp Pulse Pulse Resp BP Pulse Ox 11/16/20 07:22 65 18 97 11/16/20 05:00 35.7 C L 11/16/20 03:52 35.2 C L 69 18 135/83 96 11/15/20 23:42 36.8 C 66 18 154/78 H 94 11/15/20 23:00 54 L Laboratory Results 11/16/20 11/16/20 11/16/20 Range/Units 06:08 06:08 06:08 WBC 16.11 H (4.8-10.8) K/uL RBC 2.57 L (4.2-5.4) M/uL Hgb 7.8 L (12.0-16.0) g/dL Hct 24.8 L (37-47) % MCV 96.5 (80-100) fL MCH 30.4 (25-34) pg MCHC 31.5 L (32-36) g/dL RDW Std Deviation 61.5 H (36.4-46.3) fL RDW Coeff of Virgilio 17.6 H (11.5-14.5) % Plt Count 238 (130-400) K/uL MPV 11.9 H (7.4-10.4) fL Absolute Nucleated RBC 0.07 H (0-0) K/uL Nucleated RBC % (auto) 0.4 % PT 10.4 (9.0-12.0) Seconds INR 1.0 (0.9-1.1) APTT 58.1 H* (21.0-31.0) Seconds PTT Ratio 2.2 Sodium 147 H (136-145) mmol/L Potassium 4.1 (3.5-5.1) mmol/L Chloride 110 H (98-107) mmol/L Carbon Dioxide 32 (21-32) mmol/L Anion Gap 5.0 (3-11) BUN 24 H (7-18) mg/dl Creatinine 0.60 (0.6-1.2) mg/dl Est Cr Clr Drug Dosing 92.4 ml/min Est GFR ( Amer) 104.1 Est GFR (Non-Af Amer) 89.8 BUN/Creatinine Ratio 40.1 H (10-20) Glucose 125 H (70-99) mg/dl POC Glucose (70-99) mg/dl Calcium 7.5 L (8.5-10.1) mg/dl Phosphorus 2.9 (2.5-4.9) mg/dl Magnesium 2.0 (1.8-2.4) mg/dl 11/16/20 11/15/20 11/15/20 Range/Units 03:51 23:39 20:11 WBC (4.8-10.8) K/uL RBC (4.2-5.4) M/uL Hgb (12.0-16.0) g/dL Hct (37-47) % MCV (80-100) fL MCH (25-34) pg MCHC (32-36) g/dL RDW Std Deviation (36.4-46.3) fL RDW Coeff of Virgilio (11.5-14.5) % Plt Count (130-400) K/uL MPV (7.4-10.4) fL Absolute Nucleated RBC (0-0) K/uL Nucleated RBC % (auto) % PT (9.0-12.0) Seconds INR (0.9-1.1) APTT (21.0-31.0) Seconds PTT Ratio Sodium (136-145) mmol/L Potassium (3.5-5.1) mmol/L Chloride (98-107) mmol/L Carbon Dioxide (21-32) mmol/L Anion Gap (3-11) BUN (7-18) mg/dl Creatinine (0.6-1.2) mg/dl Est Cr Clr Drug Dosing ml/min Est GFR ( Amer) Est GFR (Non-Af Amer) BUN/Creatinine Ratio (10-20) Glucose (70-99) mg/dl POC Glucose 136 H 132 H 158 H (70-99) mg/dl Calcium (8.5-10.1) mg/dl Phosphorus (2.5-4.9) mg/dl Magnesium (1.8-2.4) mg/dl 11/15/20 11/15/20 11/15/20 Range/Units 15:52 12:57 11:11 WBC (4.8-10.8) K/uL RBC (4.2-5.4) M/uL Hgb (12.0-16.0) g/dL Hct (37-47) % MCV (80-100) fL MCH (25-34) pg MCHC (32-36) g/dL RDW Std Deviation (36.4-46.3) fL RDW Coeff of Virgilio (11.5-14.5) % Plt Count (130-400) K/uL MPV (7.4-10.4) fL Absolute Nucleated RBC (0-0) K/uL Nucleated RBC % (auto) % PT (9.0-12.0) Seconds INR (0.9-1.1) APTT 55.5 H* (21.0-31.0) Seconds PTT Ratio 2.1 Sodium (136-145) mmol/L Potassium (3.5-5.1) mmol/L Chloride (98-107) mmol/L Carbon Dioxide (21-32) mmol/L Anion Gap (3-11) BUN (7-18) mg/dl Creatinine (0.6-1.2) mg/dl Est Cr Clr Drug Dosing ml/min Est GFR ( Amer) Est GFR (Non-Af Amer) BUN/Creatinine Ratio (10-20) Glucose (70-99) mg/dl POC Glucose 166 H 166 H (70-99) mg/dl Calcium (8.5-10.1) mg/dl Phosphorus (2.5-4.9) mg/dl Magnesium (1.8-2.4) mg/dl 11/15/20 Range/Units 07:20 WBC (4.8-10.8) K/uL RBC (4.2-5.4) M/uL Hgb (12.0-16.0) g/dL Hct (37-47) % MCV (80-100) fL MCH (25-34) pg MCHC (32-36) g/dL RDW Std Deviation (36.4-46.3) fL RDW Coeff of Virgilio (11.5-14.5) % Plt Count (130-400) K/uL MPV (7.4-10.4) fL Absolute Nucleated RBC (0-0) K/uL Nucleated RBC % (auto) % PT (9.0-12.0) Seconds INR (0.9-1.1) APTT (21.0-31.0) Seconds PTT Ratio Sodium (136-145) mmol/L Potassium (3.5-5.1) mmol/L Chloride (98-107) mmol/L Carbon Dioxide (21-32) mmol/L Anion Gap (3-11) BUN (7-18) mg/dl Creatinine (0.6-1.2) mg/dl Est Cr Clr Drug Dosing ml/min Est GFR ( Amer) Est GFR (Non-Af Amer) BUN/Creatinine Ratio (10-20) Glucose (70-99) mg/dl POC Glucose 124 H (70-99) mg/dl Calcium (8.5-10.1) mg/dl Phosphorus (2.5-4.9) mg/dl Magnesium (1.8-2.4) mg/dl Medications Administered Current Inpatient Medications Acetylcysteine (Acetylcysteine 20% Inhal Soln 4ml Dispensed By Resp.) 5 ml INH Q12R DANIELLA Stop: 12/13/20 12:59 Last Admin: 11/16/20 07:22 Dose: 5 ml Documented by: Albuterol (Albut/Ipratrop 3mg/0.5mg Neb 3 Ml Vial) 3 ml NEB Q4R PRN PRN Reason: Shortness Of Breath Or Wheezing Stop: 12/13/20 14:59 Last Admin: 11/16/20 07:21 Dose: 3 ml Documented by: Carbamazepine (Carbamazepine 200 Mg Tablet) 200 mg PO BID DANIELLA Stop: 12/11/20 20:59 Last Admin: 11/15/20 20:04 Dose: Not Given Documented by: Donepezil HCl (Donepezil Hcl 10 Mg Tab) 10 mg PO HS DANIELLA Stop: 12/10/20 20:59 Last Admin: 11/15/20 20:04 Dose: Not Given Documented by: Heparin Sodium (Beef Lung) (Heparin 10 Unit/Ml 5 Ml Flush) 5 ml FLUSH PRN PRN PRN Reason: Flush Stop: 12/11/20 22:31 Last Admin: 11/12/20 15:46 Dose: 5 ml Documented by: Heparin Sodium/Dextrose (Heparin Sodium/Dextrose) 25,000 units in 500 mls @ 23 mls/hr IV .[id number] DANIELLA; Protocol Stop: 12/10/20 12:59 Last Titration: 11/16/20 07:05 Dose: 1,150 units/hr, 23 mls/hr Documented by: Doxycycline Hyclate 100 mg/ (Dextrose) 110 mls @ 50 mls/hr IV Q12H [facility]; Protocol Stop: 11/19/20 17:59 Last Admin: 11/16/20 05:21 Dose: 50 mls/hr Documented by: Pantoprazole Sodium 40 mg/ (Syringe) 10 mls @ 5 mls/min IV DAILY@1100 DANIELLA Stop: 12/13/20 10:59 Last Admin: 11/15/20 10:40 Dose: 5 mls/min Documented by: Dextrose (D5w) 500 mls @ 100 mls/hr IV .Q5H [facility] Stop: 12/13/20 10:14 Last Admin: 11/15/20 07:10 Dose: Not Given Documented by: Ceftriaxone Sodium 2,000 mg/ (Dextrose) 70 mls @ 100 mls/hr IV Q24H [facility]; Protocol Stop: 11/20/20 13:59 Last Infusion: 11/15/20 14:58 Dose: Infused Documented by: Nutrition (Parenteral) 2,000 (ml/ TPN BAG) 2,000 mls @ 83 mls/hr IV .Q24H [facility]; Protocol Stop: 11/16/20 15:59 Last Admin: 11/15/20 15:02 Dose: 83 mls/hr Documented by: Insulin Aspart (Insulin Aspart 100 Units/Ml 3 Ml Pen) 0 units SC Q4 DANIELLA; Protocol Stop: 12/14/20 15:59 Last Admin: 11/16/20 04:09 Dose: Not Given Documented by: Miscellaneous Information (Pharmacy Glycemic Mgmt Consult) 1 ea N/A UD PRN PRN Reason: Consult Stop: 12/11/20 08:28 Miscellaneous Information (Tpn/Ppn Consult Pharmacy) 1 ea N/A UD PRN PRN Reason: Consult Stop: 12/13/20 17:56 Pantoprazole Sodium (Pantoprazole 40 Mg Tab) 40 mg PO QAM [facility] Stop: 12/12/20 08:59 Last Admin: 11/13/20 08:15 Dose: Not Given Documented by: Sertraline HCl (Sertraline Hcl 100 Mg Tablet) 100 mg PO QAM [facility] Stop: 12/12/20 08:59 Last Admin: 11/15/20 08:59 Dose: Not Given Documented by: Warfarin Sodium (Warfarin Sod 5 Mg Tab) 5 mg PO DAILY@1600 DANIELLA Stop: 12/11/20 15:59 Last Admin: 11/11/20 17:09 Dose: Not Given Documented by: (1) Pulmonary embolism Acute cor pulmonale presence: unspecified Chronicity: unspecified Pulmonary embolism type: other Qualified Code(s): I26.99 - Other pulmonary embolism without acute cor pulmonale
--- NOTE | 2020-11-16 08:24 | Gastroenterology Progress Note ---
Date of Service November 16, 2020 Assessment & Plan (1) COVID-19: (2) Pulmonary embolism: (3) Pneumonia: (4) Metabolic encephalopathy: Pt is a 75 y/o female, w hx of COVID19, pneumonia, PE, metabolic encephalopathy, requiring NGT placement for nutritional support. Manual placement attempted last week but was unsuccessful. Currently she is on PPN. - Keep NPO - Warfarin & Heparin held - Tenative plan for NGT placement via endoscopy in OR vs endoscopy - Family to call for consent: Bravo bell [phone]. [facility], (message left at this number) Admission and Anticipated Discharge Date Admission Date: November 10, 2020 Supervising Physician Co-Signing Physician Notes Attending attestation I have seen, examined this patient, and agree with the findings and above by our mid-level provider YARA Chandra, with the following additions: Pat with poor swallowing after extubation Will endoscopically place dobhoff tube today, family does not wish to pursue further permanent feeding options if this is failing. Subjective Pt w hx of COVID 19 Dx 10/23/2020, pneumonia, PE. Requiring intubation on 11/10, extubated 11/12. Last week GI was asked to assist w NGT placement for feeding purposes given her metabolic encephalopathy, however this was unsuccessful when attempted by Dr. Grace. She was then scheduled for NGT placement via endoscopy today in OR. Currently she has PPN for nutrition. She is off isolation for COVID 19. She is seen and evaluated in room. Pt mumbles mostly "yes, no", unable to obtain much history. Per nurse, no acute events overnight, no signs of increased cough or inability to handle secretions. Review of Systems Review of Systems: Unobtainable due to cognitive status Physical Exam Constitutional: WD/WN, vitals as above well groomed, cooperative and comfortable Eyes: PERRL, conjunctivae normal, anicteric sclerae ENMT: external ear and nose normal, oropharynx normal Respiratory: no respiratory distress and does not use accessory muscles Auscultation: + diminished lung sounds Cardiovascular: RRR, no murmur, no edema Gastrointestinal (Abdomen): normal bowel sounds, soft, nontender, no hepatosplenomegaly Skin: no rashes, warm and dry no jaundice Psychiatric: Orientation: alert alert, not oriented, mumbles "yes,no". Lymphatic: no lymphedema Results & Data ([facility]) Vital Signs (Past 12 Hours) Vital Signs Temp Pulse Pulse Resp BP Pulse Ox 11/16/20 08:16 36.5 C 70 18 135/100 96 11/16/20 07:22 65 18 97 11/16/20 05:00 35.7 C L 11/16/20 03:52 35.2 C L 69 18 135/83 96 11/15/20 23:42 36.8 C 66 18 154/78 H 94 11/15/20 23:00 54 L (1) Pulmonary embolism Acute cor pulmonale presence: unspecified Chronicity: unspecified Pulmonary embolism type: other Qualified Code(s): I26.99 - Other pulmonary embolism without acute cor pulmonale
[2020-11-16] MEDS: SERTRALINE HCL 100 MG TABLET PO SCH (09:28)
[2020-11-16] MEDS: carBAMazepine 200 MG TABLET PO SCH ×2 (09:28→20:38)
--- NOTE | 2020-11-16 10:20 | Pharmacy Report ---
PHA: Parenteral Nutrition Con - Date of Service November 16, 2020 - Scope Pharmacy was consulted on 11/14/20 to manage parenteral nutrition orders for this patient. - Subjective The patient is currently on day #3 of peripheral parenteral nutrition for prolonged NPO status. - Objective Height: 5 ft 6 in Weight: 88.9 kg Diet: NPO Intake & Output (24hrs):: Intake & Output 11/14/20 11/15/20 11/16/20 11/17/20 06:59 06:59 06:59 06:59 Intake Total 2542.866 / 3042.866 1661.0 / 1661.0 3247.283 / 3247.283 177.467 / 177.467 Output Total 1850 / 1850 2275 / 2275 3025 / 3025 Balance 692.866 / 1192.866 -614.0 / -614.0 222.283 / 222.283 177.467 / 177.467 Weight 89.9 kg 88.8 kg 88.9 kg Laboratory Data (Last 24 Hr):: 11/16/20 06:08 Sodium 147 H Potassium 4.1 Chloride 110 H Carbon Dioxide 32 BUN 24 H Creatinine 0.60 Glucose 125 H Calcium 7.5 L Phosphorus 2.9 Magnesium 2.0 Nutrition Assessment:: Please refer to the Notes section of the EMR for the 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 - Assessment 11/16: * Patient to possibly go to OR today for NG tube placement * Spoke with provider - current PPN on hold given drop in hemoglobin * Possibly dilutional given amount of fluids patient is receiving, plan is to repeat H/H at 1300 to ensure it is still not dropping * Will cut PPN bag in half today in the event that NG tube placement is not tolerated/done today * Electrolytes stable - Plan For day #3 of PPN administration, the following will be ordered: Macronutrients Amino acids 45 grams/day Dextrose 50 grams/day Lipids 15 grams/day Micronutrients Sodium chloride 25 mEq Sodium acetate 25 mEq Potassium phosphate 15 mMol Potassium acetate 15 mEq Magnesium sulfate 4.06 mEq Multivitamins 10 mL Trace Elements 1 mL Folic acid 1 mg Thiamin 100 mg Total volume 1000 mL to be infused over 24 hrs will provide 500 kcal/day Final osmolarity 835 mOsm/L (maximum for PPN is 900 mOsm/L) Labs, as indicated, will be ordered per protocol Pharmacy will continue to follow and adjust parenteral nutrition orders on a daily basis. Thank you for allowing us to participate in the care of this patient.
--- NOTE | 2020-11-16 10:47 | Pharmacy Report ---
Pharmacy Glycemic Short Note 2 - Date of Service November 16, 2020 - Glycemic Short BSG Results (Last 24 hours): OUTPATIENT ANTIDIABETIC REGIMEN: * N/A * A1c = 5.8% 11/12/20 ASSESSMENT: 11/16: * Patient has required a total of 8 units of insulin over the past 48 hours, all bolus * BSGs have ranged 102 - 168 mg/dL - well controlled * Dexamethasone has been discontinued. Heparin drip is on hold. Current PPN is being held as well. Scheduled to go to OR today for NG tube placement. PPN bag for today will be cut in half which will only provide 50 grams of Dextrose. * No changes to insulin regimen are necessary at this time. PLAN FOR INPATIENT GLYCEMIC CONTROL: * Basal insulin * None * Bolus insulin * NovoLog SQ ACHS: * Goal Range: Low 110 - High 140 mg/dL * Correction Factor: 20 mg/dL/unit * Carb Ratio: 1 unit per 6 gm CHO PLAN FOR DISCHARGE: * HbA1c = 5.8% which classifies patient as pre-diabetic. She is not on any diabetes medications. Recommend diet and exercise to control pre-diabetes. May consider SMBG every morning and recording fasting blood sugars for next PCP appointment.
--- NOTE | 2020-11-16 12:21 | Anesthesiology Consultation ---
Date of Service November 16, 2020 Assessment & Plan Chart Review Chart Review: Acceptable Risk for Surgery Consults Requested none ASA ASA4 Proposed Anesthesia Anesthesia Type: MAC Risk / Benefits Reviewed With: PT / POA / Parent / Guardian, Accepts Plan and Informed Consent Obtained Additional Comments: obtained consent from POA arabella Guillen [phone] History Surgery Operation Date: 11/16/20 07:00 Proposed Procedures p Esophagogastroduodenoscopy for NG Placement - Braden Heath MD Operation Date: 11/16/20 16:45 Proposed Procedures p Esophagogastroduodenoscopy with NG Tube Placement Dr Heath - Braden Heath MD Height/Weight Height: 5 ft 6 in Weight: 88.9 kg Allergies Allergy/AdvReac Type Severity Reaction Status Date / Time No Known Allergies Allergy Unverified 10/25/20 09:24 Medications Home Medications Medication Instructions Recorded Confirmed Last Taken carbamazepine 200 mg PO BID 02/07/19 10/25/20 09/21/20 donepezil 10 mg PO HS 09/06/19 11/10/20 09/21/20 clotrimazole-betamethasone 1 applic TOPICAL BID 09/21/20 10/25/20 09/21/20 furosemide 20 mg PO DAILY 09/21/20 10/25/20 09/21/20 sertraline 100 mg PO QAM 09/21/20 11/10/20 Unknown calcium carbonate [Tums] 500 mg PO DAILY #0 tab 09/25/20 10/25/20 Unknown polyethylene glycol 3350 [Miralax] 17 g PO DAILY PRN #0 ea 09/25/20 10/25/20 Unknown cholecalciferol (vitamin D3) 50 mcg PO QAM 10/25/20 11/10/20 Unknown [Vitamin D3] enoxaparin [Lovenox] 60 mg SUBCUT DAILY 10/25/20 10/25/20 Unknown famotidine 20 mg PO DAILY 10/25/20 10/25/20 Unknown melatonin 3 mg PO HS 10/25/20 11/10/20 Unknown ondansetron 4 mg PO Q4H PRN 10/25/20 10/25/20 Unknown pantoprazole 40 mg PO DAILYBB 10/25/20 10/25/20 Unknown sennosides-docusate sodium 1 tab-cap PO DAILY 10/25/20 10/25/20 Unknown [Senokot-S] albuterol sulfate 2.5 mg INHALATION Q4H PRN 11/10/20 11/10/20 11/10/20 08:15 clotrimazole-betamethasone 1 applic TOPICAL UD 11/10/20 11/10/20 Unknown [Lotrisone] hydrocortisone 1 applic TOPICAL UD 11/10/20 11/10/20 Unknown Active Medications Generic Name Dose Route Start Last Admin Trade Name Freq PRN Reason Stop Dose Admin Acetylcysteine 5 ml 11/13/20 13:00 11/16/20 07:22 Acetylcysteine 20% Inhal Soln 4ml Dispensed By Resp. INH 12/13/20 12:59 5 ml Q12R DANIELLA Administration Albuterol 3 ml 11/13/20 13:03 11/16/20 07:21 Albut/Ipratrop 3mg/0.5mg Neb 3 Ml Vial NEB 12/13/20 14:59 3 ml Q4R PRN Administration Shortness Of Breath Or Wheezing Carbamazepine 200 mg 11/11/20 21:00 11/16/20 09:28 Carbamazepine 200 Mg Tablet PO 12/11/20 20:59 Not Given BID DANIELLA Donepezil HCl 10 mg 11/10/20 21:00 11/15/20 20:04 Donepezil Hcl 10 Mg Tab PO 12/10/20 20:59 Not Given HS DANIELLA Heparin Sodium (Beef Lung) 5 ml 11/11/20 22:32 11/12/20 15:46 Heparin 10 Unit/Ml 5 Ml Flush FLUSH 12/11/20 22:31 5 ml PRN PRN Administration Flush Heparin Sodium/Dextrose 25,000 units in 500 mls @ 23 mls/hr 11/10/20 13:00 11/16/20 07:05 Heparin Sodium/Dextrose IV 12/10/20 12:59 1,150 units/hr .[id number] DANIELLA 23 mls/hr Titration Protocol 1,150 UNITS/HR Doxycycline Hyclate 100 mg/ 110 mls @ 50 mls/hr 11/12/20 18:00 11/16/20 07:35 Dextrose IV 11/19/20 17:59 Infused Q12H DANIELLA Infusion Protocol Pantoprazole Sodium 40 mg/ 10 mls @ 5 mls/min 11/13/20 11:00 11/15/20 10:40 Syringe IV 12/13/20 10:59 5 mls/min DAILY@1100 DANIELLA Administration Dextrose 500 mls @ 100 mls/hr 11/13/20 10:15 11/15/20 07:10 D5w IV 12/13/20 10:14 Not Given .Q5H DANIELLA Ceftriaxone Sodium 2,000 mg/ 70 mls @ 100 mls/hr 11/13/20 14:00 11/15/20 14:58 Dextrose IV 11/20/20 13:59 Infused Q24H [facility] Infusion Protocol Nutrition (Parenteral) 2,000 2,000 mls @ 83 mls/hr 11/15/20 16:00 11/15/20 15:02 ml/ TPN BAG IV 11/16/20 15:59 83 mls/hr .Q24H [facility] Administration Protocol Insulin Aspart 0 units 11/14/20 16:00 11/16/20 10:13 Insulin Aspart 100 Units/Ml 3 Ml Pen SC 12/14/20 15:59 Not Given Q4 [facility] Protocol Pantoprazole Sodium 40 mg 11/12/20 09:00 11/13/20 08:15 Pantoprazole 40 Mg Tab PO 12/12/20 08:59 Not Given QAM [facility] Sertraline HCl 100 mg 11/12/20 09:00 11/16/20 09:28 Sertraline Hcl 100 Mg Tablet PO 12/12/20 08:59 Not Given QAM DANIELLA Warfarin Sodium 5 mg 11/11/20 16:00 11/11/20 17:09 Warfarin Sod 5 Mg Tab PO 12/11/20 15:59 Not Given DAILY@1600 DANIELLA Past Medical History Medical History (Updated 11/16/20 @ 12:22 by Carmel Goncalves DO) Acute kidney injury Acute respiratory failure with hypoxia AD (Alzheimer's disease) Ambulatory dysfunction Anxiety Chronic venous stasis Congenital hydrocephalus stable on head CT 11/10/20 COVID-19 initial positive 10/23, intub 11/10, extub 2/3 Dementia Infarctions, pulmonary MDD (major depressive disorder) Metabolic encephalopathy Pulmonary embolism Respiratory failure Retroperitoneal hematoma Past Family History Family History Other Cancer Diabetes Past Surgical History Surgical History (Reviewed 11/16/20 @ 12:17 by DEVON Boothe H/O eye surgery "Strabismus Surgery" History of tonsillectomy History of tubal ligation Hx of tonsillectomy Social History Smoking Status: Unknown if ever smoked Alcohol type: hard liquor alcohol intake frequency: holidays/special occasions only substance use type: does not use Physical Exam Vital Signs Last Vital Signs Temp 37.1 C 11/16/20 11:59 Pulse 77 11/16/20 11:59 Resp 18 11/16/20 11:59 BP 133/86 11/16/20 11:59 Pulse Ox 94 11/16/20 11:59 ENMT Mouth: + loose teeth (3 teeth upper, 7 teeth lower all in poor repair with multiple broken) and + small oral opening; no TMJ abnormality Thyromental Distance: > or= 3.5 Finger Breadths Mallampati Class: III Neck normal visual inspection and trachea midline; neck extension not limited Respiratory normal respiratory effort Auscultation: + diminished lung sounds, + rhonchi and + wheezes Cardiovascular Rate/Rhythm: regular rate and regular rhythm Heart Sounds: no murmur Musculoskeletal Spine: normal cervical ROM Extremities: full ROM of extremities Neurologic moves all extremities Psychiatric Orientation: alert and oriented x 3 Testing Laboratory Results 11/16/20 06:08 11/16/20 06:08 PT 10.4 Seconds (9.0-12.0) 11/16/20 06:08 INR 1.0 (0.9-1.1) 11/16/20 06:08 APTT 58.1 Seconds (21.0-31.0) H* 11/16/20 06:08 Hemoglobin A1c 5.8 % (4.5-5.6) H 11/12/20 05:02 Urine Color [place]th 11/10/20 12:45 Urine Appearance Cloudy (Clear) A 11/10/20 12:45 Urine pH 5.0 (4.5-7.5) 11/10/20 12:45 Ur Specific [place] 1.018 (1.000-1.030) 11/10/20 12:45 Urine Protein 1+ (Negative) H 11/10/20 12:45 Urine Glucose (UA) Negative (Negative) 11/10/20 12:45 Urine Ketones 1+ (Negative) H 11/10/20 12:45 Urine Nitrite Positive (Negative) A 11/10/20 12:45 Ur Leukocyte Esterase 1+ (Negative) H 11/10/20 12:45 Urine WBC (Auto) 0 /hpf (0-5) 11/10/20 12:45 Urine RBC (Auto) 5-10 /hpf (0-4) H 11/10/20 12:45 U Hyaline Cast (Auto) 0 /lpf (0-5) 11/10/20 12:45 U Epithel Cells (Auto) >30 /lpf (0-5) H 11/10/20 12:45 Urine Bacteria (Auto) Negative (Negative) 11/10/20 12:45 11/10/20 13:11 Aerobic Blood Culture - Final Blood No growth in Aerobic bottle after 5 days. Anaerobic Blood Culture - Final No growth in Anaerobic bottle after 5 days. 11/10/20 11:43 Aerobic Blood Culture - Final Blood No growth in Aerobic bottle after 5 days. Anaerobic Blood Culture - Final No growth in Anaerobic bottle after 5 days. 11/11/20 03:49 Gram Stain - Final Sputum,Vent Suction Sputum Culture - Final Klebsiella pneumoniae 11/10/20 12:45 Urine Culture - Final Urine,Random No growth - less than 1,000 colonies/mL. 11/16/20 11/16/20 11/16/20 12:02 08:01 03:51 POC Glucose 98 136 H 136 H Electrocardiogram Date: 11/10/20 Findings: + ST @ (147) LAD Chest X-Ray Date: 11/15/20 Findings: + pleural effusion (small Right with mild increased aeration) Echocardiogram Date: 11/10/20 EF: 60-65% LV Function: normal RWMA: + none Valvular Disease: + no significant valvular disease
[2020-11-16] MEDS ORDERED: CANNULA ONE (12:55)
[2020-11-16] MEDS ORDERED: LIDOCAINE HCL 2% 2 ML VIAL/AMP(20MG/ML) INFIL ONE (12:55)
[2020-11-16] MEDS ORDERED: PROPOFOL IV EMULSION 10 MG/ML 20 ML VIAL IV ONE ×2 (12:55→13:54)
[2020-11-16] MEDS ORDERED: ONDANSETRON INJ 2 MG/ML 2 ML VIAL ONE (12:58)
[2020-11-16] MEDS ORDERED: LIDOCAINE 2% JELLY 5 ML TUBE ONE (13:03)
--- NOTE | 2020-11-16 14:00 | Anesthesiology Progress Note ---
Date of Service November 16, 2020 Anesthesia Post Procedure Vital Signs Vital Signs: Temp Pulse Pulse Pulse Resp BP Pulse Ox 11/16/20 12:50 36.2 C L 76 18 134/84 98 11/16/20 11:59 37.1 C 77 18 133/86 94 11/16/20 08:16 36.5 C 70 18 135/100 96 11/16/20 07:22 65 18 97 11/16/20 05:00 35.7 C L 11/16/20 03:52 35.2 C L 69 18 135/83 96 11/15/20 23:42 36.8 C 66 18 154/78 H 94 11/15/20 23:00 54 L 11/15/20 19:22 20 95 11/15/20 19:04 36.6 C 70 20 144/84 H 95 11/15/20 16:00 74 Transfer of Care Handoff Completed per policy Notes Mental Status: alert / awake / arousable Patient Amnestic to Procedure: Yes Nausea / Vomiting: adequately controlled Pain: adequately controlled Airway Patency, RR, SpO2: stable & adequate BP & HR: stable & adequate Hydration State: stable & adequate Anesthetic Complications: no major complications apparent and Pt Satisfied with anesthetic care
--- NOTE | 2020-11-16 14:07 | GI REPORT ---
Patient Name: Lyudmila Guillen Procedure Date: 11/16/2020 1:04 PM Date of : 1945 Admit Type: Inpatient Age: 75 Gender: Female Attending MD: Braden Heath MD Procedure: Upper GI endoscopy Providers: Braden Heath MD Referring MD: Yunior Brownlee Md Indications: Oropharyngeal phase dysphagia-Pattie Placement of nasogastric tube Medicines: Monitored Anesthesia Care Complications: No immediate complications. Estimated blood loss: None. Estimated Blood Loss: Estimated blood loss: none. Procedure: Pre-Anesthesia Assessment: - Pre-Anesthesia Assessment: - Prior to the procedure, a History and Physical was performed, and patient medications, allergies and sensitivities were reviewed. The patient's tolerance of previous anesthesia was reviewed. Please see [employer] for complete details. - The risks and benefits of the procedure and the sedation options and risks were discussed with the patient. All questions were answered and informed consent was obtained. - Patient identification and proposed procedure were verified prior to the procedure by the physician and the nurse. The procedure was verified in the pre-procedure area in the procedure room. After obtaining informed consent, the endoscope was passed carefully and meticuously under direct vision and only advanced when the lumen was clearly identified, C02 insuflation was utilized throughout the entirity of the procedure. Throughout the procedure, the patient's blood pressure, pulse, and oxygen saturations were monitored continuously. After obtaining informed consent, the endoscope was passed under direct vision. Throughout the procedure, the patient's blood pressure, pulse, and oxygen saturations were monitored continuously. The Endoscope was introduced through the mouth, and advanced to the second part of duodenum. The Endoscope was introduced through the and advanced to the. The upper GI endoscopy was accomplished without difficulty. The patient tolerated the procedure well. Findings: One benign-appearing, intrinsic moderate stenosis was found. This stenosis measured 1 cm (in length). The stenosis was traversed after downsizing scope. The stenosis appeared normal without evidence of mucosal changes. Possible hypertensive LES with tortuous distal esophagus. The entire examined stomach was normal. The examined duodenum was normal. A nasogastric tube was placed through the nares into the esophagus. Under endoscopic guidance, the tube was advanced into the stomach. Placement was confirmed by scope visualization. The tube was secured at the nose at 50 cm. Impression: - Benign-appearing esophageal stenosis. - Normal stomach. - Normal examined duodenum. - Feeding tube placement was successfully performed. - No specimens collected. Recommendation: - Return patient to hospital [facility] for ongoing care. - Assistant [employer] consult - Xray this evening to ensure in transport the tube did not become dislodged, if in stomach then ok to use - Liquid only medications, do not crush tablets and utilize tube as will likely clog tube. - If patient pulls tube out, repeated attempts would likely end as the same. - Family has expressed desire not to undergo PEG tube due to chronic medical issues and overall functional status. Braden Heath MD 11/16/2020 2:07:01 PM This report has been signed electronically. Note Initiated On: 11/16/2020 1:04 PM Number of Addenda: 0 I attest to the content of the Intraoperative Record and orders documented therein, exceptions below {[id number]}
[2020-11-16] MEDS: cefTRIAXone SODIUM 2,000 MG in DEXTROSE 5% 50 ML IV SCH (15:00)
[2020-11-16 15:04] LABS: Hemoglobin 8.7 g/dL (12.0-16.0)
[2020-11-16] MEDS: PANTOprazole 40 MG in SYRINGE 0 ML IV SCH (15:06)
[2020-11-16] MEDS ORDERED: Custom Peripheral Pn 1,000 ML in TPN BAG 0 ML IV SCH (16:00)
[2020-11-16] MEDS ORDERED: Nursing to Pharmacy Communication SCH (19:30)
[2020-11-16] MEDS: DONEPEZIL HCL 10 MG TAB PO SCH (20:38)
[2020-11-17] MEDS: INSULIN ASPART 100 UNITS/ML 3 ML PEN SC SCH ×5 (04:20→20:28)
[2020-11-17] MEDS: DOXYCYCLINE HYCLATE 100 MG in DEXTROSE 5% 100 ML IV SCH ×2 (05:46→18:22)
[2020-11-17 06:05] LABS: Hematocrit (blood only) 25.7 % (37-47); Hemoglobin 7.9 g/dL (12.0-16.0); Mean Corpuscular Hemoglobin 30.7 pg (25-34); Mean Corpuscular Hgb Conc 30.7 g/dL (32-36); Mean Platelet Volume 11.4 fL (7.4-10.4); Nucleated RBC # (auto) 0.06 K/uL (0-0); Nucleated RBC % (auto) 0.3 %; Platelet Count 229 K/uL (130-400); RDW Coefficient of Variation 17.8 % (11.5-14.5); RDW Standard Deviation 63.1 fL (36.4-46.3); Red Blood Count 2.57 M/uL (4.2-5.4); White Blood Count 18.78 K/uL (4.8-10.8)
[2020-11-17 06:24] LABS: Partial Thromboplastin Ratio 2.9
[2020-11-17 06:29] LABS: Calcium 7.3 mg/dl (8.5-10.1); Est GFR (African American) 107.7; Potassium 4.3 mmol/L (3.5-5.1)
[2020-11-17] MEDS: HEPARIN SODIUM/DEXTROSE 25,000 UNITS/500 ML BAG IV SCH ×2 (06:32→11:59)
[2020-11-17 06:35] LABS: Phosphorus 3.7 mg/dl (2.5-4.9)
[2020-11-17] MEDS: ACETYLCYSTEINE 20% INHAL SOLN 4ML ***DISPENSED BY RESP. INH SCH ×2 (07:29→19:33)
[2020-11-17] MEDS: ALBUT/IPRATROP 3MG/0.5MG NEB 3 ML VIAL NEB PRN ×2 (07:29→19:33)
[2020-11-17] MEDS: SERTRALINE HCL 100 MG TABLET PO SCH (08:50)
[2020-11-17] MEDS: carBAMazepine 200 MG TABLET PO SCH ×2 (08:50→20:28)
--- NOTE | 2020-11-17 08:57 | Communication Note ---
Date of Service: November 17, 2020 Pt seen and evaluated in her room. She had pulled her NGT yesterday evening. She is currently awake, alert oriented x 2. She is following commands, speech clear. PPN running. Abd soft, non tender, BS hypoactive on exam. No cough noted. Would defer NGT replacement and continue w PPN for now. As her mental status continue to improve would recommend repeat swallow eval and perhaps letting her take PO meds/foods if safe. Family had expressed wishes to avoid G-tube or J- tube placements. GI to sign off; pls recall prn.
--- NOTE | 2020-11-17 10:14 | Hospitalist Progress Note ---
Date of Service November 17, 2020 Assessment & Plan (1) Acute respiratory failure with hypoxia: (2) COVID-19 virus infection: Diagnosed on 10/21/2020. was treated w/ decadron On this admission - Required intubation on 11/10/2020. - Presently extubated. - Continued dexamethasone while inpt, stopped now - Remdesivir and plasma not indicated given duration of positivity - on 1-2L NC - off isolation d/t duration of positivity Bacterial pna/ hosp. acquired -Chest CTA from 11/10 demonstrated segmental pulmonary embolus within the posterior segment of the right lower lobe with associated pulmonary infarct, adjacent airspace opacity with possible cavitation, scattered ground glass and tree-in-bud nodules within the lungs. -CT abd/pelvis noted small right pleural effusion with possible cystic focus of right lower lobe Procalcitonin 14.5, now down to 5.8 -Sputum cultures- posit. for Klebsiella, Quantiferon test - negative -Continued cefepime, doxy until speciation of sputum cultures with sensitivities - Transitioned to ceftriaxone, per pulmonary cont. Abx 10-14 days - attempted US for thoracentesis but pl. effusion seems resolved now - chest PT/ vest, incent. spirometry - mucomyst inh, when able to take PO add guaifenesin (3) Pulmonary embolism: CTA chest on 11/10 showed segmental pulmonary embolus within the posterior basilar segment of the right lower lobe with associated pulmonary infarct. LE DVT b/l - Presently on heparin gtt - Vascular consulted for possible IVC filter - Defer for this time given her RP bleed is smaller than prior scan. (4) Retroperitoneal hematoma: Originally noted on 10/25/2020. She was sent to [place] at that time. Was hospitalized 10/25-10/30. CTA abdomen / pelvis obtained at that time- unremarkable Prior to her dg. of hematoma - pt was on Lovenox 60 subq, this was stopped on discharge from [place] CT a/p this time shows improvement. - Monitor vitals and hgb Dysphagia - Failed swallow study x2 - NG tube/ coresafe placement manually unsuccessful - unable to swallow her own secretions, frequent suctioning - Started pt on PPN, will cont. for now - NG tube placed endoscopically (11/16) but unfortunately pt pulled it out Hypernatremia - secondary to poor oral intake - Na 150, on admission 148, now 149 (after 1/2 NSS) - Na level normal back in September - cont. to monitor, add D5W, nephro consult - monitor Na level Na 148 now AD (Alzheimer's disease): Unclear baseline. - Monitor Congenital hydrocephalus: No known present issues. MDD (major depressive disorder): - Continue sertraline, carbamazepine, and donepezil once pt can take PO DVT prophylaxis: Heparin gtt and warfarin transition for DVT/PE once pt can take PO Admission and Anticipated Discharge Date Admission Date: November 10, 2020 Subjective Pt seen in follow up of Klebsiella pna, COVID pna, PE, DVT, hx of RP hematoma. Pt extubated and downgraded from ICU several days ago Pt appears fatigued, 1:1 sitter not currently present Swallow study attempted x2 - pt can not swallow, planned for NG tube/ coresafe placement however unsuccessful NGT placed by GI (11/16) endoscopically bur Pt pulled out NGT several hrs after placement Started PPN over the weekend US by pulm. - no pl. effusion for thoracentesis Currently on IV heparin, IV Abx Sputum cultx posit. for - Klebsiella Pt currently has no complaints, appears more awake and alert today Review of Systems Review of Systems: All systems reviewed & are unremarkable except as noted in HPI & below Constitutional: + fatigue; no fever and no chills Respiratory: + cough and + dyspnea (improved) Cardiovascular: no chest pain and no palpitations Gastrointestinal: no abdominal pain, no nausea and no vomiting Physical Exam Physical Exam: Constitutional: WD/WN, vitals as above, on suppl. O2 Eyes: PERRL, conjunctivae normal, anicteric sclerae Neck: normal visual inspection and trachea midline, unable to swallow secretions, central line placed (L) Respiratory: decreased air entry, b/l lower lobes crackles, no wheezing noted Cardiovascular: RRR Heart Sounds: no murmur Gastrointestinal (Abdomen): Inspection/Auscultation: normal bowel sounds, + abdominal wall ecchymosis; abdomen not distended Percussion/Palpation: abdomen soft; no guarding Neurologic: moves extremities, speech fluent but slow Psychiatric: able to answer simple questions appropriately (at baseline) Results & Data Results & Data ([facility]) Vital Signs (Past 12 Hours) Vital Signs Temp Pulse Pulse Resp BP Pulse Ox 11/17/20 08:15 37.0 C 82 16 118/79 95 11/17/20 07:30 72 18 86 L 11/17/20 04:00 36.6 C 71 18 112/72 93 11/16/20 23:25 36.5 C 66 18 123/85 97 11/16/20 23:00 66 Laboratory Results 11/17/20 11/17/20 11/17/20 Range/Units 07:35 05:40 05:40 WBC 18.78 H (4.8-10.8) K/uL RBC 2.57 L (4.2-5.4) M/uL Hgb 7.9 L (12.0-16.0) g/dL Hct 25.7 L (37-47) % MCV 100.0 (80-100) fL MCH 30.7 (25-34) pg MCHC 30.7 L (32-36) g/dL RDW Std Deviation 63.1 H (36.4-46.3) fL RDW Coeff of Virgilio 17.8 H (11.5-14.5) % Plt Count 229 (130-400) K/uL MPV 11.4 H (7.4-10.4) fL Absolute Nucleated RBC 0.06 H (0-0) K/uL Nucleated RBC % (auto) 0.3 % APTT 77.0 H* (21.0-31.0) Seconds PTT Ratio 2.9 Sodium (136-145) mmol/L Potassium (3.5-5.1) mmol/L Chloride (98-107) mmol/L Carbon Dioxide (21-32) mmol/L Anion Gap (3-11) BUN (7-18) mg/dl Creatinine (0.6-1.2) mg/dl Est Cr Clr Drug Dosing ml/min Est GFR ( Amer) Est GFR (Non-Af Amer) BUN/Creatinine Ratio (10-20) Glucose (70-99) mg/dl POC Glucose 123 H (70-99) mg/dl Calcium (8.5-10.1) mg/dl Phosphorus (2.5-4.9) mg/dl Magnesium (1.8-2.4) mg/dl Stool Occult Bld Scrn (Negative) 11/17/20 11/17/20 11/16/20 Range/Units 05:40 04:17 23:29 WBC (4.8-10.8) K/uL RBC (4.2-5.4) M/uL Hgb (12.0-16.0) g/dL Hct (37-47) % MCV (80-100) fL MCH (25-34) pg MCHC (32-36) g/dL RDW Std Deviation (36.4-46.3) fL RDW Coeff of Virgilio (11.5-14.5) % Plt Count (130-400) K/uL MPV (7.4-10.4) fL Absolute Nucleated RBC (0-0) K/uL Nucleated RBC % (auto) % APTT (21.0-31.0) Seconds PTT Ratio Sodium 148 H (136-145) mmol/L Potassium 4.3 (3.5-5.1) mmol/L Chloride 110 H (98-107) mmol/L Carbon Dioxide 35 H (21-32) mmol/L Anion Gap 3.0 (3-11) BUN 25 H (7-18) mg/dl Creatinine 0.54 L (0.6-1.2) mg/dl Est Cr Clr Drug Dosing 103.0 ml/min Est GFR ( Amer) 107.7 Est GFR (Non-Af Amer) 93.0 BUN/Creatinine Ratio 45.0 H (10-20) Glucose 100 H (70-99) mg/dl POC Glucose 94 111 H (70-99) mg/dl Calcium 7.3 L (8.5-10.1) mg/dl Phosphorus 3.7 (2.5-4.9) mg/dl Magnesium 2.0 (1.8-2.4) mg/dl Stool Occult Bld Scrn (Negative) 11/16/20 11/16/20 11/16/20 Range/Units 19:58 18:40 16:06 WBC (4.8-10.8) K/uL RBC (4.2-5.4) M/uL Hgb (12.0-16.0) g/dL Hct (37-47) % MCV (80-100) fL MCH (25-34) pg MCHC (32-36) g/dL RDW Std Deviation (36.4-46.3) fL RDW Coeff of Virgilio (11.5-14.5) % Plt Count (130-400) K/uL MPV (7.4-10.4) fL Absolute Nucleated RBC (0-0) K/uL Nucleated RBC % (auto) % APTT (21.0-31.0) Seconds PTT Ratio Sodium (136-145) mmol/L Potassium (3.5-5.1) mmol/L Chloride (98-107) mmol/L Carbon Dioxide (21-32) mmol/L Anion Gap (3-11) BUN (7-18) mg/dl Creatinine (0.6-1.2) mg/dl Est Cr Clr Drug Dosing ml/min Est GFR ( Amer) Est GFR (Non-Af Amer) BUN/Creatinine Ratio (10-20) Glucose (70-99) mg/dl POC Glucose 156 H 102 H (70-99) mg/dl Calcium (8.5-10.1) mg/dl Phosphorus (2.5-4.9) mg/dl Magnesium (1.8-2.4) mg/dl Stool Occult Bld Scrn Positive A (Negative) 11/16/20 11/16/20 Range/Units 14:46 12:02 WBC (4.8-10.8) K/uL RBC (4.2-5.4) M/uL Hgb 8.7 L (12.0-16.0) g/dL Hct 28.0 L (37-47) % MCV (80-100) fL MCH (25-34) pg MCHC (32-36) g/dL RDW Std Deviation (36.4-46.3) fL RDW Coeff of Virgilio (11.5-14.5) % Plt Count (130-400) K/uL MPV (7.4-10.4) fL Absolute Nucleated RBC (0-0) K/uL Nucleated RBC % (auto) % APTT (21.0-31.0) Seconds PTT Ratio Sodium (136-145) mmol/L Potassium (3.5-5.1) mmol/L Chloride (98-107) mmol/L Carbon Dioxide (21-32) mmol/L Anion Gap (3-11) BUN (7-18) mg/dl Creatinine (0.6-1.2) mg/dl Est Cr Clr Drug Dosing ml/min Est GFR ( Amer) Est GFR (Non-Af Amer) BUN/Creatinine Ratio (10-20) Glucose (70-99) mg/dl POC Glucose 98 (70-99) mg/dl Calcium (8.5-10.1) mg/dl Phosphorus (2.5-4.9) mg/dl Magnesium (1.8-2.4) mg/dl Stool Occult Bld Scrn (Negative) Medications Administered Current Inpatient Medications Acetylcysteine (Acetylcysteine 20% Inhal Soln 4ml Dispensed By Resp.) 5 ml INH Q12R DANIELLA Stop: 12/13/20 12:59 Last Admin: 11/17/20 07:29 Dose: 5 ml Documented by: Albuterol (Albut/Ipratrop 3mg/0.5mg Neb 3 Ml Vial) 3 ml NEB Q4R PRN PRN Reason: Shortness Of Breath Or Wheezing Stop: 12/13/20 14:59 Last Admin: 11/17/20 07:29 Dose: 3 ml Documented by: Carbamazepine (Carbamazepine 200 Mg Tablet) 200 mg PO BID DANIELLA Stop: 12/11/20 20:59 Last Admin: 11/17/20 08:50 Dose: Not Given Documented by: Donepezil HCl (Donepezil Hcl 10 Mg Tab) 10 mg PO HS DANIELLA Stop: 12/10/20 20:59 Last Admin: 11/16/20 20:38 Dose: Not Given Documented by: Heparin Sodium (Beef Lung) (Heparin 10 Unit/Ml 5 Ml Flush) 5 ml FLUSH PRN PRN PRN Reason: Flush Stop: 12/11/20 22:31 Last Admin: 11/16/20 14:18 Dose: 5 ml Documented by: Heparin Sodium/Dextrose (Heparin Sodium/Dextrose) 25,000 units in 500 mls @ 22 mls/hr IV .[id number] [facility]; Protocol Stop: 12/10/20 12:59 Last Admin: 11/17/20 06:32 Dose: 1,100 units/hr, 22 mls/hr Documented by: Doxycycline Hyclate 100 mg/ (Dextrose) 110 mls @ 50 mls/hr IV Q12H [facility]; Protocol Stop: 11/19/20 17:59 Last Infusion: 11/17/20 08:00 Dose: Infused Documented by: Pantoprazole Sodium 40 mg/ (Syringe) 10 mls @ 5 mls/min IV DAILY@1100 DANIELLA Stop: 12/13/20 10:59 Last Admin: 11/16/20 15:06 Dose: 5 mls/min Documented by: Dextrose (D5w) 500 mls @ 100 mls/hr IV .Q5H [facility] Stop: 12/13/20 10:14 Last Admin: 11/15/20 07:10 Dose: Not Given Documented by: Ceftriaxone Sodium 2,000 mg/ (Dextrose) 70 mls @ 100 mls/hr IV Q24H [facility]; Protocol Stop: 11/20/20 13:59 Last Infusion: 11/16/20 15:45 Dose: Infused Documented by: Nutrition (Parenteral) 1,000 (ml/ TPN BAG) 1,000 mls @ 41.667 mls/hr IV .Q24H [facility]; Protocol Stop: 11/17/20 15:59 Last Admin: 11/16/20 16:47 Dose: 41.7 mls/hr Documented by: Insulin Aspart (Insulin Aspart 100 Units/Ml 3 Ml Pen) 0 units SC Q4 [facility]; Protocol Stop: 12/14/20 15:59 Last Admin: 11/17/20 08:48 Dose: Not Given Documented by: Miscellaneous Information (Pharmacy Glycemic Mgmt Consult) 1 ea N/A UD PRN PRN Reason: Consult Stop: 12/11/20 08:28 Miscellaneous Information (Tpn/Ppn Consult Pharmacy) 1 ea N/A UD PRN PRN Reason: Consult Stop: 12/13/20 17:56 Pantoprazole Sodium (Pantoprazole 40 Mg Tab) 40 mg PO QAM [facility] Stop: 12/12/20 08:59 Last Admin: 11/13/20 08:15 Dose: Not Given Documented by: Sertraline HCl (Sertraline Hcl 100 Mg Tablet) 100 mg PO QAM [facility] Stop: 12/12/20 08:59 Last Admin: 11/17/20 08:50 Dose: Not Given Documented by: Warfarin Sodium (Warfarin Sod 5 Mg Tab) 5 mg PO DAILY@1600 [facility] Stop: 12/11/20 15:59 Last Admin: 11/11/20 17:09 Dose: Not Given Documented by: (1) Pulmonary embolism Acute cor pulmonale presence: unspecified Chronicity: unspecified Pulmonary embolism type: other Qualified Code(s): I26.99 - Other pulmonary embolism without acute cor pulmonale
[2020-11-17] MEDS: PANTOprazole 40 MG in SYRINGE 0 ML IV SCH (11:59)
[2020-11-17] MEDS: cefTRIAXone SODIUM 2,000 MG in DEXTROSE 5% 50 ML IV SCH (14:20)
[2020-11-17] MEDS ORDERED: TPN IV SCH (16:00)
[2020-11-17] MEDS ORDERED: CENTRAL PN IV SCH (16:00)
--- NOTE | 2020-11-17 18:00 | Nephrology Progress Note ---
Date of Service November 17, 2020 Assessment & Plan (1) Electrolyte imbalance: Patient with electrolytes imbalance mostly at this point hypernatremia> phos, K, mag have improved w/ PPN. Electrolyte problems are due to poor p.o. intake which is not likely to improve at least in the near term ?when/if repeat swallow study could be considered. -cont PPN -will resume D5W at 75 ml/hr while sodium is above 145 -daily bmp -continue discussions w/ family re approach to nutrition Admission and Anticipated Discharge Date Admission Date: November 10, 2020 Subjective NGT placed yesterday but pt pulled it last evening; plan to c/w PPN for now; interactive, denies sob, pain, N; +++thirst and asking me to bring her water; seen on rounds at 1330; Review of Systems Review of Systems: All systems reviewed & are unremarkable except as noted in Subjective and Other (ROS limited by pt MS) Physical Exam Constitutional: well developed and well nourished; no acute distress Eyes: EOM intact bilaterally ENMT: Ears: no external ear abnormality Nose: no external nose abnormality Mouth: + dry oral mucous membranes Neck: no nuchal rigidity Respiratory: normal respiratory effort Auscultation: + diminished lung sounds on 2L 02NC Gastrointestinal (Abdomen): Inspection/Auscultation: normal bowel sounds Percussion/Palpation: abdomen soft; abdomen nontender Musculoskeletal: Extremities: + abnormal strength (? focal weakness RLE, LUE) Skin: no rashes, warm and dry Neurologic: limited but appropriate speech, no tremor Results & Data ([facility]) Vital Signs (Past 12 Hours) Vital Signs Temp Pulse Pulse Resp BP Pulse Ox 11/17/20 16:57 36.8 C 68 18 141/49 H 95 11/17/20 12:06 36.5 C 74 18 129/82 94 11/17/20 11:05 66 11/17/20 08:15 37.0 C 82 16 118/79 95 11/17/20 07:30 72 18 86 L Laboratory Results 11/17/20 05:40 11/17/20 05:40
[2020-11-17 19:21] LABS: Partial Thromboplastin Ratio 2.1
[2020-11-17 19:28] LABS: Partial Thromboplastin Time 56.2 Seconds (21.0-31.0)
[2020-11-17] MEDS: DONEPEZIL HCL 10 MG TAB PO SCH (20:28)
[2020-11-18] MEDS: INSULIN ASPART 100 UNITS/ML 3 ML PEN SC SCH ×6 (00:40→21:28)
[2020-11-18 04:49] LABS: Hematocrit (blood only) 30.5 % (37-47); Hemoglobin 9.4 g/dL (12.0-16.0); Mean Corpuscular Hemoglobin 30.6 pg (25-34); Mean Corpuscular Hgb Conc 30.8 g/dL (32-36); Mean Corpuscular Volume 99.3 fL (80-100); Mean Platelet Volume 12.5 fL (7.4-10.4); Nucleated RBC # (auto) 0.09 K/uL (0-0); Nucleated RBC % (auto) 0.4 %; Platelet Count 280 K/uL (130-400); RDW Coefficient of Variation 17.5 % (11.5-14.5); RDW Standard Deviation 59.8 fL (36.4-46.3); Red Blood Count 3.07 M/uL (4.2-5.4); White Blood Count 24.89 K/uL (4.8-10.8)
[2020-11-18 04:58] LABS: Partial Thromboplastin Ratio 1.2; Partial Thromboplastin Time 30.9 Seconds (21.0-31.0)
[2020-11-18 05:13] LABS: BUN Creatinine Ratio 37.8 (10-20); Calcium 7.9 mg/dl (8.5-10.1); Creatinine Clr Calc Pharmacy 95.5 ml/min; Est GFR (African American) 105.2; Est GFR (Non-African American) 90.8; Magnesium 1.7 mg/dl (1.8-2.4); Potassium 4.7 mmol/L (3.5-5.1)
[2020-11-18 05:14] LABS: Phosphorus 3.3 mg/dl (2.5-4.9)
[2020-11-18] MEDS ORDERED: HEPARIN IV BOLUS 6,000 UNITS in SYRINGE 0 ML IV ONE (05:45)
[2020-11-18] MEDS: ACETYLCYSTEINE 20% INHAL SOLN 4ML ***DISPENSED BY RESP. INH SCH ×2 (07:07→19:23)
[2020-11-18] MEDS: HEPARIN SODIUM/DEXTROSE 25,000 UNITS/500 ML BAG IV SCH ×2 (07:09→13:09)
[2020-11-18] MEDS: carBAMazepine 200 MG TABLET PO SCH ×2 (08:09→20:34)
[2020-11-18] MEDS: SERTRALINE HCL 100 MG TABLET PO SCH (08:09)
[2020-11-18] MEDS ORDERED: MAGNESIUM SULFATE / D5W 1 GM/100 ML BAG IV ONE (10:30)
[2020-11-18] MEDS: PANTOprazole 40 MG in SYRINGE 0 ML IV SCH (13:08)
[2020-11-18 13:19] LABS: Partial Thromboplastin Ratio > 5.3
[2020-11-18] MEDS: DOXYCYCLINE HYCLATE 100 MG CAP PO SCH ×2 (13:20→20:33)
[2020-11-18 13:36] LABS: Partial Thromboplastin Time > 139.0 Seconds (21.0-31.0)
[2020-11-18] MEDS: DOXYCYCLINE HYCLATE 100 MG in DEXTROSE 5% 100 ML IV SCH (14:01)
[2020-11-18 14:56] LABS: Partial Thromboplastin Ratio 2.8
[2020-11-18 14:58] LABS: Partial Thromboplastin Time 72.6 Seconds (21.0-31.0)
[2020-11-18] MEDS: cefTRIAXone SODIUM 2,000 MG in DEXTROSE 5% 50 ML IV SCH (15:28)
[2020-11-18] MEDS ORDERED: Custom Peripheral Pn 1,500 ML in TPN BAG 0 ML IV SCH (16:00)
--- NOTE | 2020-11-18 17:13 | Hospitalist Progress Note ---
Date of Service November 18, 2020 Assessment & Plan (1) Acute respiratory failure with hypoxia: (2) COVID-19 virus infection: Diagnosed on 10/21/2020. On this admission - Required intubation on 11/10/2020. - Presently extubated. - Continued dexamethasone while inpt, stopped now - Remdesivir and plasma not indicated given duration of positivity - on 1-2L NC - off isolation d/t duration of positivity Bacterial pna/ hosp. acquired -Chest CTA from 11/10 demonstrated segmental pulmonary embolus within the posterior segment of the right lower lobe with associated pulmonary infarct, adjacent airspace opacity with possible cavitation, scattered ground glass and tree-in-bud nodules within the lungs. -CT abd/pelvis noted small right pleural effusion with possible cystic focus of right lower lobe Procalcitonin 14.5, now down to 5.8 -Sputum cultures- posit. for Klebsiella, Quantiferon test - negative -Continued cefepime, doxy until speciation of sputum cultures with sensitivities - Transitioned to ceftriaxone, per pulmonary cont. Abx 10-14 days - attempted US for thoracentesis but pl. effusion seems resolved now - chest PT/ vest, incent. spirometry - mucomyst inh, when able to take PO add guaifenesin -Will transition to PO abx (3) Pulmonary embolism: CTA chest on 11/10 showed segmental pulmonary embolus within the posterior basilar segment of the right lower lobe with associated pulmonary infarct. LE DVT b/l - Presently on heparin gtt - Vascular consulted for possible IVC filter - Defer for this time given her RP bleed is smaller than prior scan. (4) Retroperitoneal hematoma: Originally noted on 10/25/2020. She was sent to [place] at that time. Was hospitalized 10/25-10/30. CTA abdomen / pelvis obtained at that time- unremarkable Prior to her dg. of hematoma - pt was on Lovenox 60 subq, this was stopped on discharge from [place] CT a/p this time shows improvement in the hematoma Continue IV heparin drip Will start coumadin since pt able to take po Dysphagia - Failed swallow study x2 - NG tube/ coresafe placement manually unsuccessful - unable to swallow her own secretions, frequent suctioning - Started pt on PPN, will cont. for now - NG tube placed endoscopically (11/16) but unfortunately pt pulled it out - Speech on board - Recommended minced and moist diet with thin liquid -Will discontinue PPN - Aspiration precaution Hypernatremia - secondary to poor oral intake - Na 150, on admission 148, now 149 (after 1/2 NSS) - Na level normal back in September - cont. to monitor, add D5W, nephro consult - monitor Na level -Na 143 now AD (Alzheimer's disease): Unclear baseline. - Monitor Congenital hydrocephalus: No known present issues. MDD (major depressive disorder): - Continue sertraline, carbamazepine, and donepezil once pt can take PO DVT prophylaxis: Heparin gtt and warfarin transition for DVT/PE once pt can take PO Admission and Anticipated Discharge Date Admission Date: November 10, 2020 Subjective Pt seen in follow up of Klebsiella pna, COVID pna, PE, DVT, hx of RP hematoma. Lying in bed with no distress Pt passed bedside swallow today Denies any chest pain, palpitation, dizziness and SOB Physical Exam Physical Exam: General- No acute distress Head- atraumatic Eyes- PERRL, EOMI, ENT- oropharynx clear Neck- supple, no JVD Lungs- diminished BS Heart- regular rhythm; no murmur Abdomen- normal bowel sounds, soft, nontender Extremities- no calf tenderness Neuro- alert, oriented x 3; PERRL, EOMI; no facial palsy; no dysarthria Skin- warm & dry Results & Data Results & Data ([facility]) Vital Signs (Past 12 Hours) Vital Signs Temp Pulse Pulse Resp BP Pulse Ox 11/18/20 15:41 36.5 C 78 20 114/77 93 11/18/20 10:59 36.4 C L 80 16 131/78 94 11/18/20 07:24 96 H 11/18/20 07:07 77 20 94 11/18/20 06:43 36.8 C 87 18 122/76 90 (1) Pulmonary embolism Acute cor pulmonale presence: unspecified Chronicity: unspecified Pulmonary embolism type: other Qualified Code(s): I26.99 - Other pulmonary embolism witho ut acute cor pulmonale
--- NOTE | 2020-11-18 19:10 | Nephrology Progress Note ---
Date of Service November 18, 2020 Assessment & Plan (1) Electrolyte imbalance: Patient with electrolytes imbalance mostly at this point hypernatremia> phos, K, mag have improved w/ PPN. Electrolyte problems are due to poor p.o. intake which is not likely to improve at least in the near term ?when/if repeat swallow study could be considered. -cont PPN -D5W stopped as sNa < 145 -daily bmp -continue discussions w/ family re approach to nutrition Care coordinated w/ Dr Lehman. Will sign off. Admission and Anticipated Discharge Date Admission Date: November 10, 2020 Subjective no c/o uncontrolled pain, no sob; no edema, no abd discomfort. seen on rounds 1020 approx Review of Systems Review of Systems: All systems reviewed & are unremarkable except as noted in Subjective Physical Exam Constitutional: well developed and well nourished; no acute distress Eyes: EOM intact bilaterally ENMT: Ears: no external ear abnormality Nose: no external nose abnormality Mouth: + dry oral mucous membranes Neck: no nuchal rigidity Respiratory: normal respiratory effort Auscultation: + diminished lung sounds Gastrointestinal (Abdomen): Inspection/Auscultation: normal bowel sounds Percussion/Palpation: abdomen soft; abdomen nontender Musculoskeletal: Extremities: + abnormal strength (? focal weakness RLE, LUE) Skin: no rashes, warm and dry Neurologic: awake Psychiatric: Orientation: alert, oriented to person and cooperative Results & Data ([place]) Vital Signs (Past 12 Hours) Vital Signs Temp Pulse Pulse Resp BP Pulse Ox 11/18/20 17:28 81 11/18/20 15:41 36.5 C 78 20 114/77 93 11/18/20 10:59 36.4 C L 80 16 131/78 94 11/18/20 07:24 96 H Laboratory Results 11/18/20 03:57 11/18/20 03:57
[2020-11-18] MEDS: ALBUT/IPRATROP 3MG/0.5MG NEB 3 ML VIAL NEB PRN (19:23)
[2020-11-18] MEDS: DONEPEZIL HCL 10 MG TAB PO SCH (20:34)
[2020-11-18 21:31] LABS: Partial Thromboplastin Time 52.1 Seconds (21.0-31.0)
[2020-11-19 06:51] LABS: Hemoglobin 8.2 g/dL (12.0-16.0); Mean Corpuscular Hemoglobin 30.4 pg (25-34); Mean Corpuscular Hgb Conc 31.5 g/dL (32-36); Mean Corpuscular Volume 96.3 fL (80-100); Mean Platelet Volume 11.3 fL (7.4-10.4); Platelet Count 250 K/uL (130-400); RDW Coefficient of Variation 17.6 % (11.5-14.5); RDW Standard Deviation 58.4 fL (36.4-46.3); White Blood Count 22.18 K/uL (4.8-10.8)
[2020-11-19] MEDS: HEPARIN SODIUM/DEXTROSE 25,000 UNITS/500 ML BAG IV SCH ×3 (07:03→15:39)
[2020-11-19 07:09] LABS: Partial Thromboplastin Ratio 1.8
[2020-11-19 07:11] LABS: Partial Thromboplastin Time 48.5 Seconds (21.0-31.0)
[2020-11-19] MEDS: ACETYLCYSTEINE 20% INHAL SOLN 4ML ***DISPENSED BY RESP. INH SCH (07:11)
[2020-11-19 07:20] LABS: Calcium 8.1 mg/dl (8.5-10.1); Creatinine Clr Calc Pharmacy 99.4 ml/min; Est GFR (African American) 106.5; Est GFR (Non-African American) 91.9; Magnesium 1.9 mg/dl (1.8-2.4); Phosphorus 3.4 mg/dl (2.5-4.9)
[2020-11-19] MEDS: carBAMazepine 200 MG TABLET PO SCH ×2 (08:21→19:53)
[2020-11-19] MEDS: DOXYCYCLINE HYCLATE 100 MG CAP PO SCH (08:22)
[2020-11-19] MEDS: SERTRALINE HCL 100 MG TABLET PO SCH (08:22)
[2020-11-19] MEDS: INSULIN ASPART 100 UNITS/ML 3 ML PEN SC SCH ×4 (08:22→20:52)
[2020-11-19] MEDS: CEFDINIR 300 MG CAP PO SCH ×2 (09:46→19:54)
--- NOTE | 2020-11-19 12:14 | Pharmacy Report ---
Pharmacy Glycemic Sign Off Nt - Date of Service November 19, 2020 - Assessment & Plan ASSESSMENT: * Pharmacy was consulted by Dr. Tyler for glycemic control and to write orders per [facility] inpatient glycemic control protocol. * Patient has been requiring 0-2 units of insulin per day for adequate glycemic control * BSGs ranging 102 - 126 mg/dl * Initially consulted when patient was receiving dexamethasone for treatment of COVID-19. This was stopped on 11/16/20. Regimen has only required minor adjustments since time of consultation. Even with PPN infusing, patient requires little to no insulin. PPN is being tapered today with possible discontinuation on 11/20. * Please see recommendations for outpatient antidiabetic regimen below. PLAN FOR INPATIENT GLYCEMIC CONTROL: No changes needed to current regimen. * No basal insulin * Continue NovoLog per scale ACHS/Q6hrs while NPO * Goal range = 110- 140 mg/dl * CF = 25 mg/dl/unit * CR = none * Pharmacy is signing off of glycemic consult and will no longer be making adjustments to inpatient regimen. Please feel free to re-consult if needed. Thank you. DISCHARGE RECOMMENDATIONS: * HbA1c = 5.8% which classifies patient as pre-diabetic. She is not on any diabetes medications. Recommend diet and exercise to control pre-diabetes. May consider SMBG every morning and recording fasting blood sugars for next PCP appointment.
[2020-11-19] MEDS: Custom Peripheral Pn 1,000 ML in TPN BAG 0 ML IV SCH (15:38)
[2020-11-19] MEDS: WARFARIN SOD 5 MG TAB PO SCH (15:39)
--- NOTE | 2020-11-19 17:18 | Hospitalist Progress Note ---
Date of Service November 19, 2020 Assessment & Plan (1) Acute respiratory failure with hypoxia: (2) COVID-19 virus infection: Diagnosed on 10/21/2020. On this admission - Required intubation on 11/10/2020. - Presently extubated. - Continued dexamethasone while inpt, stopped now - Remdesivir and plasma not indicated given duration of positivity - on 1-2L NC - off isolation d/t duration of positivity Bacterial pna/ hosp. acquired -Chest CTA from 11/10 demonstrated segmental pulmonary embolus within the posterior segment of the right lower lobe with associated pulmonary infarct, adjacent airspace opacity with possible cavitation, scattered ground glass and tree-in-bud nodules within the lungs. -CT abd/pelvis noted small right pleural effusion with possible cystic focus of right lower lobe Procalcitonin 14.5, now down to 5.8 -Sputum cultures- posit. for Klebsiella, Quantiferon test - negative -Continued cefepime, doxy until speciation of sputum cultures with sensitivities - Transitioned to ceftriaxone, per pulmonary cont. Abx 10-14 days - attempted US for thoracentesis but pl. effusion seems resolved now - chest PT/ vest, incent. spirometry - mucomyst inh, when able to take PO add guaifenesin -Will transition to PO abx (3) Pulmonary embolism: CTA chest on 11/10 showed segmental pulmonary embolus within the posterior basilar segment of the right lower lobe with associated pulmonary infarct. LE DVT b/l - Presently on heparin gtt - Vascular consulted for possible IVC filter - Defer for this time given her RP bleed is smaller than prior scan. (4) Retroperitoneal hematoma: Originally noted on 10/25/2020. She was sent to [place] at that time. Was hospitalized 10/25-10/30. CTA abdomen / pelvis obtained at that time- unremarkable Prior to her dg. of hematoma - pt was on Lovenox 60 subq, this was stopped on discharge from [place] CT a/p this time shows improvement in the hematoma Continue IV heparin drip Will start coumadin since pt able to take po Dysphagia - Failed swallow study x2 - NG tube/ coresafe placement manually unsuccessful - unable to swallow her own secretions, frequent suctioning - Started pt on PPN, will cont. for now - NG tube placed endoscopically (11/16) but unfortunately pt pulled it out - Speech on board - Recommended minced and moist diet with thin liquid -Will discontinue PPN - Aspiration precaution Hypernatremia - secondary to poor oral intake - Na 150, on admission 148, now 149 (after 1/2 NSS) - Na level normal back in September - cont. to monitor, add D5W, nephro consult - monitor Na level -Na 143 now AD (Alzheimer's disease): Unclear baseline. - Monitor Congenital hydrocephalus: No known present issues. MDD (major depressive disorder): - Continue sertraline, carbamazepine, and donepezil once pt can take PO DVT prophylaxis: Heparin gtt and warfarin transition for DVT/PE once pt can take PO Admission and Anticipated Discharge Date Admission Date: November 10, 2020 Subjective Pt was seen and examined for follow up Lying in bed with no distress Pt said that she feels weak Denies any chest pain, palpitation, dizziness and SOB Physical Exam Physical Exam: General- No acute distress Head- atraumatic Eyes- PERRL, EOMI, ENT- oropharynx clear Neck- supple, no JVD Lungs- diminished BS Heart- regular rhythm; no murmur Abdomen- normal bowel sounds, soft, nontender Extremities- no calf tenderness Neuro- alert, oriented x 3; PERRL, EOMI; no facial palsy; no dysarthria Skin- warm & dry Results & Data Results & Data ([facility]) Vital Signs (Past 12 Hours) Vital Signs Temp Pulse Pulse Pulse Resp BP Pulse Ox 11/19/20 15:21 36.2 C L 76 76 16 134/80 91 11/19/20 14:52 72 11/19/20 12:30 36.3 C L 76 18 147/82 H 90 11/19/20 07:42 36.4 C L 82 18 158/78 H 90 11/19/20 07:24 69 11/19/20 07:13 82 20 90 (1) Pulmonary embolism Acute cor pulmonale presence: unspecified Chronicity: unspecified Pulmonary embolism type: other Qualified Code(s): I26.99 - Other pulmonary embolism wit hout acute cor pulmonale
[2020-11-19] MEDS: DONEPEZIL HCL 10 MG TAB PO SCH (19:54)
[2020-11-20 07:29] LABS: INR 1.1 (0.9-1.1); Partial Thromboplastin Ratio 1.8; Prothrombin Time 10.9 Seconds (9.0-12.0)
[2020-11-20 07:34] LABS: Partial Thromboplastin Time 47.3 Seconds (21.0-31.0)
[2020-11-20 07:39] LABS: BUN Creatinine Ratio 31.5 (10-20); Calcium 7.8 mg/dl (8.5-10.1); Creatinine Clr Calc Pharmacy 95.6 ml/min; Est GFR (African American) 105.2; Est GFR (Non-African American) 90.8; Magnesium 1.9 mg/dl (1.8-2.4); Potassium 4.3 mmol/L (3.5-5.1)
[2020-11-20 08:06] LABS: Phosphorus 4.1 mg/dl (2.5-4.9)
[2020-11-20] MEDS: SERTRALINE HCL 100 MG TABLET PO SCH (08:35)
[2020-11-20] MEDS: INSULIN ASPART 100 UNITS/ML 3 ML PEN SC SCH ×4 (08:35→20:28)
[2020-11-20] MEDS: PANTOprazole 40 MG TAB PO SCH (08:35)
[2020-11-20] MEDS: carBAMazepine 200 MG TABLET PO SCH ×2 (08:36→20:14)
[2020-11-20] MEDS: CEFDINIR 300 MG CAP PO SCH ×2 (08:36→20:14)
[2020-11-20 10:43] LABS: Hematocrit (blood only) 26.6 % (37-47); Hemoglobin 8.3 g/dL (12.0-16.0); Mean Corpuscular Hemoglobin 30.1 pg (25-34); Mean Corpuscular Hgb Conc 31.2 g/dL (32-36); Mean Corpuscular Volume 96.4 fL (80-100); Mean Platelet Volume 11.8 fL (7.4-10.4); Platelet Count 270 K/uL (130-400); RDW Coefficient of Variation 17.6 % (11.5-14.5); RDW Standard Deviation 59.7 fL (36.4-46.3); Red Blood Count 2.76 M/uL (4.2-5.4); White Blood Count 20.02 K/uL (4.8-10.8)
[2020-11-20] MEDS: WARFARIN SOD 5 MG TAB PO SCH (15:58)
[2020-11-20] MEDS: Custom Peripheral Pn 1,000 ML in TPN BAG 0 ML IV SCH (16:03)
--- NOTE | 2020-11-20 17:24 | Hospitalist Progress Note ---
Date of Service November 20, 2020 Assessment & Plan (1) Acute respiratory failure with hypoxia: (2) COVID-19 virus infection: Diagnosed on 10/21/2020. On this admission - Required intubation on 11/10/2020. - Presently extubated. - Continued dexamethasone while inpt, stopped now - Remdesivir and plasma not indicated given duration of positivity - on 1-2L NC - off isolation d/t duration of positivity Bacterial pna/ hosp. acquired -Chest CTA from 11/10 demonstrated segmental pulmonary embolus within the posterior segment of the right lower lobe with associated pulmonary infarct, adjacent airspace opacity with possible cavitation, scattered ground glass and tree-in-bud nodules within the lungs. -CT abd/pelvis noted small right pleural effusion with possible cystic focus of right lower lobe Procalcitonin 14.5, now down to 5.8 -Sputum cultures- posit. for Klebsiella, Quantiferon test - negative -Continued cefepime, doxy until speciation of sputum cultures with sensitivities - Transitioned to ceftriaxone, per pulmonary cont. Abx 10-14 days - attempted US for thoracentesis but pl. effusion seems resolved now - chest PT/ vest, incent. spirometry - Mucomyst inh, when able to take PO add guaifenesin -Continue PO abx (3) Pulmonary embolism: CTA chest on 11/10 showed segmental pulmonary embolus within the posterior basilar segment of the right lower lobe with associated pulmonary infarct. LE DVT b/l - Presently on heparin gtt - Vascular consulted for possible IVC filter - Defer for this time given her RP bleed is smaller than prior scan. (4) Retroperitoneal hematoma: Originally noted on 10/25/2020. She was sent to [place] at that time. Was hospitalized 10/25-10/30. CTA abdomen / pelvis obtained at that time- unremarkable Prior to her dg. of hematoma - pt was on Lovenox 60 subq, this was stopped on discharge from [place] CT a/p this time shows improvement in the hematoma Continue IV heparin drip Will start coumadin since pt able to take po Dysphagia - Failed swallow study x2 - NG tube/ coresafe placement manually unsuccessful - unable to swallow her own secretions, frequent suctioning - Started pt on PPN, will cont. for now - NG tube placed endoscopically (11/16) but unfortunately pt pulled it out - Speech on board - Recommended minced and moist diet with thin liquid -Will discontinue PPN - Aspiration precaution Hypernatremia - secondary to poor oral intake - Na 150, on admission 148, now 149 (after 1/2 NSS) - Na level normal back in September - cont. to monitor, add D5W, nephro consult - monitor Na level -Na 143 now AD (Alzheimer's disease): Unclear baseline. - Monitor Congenital hydrocephalus: No known present issues. MDD (major depressive disorder): - Continue sertraline, carbamazepine, and donepezil once pt can take PO DVT prophylaxis: Heparin gtt and warfarin transition for DVT/PE once pt can take PO Admission and Anticipated Discharge Date Admission Date: November 10, 2020 Subjective Pt was seen and examined for follow up Lying in bed with no distress pt said that she is not having any pain Denies any chest pain, palpitation, dizziness and SOB Physical Exam Physical Exam: General- No acute distress Head- atraumatic Eyes- PERRL, EOMI, ENT- oropharynx clear Neck- supple, no JVD Lungs- diminished BS Heart- regular rhythm; no murmur Abdomen- normal bowel sounds, soft, nontender Extremities- no calf tenderness Neuro- alert, oriented x 3; PERRL, EOMI; no facial palsy; no dysarthria Skin- warm & dry Results & Data Results & Data ([facility]) Vital Signs (Past 12 Hours) Vital Signs Temp Pulse Pulse Resp BP Pulse Ox 11/20/20 16:05 74 11/20/20 15:33 36.7 C 75 18 109/59 L 95 11/20/20 10:48 36.9 C 71 22 129/81 93 11/20/20 07:46 36.5 C 72 18 145/80 H 94 11/20/20 07:14 72 (1) Pulmonary embolism Acute cor pulmonale presence: unspecified Chronicity: unspecified Pulmonary embolism type: other Qualified Code(s): I26.99 - Other pulmonary embolism without acute cor pulmonale
[2020-11-20] MEDS: HEPARIN SODIUM/DEXTROSE 25,000 UNITS/500 ML BAG IV SCH (19:34)
[2020-11-20] MEDS: DONEPEZIL HCL 10 MG TAB PO SCH (20:13)
[2020-11-21 06:33] LABS: Hematocrit (blood only) 25.7 % (37-47); Hemoglobin 8.1 g/dL (12.0-16.0); Mean Corpuscular Hemoglobin 30.3 pg (25-34); Mean Corpuscular Hgb Conc 31.5 g/dL (32-36); Mean Corpuscular Volume 96.3 fL (80-100); Mean Platelet Volume 11.3 fL (7.4-10.4); Platelet Count 310 K/uL (130-400); RDW Coefficient of Variation 17.9 % (11.5-14.5); RDW Standard Deviation 60.3 fL (36.4-46.3); Red Blood Count 2.67 M/uL (4.2-5.4); White Blood Count 17.38 K/uL (4.8-10.8)
[2020-11-21 06:48] LABS: INR 1.5 (0.9-1.1); Prothrombin Time 14.9 Seconds (9.0-12.0)
[2020-11-21 07:07] LABS: Partial Thromboplastin Ratio 2.1
[2020-11-21 07:08] LABS: Partial Thromboplastin Time 55.7 Seconds (21.0-31.0)
[2020-11-21] MEDS: PANTOprazole 40 MG TAB PO SCH (08:26)
[2020-11-21] MEDS: CEFDINIR 300 MG CAP PO SCH ×2 (08:26→21:07)
[2020-11-21] MEDS: SERTRALINE HCL 100 MG TABLET PO SCH (08:26)
[2020-11-21] MEDS: carBAMazepine 200 MG TABLET PO SCH ×2 (08:26→21:07)
[2020-11-21] MEDS: INSULIN ASPART 100 UNITS/ML 3 ML PEN SC SCH ×4 (09:18→21:17)
--- NOTE | 2020-11-21 15:24 | Hospitalist Progress Note ---
Date of Service November 21, 2020 Assessment & Plan (1) Acute respiratory failure with hypoxia: (2) COVID-19 virus infection: Diagnosed on 10/21/2020. On this admission - Required intubation on 11/10/2020. - Presently extubated. - Continued dexamethasone while inpt, stopped now - Remdesivir and plasma not indicated given duration of positivity - on 1-2L NC - off isolation d/t duration of positivity -Will consult palliative for goal of care Bacterial pna/ hosp. acquired -Chest CTA from 11/10 demonstrated segmental pulmonary embolus within the posterior segment of the right lower lobe with associated pulmonary infarct, adjacent airspace opacity with possible cavitation, scattered ground glass and tree-in-bud nodules within the lungs. -CT abd/pelvis noted small right pleural effusion with possible cystic focus of right lower lobe Procalcitonin 14.5, now down to 5.8 -Sputum cultures- posit. for Klebsiella, Quantiferon test - negative -Continued cefepime, doxy until speciation of sputum cultures with sensitivities - Transitioned to ceftriaxone, per pulmonary cont. Abx 10-14 days - attempted US for thoracentesis but pl. effusion seems resolved now - chest PT/ vest, incent. spirometry - WBC trending down - On Guafenessin -Continue PO abx (3) Pulmonary embolism: CTA chest on 11/10 showed segmental pulmonary embolus within the posterior basilar segment of the right lower lobe with associated pulmonary infarct. LE DVT b/l - Presently on heparin gtt - Vascular consulted for possible IVC filter - Defer for this time given her RP bleed is smaller than prior scan. (4) Retroperitoneal hematoma: Originally noted on 10/25/2020. She was sent to [place] at that time. Was hospitalized 10/25-10/30. CTA abdomen / pelvis obtained at that time- unremarkable Prior to her dg. of hematoma - pt was on Lovenox 60 subq, this was stopped on discharge from [place] CT a/p this time shows improvement in the hematoma Continue IV heparin drip bridge with coumadin Dysphagia - Failed swallow study x2 - NG tube/ coresafe placement manually unsuccessful - unable to swallow her own secretions, frequent suctioning - Started pt on PPN, will cont. for now - NG tube placed endoscopically (11/16) but unfortunately pt pulled it out - Speech on board - Recommended minced and moist diet with thin liquid - Aspiration precaution Hypernatremia - secondary to poor oral intake - Na 150, on admission 148, now 149 (after 1/2 NSS) - Na level normal back in September - cont. to monitor, add D5W, nephro consult - monitor Na level -Stable AD (Alzheimer's disease): Unclear baseline. - Monitor Congenital hydrocephalus: No known present issues. MDD (major depressive disorder): - Continue sertraline, carbamazepine, and donepezil once pt can take PO DVT prophylaxis: Heparin gtt and warfarin transition for DVT/PE once pt can take PO Admission and Anticipated Discharge Date Admission Date: November 10, 2020 Subjective Pt was seen and examined Lying in bed with no distress watching TV Will try to call family for update about her baseline prior to the admission Denies any chest pain, palpitation, dizziness and SOB Physical Exam Physical Exam: General- No acute distress Head- atraumatic Eyes- PERRL, EOMI, ENT- oropharynx clear Neck- supple, no JVD Lungs- diminished BS Heart- regular rhythm; no murmur Abdomen- normal bowel sounds, soft, nontender Extremities- no calf tenderness Neuro- alert, oriented x 3; PERRL, EOMI; no facial palsy; no dysarthria Skin- warm & dry Results & Data Results & Data ([facility]) Vital Signs (Past 12 Hours) Vital Signs Temp Pulse Resp BP Pulse Ox 11/21/20 14:58 36.5 C 67 18 101/65 96 11/21/20 11:54 36.9 C 70 20 114/79 90 11/21/20 07:23 36.3 C L 75 18 114/76 90 11/21/20 04:00 37.0 C 60 18 104/73 92 (1) Pulmonary embolism Acute cor pulmonale presence: unspecified Chronicity: unspecified Pulmonary embolism type: other Qualified Code(s): I26.99 - Other pulmonary embolism without acute cor pulmonale
[2020-11-21] MEDS: WARFARIN SOD 5 MG TAB PO SCH (17:39)
[2020-11-21] MEDS: DONEPEZIL HCL 10 MG TAB PO SCH (21:07)
[2020-11-21] MEDS: HEPARIN SODIUM/DEXTROSE 25,000 UNITS/500 ML BAG IV SCH (23:55)
[2020-11-22 06:40] LABS: INR 2.8 (0.9-1.1); Prothrombin Time 26.1 Seconds (9.0-12.0)
[2020-11-22 07:30] LABS: Partial Thromboplastin Ratio 2.4
[2020-11-22 07:57] LABS: Partial Thromboplastin Time 62.8 Seconds (21.0-31.0)
[2020-11-22] MEDS: PANTOprazole 40 MG TAB PO SCH (08:13)
[2020-11-22] MEDS: carBAMazepine 200 MG TABLET PO SCH ×2 (08:13→21:08)
[2020-11-22] MEDS: SERTRALINE HCL 100 MG TABLET PO SCH (08:14)
[2020-11-22] MEDS: CEFDINIR 300 MG CAP PO SCH ×2 (08:14→21:08)
[2020-11-22] MEDS: INSULIN ASPART 100 UNITS/ML 3 ML PEN SC SCH ×4 (08:47→21:57)
[2020-11-22] MEDS: WARFARIN SOD 3 MG TAB PO SCH (15:40)
[2020-11-22] MEDS: bisacodyL 5 MG TABEC PO PRN (15:40)
--- NOTE | 2020-11-22 17:17 | Hospitalist Progress Note ---
Date of Service November 22, 2020 Assessment & Plan (1) Acute respiratory failure with hypoxia: (2) COVID-19 virus infection: Diagnosed on 10/21/2020. On this admission - Required intubation on 11/10/2020. - Presently extubated. - Continued dexamethasone while inpt, stopped now - Remdesivir and plasma not indicated given duration of positivity - on 1-2L NC - off isolation d/t duration of positivity -Will consult palliative for goal of care Bacterial pna/ hosp. acquired -Chest CTA from 11/10 demonstrated segmental pulmonary embolus within the posterior segment of the right lower lobe with associated pulmonary infarct, adjacent airspace opacity with possible cavitation, scattered ground glass and tree-in-bud nodules within the lungs. -CT abd/pelvis noted small right pleural effusion with possible cystic focus of right lower lobe Procalcitonin 14.5, now down to 5.8 -Sputum cultures- posit. for Klebsiella, Quantiferon test - negative -Continued cefepime, doxy until speciation of sputum cultures with sensitivities - Transitioned to ceftriaxone, per pulmonary cont. Abx 10-14 days - attempted US for thoracentesis but pl. effusion seems resolved now - chest PT/ vest, incent. spirometry - WBC trending down - On Guafenessin -Continue PO abx (3) Pulmonary embolism: CTA chest on 11/10 showed segmental pulmonary embolus within the posterior basilar segment of the right lower lobe with associated pulmonary infarct. LE DVT b/l - Presently on heparin gtt - Vascular consulted for possible IVC filter - Defer for this time given her RP bleed is smaller than prior scan. (4) Retroperitoneal hematoma: Originally noted on 10/25/2020. She was sent to [place] at that time. Was hospitalized 10/25-10/30. CTA abdomen / pelvis obtained at that time- unremarkable Prior to her dg. of hematoma - pt was on Lovenox 60 subq, this was stopped on discharge from [place] CT a/p this time shows improvement in the hematoma Continue IV heparin drip bridge with coumadin Dysphagia - Failed swallow study x2 - NG tube/ coresafe placement manually unsuccessful - unable to swallow her own secretions, frequent suctioning - Started pt on PPN, will cont. for now - NG tube placed endoscopically (11/16) but unfortunately pt pulled it out - Speech on board - Recommended minced and moist diet with thin liquid - Aspiration precaution Hypernatremia - secondary to poor oral intake - Na 150, on admission 148, now 149 (after 1/2 NSS) - Na level normal back in September - cont. to monitor, add D5W, nephro consult - monitor Na level -Stable AD (Alzheimer's disease): Unclear baseline. - Monitor Congenital hydrocephalus: No known present issues. MDD (major depressive disorder): - Continue sertraline, carbamazepine, and donepezil once pt can take PO DVT prophylaxis: Heparin gtt and warfarin transition for DVT/PE once pt can take PO Admission and Anticipated Discharge Date Admission Date: November 10, 2020 Subjective Pt was seen and examined Lying in bed with no distress watching TV. She denies any pain I spoke to her daughter in law in details and provided with updated and answer all question daughter in law said that pt has been declined in the past few weeks She asking for a palliative care consult for goal of care Denies any chest pain, palpitation, dizziness and fever Physical Exam Physical Exam: General- No acute distress Head- atraumatic Eyes- PERRL, EOMI, ENT- oropharynx clear Neck- supple, no JVD Lungs- diminished BS Heart- regular rhythm; no murmur Abdomen- normal bowel sounds, soft, nontender Extremities- no calf tenderness Neuro- alert, oriented x 3; PERRL, EOMI; no facial palsy; no dysarthria Skin- warm & dry Results & Data Results & Data ([facility]) Vital Signs (Past 12 Hours) Vital Signs Temp Pulse Resp BP Pulse Ox 11/22/20 15:01 36.9 C 71 20 98/65 L 92 11/22/20 11:31 37.4 C 87 20 110/72 91 11/22/20 07:31 37.0 C 79 20 123/72 95 (1) Pulmonary embolism Acute cor pulmonale presence: unspecified Chronicity: unspecified Pulmonary embolism type: other Qualified Code(s): I26.99 - Other pulmonary embolism without acute cor pulmonale
[2020-11-22] MEDS: DONEPEZIL HCL 10 MG TAB PO SCH (21:08)
[2020-11-23] MEDS: PANTOprazole 40 MG TAB PO SCH (08:10)
[2020-11-23] MEDS: carBAMazepine 200 MG TABLET PO SCH ×2 (08:10→20:00)
[2020-11-23] MEDS: SERTRALINE HCL 100 MG TABLET PO SCH (08:10)
[2020-11-23] MEDS: CEFDINIR 300 MG CAP PO SCH ×2 (08:10→20:00)
[2020-11-23] MEDS: bisacodyL 5 MG TABEC PO PRN (08:10)
[2020-11-23 08:23] LABS: Hematocrit (blood only) 29.3 % (37-47); Hemoglobin 9.1 g/dL (12.0-16.0); Mean Corpuscular Hemoglobin 30.3 pg (25-34); Mean Corpuscular Hgb Conc 31.1 g/dL (32-36); Mean Corpuscular Volume 97.7 fL (80-100); Mean Platelet Volume 10.2 fL (7.4-10.4); Platelet Count 327 K/uL (130-400); RDW Coefficient of Variation 17.7 % (11.5-14.5); White Blood Count 10.34 K/uL (4.8-10.8)
[2020-11-23 08:32] LABS: INR 3.5 (0.9-1.1); Prothrombin Time 31.8 Seconds (9.0-12.0)
[2020-11-23 08:39] LABS: BUN Creatinine Ratio 21.3 (10-20); Calcium 8.8 mg/dl (8.5-10.1); Creatinine Clr Calc Pharmacy 89.1 ml/min; Est GFR (African American) 103.5; Est GFR (Non-African American) 89.3; Potassium 4.1 mmol/L (3.5-5.1)
[2020-11-23] MEDS: INSULIN ASPART 100 UNITS/ML 3 ML PEN SC SCH ×4 (08:59→20:05)
[2020-11-23] MEDS: WARFARIN SOD 3 MG TAB PO SCH (10:58)
--- NOTE | 2020-11-23 12:09 | Palliative Care Consultation ---
Date of Consultation November 23, 2020 Assessment & Plan (1) Palliative care encounter: This is a patient who presented to the [facility] ED with hypoxia and shortness of breath from [facility]. She has a PMH that includes The patient has a significant recent history including a recent hospitalization here in September 2020 for ambulatory dysfunction, generalized weakness, multiple falls, and possible medicine noncompliance. She also was hospitalized in October in [place] for a small retroperitoneal bleed, which, on this admission does seem to have decreased in size. She was found to have tested positive for COVID-19 on October 23. Ultimately, her breathing worsened while in the ED and she was subsequently intubated. A CTA was performed with concerns for PE and possible pulmonary infarcts. She also was She was able to be extubated on 11/11. Unfortunately,she has been having difficulty with swallowing since having COVID and has failed two swallow studies with ST. She had two NGT placed and ultimately pulled them both out. She was started on PPN, but this is currently discontinued and she was started on minced and pureed diet with thin liquids. Palliative Care was consulted to discuss goals of care. I met with the patient in her room. She was watching TV and in no apparent dist ress. Mental status appears to have returned to her baseline. She is able to participate and hold conversation. Overall, she did not have any complaints. When I asked her what her thoughts were regarding fci feeding, she pondered momentarily and said "I am just not sure yet". She did express being comfortable with PPN at the moment. Patient has PPN infusing, but unfortunately, not a long term care administrator solution. Per review of GI note on 11/17 patient family indicated that they would not want G-Tube placement. In review of contacts information; patient lived at [facility], but is followed closely by [facility]. I did call out to Celestina at [facility] to discuss but was only able to leave a voicemail. Need to confirm who has decision making capabilities for this patient. Patient does have a son named Bill, but need to clarify if he is able to make decisions for patient. PT/OT has been recommended at discharge and can be done at [facility]. Unfortunately, PPN can not be a long term care administrator solution at a SNF. POLST would be helpful at discharge. Palliative will follow up. (2) Dementia: Dementia behavioral disturbance: with behavioral disturbance Dementia type: unspecified type Qualified Code(s): F03.91 - Unspecified dementia with behavioral disturbance (3) Acute respiratory failure with hypoxia: (4) Metabolic encephalopathy: (5) Weakness: History of Present Illness Reason for Consultation: Goals of care Requesting Physician: Dr. Lehman Attending Physician: Vesna Lehman MD History of Present Illness This is a patient who presented to the [facility] ED with hypoxia and shortness of breath from [place]. She has a PMH that includes The patient has a significant recent history including a recent hospitalization here in September 2020 for ambulatory dysfunction, generalized weakness, multiple falls, and possible medicine noncompliance. She also was hospitalized in October in [place] for a small retroperitoneal bleed, which, on this admission does seem to have decreased in size. She was found to have tested positive for COVID-19 on October 23. Ultimately, her breathing worsened while in the ED and she was subsequently intubated. A CTA was performed with concerns for PE and possible pulmonary infarcts. She also was She was able to be extubated on 11/11. Unfortunately,she has been having difficulty with swallowing since having COVID and has failed two swallow studies with ST. She had two NGT placed and ultimately pulled them both out. She was started on PPN, but this is currently discontinued and she was started on minced and pureed diet with thin liquids. Palliative Care was consulted to discuss goals of care. Please see A/P for further details. Thank you kindly for involving palliative care with this individual. Allergies Allergy/AdvReac Type Severity Reaction Status Date / Time No Known Allergies Allergy Unverified 10/25/20 09:24 Home Medications Medication Instructions Recorded Confirmed Type carbamazepine 200 mg PO BID 02/07/19 10/25/20 History donepezil 10 mg PO HS 09/06/19 11/10/20 History clotrimazole-betamethasone 1 applic TOPICAL BID 09/21/20 10/25/20 History furosemide 20 mg PO DAILY 09/21/20 10/25/20 History sertraline 100 mg PO QAM 09/21/20 11/10/20 History calcium carbonate [Tums] 500 mg PO DAILY #0 tab 09/25/20 10/25/20 Rx polyethylene glycol 3350 [Miralax] 17 g PO DAILY PRN #0 ea 09/25/20 10/25/20 Rx cholecalciferol (vitamin D3) 50 mcg PO QAM 10/25/20 11/10/20 History [Vitamin D3] enoxaparin [Lovenox] 60 mg SUBCUT DAILY 10/25/20 10/25/20 History famotidine 20 mg PO DAILY 10/25/20 10/25/20 History melatonin 3 mg PO HS 10/25/20 11/10/20 History ondansetron 4 mg PO Q4H PRN 10/25/20 10/25/20 History pantoprazole 40 mg PO DAILYBB 10/25/20 10/25/20 History sennosides-docusate sodium 1 tab-cap PO DAILY 10/25/20 10/25/20 History [Senokot-S] albuterol sulfate 2.5 mg INHALATION Q4H PRN 11/10/20 11/10/20 History clotrimazole-betamethasone 1 applic TOPICAL UD 11/10/20 11/10/20 History [Lotrisone] hydrocortisone 1 applic TOPICAL UD 11/10/20 11/10/20 History Patient History Medical History Acute kidney injury Acute respiratory failure with hypoxia AD (Alzheimer's disease) Ambulatory dysfunction Anxiety Chronic venous stasis Congenital hydrocephalus stable on head CT 11/10/20 COVID-19 initial positive 10/23, intub 11/10, extub 11/11 Dementia Infarctions, pulmonary MDD (major depressive disorder) Metabolic encephalopathy Pulmonary embolism Respiratory failure Retroperitoneal hematoma Surgical History H/O eye surgery "Strabismus Surgery" History of tonsillectomy History of tubal ligation Hx of tonsillectomy Family History Other Cancer Diabetes Social History Smoking Status: Unknown if ever smoked Preferred Language: Chilean Communication Ability: Impaired Beliefs That Will Affect Care: None Current Living Situation: Alone Current Living Situation Comment: [place] [facility] comes to home Feels Safe at Home: Yes Assistive Devices: Oxygen - Continuous Review of Systems Review of Systems: All systems reviewed & are unremarkable except as noted in HPI & below Physical Exam Constitutional: well developed and comfortable Respiratory: normal respiratory effort, lungs clear to auscultation Cardiovascular: RRR, no murmur, no edema Gastrointestinal (Abdomen): normal bowel sounds, soft, nontender, no hepatosplenomegaly Skin: + pallor Psychiatric: A+Ox3, euthymic affect Insight: + limited insight Judgement: + limited judgement Results & Data ([facility]) Vital Signs (Past 12 Hours) Vital Signs Temp Pulse Resp BP Pulse Ox 11/23/20 11:44 36.7 C 84 18 92/64 L 93 11/23/20 07:00 36.6 C 74 20 106/69 92 11/23/20 04:00 36.4 C L 65 20 108/74 93 PG Care Time/CCT Total # of Minutes Spent Total Time Spent with Patient: Total time spent is greater than 50% in coordination of care (as documented) at patient's floor/unit and/or counseling patient: 70 Coding Level of Care Code 53228 Inpt Consult Level 3 Diagnoses Palliative care encounter Z51.5 Dementia F03.91 Dementia behavioral disturbance: with behavioral disturbance Dementia type: unspecified type Acute respiratory failure with hypoxia J96.01 Metabolic encephalopathy G93.41 Weakness R53.1 Time Spent (min) 70 Time Spent Midlevel Total time spent 70 minutes with >50% of that time spent assessing the patient, discussing goals of care, and collaborating with IDT
--- NOTE | 2020-11-23 17:13 | Hospitalist Progress Note ---
Date of Service November 23, 2020 Assessment & Plan (1) Acute respiratory failure with hypoxia: (2) COVID-19 virus infection: Diagnosed on 10/21/2020. On this admission - Required intubation on 11/10/2020. - Presently extubated. - Continued dexamethasone while inpt, stopped now - Remdesivir and plasma not indicated given duration of positivity - on 1-2L NC - off isolation d/t duration of positivity -Palliative care consulted for goal of care Bacterial pna/ hosp. acquired -Chest CTA from 11/10 demonstrated segmental pulmonary embolus within the posterior segment of the right lower lobe with associated pulmonary infarct, adjacent airspace opacity with possible cavitation, scattered ground glass and tree-in-bud nodules within the lungs. -CT abd/pelvis noted small right pleural effusion with possible cystic focus of right lower lobe Procalcitonin 14.5, now down to 5.8 -Sputum cultures- posit. for Klebsiella, Quantiferon test - negative -Continued cefepime, doxy until speciation of sputum cultures with sensitivities - Transitioned to ceftriaxone, per pulmonary cont. Abx 10-14 days - attempted US for thoracentesis but pl. effusion seems resolved now - chest PT/ vest, incent. spirometry - WBC trending down - On Guafenessin -Continue PO abx with cefdinir (3) Pulmonary embolism: CTA chest on 11/10 showed segmental pulmonary embolus within the posterior basilar segment of the right lower lobe with associated pulmonary infarct. LE DVT b/l - Presently on heparin gtt - Vascular consulted for possible IVC filter - Defer for this time given her RP bleed is smaller than prior scan. - Heparin drip was discontinued since INR was therapeutic - INR 3.5 today, will hold today dose of coumadin (4) Retroperitoneal hematoma: Originally noted on 10/25/2020. She was sent to [place] at that time. Was hospitalized 10/25-10/30. CTA abdomen / pelvis obtained at that time- unremarkable Prior to her dg. of hematoma - pt was on Lovenox 60 subq, this was stopped on discharge from [place] CT a/p this time shows improvement in the hematoma IV heparin drip was discontinued Will hold coumadin today since INR 3.5 Dysphagia - Failed swallow study x2 - NG tube/ coresafe placement manually unsuccessful - unable to swallow her own secretions, frequent suctioning - Started pt on PPN, will cont. for now - NG tube placed endoscopically (11/16) but unfortunately pt pulled it out - Speech on board - Recommended minced and moist diet with thin liquid - Aspiration precaution Hypernatremia - secondary to poor oral intake - Na 150, on admission 148, now 149 (after 1/2 NSS) - Na level normal back in September - cont. to monitor, add D5W, nephro consult - monitor Na level -Stable AD (Alzheimer's disease): Unclear baseline. - Monitor Congenital hydrocephalus: No known present issues. MDD (major depressive disorder): - Continue sertraline, carbamazepine, and donepezil once pt can take PO DVT prophylaxis: Hold Coumadin today, INR 3.5 today CODE STATUS DNR Disposition Will transfer to SNF Admission and Anticipated Discharge Date Admission Date: November 10, 2020 Subjective Pt was seen and examined Lying in bed with no distress watching TV. She did not eat much today Denies any chest pain, palpitation, dizziness and fever Physical Exam Physical Exam: General- No acute distress Head- atraumatic Eyes- PERRL, EOMI, ENT- oropharynx clear Neck- supple, no JVD Lungs- diminished BS Heart- regular rhythm; no murmur Abdomen- normal bowel sounds, soft, nontender Extremities- no calf tenderness Neuro- alert, oriented x 3; PERRL, EOMI; no facial palsy; no dysarthria Skin- warm & dry Results & Data Results & Data ([facility]) Vital Signs (Past 12 Hours) Vital Signs Temp Pulse Resp BP Pulse Ox 11/23/20 15:04 37.0 C 86 18 97/65 L 97 11/23/20 11:44 36.7 C 84 18 92/64 L 93 11/23/20 07:00 36.6 C 74 20 106/69 92 (1) Pulmonary embolism Acute cor pulmonale presence: unspecified Chronicity: unspecified Pulmonary embolism type: other Qualified Code(s): I26.99 - Other pulmonary embolism without acute cor pulmonale
[2020-11-23] MEDS: DONEPEZIL HCL 10 MG TAB PO SCH (20:00)
[2020-11-24 05:54] LABS: Hematocrit (blood only) 25.2 % (37-47); Hemoglobin 7.9 g/dL (12.0-16.0); Mean Corpuscular Hemoglobin 30.4 pg (25-34); Mean Corpuscular Hgb Conc 31.3 g/dL (32-36); Mean Corpuscular Volume 96.9 fL (80-100); Mean Platelet Volume 10.5 fL (7.4-10.4); Platelet Count 331 K/uL (130-400); RDW Coefficient of Variation 17.5 % (11.5-14.5); White Blood Count 9.25 K/uL (4.8-10.8)
[2020-11-24 05:58] LABS: Prothrombin Time 19.4 Seconds (9.0-12.0)
[2020-11-24] MEDS: CEFDINIR 300 MG CAP PO SCH ×2 (08:00→21:45)
[2020-11-24] MEDS: PANTOprazole 40 MG TAB PO SCH (08:00)
[2020-11-24] MEDS: SERTRALINE HCL 100 MG TABLET PO SCH (08:01)
[2020-11-24] MEDS: carBAMazepine 200 MG TABLET PO SCH ×2 (08:01→21:45)
[2020-11-24] MEDS: INSULIN ASPART 100 UNITS/ML 3 ML PEN SC SCH ×4 (08:04→20:53)
--- NOTE | 2020-11-24 12:47 | Palliative Care Progress Note ---
Date of Service November 24, 2020 Assessment & Plan (1) Palliative care encounter: While Lyudmila is awake and conversant, she does not seem to answer questions appropriately and answers yes to pretty much anything I ask her. She did tell me that she has been living at [facility]. I am not convinced that she is capable of decision making at this time. I did speak with her telephonic nurse case manager at [facility], Celestina. She tells me that Lyudmila has not had a close relationship with her son. She does not have an advance directive or a healthcare power of commonwealth attorney. They have been working with [facility] of [place] since her stay at [facility] because at that time there was question about whether she was safe to return home. She has two contacts at [employer] [place]. Lyudmila Clement and Katharina Maurer who have been working with Celestina on Lyudmila's behalf. We discussed her current code status and need to clarify who would be the surrogate decision maker for Lyudmila moving forward. Celestina tells me that she has talked with Lyudmila in the past and that Lyudmila has said that she is afraid of dying and going to the hospital but has never really expressed other thoughts about her care. She will discuss this further with the office of aging. (2) COVID-19: (3) Acute respiratory failure with hypoxia: (4) Pneumonia: (5) Pulmonary embolism: (6) Retroperitoneal hematoma: Admission and Anticipated Discharge Date Admission Date: November 10, 2020 [place] Just finished physical therapy with sitting on the edge of the bed for 30 minutes. She is tired and does not open her eyes during our conversation but does answer questions. She denies pain or dyspnea. Per RN she ate about 50% of breakfast, pureed, without difficulty. Review of Systems Review of Systems: [employer] Symptom Assessment Scale Pain0/3 Dyspnea 0/3 Nausea 0/3 Anorexia 1/3 Fatigue 2/3 Anxiety 0/3 Palliative Performance Score 40% Physical Exam Constitutional: no acute distress ENMT: Mouth: oral mucous membranes not dry Respiratory: normal respiratory effort; no labored breathing clear to auscultation anteriorly Cardiovascular: Rate/Rhythm: regular rate and regular rhythm Gastrointestinal (Abdomen): Percussion/Palpation: abdomen nontender Musculoskeletal: Extremities: extremities normal to inspection Skin: no rashes, warm and dry Neurologic: moves all extremities Results & Data ([facility]) Vital Signs (Past 12 Hours) Vital Signs Temp Pulse Pulse Resp BP BP Pulse Ox 11/24/20 11:11 97.5 F L 82 18 123/80 94 11/24/20 07:40 97.9 F 84 20 106/67 90 11/24/20 07:15 81 11/24/20 04:17 98.1 F 82 16 86/54 L 91 PG Care Time/CCT Total # of Minutes Spent Total Time Spent with Patient: Total time spent is greater than 50% in coordination of care (as documented) at patient's floor/unit and/or counseling patient: Total time spent 40 minutes with more than 50% of time spent on coordinating and discussing goals of care. Coding Level of Care Code 16133 Subseq Hosp Care Lvl 3 Diagnoses Palliative care encounter Z51.5 COVID-19 U07.1 Acute respiratory failure with hypoxia J96.01 Pneumonia J18.9 Pulmonary embolism I26.99 Acute cor pulmonale presence: unspecified Chronicity: unspecified Pulmonary embolism type: other Retroperitoneal hematoma K66.1 Time Spent (min) 40 (1) Pulmonary embolism Acute cor pulmonale presence: unspecified Chronicity: unspecified Pulmonary embolism type: other Qualified Code(s): I26.99 - Other pulmonary embolism without acute cor pulmonale
[2020-11-24 13:53] LABS: Hematocrit (blood only) 27.6 % (37-47); Hemoglobin 8.6 g/dL (12.0-16.0)
[2020-11-24] MEDS ORDERED: bisacodyL 10 MG SUPP PR PRN (16:13)
[2020-11-24] MEDS ORDERED: bisacodyL 10 MG SUPP PR STA (16:16)
--- NOTE | 2020-11-24 18:41 | Hospitalist Progress Note ---
Date of Service November 24, 2020 Assessment & Plan (1) Acute respiratory failure with hypoxia: (2) COVID-19 virus infection: Diagnosed on 10/21/2020. On this admission - Required intubation on 11/10/2020. - Presently extubated. - Continued dexamethasone while inpt, stopped now - Remdesivir and plasma not indicated given duration of positivity - on 1-2L NC - off isolation d/t duration of positivity -Palliative care consulted for goal of care -Palliative team spoke to Lyudmila Hodge " and said pt has not had a close relationship with her son. - She does not have an advance directive or a healthcare power of ip technology transactions attorney. Bacterial pna/ hosp. acquired -Chest CTA from 11/10 demonstrated segmental pulmonary embolus within the posterior segment of the right lower lobe with associated pulmonary infarct, adjacent airspace opacity with possible cavitation, scattered ground glass and tree-in-bud nodules within the lungs. -CT abd/pelvis noted small right pleural effusion with possible cystic focus of right lower lobe Procalcitonin 14.5, now down to 5.8 -Sputum cultures- posit. for Klebsiella, Quantiferon test - negative -Continued cefepime, doxy until speciation of sputum cultures with sensitivities - Transitioned to ceftriaxone, per pulmonary cont. Abx 10-14 days - attempted US for thoracentesis but pl. effusion seems resolved now - chest PT/ cordellt, incent. spirometry - WBC trending down - On Guafenessin -Continue PO abx with cefdinir (3) Pulmonary embolism: CTA chest on 11/10 showed segmental pulmonary embolus within the posterior basilar segment of the right lower lobe with associated pulmonary infarct. LE DVT b/l - Presently on heparin gtt - Vascular consulted for possible IVC filter - Defer for this time given her RP bleed is smaller than prior scan. - Heparin drip was discontinued since INR was therapeutic - INR 2.0 today, Continue coumadin (4) Retroperitoneal hematoma: Originally noted on 10/25/2020. She was sent to [place] at that time. Was hospitalized 10/25-10/30. CTA abdomen / pelvis obtained at that time- unremarkable Prior to her dg. of hematoma - pt was on Lovenox 60 subq, this was stopped on discharge from [place] CT a/p this time shows improvement in the hematoma IV heparin drip was discontinued On coumadin with INR 2 Dysphagia - Failed swallow study x2 - NG tube/ coresafe placement manually unsuccessful - unable to swallow her own secretions, frequent suctioning - Started pt on PPN, will cont. for now - NG tube placed endoscopically (11/16) but unfortunately pt pulled it out - Speech on board - Recommended minced and moist diet with thin liquid - Aspiration precaution Hypernatremia - secondary to poor oral intake - Na 150, on admission 148, now 149 (after 1/2 NSS) - Na level normal back in September - cont. to monitor, add D5W, nephro consult - monitor Na level -Stable AD (Alzheimer's disease): Unclear baseline. - Monitor Congenital hydrocephalus: No known present issues. MDD (major depressive disorder): - Continue sertraline, carbamazepine, and donepezil once pt can take PO DVT prophylaxis: on Coumadin today, INR 2 today CODE STATUS DNR Disposition Will transfer to SNF tomorrow Admission and Anticipated Discharge Date Admission Date: November 10, 2020 Subjective Pt was seen and examined Lying in bed with no distress watching TV Pt said that she feels ok Denies any chest pain, palpitation, dizziness and SOB Review of Systems Review of Systems: All systems reviewed & are unremarkable except as noted in Subjective Physical Exam Physical Exam: General- No acute distress Head- atraumatic Eyes- PERRL, EOMI, ENT- oropharynx clear Neck- supple, no JVD Lungs- diminished BS Heart- regular rhythm; no murmur Abdomen- normal bowel sounds, soft, nontender Extremities- no calf tenderness Neuro- alert, oriented x 3; PERRL, EOMI; no facial palsy; no dysarthria Skin- warm & dry Results & Data Results & Data ([facility]) Vital Signs (Past 12 Hours) Vital Signs Temp Pulse Pulse Resp BP Pulse Ox 11/24/20 14:55 36.8 C 78 18 113/76 90 11/24/20 11:11 36.4 C L 82 18 123/80 94 11/24/20 07:40 36.6 C 84 20 106/67 90 11/24/20 07:15 81 (1) Pulmonary embolism Acute cor pulmonale presence: unspecified Chronicity: unspecified Pulmonary embolism type: other Qualified Code(s): I26.99 - Other pulmonary embolism without acute cor pulmonale
[2020-11-24] MEDS: DONEPEZIL HCL 10 MG TAB PO SCH (21:45)
[2020-11-25] MEDS ORDERED: WARFARIN SOD 2 MG TAB PO ONE (00:44)
[2020-11-25 07:48] LABS: Hematocrit (blood only) 28.4 % (37-47); Hemoglobin 8.8 g/dL (12.0-16.0); Mean Corpuscular Hemoglobin 29.9 pg (25-34); Mean Corpuscular Volume 96.6 fL (80-100); Mean Platelet Volume 9.9 fL (7.4-10.4); Platelet Count 390 K/uL (130-400); RDW Coefficient of Variation 17.7 % (11.5-14.5); RDW Standard Deviation 61.5 fL (36.4-46.3); Red Blood Count 2.94 M/uL (4.2-5.4); White Blood Count 8.62 K/uL (4.8-10.8)
[2020-11-25 08:05] LABS: INR 1.8 (0.9-1.1); Prothrombin Time 17.1 Seconds (9.0-12.0)
[2020-11-25 08:20] LABS: BUN Creatinine Ratio 25.7 (10-20); Calcium 8.7 mg/dl (8.5-10.1); Creatinine Clr Calc Pharmacy 72.9 ml/min; Est GFR (Non-African American) 81.1; Potassium 4.2 mmol/L (3.5-5.1)
[2020-11-25] MEDS: INSULIN ASPART 100 UNITS/ML 3 ML PEN SC SCH (09:16)
[2020-11-25] MEDS: PANTOprazole 40 MG TAB PO SCH (09:17)
[2020-11-25] MEDS: SERTRALINE HCL 100 MG TABLET PO SCH (09:17)
[2020-11-25] MEDS: CEFDINIR 300 MG CAP PO SCH (09:17)
[2020-11-25] MEDS: carBAMazepine 200 MG TABLET PO SCH (09:18)
--- NOTE | 2020-11-25 09:21 | Hospitalist Progress Note ---
Date of Service November 25, 2020 Assessment & Plan (1) Acute respiratory failure with hypoxia: (2) COVID-19 virus infection: Diagnosed on 10/21/2020. On this admission - Required intubation on 11/10/2020. - Presently extubated. - Continued dexamethasone while inpt, then stopped - Remdesivir and plasma not indicated given duration of positivity - on 1-2L NC - off isolation d/t duration of positivity -Palliative care consulted for goals of care -Palliative team spoke to Lyudmila [place] Pierre" and said pt has not had a close relationship with her son. - She does not have an advance directive or a healthcare power of trade mark attorney. Initially it was believed that her son is her POA, therefore further discussion/ POLST needed after discharge Bacterial pna/ hosp. acquired -Chest CTA from 11/10 demonstrated segmental pulmonary embolus within the posterior segment of the right lower lobe with associated pulmonary infarct, adjacent airspace opacity with possible cavitation, scattered ground glass and tree-in-bud nodules within the lungs. -CT abd/pelvis noted small right pleural effusion with possible cystic focus of right lower lobe Procalcitonin 14.5, now down to 5.8 -Sputum cultures- posit. for Klebsiella, Quantiferon test - negative -Continued cefepime, doxy until speciation of sputum cultures with sensitivities - Transitioned to ceftriaxone, per pulmonary cont. Abx 10-14 days - attempted US for thoracentesis but pl. effusion seems resolved now - chest PT/ vest, incent. spirometry - WBC trending down / normalized - On Guafenessin -Continue PO abx with cefdinir on DC also cont. incentive spirometry and flutter valve (3) Pulmonary embolism: CTA chest on 11/10 showed segmental pulmonary embolus within the posterior basilar segment of the right lower lobe with associated pulmonary infarct. LE DVT b/l - Presently on heparin gtt - Vascular consulted for possible IVC filter - Defer for this time given her RP bleed is smaller than prior scan. - Heparin drip was discontinued since INR was therapeutic - INR 2.0 yesterday, 1.8 today, Continue coumadin Pt will need INR check in 2-3 days and H&H check in a week. (4) Retroperitoneal hematoma: Originally noted on 10/25/2020. She was sent to [place] at that time. Was hospitalized 10/25-1/22. CTA abdomen / pelvis obtained at that time- unremarkable Prior to her dg. of hematoma - pt was on Lovenox 60 subq, this was stopped on discharge from [place] CT a/p this time shows improvement in the hematoma IV heparin drip was discontinued On coumadin with INR 2 Continue coumadin Pt will need INR check in 2-3 days and H&H check in a week. Dysphagia - Failed swallow study x2 - NG tube/ coresafe placement manually unsuccessful - unable to swallow her own secretions, frequent suctioning - Started pt on PPN, will cont. for now - NG tube placed endoscopically (11/16) but unfortunately pt pulled it out - Speech on board - Recommended minced and moist diet with thin liquid - Aspiration precaution Hypernatremia - secondary to poor oral intake - Na 150, on admission 148/149 (after 1/2 NSS) - Na level normal back in September - cont. to monitor, add D5W, nephro consult - monitor Na level -Normal for the past week Check sodium level in a week AD (Alzheimer's disease): Unclear baseline. - Monitor Congenital hydrocephalus: No known present issues. MDD (major depressive disorder): - Continue sertraline, carbamazepine, and donepezil once pt can take PO DVT prophylaxis: on Coumadin CODE STATUS - discussed - was DNR per family, however son is not POA, palliative medicine consulted - will need further discussion Disposition Will transfer to SNF today Admission and Anticipated Discharge Date Admission Date: November 10, 2020 Subjective Pt seen in follow up of PE, resp. failure, PNA, dysphagia and other med. problems She is lying in bed in no acute distress Pt says that she feels ok, denies any pain, has no complaints Denies any chest pain, palpitation, or SOB Review of Systems Review of Systems: All systems reviewed & are unremarkable except as noted in HPI & below Physical Exam Physical Exam: Constitutional: WD/WN, vitals as above, on suppl. O2 Eyes: PERRL, conjunctivae normal, anicteric sclerae Neck: normal visual inspection Respiratory: decreased air entry, + mild rhonchi, no wheezing noted Cardiovascular: RRR Heart Sounds: no murmur Gastrointestinal (Abdomen): Inspection/Auscultation: normal bowel sounds,abdomen soft; no guarding Neurologic: moves extremities, speech fluent but slow Psychiatric: able to answer simple questions appropriately (at baseline) Results & Data Results & Data ([facility]) Vital Signs (Past 12 Hours) Vital Signs Temp Pulse Pulse Resp BP Pulse Ox 11/25/20 08:03 72 11/25/20 08:01 36.6 C 86 18 111/75 97 11/25/20 03:24 36.6 C 74 16 106/72 93 11/25/20 00:54 87 11/24/20 23:20 36.6 C 81 17 99/64 L 95 Laboratory Results 11/25/20 11/25/20 11/25/20 Range/Units 07:45 07:21 07:21 WBC (4.8-10.8) K/uL RBC (4.2-5.4) M/uL Hgb (12.0-16.0) g/dL Hct (37-47) % MCV (80-100) fL MCH (25-34) pg MCHC (32-36) g/dL RDW Std Deviation (36.4-46.3) fL RDW Coeff of Virgilio (11.5-14.5) % Plt Count (130-400) K/uL MPV (7.4-10.4) fL PT 17.1 H (9.0-12.0) Seconds INR 1.8 H (0.9-1.1) Sodium 142 (136-145) mmol/L Potassium 4.2 (3.5-5.1) mmol/L Chloride 107 (98-107) mmol/L Carbon Dioxide 30 (21-32) mmol/L Anion Gap 5.0 (3-11) BUN 19 H (7-18) mg/dl Creatinine 0.73 (0.6-1.2) mg/dl Est Cr Clr Drug Dosing 72.9 ml/min Est GFR ( Amer) 94.0 Est GFR (Non-Af Amer) 81.1 BUN/Creatinine Ratio 25.7 H (10-20) Glucose 84 (70-99) mg/dl POC Glucose 85 (70-99) mg/dl Calcium 8.7 (8.5-10.1) mg/dl 11/25/20 11/24/20 11/24/20 Range/Units 07:21 20:36 16:33 WBC 8.62 (4.8-10.8) K/uL RBC 2.94 L (4.2-5.4) M/uL Hgb 8.8 L (12.0-16.0) g/dL Hct 28.4 L (37-47) % MCV 96.6 (80-100) fL MCH 29.9 (25-34) pg MCHC 31.0 L (32-36) g/dL RDW Std Deviation 61.5 H (36.4-46.3) fL RDW Coeff of Virgilio 17.7 H (11.5-14.5) % Plt Count 390 (130-400) K/uL MPV 9.9 (7.4-10.4) fL PT (9.0-12.0) Seconds INR (0.9-1.1) Sodium (136-145) mmol/L Potassium (3.5-5.1) mmol/L Chloride (98-107) mmol/L Carbon Dioxide (21-32) mmol/L Anion Gap (3-11) BUN (7-18) mg/dl Creatinine (0.6-1.2) mg/dl Est Cr Clr Drug Dosing ml/min Est GFR ( Amer) Est GFR (Non-Af Amer) BUN/Creatinine Ratio (10-20) Glucose (70-99) mg/dl POC Glucose 118 H 103 H (70-99) mg/dl Calcium (8.5-10.1) mg/dl 11/24/20 11/24/20 Range/Units 13:43 11:22 WBC (4.8-10.8) K/uL RBC (4.2-5.4) M/uL Hgb 8.6 L (12.0-16.0) g/dL Hct 27.6 L (37-47) % MCV (80-100) fL MCH (25-34) pg MCHC (32-36) g/dL RDW Std Deviation (36.4-46.3) fL RDW Coeff of Virgilio (11.5-14.5) % Plt Count (130-400) K/uL MPV (7.4-10.4) fL PT (9.0-12.0) Seconds INR (0.9-1.1) Sodium (136-145) mmol/L Potassium (3.5-5.1) mmol/L Chloride (98-107) mmol/L Carbon Dioxide (21-32) mmol/L Anion Gap (3-11) BUN (7-18) mg/dl Creatinine (0.6-1.2) mg/dl Est Cr Clr Drug Dosing ml/min Est GFR ( Amer) Est GFR (Non-Af Amer) BUN/Creatinine Ratio (10-20) Glucose (70-99) mg/dl POC Glucose 103 H (70-99) mg/dl Calcium (8.5-10.1) mg/dl Medications Administered Current Inpatient Medications Albuterol (Albut/Ipratrop 3mg/0.5mg Neb 3 Ml Vial) 3 ml NEB Q4R PRN PRN Reason: Shortness Of Breath Or Wheezing Stop: 12/13/20 14:59 Last Admin: 11/18/20 19:23 Dose: 3 ml Documented by: Bisacodyl (Bisacodyl 5 Mg Tabec) 5 mg PO DAILY PRN PRN Reason: Constipation Stop: 12/22/20 08:48 Last Admin: 11/23/20 08:10 Dose: 5 mg Documented by: Bisacodyl (Bisacodyl 10 Mg Supp) 10 mg NE DAILY PRN PRN Reason: Constipation Stop: 12/24/20 16:12 Carbamazepine (Carbamazepine 200 Mg Tablet) 200 mg PO BID DANIELLA Stop: 12/11/20 20:59 Last Admin: 11/24/20 21:45 Dose: 200 mg Documented by: Cefdinir (Cefdinir 300 Mg Cap) 300 mg PO BID DANIELLA Stop: 11/26/20 08:59 Last Admin: 11/24/20 21:45 Dose: 300 mg Documented by: Donepezil HCl (Donepezil Hcl 10 Mg Tab) 10 mg PO HS DANIELLA Stop: 12/10/20 20:59 Last Admin: 11/24/20 21:45 Dose: 10 mg Documented by: Heparin Sodium (Beef Lung) (Heparin 10 Unit/Ml 5 Ml Flush) 5 ml FLUSH PRN PRN PRN Reason: Flush Stop: 12/11/20 22:31 Last Admin: 11/16/20 14:18 Dose: 5 ml Documented by: Dextrose (D5w) 500 mls @ 75 mls/hr IV .[id number] DANIELLA Stop: 12/13/20 10:14 Last Admin: 11/15/20 07:10 Dose: Not Given Documented by: Insulin Aspart (Insulin Aspart 100 Units/Ml 3 Ml Pen) 0 units SC [facility]; Protocol Stop: 12/18/20 07:29 Last Admin: 11/24/20 20:53 Dose: Not Given Documented by: Pantoprazole Sodium (Pantoprazole 40 Mg Tab) 40 mg PO [facility] Stop: 12/12/20 08:59 Last Admin: 11/24/20 08:00 Dose: 40 mg Documented by: Sertraline HCl (Sertraline Hcl 100 Mg Tablet) 100 mg PO [facility] Stop: 12/12/20 08:59 Last Admin: 11/24/20 08:01 Dose: 100 mg Documented by: Warfarin Sodium (Warfarin Sod 3 Mg Tab) 3 mg PO DAILY@1600 [facility] Stop: 12/22/20 15:59 Last Admin: 11/23/20 10:58 Dose: Not Given Documented by: (1) Pulmonary embolism Acute cor pulmonale presence: unspecified Chronicity: unspecified Pulmonary embolism type: other Qualified Code(s): I26.99 - Other pulmonary embolism without acute cor pulmonale
--- NOTE | 2020-11-25 09:26 | Discharge Summary ---
Date of Service November 25, 2020 Admission HPI Per Admitting Provider Lyudmila Guillen is a 75-year-old female with history of congenital hydrocephalus who presents to the ER via EMS from [facility] for hypoxia and shortness of breath. Patient tested positive for Covid on October 23. Increasing shortness of breath over the last few days. In triage patient with respiratory rate 55 with O2 sats 90% on 15 L nonrebreather. Moaning to painful stimuli. Full code. She was intubated in the emergency room due to acute hypoxic respiratory failure. Unable to get any history from the patient due to sedation and intubation. Subsequent imaging showed chronic severe hydrocephalus which remains unchanged from previous. CT angiogram concerning for segmental pulmonary embolus with associated pulmonary infarcts. Scattered groundglass tree-in-bud nodules throughout likely consistent with COVID-[address] abdomen pelvis shows decreased size of subacute retroperitoneal hematoma. Moderate fecal retention of rectum with findings suggestive of stercoral proctitis. The patient has a significant recent history including hospitalization here in September 2020 for ambulatory dysfunction, generalized weakness, multiple falls, hypocalcemia with some concerns of medication compliance at that time. [facility]. She returned to the ER on October 25 due to syncope with hypotension and subsequent workup showed a moderate to large left retroperitoneal/extraperitoneal hematoma and she was subsequently transferred to [facility] - the details of which are not available on admission but I understand no surgical intervention took place. Her ER physician Dr. Naylor discussed case with ICU attending Dr. Tyler who has already reviewed patient. Admission Exam Per Admitting Provider Constitutional: no acute distress Eyes: PERRL, conjunctivae normal, anicteric sclerae Respiratory: symmetric chest movement Auscultation: + rhonchi (b/l anteriorly) and + wheezes (mild expiratory wheeze) Intubated on ventilator Cardiovascular: Rate/Rhythm: regular rhythm and + tachycardic Heart Sounds: no murmur Extremities: + pedal edema Gastrointestinal (Abdomen): Inspection/Auscultation: normal bowel sounds; abdomen not distended Percussion/Palpation: abdomen soft; abdomen nontender Neurologic: + not awake Psychiatric: Orientation: + not alert Principal Diagnosis Acute respiratory failure with hypoxia: COVID-19 virus infection: Bacterial pna/ hosp. acquired Pulmonary embolism, LE DVT b/l Retroperitoneal hematoma Dysphagia Hypernatremia Discharge Exam Constitutional: WD/WN, vitals as above, on suppl. O2 Eyes: PERRL, conjunctivae normal, anicteric sclerae Neck: normal visual inspection Respiratory: decreased air entry, + mild rhonchi, no wheezing noted Cardiovascular: RRR Heart Sounds: no murmur Gastrointestinal (Abdomen): Inspection/Auscultation: normal bowel sounds,abdomen soft; no guarding Neurologic: moves extremities, speech fluent but slow Psychiatric: able to answer simple questions appropriately (at baseline) Discharge Data Allergies Allergy/AdvReac Type Severity Reaction Status Date / Time No Known Allergies Allergy Unverified 10/25/20 09:24 Consultations 11/10/20 12:50 Consult X Ray Control Equipment Repairer Stat 11/10/20 12:51 ED Decision to Admit Stat 11/10/20 13:11 Consult Vascular Surgery Stat 11/10/20 14:42 Consult Case Management - Discharge Planning Routine 11/12/20 16:35 Consult Nephrology Routine Consult Pulmonology Routine 11/22/20 08:41 Consult Palliative Care Routine 11/22/20 13:33 Consult Case Management - Discharge Planning Routine Procedures Performed Operation Date: 11/16/20 07:00 <No data on this case meets the specified criteria> Operation Date: 11/16/20 16:45 Actual Procedures p Esophagogastroduodenoscopy - Braden Heath MD Ordered Studies 11/10/20 12:07 CT abd pelvis IV con only Stat IMPRESSION: 1. Small right pleural effusion with bibasilar patchy opacities and right lower lobe consolidation suggestive of pneumonia. Additionally, there is a 2.3 x 2.1 cm cystic focus of the basal right lower lobe which may reflect a developing abscess. Findings should be correlated clinically to exclude aspiration. 2. Decreased size of the subacute retroperitoneal hematoma as above. 3. Deep venous thrombi of the bilateral common femoral and superficial femoral veins. 4. Moderate fecal retention of the rectum with findings suggestive of stercoral proctitis. 5. No bowel obstruction. 6. Cholelithiasis. 7. Moderate hiatal hernia. CT angio chest PE protocol Stat IMPRESSION: 1. Segmental pulmonary embolus within the posterior basilar segment of the right lower lobe with associated pulmonary infarct. Adjacent smaller pulmonary infarct with possible cavitation. Adjacent airspace opacity may reflect pneumonia or atelectasis. 2. Small, partially loculated right pleural effusion. Sterility cannot be assessed by CT. 3. Scattered groundglass and tree-in-bud nodules within the lungs consistent with an infectious process or sequela of aspiration. 4. Tip of endotracheal tube 8 mm above the melody. The tube could be withdrawn 1.5 cm. 5. Mild right hilar adenopathy which is likely reactive. 6. Tip of left internal jugular central line at the junction of a left SVC and coronary sinus. CT head/brain wo con Stat IMPRESSION: No acute intracranial findings. No change in severe hydrocephalus. 11/10/20 13:08 US venous doppler LE BI Stat IMPRESSION: Bilateral deep venous thrombosis as above. 11/14/20 09:24 US point of care ultrasound Urgent Hospital Course (1) Acute respiratory failure with hypoxia: (2) COVID-19 virus infection: Diagnosed on 10/21/2020. On this admission - Required intubation on 11/10/2020. - Presently extubated. - Continued dexamethasone while inpt, then stopped - Remdesivir and plasma not indicated given duration of positivity - on 1-2L NC - off isolation d/t duration of positivity -Palliative care consulted for goals of care -Palliative team spoke to Lyudmila Pierre" and said pt has not had a close relationship with her son. - She does not have an advance directive or a healthcare power of divorce attorney. Initially it was believed that her son is her POA, therefore further discussion/ POLST needed after discharge Bacterial pna/ hosp. acquired -Chest CTA from 11/10 demonstrated segmental pulmonary embolus within the posterior segment of the right lower lobe with associated pulmonary infarct, adjacent airspace opacity with possible cavitation, scattered ground glass and tree-in-bud nodules within the lungs. -CT abd/pelvis noted small right pleural effusion with possible cystic focus of right lower lobe Procalcitonin 14.5, now down to 5.8 -Sputum cultures- posit. for Klebsiella, Quantiferon test - negative -Continued cefepime, doxy until speciation of sputum cultures with sensitivities - Transitioned to ceftriaxone, per pulmonary cont. Abx 10-14 days - attempted US for thoracentesis but pl. effusion seems resolved now - chest PT/ vest, incent. spirometry - WBC trending down / normalized - On Guafenessin -Continue PO abx with cefdinir on DC also cont. incentive spirometry and flutter valve (3) Pulmonary embolism: CTA chest on 11/10 showed segmental pulmonary embolus within the posterior basilar segment of the right lower lobe with associated pulmonary infarct. LE DVT b/l - Presently on heparin gtt - Vascular consulted for possible IVC filter - Defer for this time given her RP bleed is smaller than prior scan. - Heparin drip was discontinued since INR was therapeutic - INR 2.0 yesterday, 1.8 today, Continue coumadin Pt will need INR check in 2-3 days and H&H check in a week. (4) Retroperitoneal hematoma: Originally noted on 10/25/2020. She was sent to [place] at that time. Was hospitalized 10/25-10/30. CTA abdomen / pelvis obtained at that time- unremarkable Prior to her dg. of hematoma - pt was on Lovenox 60 subq, this was stopped on discharge from [place] CT a/p this time shows improvement in the hematoma IV heparin drip was discontinued On coumadin with INR 2 Continue coumadin Pt will need INR check in 2-3 days and H&H check in a week. Dysphagia - Failed swallow study x2 - NG tube/ coresafe placement manually unsuccessful - unable to swallow her own secretions, frequent suctioning - Started pt on PPN, will cont. for now - NG tube placed endoscopically (11/16) but unfortunately pt pulled it out - Speech on board - Recommended minced and moist diet with thin liquid - Aspiration precaution Hypernatremia - secondary to poor oral intake - Na 150, on admission 148/149 (after 1/2 NSS) - Na level normal back in September - cont. to monitor, add D5W, nephro consult - monitor Na level -Normal for the past week Check sodium level in a week AD (Alzheimer's disease): Unclear baseline. - Monitor Congenital hydrocephalus: No known present issues. MDD (major depressive disorder): - Continue sertraline, carbamazepine, and donepezil once pt can take PO DVT prophylaxis: on Coumadin CODE STATUS - discussed - was DNR per family, however son is not POA, palliative medicine consulted - will need further discussion Disposition Will transfer to SNF today Total Time Total Time Spent Total Time Spent (In Minutes): 40 Total Time Includes: Examination of the Patient, Discharge Planning and Medication Reconciliation Discharge Plan Discharge Items Patient Disposition: Transfer Alf Fac Reason For Visit: COVID-19 Discharge Diagnosis: Acute respiratory failure with hypoxia: COVID-19 virus infection: Bacterial pna/ hosp. acquired Pulmonary embolism, LE DVT b/l Retroperitoneal hematoma Dysphagia Hypernatremia Condition on Discharge: Fair Activity: Per Instructions section Non-emergency contact: Primary Care Provider Call non-emergency contact if: you have any medication questions Follow-up/Referrals: Almaz, [Primary Care Provider] - Diet: Heart Healthy Diet Texture: Pureed (blended smooth) Diet Comment: ASPIRATION PRECAUTIONS Addtl Attending Provider Instructions: Pt was started on warfarin given pulmonary embolism. Also has history of retroperitoneal hematoma, and therefore INR needs to be closely monitored. Recommend next INR check in next 2 to 3 days. Adjust warfarin dose as needed. Check H&H in a week. Finish antibiotic course (next couple of days as prescribed). Pt has significant dysphagia and aspiration precautions are crucial. She needs assistance with all her meals. She was found hypernatremic during this admission (d/t lack of PO intake), current sodium level is normal. Recommend to re-check sodium level in a week. She should use incentive spirometry and flutter valve every couple of hours a day. Pt currently has Rosario catheter, Recommend voiding trial within a week or so. Code status discussed during this hospitalization and palliative medicine was consulted. Patient's son was initially believed to be the pt's POA but he is actually not. Therefore she should be considered Full code as of now. Further discussion needed/ POLST. Pending Studies at Discharge: No Stand-Alone Forms: My [facility] Skilled Items Patient informed of condition?: Yes DNR: No Discharge Level of Care: Skilled Communicable Disease: No Discharge Prognosis: Stable Lines: None Urinary Catheter: Yes Medications and DC Order Prescriptions: New warfarin 3 mg Tablet 3 mg PO DAILY@1600 Qty: 30 RF: 0 cefdinir 300 mg Capsule 300 mg PO BID 4 Days Qty: 8 RF: 0 Continued sennosides-docusate sodium [Senokot-S] 8.6-50 mg Tablet 1 tab-cap PO DAILY RF: 0 melatonin 3 mg Tablet 3 mg PO HS RF: 0 famotidine 20 mg Tablet 20 mg PO DAILY RF: 0 pantoprazole 40 mg Tablet,Delayed Release (Dr/Ec) 40 mg PO DAILYBB RF: 0 ondansetron 4 mg Tablet,Disintegrating 4 mg PO Q4H PRN (Reason: Nausea) RF: 0 cholecalciferol (vitamin D3) [Vitamin D3] 50 mcg (2,000 unit) Tablet 50 mcg PO QAM RF: 0 albuterol sulfate 2.5 mg /3 mL (0.083 %) Solution For Nebulization 2.5 mg INHALATION Q4H PRN (Reason: Shortness Of Breath) RF: 0 clotrimazole-betamethasone [Lotrisone] 1-0.05 % Cream 1 applic TOPICAL UD RF: 0 hydrocortisone 2.5 % Cream 1 applic TOPICAL UD RF: 0 carbamazepine 200 mg tablet 200 mg PO BID RF: 0 donepezil 10 mg tablet 10 mg PO HS RF: 0 clotrimazole-betamethasone 1-0.05 % cream 1 applic TOPICAL BID RF: 0 sertraline 100 mg tablet 100 mg PO QAM RF: 0 calcium carbonate [Tums] 200 mg calcium (500 mg) Tablet,Chewable 500 mg PO DAILY Qty: 0 RF: 0 polyethylene glycol 3350 [Miralax] 17 gram Powder In Packet 17 g PO DAILY PRNQty: 0 RF: 0 Discontinued enoxaparin [Lovenox] 60 mg/0.6 mL Syringe 60 mg SUBCUT DAILY RF: 0 furosemide 20 mg tablet 20 mg PO DAILY RF: 0 Discharge Orders: Discharge Order (Routine); Ordered 11/25/20 Ordered By: Yunior Brownlee Admission Data Admit Date/Time: 11/10/20 13:41 Attending Provider: Yunior Brownlee Admit Provider: Nils Horne Primary Care Provider: [facility], [place] Providers: Yunior Brownlee ; Ivan Tyler ; Nils Horne ; Anjel Valdivia ; Abhinav Argueta ; Lee Laboy ; Chantelle Garcia ; Vesna Lehman
[2020-12-08] MEDS ORDERED: INFLUENZA VACCINE HIGH DOSE 65+ 0.7 ML SYR IM ONE (09:00)
== END 2020-11-25 11:20 | DRG 208 ==
LOC: ED 11:12 → SUATTDRO 13:41 → 1E 13:41 → 2N 11-12 12:25 → 2S 11-12 18:22 → 2W 11-17 18:15